=== PATIENT | female | born 1965 | race Caucasian/White ===

== ENCOUNTER → 2018-10-12 | Outpatient (CLI) | payer BC ==
[~2018-10-12] MED LIST: ACET-819 PO; CLCX200C PO; ETAN50PE SQ; GLUC100016 PO; LORA10CA PO; LVT.025T PO; OXYC1TAB87 PO; SULF500T3 PO
--- NOTE | 2018-10-12 10:56 | Diagnostic Imaging Report ---
PROCEDURE: MRI left joint lower extremity without contrast. TECHNIQUE: Multiplanar, multisequence non contrast-enhanced MRI of the left ankle and midfoot was accomplished. INDICATION: Left ankle and midfoot pain. COMPARISONS: None available. FINDINGS: TENDONS: Achilles is normal. Peroneus brevis has a short segment split longitudinal tear in the inframalleolar region, but the distal insertion is normal. Peroneus longus is normal. Posterior tibialis, flexor digitorum longus and flexor hallucis longus are intact. There is a small amount of fluid around the flexor hallucis longus which is expected given its communication with the tibiotalar joint. The anterior tibialis, extensor hallucis longus and extensor digitorum longus are all normal where seen. LIGAMENTS: Anterior and posterior distal tibiofibular ligaments are normal. Anterior talofibular, calcaneofibular and posterior talofibular ligaments remain intact. Medial deltoid ligamentous complex is normal. BONES AND CARTILAGE: No osteochondral lesion of the talar dome. Edema with potential trabecular fracture line involving the base of the fourth metatarsal is present. No additional fracture or stress fracture. The articular cartilage of the tibiotalar and posterior subtalar joints are normal. SOFT TISSUES: No evidence of plantar fasciitis. No abnormal soft tissue scar/fibrosis within the tarsal canal/sinus tarsi or tarsal tunnel. No ankle joint effusion. IMPRESSION: 1. Acute to subacute nondisplaced fracture involving the base of the fourth metatarsal. 2. No ligament tear. 3. 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 Its insertion on the base of the fifth metatarsal remains intact. Dictated by: Dictated on workstation # [id number]
== END ==
LOC: RAD 08:29
PROVIDERS: ATTEND Podiatrist Foot & Ankle Surgery
DX: S92.342A Displaced fracture of fourth metatarsal bone, left foot, initial encounter for closed fracture (principal); S96.812A Strain of other specified muscles and tendons at ankle and foot level, left foot, initial encounter; M76.62 Achilles tendinitis, left leg; M72.2 Plantar fascial fibromatosis; M77.52 Other enthesopathy of left foot and ankle
CPT/HCPCS: 73721

== ENCOUNTER 2019-01-16 05:58 | Outpatient (CLI) | payer BC ==
[~2019-01-16] VITALS: Ht 167.6 cm; Wt 99.8 kg
[2019-01-16] MEDS ORDERED: CELE-63 PO (14:05)
[2019-01-16] MEDS ORDERED: ETAN50PE SQ (14:05)
[2019-01-16] MEDS ORDERED: MV-M1TAB57 PO (14:05)
[2019-01-16] MEDS ORDERED: OMEP20TA33 PO (14:05)
[2019-01-16] MEDS ORDERED: colon health PO (14:05)
[2019-01-16] MEDS ORDERED: LEVO100T7 PO (14:05)
[2019-01-16] MEDS ORDERED: GLUC100016 PO (14:05)
== END 2019-01-16 14:08 | disposition home or self-care (01) ==
LOC: PREOP 05:58
PROVIDERS: ATTEND Internal Medicine
DX: Z01.818 Encounter for other preprocedural examination (principal)

== ENCOUNTER 2019-01-18 08:53 | Day surgery (SDC) | payer BC ==
--- NOTE | 2019-01-15 20:52 | HISTORY AND PHYSICAL ---
DATE OF SERVICE: COLONOSCOPY HISTORY AND PHYSICAL HISTORY OF PRESENT ILLNESS: The patient is a 53-year-old white female referred by Dr. Saniya Schwab for her first screening colonoscopy. She is deemed to be of higher than average risk as her father was diagnosed with colon cancer at the age of 60. Her mother had a history of colon polyps and underwent intestinal resection, which is not sure of the exact causes, but it may have been related to diverticulitis. She states that she feels well. She has noted no bowel habit change and denies bright red blood per rectum or melena. PAST MEDICAL HISTORY: Significant with 13-year history of psoriatic arthritis for which she has been taking Enbrel. 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 She has history of reflux for which she takes omeprazole. MEDICATIONS ON ADMISSION: Include Celebrex 200 mg daily, glucosamine in the form of Osteo Bi-Flex 1500 mg twice a day, Tylenol 1000 mg in the morning and 1000 mg in the evening, Claritin 10 mg daily, Synthroid 25 mcg daily, Enbrel 50 mg weekly, 20 mg omeprazole daily and a probiotic daily. SOCIAL HISTORY: She has no past smoking history and no significant alcohol intake. 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 REVIEW OF SYSTEMS: CONSTITUTIONAL: She denies night sweats, chills, fever or change in weight. CARDIOVASCULAR: She denies any past problems with arrhythmia, chest pain or dyspnea. RESPIRATORY: She denies any problems with cough, dyspnea on exertion, snoring or wheezing. GASTROINTESTINAL: As noted in the HPI. FAMILY HISTORY: As stated in the HPI. In addition, she has one sister with history of hyperlipidemia and arthritis. Brother is 4 years older with history of depression and hyperlipidemia. PHYSICAL EXAMINATION: GENERAL: Reveals well-appearing white female, in no acute distress. VITAL SIGNS: Weight is 222 pounds, blood pressure 126/70. HEENT: Unremarkable. NECK: Revealed no JVD, adenopathy or bruits. She is a Mallampati class 2 oropharyngeal configuration. CHEST: Clear to auscultation. CARDIOVASCULAR: Reveals a regular rate and rhythm without murmur, S3 or S4. ABDOMEN: Soft, supple without mass, organomegaly or tenderness. EXTREMITIES: Revealed no cyanosis, clubbing or edema. SKIN EVALUATION: Revealed no psoriatic plaque formation. No telangiectasias are noted. ASSESSMENT AND PLAN: The patient is set up for screening colonoscopy. Rationale was discussed. She is deemed to be of higher than average risk as her father had history of colon cancer diagnosed at the age of 60 and mother apparently has history of colon polyps and has undergone resection, possibly for diverticular disease. Prep instructions with Suprep kit were given and questions were answered. The patient is set up for colonoscopy on 01/18/2019. With evaluation of her electronic medical record, 40 minutes care time had been spent by myself, another 15 minutes of staff time setting up procedure and going over prep instructions. I thank you for the referral of this pleasant lady. Job ID: [id number] DocumentID: [id number] Dictated Date: 01/14/2019 19:55:56 [employer] Date: 01/14/2019 20:23:39 Dictated By: NASIR LAY MD MTDD
[~2019-01-18] VITALS: Ht 167.6 cm; Wt 99.8 kg
[~2019-01-18 08:53] MED LIST changes: +CELE-63 PO; +LEVO100T7 PO; +MV-M1TAB57 PO; +OMEP20TA33 PO; +colon health PO
--- OUTSIDE RECORDS SUMMARY | 2019-01-18 08:59 | XMS REPORT | CCD ---
Author Author [facility] Organization [facility] Address [address] [place] [address] Phone Care Team Providers Care Economics Instructor Name Role Phone PP Unavailable CCM Unavailable Summary Purpose Interface Exchange Insurance Providers Payer name Policy type / Coverage type Covered constitution party ID Effective Begin Date Effective End Date Blue Cross Blue [facility] Blue Cross/Blue Shield [id number] Unknown Unknown Family history Sister Diagnosis Age At Onset Hyperlipidemia Unknown Arthritis Unknown Father Diagnosis Age At Onset Stroke Unknown Hyperlipidemia Unknown Colorectal malignancy Unknown Diabetes mellitus Type 2 Unknown Myocardial infarction Unknown Mother Diagnosis Age At Onset Osteoporosis Unknown Diabetes Unknown Arthritis Unknown Myocardial infarction Unknown Brother Diagnosis Age At Onset Depression Unknown Hyperlipidemia Unknown Runs in the family Diagnosis Age At Onset Breast cancer Unknown Cancer Unknown Arthritis Unknown Social History Social History Element Codes Description Effective Dates Marital status Unknown Single 06/10/2013 Employment Unknown 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[address]: 6599277 Former smoker 06/10/[address]: 3529002 Former smoker quit 200606/10/2013 Number of years using tobacco Unknown 1 smoked a few months 06/10/2013 Alcohol history Unknown occasionally drinks alcohol 06/10/2013 Alcohol history Unknown occasionally drinks alcohol 06/10/2013 Frequency of drinks SNOMED CT: 404605753 Drinks rarely 1/month 06/10/2013 Allergies, Adverse Reactions, Alerts Allergies, Adverse Reactions, Alerts data not found Past Medical History Illness Codes Condition Status Onset Date Resolved Date Atrophy of thyroid (acquired) ICD-9: 244.8 ICD-10: E03.4 Active 04/19/2016 Unknown Type 2 diabetes mellitus without complications ICD-9: 250.00 ICD-10: E11.9 Active 03/19/2014 Unknown Encounter for general adult medical examination without abnormal findings ICD-9: V70.0 ICD-10: Z00.00 Active 11/07/2016 Unknown Hypothyroidism, unspecified ICD-9: 244.9 ICD-10: E03.9 Active 03/02/2016 Unknown Other vitamin B12 deficiency anemias ICD-9: 281.1 ICD-10: D51.8 Active 05/18/2016 Unknown Gastro-esophageal reflux disease without esophagitis ICD-9: 530.81 ICD-10: K21.9 Active 06/05/2016 Unknown VACCIN FOR INFLUENZA ICD- 9: V04.81 ICD-10: Z23 Active 05/18/2016 Unknown Encounter for immunization ICD-9: V03.9 ICD-10: Z23 Active 04/19/2016 Unknown Other fatigue ICD-9: 780.79 ICD-10: R53.83 Active 03/02/2016 Unknown Routine medical exam ICD- 9: V70.0 Active 03/18/2015 Unknown EDEMA ICD-9: 782.3 Active 01/21/2015 Unknown Osteoarthritis ICD-9: 715.90 Active 06/19/2014 Unknown DIABETES TYPE II ICD-9: 250.00 Active 03/19/2014 Unknown Hypothyroidism ICD-9: 244.9 Active 03/19/2014 Unknown Diabetes Unknown Active 09/25/2013 Unknown Hypothryroidism Unknown Active 06/25/2013 Unknown Elevated blood sugar ICD- 9: 790.29 Active 06/25/2013 Unknown Arthritis Unknown Active 06/10/2013 Unknown Osteoarthritis Unknown Active 06/10/2013 Unknown 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 Unknown Encounter for long-term (current) use of other medications ICD-9: V58.69 Active 06/10/2013 Unknown Knee pain, bilateral ICD- 9: 719.46 Active 06/10/2013 Unknown OBESITY ICD-9: 278.00 Active 06/10/2013 Unknown Problems Condition Codes Effective Dates Condition Status Atrophy of thyroid (acquired) ICD-9: 244.8 ICD-10: E03.4 04/19/2016 Active Type 2 diabetes mellitus without complications ICD-9: 250.00 ICD-10: E11.9 03/19/2014 Active Encounter for general adult medical examination without abnormal findings ICD-9: V70.0 ICD-10: Z00.00 11/07/2016 Active Hypothyroidism, unspecified ICD-9: 244.9 ICD-10: E03.9 03/02/2016 Active Other vitamin B12 deficiency anemias ICD-9: 281.1 ICD-10: D51.8 05/18/2016 Active Gastro-esophageal reflux disease without esophagitis ICD-9: 530.81 ICD-10: K21.9 06/05/2016 Active VACCIN FOR INFLUENZA ICD- 9: V04.81 ICD-10: Z23 05/18/2016 Active Encounter for immunization ICD-9: V03.9 ICD-10: Z23 04/19/2016 Active Other fatigue ICD-9: 780.79 ICD-10: R53.83 03/02/2016 Active Routine medical exam ICD- 9: V70.0 03/18/2015 Active EDEMA ICD-9: 782.3 01/21/2015 Active Osteoarthritis ICD-9: 715.90 06/19/2014 Active DIABETES TYPE II ICD-9: 250.00 03/19/2014 Active Hypothyroidism ICD-9: 244.9 03/19/2014 Active Diabetes Unknown 09/25/2013 Active Hypothryroidism Unknown 06/25/2013 Active Elevated blood sugar ICD- 9: 790.29 06/25/2013 Active Arthritis Unknown 06/10/2013 Active Osteoarthritis Unknown 06/10/2013 Active 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 Active Encounter for long-term (current) use of other medications ICD-9: V58.69 06/10/2013 Active Knee pain, bilateral ICD- 9: 719.46 06/10/2013 Active OBESITY ICD-9: 278.00 06/10/2013 Active Medications Medication Codes Instructions Start Date Stop Date Status Fill Instructions Synthroid 100 mcg tablet RxNorm: 855283 TAKE 1 TABLET BY MOUTH DAILY MONDAY THRU Monday02/14/2017 07/11/2017 Active 02/14/2017 7:59:51 AM N O T I C E Last quantity doesn't match original quantity amoxicillin 500 mg tablet RxNorm: 688060 2 Tablet(s) PO prior to dental or other procedures and then 2 tabs 4 hours after procedure 11/28/2016 No Stop Date Active cyanocobalamin (vit B-12) 1,000 mcg/mL injection solution RxNorm: 265922 1 Milliliter(s) Inj month 11/28/2016 02/20/2018 Active multidose vial if available, if not do a 3 month supply Synthroid 88 mcg tablet RxNorm: 013646 1 Tablet(s) PO BIW on Sat and Sun 09/16/2016 01/13/2017 Inactive FERNANDO-1 ok for 90 day supply if she wants it Synthroid 100 mcg tablet RxNorm: 050303 1 Tablet(s) PO daily Mon thru Mon08/09/2016 12/06/2016 Inactive FERNANDO-1 can have 90 day supply if she wants it omeprazole 20 mg capsule,delayed release RxNorm: 411475 1 Tablet(s) PO BID 07/28/2016 07/22/2017 Active Dexilant 60 mg capsule, delayed release RxNorm: 525928 1 Capsule(s) PO daily 06/27/2016 06/26/2016 Inactive Dexilant 60 mg capsule, delayed release RxNorm: 510833 1 Capsule(s) PO daily 06/27/2016 07/27/2016 Inactive cyanocobalamin (vit B-12) 1,000 mcg/mL injection solution RxNorm: 043169 Milliliter(s) Inj 05/19/2016 05/19/2016 Inactive cyanocobalamin (vit B-12) 1,000 mcg/mL injection solution RxNorm: 901225 1 Milliliter(s) Inj 04/20/2016 04/20/2016 Inactive Synthroid 100 mcg tablet RxNorm: 442251 1 Tablet(s) PO daily Mon thru Mon03/03/2016 06/30/2016 Inactive FERNANDO-1 can have 90 day supply if she wants it Synthroid 88 mcg tablet RxNorm: 980069 1 Tablet(s) PO UD take on Sat and Sun 03/03/2016 03/02/2016 Inactive Synthroid 88 mcg tablet RxNorm: 598256 1 Tablet(s) PO UD take on Sat and Sun 03/03/2016 06/30/2016 Inactive FERNANDO-1 ok for 90 day supply if she wants it Synthroid 100 mcg tablet RxNorm: 537487 1 Tablet(s) PO daily Mon thru Mon03/03/2016 03/02/2016 Inactive FERNANDO-1 Breeze 2 Test Strips RxNorm: Miscellaneous test twice weekly or ud 02/29/2016 02/01/2021 Active dx- 250.00 levothyroxine 88 mcg tablet RxNorm: 998172 1 Tablet(s) BIW on Monday, Monday12/21/2015 03/02/2016 Inactive loratadine 10 mg capsule RxNorm: 034673 1 Capsule(s) PO daily as needed 12/21/2015 06/05/2016 Inactive levothyroxine 100 mcg tablet RxNorm: 339899 1 Tablet(s) PO daily oon Monday through Monday12/21/2015 03/02/2016 Inactive levothyroxine 100 mcg tablet RxNorm: 219664 1 Tablet(s) PO UD on Monday06/22/2015 12/20/2015 Inactive levothyroxine 88 mcg tablet RxNorm: 825333 1 Tablet(s) UD on Monday, , Monday, Monday06/22/2015 12/20/2015 Inactive levothyroxine 88 mcg tablet RxNorm: 836775 1 Tablet(s) UD on Monday, , Monday, Monday03/19/2015 06/21/2015 Inactive levothyroxine 100 mcg tablet RxNorm: 207361 1 Tablet(s) PO UD on Monday03/19/2015 06/21/2015 Inactive Lasix 20 mg tablet RxNorm: 909336 1/2-1 Tablet(s) PO QDAY PRN 01/22/2015 01/26/2015 Inactive potassium chloride ER 10 mEq capsule,extended release RxNorm: 480525 1 Capsule(s) PO QDAY PRN 01/22/2015 06/05/2016 Inactive take with lasix (furosemide) levothyroxine 88 mcg tablet RxNorm: 362530 1 Tablet(s) PO daily 12/22/2014 03/18/2015 Inactive Breeze 2 Test Strips RxNorm: Miscellaneous test twice weekly or ud 10/22/2014 03/20/2015 Inactive dx- 250.00 Breeze 2 Test Strips RxNorm: Miscellaneous test twice weekly or ud 10/22/2014 10/21/2014 Inactive dx- 250.00 levothyroxine 88 mcg tablet RxNorm: 761591 1 Tablet(s) PO daily 09/22/2014 12/20/2014 Inactive Synthroid 100 mcg tablet RxNorm: 810237 1 Tablet(s) PO daily 06/19/2014 09/21/2014 Inactive Lancets,Thin RxNorm: 1 Miscellaneous BID 03/24/2014 04/22/2014 Inactive Synthroid 75 mcg tablet RxNorm: 879938 1 Tablet(s) PO daily 03/19/2014 06/18/2014 Inactive Breeze 2 Test Strips RxNorm: 1 Miscellaneous BID 03/19/2014 04/17/2014 Inactive Breeze 2 Test Strips RxNorm: 1 Miscellaneous BID 03/19/2014 03/18/2014 Inactive Synthroid 75 mcg tablet RxNorm: 324962 1 Tablet(s) PO daily 12/16/2013 03/18/2014 Inactive Synthroid 75 mcg tablet RxNorm: 906148 1 Tablet(s) PO daily 12/16/2013 12/15/2013 Inactive Synthroid 50 mcg tablet RxNorm: 480714 1 Tablet(s) PO daily 09/16/2013 12/15/2013 Inactive Synthroid 25 mcg tablet RxNorm: 264128 1 Tablet(s) PO daily 06/25/2013 09/15/2013 Inactive Glucosamine 1500 Complex 500 mg-400 mg capsule RxNorm: 1 Capsule(s) PO daily No Start Date Active Enbrel 50 mg/mL (0.98 mL) subcutaneous syringe RxNorm: 829190 Milliliter(s) SQ weekly No Start Date Active Multiple Vitamins chewable tablet RxNorm: 1 Tablet(s) PO daily No Start Date Active Vitamin B-12 5,000 mcg sublingual tablet RxNorm: 292417 1 Tablet(s) SL daily No Start Date Active Celebrex 200 mg capsule RxNorm: 483396 1 Capsule(s) PO daily No Start Date Active Tylenol 325 mg tablet RxNorm: 347347 Tablet(s) PO as needed No Start Date Active oxycodone 5 mg tablet RxNorm: 4141666 1/2-1 Tablet(s) PO daily as needed No Start Date 06/18/2014 Inactive loratadine 10 mg capsule RxNorm: 315738 1 Capsule(s) PO daily No Start Date 12/20/2015 Inactive Synthroid 50 mcg tablet RxNorm: 972716 1 Tablet(s) PO daily No Start Date 09/15/2013 Inactive sulfasalazine 500 mg tablet RxNorm: 8469829 1 Tablet(s) PO daily No Start Date 01/21/2015 Inactive ibuprofen 600 mg tablet RxNorm: 704680 1 Tablet(s) PO BID PRN No Start Date 03/18/2014 Inactive Medication Administered Medication Codes Instructions Start Date Status cyanocobalamin (vit B-12) 1,000 mcg/mL injection solution RxNorm: 594571 Milliliter 05/19/2016 No longer Active cyanocobalamin (vit B-12) 1,000 mcg/mL injection solution RxNorm: 838018 1Milliliter 04/20/2016 No longer Active Immunizations Vaccine Codes Date Status Influenza CVX: 141 05/19/2016 completed Pneumococcal (Adult) CVX: 33 04/20/2016 completed Influenza CVX: 141 06/16/2014 completed Influenza CVX: 141 06/25/2013 completed Assessments Condition Codes Effective Dates Type 2 diabetes mellitus without complications ICD-10: E11.9 ICD-9: 250.00 11/28/2016 Atrophy of thyroid (acquired) ICD-10: E03.4 ICD-9: 244.8 11/28/2016 Other vitamin B12 deficiency anemias ICD-10: D51.8 ICD-9: 281.1 11/07/2016 Encounter for general adult medical examination without abnormal findings ICD-10: Z00.00 ICD-9: V70.0 11/07/2016 Hypothyroidism, unspecified ICD-10: E03.9 ICD-9: 244.9 11/07/2016 Gastro-esophageal reflux disease without esophagitis ICD-10: K21.9 ICD-9: 530.81 07/28/2016 VACCIN FOR INFLUENZA ICD-10: Z23 ICD-9: V04.81 05/19/2016 Encounter for immunization ICD-10: Z23 ICD-9: V03.9 04/20/2016 Other fatigue ICD-10: R53.83 ICD-9: 780.79 03/03/2016 Routine medical exam ICD-9: V70.0 03/19/2015 HYPOTHYROIDISM ICD-9: 244.9 03/19/2015 DIABETES TYPE II ICD-9: 250.00 03/19/2015 EDEMA ICD-9: 782.3 01/22/2015 Osteoarthritis ICD-9: 715.90 06/19/2014 Elevated blood sugar ICD-9: 790.29 06/25/2013 OBESITY ICD-9: 278.00 06/10/2013 Encounter for long-term (current) use of other medications ICD- 9: V58.69 06/10/2013 Knee pain, bilateral ICD-9: 719.46 06/10/2013 Reason For Visit Reason For Visit Effective Dates Notes hypothyroid 11/28/2016 sinus congestion 07/28/2016 abdominal pain 06/06/2016 vaccination against influenza 05/19/2016 hypothyroid 04/20/2016 fatigue 03/03/2016 hypothyroid 12/21/2015 hypothyroid 06/22/2015 hypothyroid 03/19/2015 edema 01/22/2015 hypothyroid 12/22/2014 hypothyroid 06/19/2014 hypothyroid 03/19/2014 medication follow up 09/25/2013 hypothyroid 06/25/2013 knee pain 06/10/2013 Results Observation Observation Code Item Item Code Result Date %Hba1C Cxf119 % HbA1c 81537- 6 6.3 % 11/28/2016 %Hba1C Hxw422 Gluc Ave 134 mg/dL 11/28/2016 Cbc With Differential Ord2 WBC 7.25 K/ul 11/28/2016 Cbc With Differential Ord2 RBC 4.68 M/ul 11/28/2016 Cbc With Differential Ord2 HGB 13.3 g/dl 11/28/2016 Cbc With Differential Ord2 HCT 40.4 % 11/28/2016 Cbc With Differential Ord2 Neut% 58.8 % 11/28/2016 Cbc With Differential Ord2 Lymph% 31.7 % 11/28/2016 Cbc With Differential Ord2 MCV 86.3 fl 11/28/2016 Cbc With Differential Ord2 [place]% 6.2 % 11/28/2016 Cbc With Differential Ord2 MCH 28.4 pg 11/28/2016 Cbc With Differential Ord2 Eos% 3.2 % 11/28/2016 Cbc With Differential Ord2 MCHC 32.9 pg 11/28/2016 Cbc With Differential Ord2 PLT 235 K/ul 11/28/2016 Cbc With Differential Ord2 Baso% 0.1 % 11/28/2016 Cbc With Differential Ord2 RDW 13.8 % 11/28/2016 Cbc With Differential Ord2 Neut ABS# 4.26 K/ul 11/28/2016 Cbc With Differential Ord2 Lymph ABS# 2.30 K/ul 11/28/2016 Cbc With Differential Ord2 [place] ABS# 0.5 K/ul 11/28/2016 Cbc With Differential Ord2 Eos ABS# 0.2 K/ul 11/28/2016 Cbc With Differential Ord2 Baso ABS# 0.0 K/ul 11/28/2016 Tsh Ord6 hTSH II 3.96 uIU/mL 11/28/2016 Free T4 Zlh056 FREE T4 0.81 ng/dL 11/28/2016 Comp Metabolic Azp518 NA 134 mEq/L 11/28/2016 Comp Metabolic Lrs968 K 3.8 mEq/L 11/28/2016 Comp Metabolic Egx692 CL 98 mEq/L 11/28/2016 Comp Metabolic Hhu228 CO2 28.0 mEq/L 11/28/2016 Comp Metabolic Wvf004 ANION GAP 12 11/28/2016 Comp Metabolic Esx060 GLUCOSE 156 mg/dL 11/28/2016 Comp Metabolic Ttr285 Creat 0.8 mg/dL 11/28/2016 Comp Metabolic Mjo976 eGFR 75 ml/min/1.73m2 11/28/2016 Comp Metabolic Lbi226 BUN 15 mg/dL 11/28/2016 Comp Metabolic Mbk218 B/C Ratio 17.9 Ratio 11/28/2016 Comp Metabolic Bpy036 CALCIUM 9.3 mg/dL 11/28/2016 Comp Metabolic Xhu492 ALK PHOS 55 U/L 11/28/2016 Comp Metabolic Lva449 AST(SGOT) 17 U/L 11/28/2016 Comp Metabolic Oob120 ALT(SGPT) 26 U/L 11/28/2016 Comp Metabolic Xch720 BILI T 0.4 mg/dL 11/28/2016 Comp Metabolic Crd765 ALBUMIN 4.2 g/dL 11/28/2016 Comp Metabolic Kik160 TPRO 6.6 g/dL 11/28/2016 Comp Metabolic Ues959 GLOB 2.4 g/dL 11/28/2016 Comp Metabolic Qgn360 A/G Ratio 1.8 Ratio 11/28/2016 Comp Metabolic Xjk785 Osmo 272 mOsmo 11/28/2016 B12 Uaa760 B12 >1500.00 pg/ml 11/28/2016 Free T4 Rxp430 FREE T4 0.85 ng/dL 07/27/2016 Cbc With Differential Ord2 WBC 5.62 K/ul 07/27/2016 Cbc With Differential Ord2 RBC 4.17 M/ul 07/27/2016 Cbc With Differential Ord2 HGB 12.0 g/dl 07/27/2016 Cbc With Differential Ord2 HCT 36.5 % 07/27/2016 Cbc With Differential Ord2 Neut% 48.6 % 07/27/2016 Cbc With Differential Ord2 MCV 87.5 fl 07/27/2016 Cbc With Differential Ord2 Lymph% 42.9 % 07/27/2016 Cbc With Differential Ord2 MCH 28.8 pg 07/27/2016 Cbc With Differential Ord2 [place]% 6.0 % 07/27/2016 Cbc With Differential Ord2 MCHC 32.9 pg 07/27/2016 Cbc With Differential Ord2 Eos% 2.3 % 07/27/2016 Cbc With Differential Ord2 Baso% 0.2 % 07/27/2016 Cbc With Differential Ord2 PLT 236 K/ul 07/27/2016 Cbc With Differential Ord2 RDW 13.1 % 07/27/2016 Cbc With Differential Ord2 Neut ABS# 2.73 K/ul 07/27/2016 Cbc With Differential Ord2 Lymph ABS# 2.41 K/ul 07/27/2016 Cbc With Differential Ord2 [place] ABS# 0.3 K/ul 07/27/2016 Cbc With Differential Ord2 Eos ABS# 0.1 K/ul 07/27/2016 Cbc With Differential Ord2 Baso ABS# 0.0 K/ul 07/27/2016 %Hba1C Zjp567 % HbA1c 22280- 6 6.1 % 07/27/2016 %Hba1C Bne204 Gluc Ave 128 mg/dL 07/27/2016 Tsh Ord6 hTSH II 0.69 uIU/mL 07/27/2016 Helicobacter Pylori Igm Ab 494392 H. PYLORI AB, IgM <9.0 units 06/10/2016 Helicobacter Pylori Iga 726446 H. PYLORI AB, IgA <9.0 units 06/10/2016 H. Pylori Igg Abs 187765 H. PYLORI AB, IgG 0.2 INDEX 06/07/2016 H. Pylori Igg Abs 908439 06/07/2016 Comp Metabolic Ygn395 NA 133 mEq/L 04/20/2016 Comp Metabolic Zbk609 K 4.3 mEq/L 04/20/2016 Comp Metabolic Qls352 CL 100 mEq/L 04/20/2016 Comp Metabolic Pbm597 CO2 28.0 mEq/L 04/20/2016 Comp Metabolic Tuq052 ANION GAP 9 04/20/2016 Comp Metabolic Ybx058 GLUCOSE 139 mg/dL 04/20/2016 Comp Metabolic Yoh201 Creat 0.8 mg/dL 04/20/2016 Comp Metabolic Lts062 eGFR 85 ml/min/1.73m2 04/20/2016 Comp Metabolic Wka407 BUN 16 mg/dL 04/20/2016 Comp Metabolic Gme115 B/C Ratio 21.1 Ratio 04/20/2016 Comp Metabolic Goq469 CALCIUM 9.1 mg/dL 04/20/2016 Comp Metabolic Cvb864 ALK PHOS 45 U/L 04/20/2016 Comp Metabolic Qmr760 AST(SGOT) 16 U/L 04/20/2016 Comp Metabolic Aok226 ALT(SGPT) 29 U/L 04/20/2016 Comp Metabolic Xfu338 BILI T 0.5 mg/dL 04/20/2016 Comp Metabolic Doc069 ALBUMIN 4.2 g/dL 04/20/2016 Comp Metabolic Mfl764 TPRO 6.7 g/dL 04/20/2016 Comp Metabolic Nfn381 GLOB 2.5 g/dL 04/20/2016 Comp Metabolic Fpn765 A/G Ratio 1.7 Ratio 04/20/2016 Comp Metabolic Usq514 Osmo 270 mOsmo 04/20/2016 %Hba1C Ije091 % HbA1c 13353- 6 6.2 % 04/20/2016 %Hba1C Kzt523 Gluc Ave 131 mg/dL 04/20/2016 Lipid Ord30 CHOL 157 mg/dL 04/20/2016 Lipid Ord30 HDL 47.0 mg/dl 04/20/2016 Lipid Ord30 TRIG 143 mg/dL 04/20/2016 Lipid Ord30 LDL 81 mg/dL 04/20/2016 Lipid Ord30 C/HDL 3.3 Ratio 04/20/2016 Cbc With Differential Ord2 WBC 5.29 K/ul 04/20/2016 Cbc With Differential Ord2 RBC 4.43 M/ul 04/20/2016 Cbc With Differential Ord2 HGB 12.8 g/dl 04/20/2016 Cbc With Differential Ord2 HCT 39.1 % 04/20/2016 Cbc With Differential Ord2 Neut% 46.9 % 04/20/2016 Cbc With Differential Ord2 MCV 88.3 fl 04/20/2016 Cbc With Differential Ord2 Lymph% 41.0 % 04/20/2016 Cbc With Differential Ord2 [place]% 8.5 % 04/20/2016 Cbc With Differential Ord2 MCH 28.9 pg 04/20/2016 Cbc With Differential Ord2 MCHC 32.7 pg 04/20/2016 Cbc With Differential Ord2 Eos% 3.4 % 04/20/2016 Cbc With Differential Ord2 Baso% 0.2 % 04/20/2016 Cbc With Differential Ord2 PLT 225 K/ul 04/20/2016 Cbc With Differential Ord2 Neut ABS# 2.48 K/ul 04/20/2016 Cbc With Differential Ord2 RDW 13.3 % 04/20/2016 Cbc With Differential Ord2 Lymph ABS# 2.17 K/ul 04/20/2016 Cbc With Differential Ord2 [place] ABS# 0.5 K/ul 04/20/2016 Cbc With Differential Ord2 Eos ABS# 0.2 K/ul 04/20/2016 Cbc With Differential Ord2 Baso ABS# 0.0 K/ul 04/20/2016 Cbc With Differential Ord2 WBC 4.74 K/ul 03/03/2016 Cbc With Differential Ord2 RBC 4.39 M/ul 03/03/2016 Cbc With Differential Ord2 HGB 12.8 g/dl 03/03/2016 Cbc With Differential Ord2 Neut% 54.3 % 03/03/2016 Cbc With Differential Ord2 HCT 38.9 % 03/03/2016 Cbc With Differential Ord2 MCV 88.6 fl 03/03/2016 Cbc With Differential Ord2 Lymph% 36.5 % 03/03/2016 Cbc With Differential Ord2 MCH 29.2 pg 03/03/2016 Cbc With Differential Ord2 [place]% 6.3 % 03/03/2016 Cbc With Differential Ord2 MCHC 32.9 pg 03/03/2016 Cbc With Differential Ord2 Eos% 2.7 % 03/03/2016 Cbc With Differential Ord2 PLT 203 K/ul 03/03/2016 Cbc With Differential Ord2 Baso% 0.2 % 03/03/2016 Cbc With Differential Ord2 RDW 13.7 % 03/03/2016 Cbc With Differential Ord2 Neut ABS# 2.57 K/ul 03/03/2016 Cbc With Differential Ord2 Lymph ABS# 1.73 K/ul 03/03/2016 Cbc With Differential Ord2 [place] ABS# 0.3 K/ul 03/03/2016 Cbc With Differential Ord2 Eos ABS# 0.1 K/ul 03/03/2016 Cbc With Differential Ord2 Baso ABS# 0.0 K/ul 03/03/2016 Free T4 Hjq503 FREE T4 0.90 ng/dL 03/03/2016 Comp Metabolic Sbo564 NA 135 mEq/L 03/03/2016 Comp Metabolic Jft158 K 3.7 mEq/L 03/03/2016 Comp Metabolic Bvv545 CL 100 mEq/L 03/03/2016 Comp Metabolic Yho888 CO2 29.0 mEq/L 03/03/2016 Comp Metabolic Msk157 ANION GAP 10 03/03/2016 Comp Metabolic Jmc593 GLUCOSE 134 mg/dL 03/03/2016 Comp Metabolic Ssu975 Creat 0.7 mg/dL 03/03/2016 Comp Metabolic Dcc546 eGFR 93 ml/min/1.73m2 03/03/2016 Comp Metabolic Fgk855 BUN 16 mg/dL 03/03/2016 Comp Metabolic Tha709 B/C Ratio 22.9 Ratio 03/03/2016 Comp Metabolic Axt573 CALCIUM 9.0 mg/dL 03/03/2016 Comp Metabolic Pdy842 ALK PHOS 36 U/L 03/03/2016 Comp Metabolic Vzi956 AST(SGOT) 17 U/L 03/03/2016 Comp Metabolic Fnh498 ALT(SGPT) 25 U/L 03/03/2016 Comp Metabolic Ony223 BILI T 0.4 mg/dL 03/03/2016 Comp Metabolic Xmq825 ALBUMIN 4.3 g/dL 03/03/2016 Comp Metabolic Oba272 TPRO 6.6 g/dL 03/03/2016 Comp Metabolic Axo315 GLOB 2.3 g/dL 03/03/2016 Comp Metabolic Wnw905 A/G Ratio 1.8 Ratio 03/03/2016 Comp Metabolic Hmk738 Osmo 273 mOsmo 03/03/2016 Tsh Ord6 hTSH II 2.99 uIU/mL 03/03/2016 Comp Metabolic Kcz281 NA 135 mEq/L 12/21/2015 Comp Metabolic Iis979 K 4.1 mEq/L 12/21/2015 Comp Metabolic Dki472 CL 100 mEq/L 12/21/2015 Comp Metabolic Lwf605 CO2 29.0 mEq/L 12/21/2015 Comp Metabolic Jim711 ANION GAP 10 12/21/2015 Comp Metabolic Ctf590 GLUCOSE 146 mg/dL 12/21/2015 Comp Metabolic Zmr099 Creat 0.8 mg/dL 12/21/2015 Comp Metabolic Wkk027 eGFR 76 ml/min/1.73m2 12/21/2015 Comp Metabolic Yuv255 BUN 14 mg/dL 12/21/2015 Comp Metabolic Ztb778 B/C Ratio 16.7 Ratio 12/21/2015 Comp Metabolic Bvh885 CALCIUM 9.0 mg/dL 12/21/2015 Comp Metabolic Wmk457 ALK PHOS 47 U/L 12/21/2015 Comp Metabolic Ull036 AST(SGOT) 19 U/L 12/21/2015 Comp Metabolic Omq463 ALT(SGPT) 31 U/L 12/21/2015 Comp Metabolic Zzu789 BILI T 0.4 mg/dL 12/21/2015 Comp Metabolic Wwe163 ALBUMIN 4.1 g/dL 12/21/2015 Comp Metabolic Noj853 TPRO 6.5 g/dL 12/21/2015 Comp Metabolic Eyu464 GLOB 2.5 g/dL 12/21/2015 Comp Metabolic Bfv076 A/G Ratio 1.7 Ratio 12/21/2015 Comp Metabolic Ylw350 Osmo 273 mOsmo 12/21/2015 Cbc With Differential Ord2 WBC 6.01 K/ul 12/21/2015 Cbc With Differential Ord2 RBC 4.45 M/ul 12/21/2015 Cbc With Differential Ord2 HGB 12.7 g/dl 12/21/2015 Cbc With Differential Ord2 Neut% 56.2 % 12/21/2015 Cbc With Differential Ord2 HCT 39.2 % 12/21/2015 Cbc With Differential Ord2 Lymph% 35.3 % 12/21/2015 Cbc With Differential Ord2 MCV 88.1 fl 12/21/2015 Cbc With Differential Ord2 MCH 28.5 pg 12/21/2015 Cbc With Differential Ord2 [place]% 5.3 % 12/21/2015 Cbc With Differential Ord2 Eos% 3.0 % 12/21/2015 Cbc With Differential Ord2 MCHC 32.4 pg 12/21/2015 Cbc With Differential Ord2 PLT 251 K/ul 12/21/2015 Cbc With Differential Ord2 Baso% 0.2 % 12/21/2015 Cbc With Differential Ord2 Neut ABS# 3.38 K/ul 12/21/2015 Cbc With Differential Ord2 RDW 13.8 % 12/21/2015 Cbc With Differential Ord2 Lymph ABS# 2.12 K/ul 12/21/2015 Cbc With Differential Ord2 [place] ABS# 0.3 K/ul 12/21/2015 Cbc With Differential Ord2 Eos ABS# 0.2 K/ul 12/21/2015 Cbc With Differential Ord2 Baso ABS# 0.0 K/ul 12/21/2015 Cbc With Differential Ord2 New Analyzer Notice Please note new ref ranges starting 08-19-2015 due to implemntation of new five part differential hematolgy analyzer. 12/21/2015 Tsh Ord6 hTSH II 4.58 uIU/mL 12/21/2015 Free T4 Wun416 FREE T4 0.82 ng/dL 12/21/2015 Lipid Ord30 CHOL 168 mg/dL 12/21/2015 Lipid Ord30 HDL 61.0 mg/dl 12/21/2015 Lipid Ord30 TRIG 161 mg/dL 12/21/2015 Lipid Ord30 LDL 75 mg/dL 12/21/2015 Lipid Ord30 C/HDL 2.8 Ratio 12/21/2015 %Hba1C Oet172 % HbA1c 23318- 6 6.2 % 12/21/2015 %Hba1C Xue284 Gluc Ave 131 mg/dL 12/21/2015 Free T4 Xow660 FREE T4 1.03 ng/dL 06/22/2015 Tsh Ord6 hTSH II 1.62 uIU/mL 06/22/2015 Tsh Ord6 hTSH II 2.06 uIU/mL 03/18/2015 Cbc With Differential Ord2 WBC 5.1 K/uL 03/18/2015 Cbc With Differential Ord2 LYM 2.1 K/uL 03/18/2015 Cbc With Differential Ord2 LYM% 41.1 % 03/18/2015 Cbc With Differential Ord2 NEUT/GRAN 2.7 K/uL 03/18/2015 Cbc With Differential Ord2 NEUT/GRAN % 53.4 % 03/18/2015 Cbc With Differential Ord2 MID 0.3 K/uL 03/18/2015 Cbc With Differential Ord2 MID% 5.5 % 03/18/2015 Cbc With Differential Ord2 RBC 4.52 M/uL 03/18/2015 Cbc With Differential Ord2 HGB 12.7 g/dL 03/18/2015 Cbc With Differential Ord2 HCT 39.8 % 03/18/2015 Cbc With Differential Ord2 MCV 88 fL 03/18/2015 Cbc With Differential Ord2 MCH 28 pg 03/18/2015 Cbc With Differential Ord2 MCHC 32 g/dL 03/18/2015 Cbc With Differential Ord2 PLT 229 K/uL 03/18/2015 Cbc With Differential Ord2 RDW 14.0 % 03/18/2015 Comp Metabolic [id number] NA 135 mEq/L 03/18/2015 Comp Metabolic Mpj485 K 4.2 mEq/L 03/18/2015 Comp Metabolic [id number] CL 103 mEq/L 03/18/2015 Comp Metabolic Xuf913 CO2 27.0 mEq/L 03/18/2015 Comp Metabolic Qfs689 ANION GAP 9 03/18/2015 Comp Metabolic Gzc065 GLUCOSE 124 mg/dL 03/18/2015 Comp Metabolic Ncm402 Creat 0.8 mg/dL 03/18/2015 Comp Metabolic Ytd833 eGFR 78 ml/min/1.73m2 03/18/2015 Comp Metabolic Kjh911 BUN 15 mg/dL 03/18/2015 Comp Metabolic Avu472 B/C Ratio 18.3 Ratio 03/18/2015 Comp Metabolic Umr613 CALCIUM 9.4 mg/dL 03/18/2015 Comp Metabolic Bjs162 ALK PHOS 42 U/L 03/18/2015 Comp Metabolic Ete364 AST(SGOT) 14 U/L 03/18/2015 Comp Metabolic Utd111 ALT(SGPT) 25 U/L 03/18/2015 Comp Metabolic Bqw540 BILI T 0.3 mg/dL 03/18/2015 Comp Metabolic Vab385 ALBUMIN 4.2 g/dL 03/18/2015 Comp Metabolic Zcv353 TPRO 6.5 g/dL 03/18/2015 Comp Metabolic Vve071 GLOB 2.3 g/dL 03/18/2015 Comp Metabolic Wag408 A/G Ratio 1.8 Ratio 03/18/2015 Comp Metabolic Xks083 Osmo 272 mOsmo 03/18/2015 %Hba1C Jua672 % HbA1c 39886- 6 6.0 % 03/18/2015 %Hba1C Bry304 Gluc Ave 126 mg/dL 03/18/2015 Free T4 Lur572 FREE T4 0.86 ng/dL 03/18/2015 Lipid Ord30 CHOL 171 mg/dL 03/18/2015 Lipid Ord30 HDL 49.0 mg/dl 03/18/2015 Lipid Ord30 TRIG 169 mg/dL 03/18/2015 Lipid Ord30 LDL 88 mg/dL 03/18/2015 Lipid Ord30 C/HDL 3.5 Ratio 03/18/2015 Review of Systems System Result Effective Dates Constitutional No recent illness 11/28/2016 Constitutional No anorexia 11/28/2016 Constitutional No night sweats 11/28/2016 Constitutional No chills 11/28/2016 Constitutional fatigue 11/28/2016 Constitutional No insomnia 11/28/2016 Constitutional No malaise 11/28/2016 Eyes No eye discharge 11/28/2016 Eyes No eye erythema 11/28/2016 Ears/Nose/Throat/Neck No dental pain 11/28/2016 Ears/Nose/Throat/Neck No dizziness 11/28/2016 Ears/Nose/Throat/Neck No dysphagia 11/28/2016 Ears/Nose/Throat/Neck No headache 11/28/2016 Ears/Nose/Throat/Neck No hearing loss 11/28/2016 Ears/Nose/Throat/Neck No nasal allergies 11/28/2016 Ears/Nose/Throat/Neck No nasal discharge 11/28/2016 Ears/Nose/Throat/Neck No sore throat 11/28/2016 Ears/Nose/Throat/Neck No postnasal drip 11/28/2016 Ears/Nose/Throat/Neck No sinus congestion 11/28/2016 Cardiovascular No arrhythmia 11/28/2016 Cardiovascular No chest pain/pressure 11/28/2016 Cardiovascular No dyspnea 11/28/2016 Cardiovascular No edema 11/28/2016 Cardiovascular No exercise intolerance 11/28/2016 Cardiovascular No fatigue 11/28/2016 Cardiovascular No near-syncope/dizziness 11/28/2016 Cardiovascular No orthopnea 11/28/2016 Cardiovascular No palpitations 11/28/2016 Respiratory No asthma 11/28/2016 Respiratory No pleuritic pain 11/28/2016 Respiratory No productive sputum 11/28/2016 Respiratory No chest tightness 11/28/2016 Respiratory No cigarette smoking 11/28/2016 Respiratory No cough 11/28/2016 Respiratory No dyspnea 11/28/2016 Respiratory No pedal edema 11/28/2016 Respiratory No snoring 11/28/2016 Respiratory No wheezing 11/28/2016 Gastrointestinal No hemorrhoids 11/28/2016 Gastrointestinal No abdominal pain 11/28/2016 Gastrointestinal No constipation 11/28/2016 Gastrointestinal No diarrhea 11/28/2016 Gastrointestinal No gastroesophageal reflux 11/28/2016 Gastrointestinal No melena 11/28/2016 Gastrointestinal No nausea 11/28/2016 Gastrointestinal No vomiting 11/28/2016 Genitourinary/Nephrology No dysuria 11/28/2016 Genitourinary/Nephrology No nocturia 11/28/2016 Genitourinary/Nephrology No urinary incontinence 11/28/2016 Musculoskeletal stiffness 11/28/2016 Musculoskeletal arthralgia(s) 11/28/2016 Dermatologic No rash 11/28/2016 Dermatologic No scar 11/28/2016 Neurologic No alteration of consciousness 11/28/2016 Psychiatric No anxiety 11/28/2016 Psychiatric No depression 11/28/2016 Constitutional No recent illness 07/28/2016 Constitutional No anorexia 07/28/2016 Constitutional No night sweats 07/28/2016 Constitutional No chills 07/28/2016 Constitutional fatigue 07/28/2016 Constitutional No insomnia 07/28/2016 Constitutional No malaise 07/28/2016 Eyes No eye discharge 07/28/2016 Eyes No eye erythema 07/28/2016 Ears/Nose/Throat/Neck No dental pain 07/28/2016 Ears/Nose/Throat/Neck No dizziness 07/28/2016 Ears/Nose/Throat/Neck No dysphagia 07/28/2016 Ears/Nose/Throat/Neck No headache 07/28/2016 Ears/Nose/Throat/Neck No hearing loss 07/28/2016 Ears/Nose/Throat/Neck No nasal allergies 07/28/2016 Ears/Nose/Throat/Neck No nasal discharge 07/28/2016 Ears/Nose/Throat/Neck No sore throat 07/28/2016 Ears/Nose/Throat/Neck No postnasal drip 07/28/2016 Ears/Nose/Throat/Neck No sinus congestion 07/28/2016 Cardiovascular No arrhythmia 07/28/2016 Cardiovascular No chest pain/pressure 07/28/2016 Cardiovascular No dyspnea 07/28/2016 Cardiovascular No edema 07/28/2016 Cardiovascular No exercise intolerance 07/28/2016 Cardiovascular No fatigue 07/28/2016 Cardiovascular No near-syncope/dizziness 07/28/2016 Cardiovascular No orthopnea 07/28/2016 Cardiovascular No palpitations 07/28/2016 Respiratory No asthma 07/28/2016 Respiratory No pleuritic pain 07/28/2016 Respiratory No productive sputum 07/28/2016 Respiratory No chest tightness 07/28/2016 Respiratory No cigarette smoking 07/28/2016 Respiratory No cough 07/28/2016 Respiratory No dyspnea 07/28/2016 Respiratory No pedal edema 07/28/2016 Respiratory No snoring 07/28/2016 Respiratory No wheezing 07/28/2016 Gastrointestinal No hemorrhoids 07/28/2016 Gastrointestinal No abdominal pain 07/28/2016 Gastrointestinal No constipation 07/28/2016 Gastrointestinal No diarrhea 07/28/2016 Gastrointestinal No gastroesophageal reflux 07/28/2016 Gastrointestinal No melena 07/28/2016 Gastrointestinal No nausea 07/28/2016 Gastrointestinal No vomiting 07/28/2016 Genitourinary/Nephrology No dysuria 07/28/2016 Genitourinary/Nephrology No nocturia 07/28/2016 Genitourinary/Nephrology No urinary incontinence 07/28/2016 Musculoskeletal stiffness 07/28/2016 Musculoskeletal arthralgia(s) 07/28/2016 Dermatologic No rash 07/28/2016 Dermatologic No scar 07/28/2016 Neurologic No alteration of consciousness 07/28/2016 Psychiatric No anxiety 07/28/2016 Psychiatric No depression 07/28/2016 Constitutional recent illness 06/06/2016 Constitutional anorexia 06/06/2016 Constitutional No night sweats 06/06/2016 Constitutional No chills 06/06/2016 Constitutional No diaphoresis 06/06/2016 Constitutional No fatigue 06/06/2016 Constitutional No fever 06/06/2016 Constitutional No insomnia 06/06/2016 Constitutional No malaise 06/06/2016 Constitutional weight loss 06/06/2016 Constitutional No weight gain 06/06/2016 Eyes No eye discharge 06/06/2016 Eyes No eye erythema 06/06/2016 Gastrointestinal abdominal pain 06/06/2016 Gastrointestinal No constipation 06/06/2016 Gastrointestinal diarrhea 06/06/2016 Gastrointestinal gas and bloating 06/06/2016 Gastrointestinal gastroesophageal reflux 06/06/2016 Gastrointestinal No vomiting 06/06/2016 Gastrointestinal No nausea 06/06/2016 Ears/Nose/Throat/Neck No dizziness 06/06/2016 Ears/Nose/Throat/Neck No headache 06/06/2016 Cardiovascular No chest pain/pressure 06/06/2016 Respiratory No cough 06/06/2016 Genitourinary/Nephrology No dysuria 06/06/2016 Musculoskeletal No joint complaint 06/06/2016 Dermatologic No rash 06/06/2016 Constitutional No recent illness 04/20/2016 Constitutional No anorexia 04/20/2016 Constitutional No night sweats 04/20/2016 Constitutional No chills 04/20/2016 Constitutional fatigue 04/20/2016 Constitutional No insomnia 04/20/2016 Constitutional No malaise 04/20/2016 Eyes No eye discharge 04/20/2016 Eyes No eye erythema 04/20/2016 Ears/Nose/Throat/Neck No dental pain 04/20/2016 Ears/Nose/Throat/Neck No dizziness 04/20/2016 Ears/Nose/Throat/Neck No dysphagia 04/20/2016 Ears/Nose/Throat/Neck No headache 04/20/2016 Ears/Nose/Throat/Neck No hearing loss 04/20/2016 Ears/Nose/Throat/Neck No nasal allergies 04/20/2016 Ears/Nose/Throat/Neck No nasal discharge 04/20/2016 Ears/Nose/Throat/Neck No postnasal drip 04/20/2016 Ears/Nose/Throat/Neck No sinus congestion 04/20/2016 Ears/Nose/Throat/Neck No sore throat 04/20/2016 Cardiovascular No arrhythmia 04/20/2016 Cardiovascular No chest pain/pressure 04/20/2016 Cardiovascular No dyspnea 04/20/2016 Cardiovascular No edema 04/20/2016 Cardiovascular No exercise intolerance 04/20/2016 Cardiovascular No fatigue 04/20/2016 Cardiovascular No near-syncope/dizziness 04/20/2016 Cardiovascular No orthopnea 04/20/2016 Cardiovascular No palpitations 04/20/2016 Respiratory No asthma 04/20/2016 Respiratory No pleuritic pain 04/20/2016 Respiratory No productive sputum 04/20/2016 Respiratory No chest tightness 04/20/2016 Respiratory No cigarette smoking 04/20/2016 Respiratory No cough 04/20/2016 Respiratory No dyspnea 04/20/2016 Respiratory No pedal edema 04/20/2016 Respiratory No snoring 04/20/2016 Respiratory No wheezing 04/20/2016 Gastrointestinal No hemorrhoids 04/20/2016 Gastrointestinal No abdominal pain 04/20/2016 Gastrointestinal No constipation 04/20/2016 Gastrointestinal No diarrhea 04/20/2016 Gastrointestinal No gastroesophageal reflux 04/20/2016 Gastrointestinal No melena 04/20/2016 Gastrointestinal No nausea 04/20/2016 Gastrointestinal No vomiting 04/20/2016 Genitourinary/Nephrology No dysuria 04/20/2016 Genitourinary/Nephrology No nocturia 04/20/2016 Genitourinary/Nephrology No urinary incontinence 04/20/2016 Dermatologic No rash 04/20/2016 Dermatologic No scar 04/20/2016 Neurologic No alteration of consciousness 04/20/2016 Psychiatric No anxiety 04/20/2016 Psychiatric No depression 04/20/2016 Musculoskeletal stiffness 04/20/2016 Musculoskeletal arthralgia(s) 04/20/2016 Constitutional No recent illness 03/03/2016 Constitutional No night sweats 03/03/2016 Constitutional No chills 03/03/2016 Constitutional fatigue 03/03/2016 Constitutional No insomnia 03/03/2016 Constitutional No malaise 03/03/2016 Eyes No eye discharge 03/03/2016 Eyes No eye erythema 03/03/2016 Ears/Nose/Throat/Neck No dental pain 03/03/2016 Ears/Nose/Throat/Neck No dizziness 03/03/2016 Ears/Nose/Throat/Neck No dysphagia 03/03/2016 Ears/Nose/Throat/Neck No headache 03/03/2016 Ears/Nose/Throat/Neck No hearing loss 03/03/2016 Ears/Nose/Throat/Neck No nasal allergies 03/03/2016 Ears/Nose/Throat/Neck No nasal discharge 03/03/2016 Ears/Nose/Throat/Neck No sore throat 03/03/2016 Ears/Nose/Throat/Neck No postnasal drip 03/03/2016 Ears/Nose/Throat/Neck No sinus congestion 03/03/2016 Cardiovascular No arrhythmia 03/03/2016 Cardiovascular No chest pain/pressure 03/03/2016 Cardiovascular No dyspnea 03/03/2016 Cardiovascular No edema 03/03/2016 Cardiovascular No exercise intolerance 03/03/2016 Cardiovascular No fatigue 03/03/2016 Cardiovascular No near-syncope/dizziness 03/03/2016 Cardiovascular No orthopnea 03/03/2016 Cardiovascular No palpitations 03/03/2016 Respiratory No asthma 03/03/2016 Respiratory No pleuritic pain 03/03/2016 Respiratory No productive sputum 03/03/2016 Respiratory No chest tightness 03/03/2016 Respiratory No cigarette smoking 03/03/2016 Respiratory No cough 03/03/2016 Respiratory No dyspnea 03/03/2016 Respiratory No pedal edema 03/03/2016 Respiratory No snoring 03/03/2016 Respiratory No wheezing 03/03/2016 Gastrointestinal No hemorrhoids 03/03/2016 Gastrointestinal No abdominal pain 03/03/2016 Gastrointestinal No constipation 03/03/2016 Gastrointestinal No diarrhea 03/03/2016 Gastrointestinal No gastroesophageal reflux 03/03/2016 Gastrointestinal No melena 03/03/2016 Gastrointestinal No nausea 03/03/2016 Gastrointestinal No vomiting 03/03/2016 Genitourinary/Nephrology No dysuria 03/03/2016 Genitourinary/Nephrology No nocturia 03/03/2016 Genitourinary/Nephrology No urinary incontinence 03/03/2016 Musculoskeletal joint complaint 03/03/2016 Dermatologic No rash 03/03/2016 Dermatologic No scar 03/03/2016 Psychiatric No anxiety 03/03/2016 Psychiatric No depression 03/03/2016 Constitutional No anorexia 03/03/2016 Neurologic No alteration of consciousness 03/03/2016 Eyes eye pain 03/03/2016 Constitutional No recent illness 12/21/2015 Constitutional No night sweats 12/21/2015 Constitutional No chills 12/21/2015 Constitutional No fatigue 12/21/2015 Constitutional No insomnia 12/21/2015 Constitutional No malaise 12/21/2015 Eyes No eye discharge 12/21/2015 Eyes No eye erythema 12/21/2015 Ears/Nose/Throat/Neck No dental pain 12/21/2015 Ears/Nose/Throat/Neck No dizziness 12/21/2015 Ears/Nose/Throat/Neck No dysphagia 12/21/2015 Ears/Nose/Throat/Neck No headache 12/21/2015 Ears/Nose/Throat/Neck No hearing loss 12/21/2015 Ears/Nose/Throat/Neck No nasal allergies 12/21/2015 Ears/Nose/Throat/Neck No nasal discharge 12/21/2015 Ears/Nose/Throat/Neck No sore throat 12/21/2015 Ears/Nose/Throat/Neck No postnasal drip 12/21/2015 Ears/Nose/Throat/Neck No sinus congestion 12/21/2015 Cardiovascular No arrhythmia 12/21/2015 Cardiovascular No chest pain/pressure 12/21/2015 Cardiovascular No dyspnea 12/21/2015 Cardiovascular No edema 12/21/2015 Cardiovascular No exercise intolerance 12/21/2015 Cardiovascular No fatigue 12/21/2015 Cardiovascular No near-syncope/dizziness 12/21/2015 Cardiovascular No orthopnea 12/21/2015 Cardiovascular No palpitations 12/21/2015 Respiratory No asthma 12/21/2015 Respiratory No pleuritic pain 12/21/2015 Respiratory No productive sputum 12/21/2015 Respiratory No chest tightness 12/21/2015 Respiratory No cigarette smoking 12/21/2015 Respiratory No cough 12/21/2015 Respiratory No dyspnea 12/21/2015 Respiratory No pedal edema 12/21/2015 Respiratory No snoring 12/21/2015 Respiratory No wheezing 12/21/2015 Gastrointestinal No hemorrhoids 12/21/2015 Gastrointestinal No abdominal pain 12/21/2015 Gastrointestinal No constipation 12/21/2015 Gastrointestinal No diarrhea 12/21/2015 Gastrointestinal No gastroesophageal reflux 12/21/2015 Gastrointestinal No melena 12/21/2015 Gastrointestinal No nausea 12/21/2015 Gastrointestinal No vomiting 12/21/2015 Genitourinary/Nephrology No dysuria 12/21/2015 Genitourinary/Nephrology No nocturia 12/21/2015 Genitourinary/Nephrology No urinary incontinence 12/21/2015 Musculoskeletal No joint complaint 12/21/2015 Dermatologic No rash 12/21/2015 Dermatologic No scar 12/21/2015 Psychiatric No anxiety 12/21/2015 Psychiatric No depression 12/21/2015 Constitutional No recent illness 06/22/2015 Constitutional No night sweats 06/22/2015 Constitutional No chills 06/22/2015 Constitutional No insomnia 06/22/2015 Constitutional No malaise 06/22/2015 Eyes No eye discharge 06/22/2015 Eyes No eye erythema 06/22/2015 Ears/Nose/Throat/Neck No dental pain 06/22/2015 Ears/Nose/Throat/Neck No dizziness 06/22/2015 Ears/Nose/Throat/Neck No dysphagia 06/22/2015 Ears/Nose/Throat/Neck No headache 06/22/2015 Ears/Nose/Throat/Neck No hearing loss 06/22/2015 Ears/Nose/Throat/Neck No nasal allergies 06/22/2015 Ears/Nose/Throat/Neck No nasal discharge 06/22/2015 Ears/Nose/Throat/Neck No sore throat 06/22/2015 Ears/Nose/Throat/Neck No postnasal drip 06/22/2015 Ears/Nose/Throat/Neck No sinus congestion 06/22/2015 Cardiovascular No arrhythmia 06/22/2015 Cardiovascular No chest pain/pressure 06/22/2015 Cardiovascular No dyspnea 06/22/2015 Cardiovascular No edema 06/22/2015 Cardiovascular No exercise intolerance 06/22/2015 Cardiovascular No fatigue 06/22/2015 Cardiovascular No near-syncope/dizziness 06/22/2015 Cardiovascular No orthopnea 06/22/2015 Cardiovascular No palpitations 06/22/2015 Respiratory No asthma 06/22/2015 Respiratory No pleuritic pain 06/22/2015 Respiratory No productive sputum 06/22/2015 Respiratory No chest tightness 06/22/2015 Respiratory No cigarette smoking 06/22/2015 Respiratory No cough 06/22/2015 Respiratory No dyspnea 06/22/2015 Respiratory No pedal edema 06/22/2015 Respiratory No snoring 06/22/2015 Respiratory No wheezing 06/22/2015 Gastrointestinal No hemorrhoids 06/22/2015 Gastrointestinal No abdominal pain 06/22/2015 Gastrointestinal No constipation 06/22/2015 Gastrointestinal No diarrhea 06/22/2015 Gastrointestinal No gastroesophageal reflux 06/22/2015 Gastrointestinal No melena 06/22/2015 Gastrointestinal No nausea 06/22/2015 Gastrointestinal No vomiting 06/22/2015 Genitourinary/Nephrology No dysuria 06/22/2015 Genitourinary/Nephrology No nocturia 06/22/2015 Genitourinary/Nephrology No urinary incontinence 06/22/2015 Musculoskeletal No joint complaint 06/22/2015 Dermatologic No rash 06/22/2015 Dermatologic No scar 06/22/2015 Psychiatric No anxiety 06/22/2015 Psychiatric No depression 06/22/2015 Constitutional No fatigue 06/22/2015 Constitutional No recent illness 03/19/2015 Constitutional No night sweats 03/19/2015 Constitutional No chills 03/19/2015 Constitutional No diaphoresis 03/19/2015 Constitutional No fatigue 03/19/2015 Constitutional No fever 03/19/2015 Constitutional No insomnia 03/19/2015 Constitutional No malaise 03/19/2015 Eyes No eye discharge 03/19/2015 Eyes No eye erythema 03/19/2015 Ears/Nose/Throat/Neck No dental pain 03/19/2015 Ears/Nose/Throat/Neck No dizziness 03/19/2015 Ears/Nose/Throat/Neck No dysphagia 03/19/2015 Ears/Nose/Throat/Neck No headache 03/19/2015 Ears/Nose/Throat/Neck No hearing loss 03/19/2015 Ears/Nose/Throat/Neck No nasal allergies 03/19/2015 Ears/Nose/Throat/Neck No nasal discharge 03/19/2015 Ears/Nose/Throat/Neck No sore throat 03/19/2015 Ears/Nose/Throat/Neck No postnasal drip 03/19/2015 Ears/Nose/Throat/Neck No sinus congestion 03/19/2015 Cardiovascular No arrhythmia 03/19/2015 Cardiovascular No chest pain/pressure 03/19/2015 Cardiovascular No dyspnea 03/19/2015 Cardiovascular No edema 03/19/2015 Cardiovascular No exercise intolerance 03/19/2015 Cardiovascular No fatigue 03/19/2015 Cardiovascular No near-syncope/dizziness 03/19/2015 Cardiovascular No orthopnea 03/19/2015 Cardiovascular No palpitations 03/19/2015 Respiratory No asthma 03/19/2015 Respiratory No pleuritic pain 03/19/2015 Respiratory No productive sputum 03/19/2015 Respiratory No chest tightness 03/19/2015 Respiratory No cigarette smoking 03/19/2015 Respiratory No cough 03/19/2015 Respiratory No dyspnea 03/19/2015 Respiratory No pedal edema 03/19/2015 Respiratory No snoring 03/19/2015 Respiratory No wheezing 03/19/2015 Gastrointestinal No hemorrhoids 03/19/2015 Gastrointestinal No abdominal pain 03/19/2015 Gastrointestinal No constipation 03/19/2015 Gastrointestinal No diarrhea 03/19/2015 Gastrointestinal No gastroesophageal reflux 03/19/2015 Gastrointestinal No melena 03/19/2015 Gastrointestinal No nausea 03/19/2015 Gastrointestinal No vomiting 03/19/2015 Genitourinary/Nephrology No dysuria 03/19/2015 Genitourinary/Nephrology No nocturia 03/19/2015 Genitourinary/Nephrology No urinary incontinence 03/19/2015 Musculoskeletal No joint complaint 03/19/2015 Dermatologic No rash 03/19/2015 Dermatologic No scar 03/19/2015 Psychiatric No anxiety 03/19/2015 Psychiatric No depression 03/19/2015 Constitutional No recent illness 01/22/2015 Constitutional No anorexia 01/22/2015 Constitutional No night sweats 01/22/2015 Constitutional No chills 01/22/2015 Constitutional No diaphoresis 01/22/2015 Constitutional No fever 01/22/2015 Constitutional No insomnia 01/22/2015 Eyes No eye discharge 01/22/2015 Eyes No eye erythema 01/22/2015 Ears/Nose/Throat/Neck No dizziness 01/22/2015 Ears/Nose/Throat/Neck No headache 01/22/2015 Cardiovascular No chest pain/pressure 01/22/2015 Cardiovascular edema 01/22/2015 Cardiovascular No dyspnea 01/22/2015 Respiratory No cough 01/22/2015 Gastrointestinal No nausea 01/22/2015 Gastrointestinal No vomiting 01/22/2015 Musculoskeletal No joint complaint 01/22/2015 Musculoskeletal swelling 01/22/2015 Dermatologic No rash 01/22/2015 Neurologic No alteration of consciousness 01/22/2015 Constitutional No recent illness 12/22/2014 Constitutional No anorexia 12/22/2014 Constitutional No night sweats 12/22/2014 Constitutional No chills 12/22/2014 Constitutional No diaphoresis 12/22/2014 Constitutional fatigue 12/22/2014 Constitutional No fever 12/22/2014 Constitutional insomnia 12/22/2014 Constitutional No malaise 12/22/2014 Constitutional No weight loss 12/22/2014 Constitutional weight gain 12/22/2014 Ears/Nose/Throat/Neck No nasal allergies 12/22/2014 Ears/Nose/Throat/Neck No nasal discharge 12/22/2014 Ears/Nose/Throat/Neck No otalgia 12/22/2014 Ears/Nose/Throat/Neck No sinus congestion 12/22/2014 Ears/Nose/Throat/Neck No sore throat 12/22/2014 Eyes No eye discharge 12/22/2014 Eyes No eye erythema 12/22/2014 Cardiovascular No chest pain/pressure 12/22/2014 Cardiovascular No dyspnea 12/22/2014 Cardiovascular No edema 12/22/2014 Respiratory No productive sputum 12/22/2014 Respiratory No chest congestion 12/22/2014 Respiratory No cough 12/22/2014 Gastrointestinal No constipation 12/22/2014 Gastrointestinal No diarrhea 12/22/2014 Genitourinary/Nephrology No dysuria 12/22/2014 Musculoskeletal No joint complaint 12/22/2014 Dermatologic No rash 12/22/2014 Dermatologic No sores 12/22/2014 Neurologic No alteration of consciousness 12/22/2014 Hematologic/Lymphatic abnormal bleeding and bruising 12/22/2014 Constitutional No recent illness 06/19/2014 Constitutional No night sweats 06/19/2014 Constitutional No chills 06/19/2014 Constitutional No diaphoresis 06/19/2014 Constitutional No fatigue 06/19/2014 Constitutional No fever 06/19/2014 Constitutional No insomnia 06/19/2014 Constitutional No malaise 06/19/2014 Eyes No eye discharge 06/19/2014 Eyes No eye erythema 06/19/2014 Ears/Nose/Throat/Neck No dental pain 06/19/2014 Ears/Nose/Throat/Neck No dizziness 06/19/2014 Ears/Nose/Throat/Neck No dysphagia 06/19/2014 Ears/Nose/Throat/Neck No headache 06/19/2014 Ears/Nose/Throat/Neck No hearing loss 06/19/2014 Ears/Nose/Throat/Neck No nasal allergies 06/19/2014 Ears/Nose/Throat/Neck No nasal discharge 06/19/2014 Ears/Nose/Throat/Neck No sore throat 06/19/2014 Ears/Nose/Throat/Neck No postnasal drip 06/19/2014 Ears/Nose/Throat/Neck No sinus congestion 06/19/2014 Cardiovascular No arrhythmia 06/19/2014 Cardiovascular No chest pain/pressure 06/19/2014 Cardiovascular No dyspnea 06/19/2014 Cardiovascular No edema 06/19/2014 Cardiovascular No exercise intolerance 06/19/2014 Cardiovascular No fatigue 06/19/2014 Cardiovascular No near-syncope/dizziness 06/19/2014 Cardiovascular No orthopnea 06/19/2014 Cardiovascular No palpitations 06/19/2014 Respiratory No asthma 06/19/2014 Respiratory No pleuritic pain 06/19/2014 Respiratory No productive sputum 06/19/2014 Respiratory No chest tightness 06/19/2014 Respiratory No cigarette smoking 06/19/2014 Respiratory No cough 06/19/2014 Respiratory No dyspnea 06/19/2014 Respiratory No pedal edema 06/19/2014 Respiratory No snoring 06/19/2014 Respiratory No wheezing 06/19/2014 Gastrointestinal No hemorrhoids 06/19/2014 Gastrointestinal No abdominal pain 06/19/2014 Gastrointestinal No constipation 06/19/2014 Gastrointestinal No diarrhea 06/19/2014 Gastrointestinal No gastroesophageal reflux 06/19/2014 Gastrointestinal No melena 06/19/2014 Gastrointestinal No nausea 06/19/2014 Gastrointestinal No vomiting 06/19/2014 Genitourinary/Nephrology No dysuria 06/19/2014 Genitourinary/Nephrology No nocturia 06/19/2014 Genitourinary/Nephrology No urinary incontinence 06/19/2014 Musculoskeletal No joint complaint 06/19/2014 Dermatologic No rash 06/19/2014 Dermatologic No scar 06/19/2014 Psychiatric No anxiety 06/19/2014 Psychiatric No depression 06/19/2014 Constitutional No recent illness 03/19/2014 Constitutional No night sweats 03/19/2014 Constitutional No chills 03/19/2014 Constitutional No diaphoresis 03/19/2014 Constitutional No fatigue 03/19/2014 Constitutional No fever 03/19/2014 Constitutional No insomnia 03/19/2014 Constitutional No malaise 03/19/2014 Eyes No eye discharge 03/19/2014 Eyes No eye erythema 03/19/2014 Ears/Nose/Throat/Neck No dental pain 03/19/2014 Ears/Nose/Throat/Neck No dizziness 03/19/2014 Ears/Nose/Throat/Neck No dysphagia 03/19/2014 Ears/Nose/Throat/Neck No headache 03/19/2014 Ears/Nose/Throat/Neck No hearing loss 03/19/2014 Ears/Nose/Throat/Neck No nasal allergies 03/19/2014 Ears/Nose/Throat/Neck No nasal discharge 03/19/2014 Ears/Nose/Throat/Neck No sore throat 03/19/2014 Ears/Nose/Throat/Neck No postnasal drip 03/19/2014 Ears/Nose/Throat/Neck No sinus congestion 03/19/2014 Cardiovascular No arrhythmia 03/19/2014 Cardiovascular No chest pain/pressure 03/19/2014 Cardiovascular No dyspnea 03/19/2014 Cardiovascular No edema 03/19/2014 Cardiovascular No exercise intolerance 03/19/2014 Cardiovascular No fatigue 03/19/2014 Cardiovascular No near-syncope/dizziness 03/19/2014 Cardiovascular No orthopnea 03/19/2014 Cardiovascular No palpitations 03/19/2014 Respiratory No asthma 03/19/2014 Respiratory No pleuritic pain 03/19/2014 Respiratory No productive sputum 03/19/2014 Respiratory No chest tightness 03/19/2014 Respiratory No cigarette smoking 03/19/2014 Respiratory No cough 03/19/2014 Respiratory No dyspnea 03/19/2014 Respiratory No pedal edema 03/19/2014 Respiratory No snoring 03/19/2014 Respiratory No wheezing 03/19/2014 Gastrointestinal No hemorrhoids 03/19/2014 Gastrointestinal No abdominal pain 03/19/2014 Gastrointestinal No constipation 03/19/2014 Gastrointestinal No diarrhea 03/19/2014 Gastrointestinal No gastroesophageal reflux 03/19/2014 Gastrointestinal No melena 03/19/2014 Gastrointestinal No nausea 03/19/2014 Gastrointestinal No vomiting 03/19/2014 Genitourinary/Nephrology No dysuria 03/19/2014 Genitourinary/Nephrology No nocturia 03/19/2014 Genitourinary/Nephrology No urinary incontinence 03/19/2014 Musculoskeletal No joint complaint 03/19/2014 Dermatologic No rash 03/19/2014 Dermatologic No scar 03/19/2014 Psychiatric No anxiety 03/19/2014 Psychiatric No depression 03/19/2014 Constitutional No recent illness 09/25/2013 Constitutional No night sweats 09/25/2013 Constitutional No chills 09/25/2013 Constitutional No diaphoresis 09/25/2013 Constitutional No fatigue 09/25/2013 Constitutional No fever 09/25/2013 Constitutional No insomnia 09/25/2013 Constitutional No malaise 09/25/2013 Constitutional No weight loss 09/25/2013 Constitutional No weight gain 09/25/2013 Constitutional No obesity 09/25/2013 Eyes No eye discharge 09/25/2013 Eyes No eye erythema 09/25/2013 Ears/Nose/Throat/Neck No dental pain 09/25/2013 Ears/Nose/Throat/Neck No dizziness 09/25/2013 Ears/Nose/Throat/Neck No dysphagia 09/25/2013 Ears/Nose/Throat/Neck No headache 09/25/2013 Ears/Nose/Throat/Neck No hearing loss 09/25/2013 Ears/Nose/Throat/Neck No nasal allergies 09/25/2013 Ears/Nose/Throat/Neck No nasal discharge 09/25/2013 Ears/Nose/Throat/Neck No postnasal drip 09/25/2013 Ears/Nose/Throat/Neck No sinus congestion 09/25/2013 Ears/Nose/Throat/Neck No sore throat 09/25/2013 Cardiovascular No arrhythmia 09/25/2013 Cardiovascular No chest pain/pressure 09/25/2013 Cardiovascular No dyspnea 09/25/2013 Cardiovascular No edema 09/25/2013 Cardiovascular No exercise intolerance 09/25/2013 Cardiovascular No fatigue 09/25/2013 Cardiovascular No near-syncope/dizziness 09/25/2013 Cardiovascular No orthopnea 09/25/2013 Cardiovascular No palpitations 09/25/2013 Respiratory No asthma 09/25/2013 Respiratory No pleuritic pain 09/25/2013 Respiratory No productive sputum 09/25/2013 Respiratory No chest tightness 09/25/2013 Respiratory No cigarette smoking 09/25/2013 Respiratory No cough 09/25/2013 Respiratory No dyspnea 09/25/2013 Respiratory No pedal edema 09/25/2013 Respiratory No snoring 09/25/2013 Respiratory No wheezing 09/25/2013 Gastrointestinal No hemorrhoids 09/25/2013 Gastrointestinal No abdominal pain 09/25/2013 Gastrointestinal No constipation 09/25/2013 Gastrointestinal No diarrhea 09/25/2013 Gastrointestinal No gastroesophageal reflux 09/25/2013 Gastrointestinal No melena 09/25/2013 Gastrointestinal No nausea 09/25/2013 Gastrointestinal No vomiting 09/25/2013 Genitourinary/Nephrology No dysuria 09/25/2013 Genitourinary/Nephrology No nocturia 09/25/2013 Genitourinary/Nephrology No urinary incontinence 09/25/2013 Dermatologic No rash 09/25/2013 Dermatologic No scar 09/25/2013 Musculoskeletal No joint complaint 09/25/2013 Constitutional No recent illness 06/25/2013 Constitutional No night sweats 06/25/2013 Constitutional No chills 06/25/2013 Constitutional No diaphoresis 06/25/2013 Constitutional No fatigue 06/25/2013 Constitutional No fever 06/25/2013 Constitutional No insomnia 06/25/2013 Constitutional No malaise 06/25/2013 Constitutional No weight loss 06/25/2013 Constitutional No weight gain 06/25/2013 Constitutional No obesity 06/25/2013 Eyes No eye discharge 06/25/2013 Eyes No eye erythema 06/25/2013 Ears/Nose/Throat/Neck No dental pain 06/25/2013 Ears/Nose/Throat/Neck No dizziness 06/25/2013 Ears/Nose/Throat/Neck No dysphagia 06/25/2013 Ears/Nose/Throat/Neck No headache 06/25/2013 Ears/Nose/Throat/Neck No hearing loss 06/25/2013 Ears/Nose/Throat/Neck No nasal allergies 06/25/2013 Ears/Nose/Throat/Neck No nasal discharge 06/25/2013 Ears/Nose/Throat/Neck No postnasal drip 06/25/2013 Ears/Nose/Throat/Neck No sinus congestion 06/25/2013 Ears/Nose/Throat/Neck No sore throat 06/25/2013 Cardiovascular No arrhythmia 06/25/2013 Cardiovascular No chest pain/pressure 06/25/2013 Cardiovascular No dyspnea 06/25/2013 Cardiovascular No edema 06/25/2013 Cardiovascular No exercise intolerance 06/25/2013 Cardiovascular No fatigue 06/25/2013 Cardiovascular No near-syncope/dizziness 06/25/2013 Cardiovascular No orthopnea 06/25/2013 Cardiovascular No palpitations 06/25/2013 Respiratory No asthma 06/25/2013 Respiratory No pleuritic pain 06/25/2013 Respiratory No productive sputum 06/25/2013 Respiratory No chest tightness 06/25/2013 Respiratory No cigarette smoking 06/25/2013 Respiratory No cough 06/25/2013 Respiratory No dyspnea 06/25/2013 Respiratory No pedal edema 06/25/2013 Respiratory No snoring 06/25/2013 Respiratory No wheezing 06/25/2013 Gastrointestinal No hemorrhoids 06/25/2013 Gastrointestinal No abdominal pain 06/25/2013 Gastrointestinal No constipation 06/25/2013 Gastrointestinal No diarrhea 06/25/2013 Gastrointestinal No gastroesophageal reflux 06/25/2013 Gastrointestinal No melena 06/25/2013 Gastrointestinal No nausea 06/25/2013 Gastrointestinal No vomiting 06/25/2013 Genitourinary/Nephrology No dysuria 06/25/2013 Genitourinary/Nephrology No nocturia 06/25/2013 Genitourinary/Nephrology No urinary incontinence 06/25/2013 Musculoskeletal arthralgia(s) 06/25/2013 Dermatologic No rash 06/25/2013 Dermatologic No scar 06/25/2013 Constitutional No recent illness 06/10/2013 Constitutional No chills 06/10/2013 Constitutional No fatigue 06/10/2013 Constitutional No fever 06/10/2013 Constitutional No insomnia 06/10/2013 Constitutional No malaise 06/10/2013 Psychiatric No anxiety 06/10/2013 Psychiatric No depression 06/10/2013 Musculoskeletal arthralgia(s) 06/10/2013 Musculoskeletal joint complaint 06/10/2013 Musculoskeletal No muscle weakness 06/10/2013 Eyes No blindness 06/10/2013 Eyes No vision change 06/10/2013 Respiratory No chest tightness 06/10/2013 Respiratory No cigarette smoking 06/10/2013 Respiratory No cough 06/10/2013 Respiratory No dyspnea 06/10/2013 Respiratory No pedal edema 06/10/2013 Respiratory No snoring 06/10/2013 Respiratory No wheezing 06/10/2013 Ears/Nose/Throat/Neck No dental pain 06/10/2013 Ears/Nose/Throat/Neck No dizziness 06/10/2013 Ears/Nose/Throat/Neck No dysphagia 06/10/2013 Ears/Nose/Throat/Neck No headache 06/10/2013 Ears/Nose/Throat/Neck No hearing loss 06/10/2013 Ears/Nose/Throat/Neck No nasal allergies 06/10/2013 Ears/Nose/Throat/Neck No sore throat 06/10/2013 Ears/Nose/Throat/Neck No postnasal drip 06/10/2013 Ears/Nose/Throat/Neck No sinus congestion 06/10/2013 Cardiovascular No chest pain/pressure 06/10/2013 Cardiovascular No dyspnea 06/10/2013 Cardiovascular No edema 06/10/2013 Cardiovascular No exercise intolerance 06/10/2013 Cardiovascular No fatigue 06/10/2013 Cardiovascular No near-syncope/dizziness 06/10/2013 Gastrointestinal No abdominal pain 06/10/2013 Gastrointestinal No constipation 06/10/2013 Gastrointestinal No diarrhea 06/10/2013 Gastrointestinal No gastroesophageal reflux 06/10/2013 Gastrointestinal No melena 06/10/2013 Gastrointestinal No nausea 06/10/2013 Gastrointestinal No vomiting 06/10/2013 Dermatologic No rash 06/10/2013 Dermatologic No scar 06/10/2013 Dermatologic No sores 06/10/2013 Neurologic No dizziness 06/10/2013 Neurologic No headache 06/10/2013 Neurologic No neck pain 06/10/2013 Neurologic No syncope 06/10/2013 Genitourinary/Nephrology No urinary urgency 06/10/2013 Genitourinary/Nephrology No dysuria 06/10/2013 Physical Exam Exam Name System Name Item Name Status Result Effective Dates Notes Full Exam - General 1994 Constitutional general appearance Development: well developed 11/28/2016 None Full Exam - General 1994 Constitutional general appearance Development: appears stated age 0411/28/2016 None Full Exam - General 1994 Constitutional general appearance Hygiene/Attention to Grooming: good hygiene 11/28/2016 None Full Exam - General 1994 Eyes conjunctiva/eyelids Overall: conjunctiva clear 11/28/2016 None Full Exam - General 1994 Eyes conjunctiva/eyelids Overall: eyelids normal 11/28/2016 None Full Exam - General 1994 Eyes pupils and irises Overall: pupils equal, round, reactive to light and accomodation 11/28/2016 None Full Exam - General 1994 Ears/Nose/Throat lips/teeth/gingiva Overall: benign lips 11/28/2016 None Full Exam - General 1994 Ears/Nose/Throat lips/teeth/gingiva Overall: normal dentition 11/28/2016 None Full Exam - General 1994 Respiratory auscultation Overall: breath sounds clear bilaterally 11/28/2016 None Full Exam - General 1994 Respiratory respiratory effort/rhythm Overall: no retractions 11/28/2016 None Full Exam - General 1994 Respiratory respiratory effort/rhythm Overall: normal rate 11/28/2016 None Full Exam - General 1994 Cardiovascular extremities Overall: no clubbing 11/28/2016 None Full Exam - General 1994 Cardiovascular auscultation of heart Overall: regular rate 11/28/2016 None Full Exam - General 1994 Cardiovascular auscultation of heart Overall: normal heart sounds 11/28/2016 None Full Exam - General 1994 Abdomen abdominal exam Overall: no tenderness 11/28/2016 None Full Exam - General 1994 Abdomen abdominal exam Overall: normal bowel sounds 11/28/2016 None Full Exam - General 1994 Musculoskeletal digits and nails Overall: no clubbing 11/28/2016 None Full Exam - General 1994 Musculoskeletal digits and nails Overall: digits benign 11/28/2016 None Full Exam - General 1994 Musculoskeletal gait and station Overall: normal gait 11/28/2016 None Full Exam - General 1994 Musculoskeletal gait and station Overall: normal station 11/28/2016 None Full Exam - General 1994 Musculoskeletal head and neck Overall: head atraumatic 11/28/2016 None Full Exam - General 1994 Musculoskeletal head and neck Overall: cervical spine benign 11/28/2016 None Full Exam - General 1994 Neurologic deep tendon reflexes Overall: deep tendon reflexes intact 11/28/2016 None Full Exam - General 1994 Psychiatric orientation/consciousness Overall: oriented to person, place and time 11/28/2016 None Full Exam - General 1994 Psychiatric mood and affect Overall: normal mood and affect 11/28/2016 None Full Exam - General 1994 Integument inspection of skin Rash/Lesions: surgical site 11/28/2016 on bilateral thumbs/wrists Full Exam - General 1994 Constitutional general appearance Development: well developed 07/28/2016 None Full Exam - General 1994 Constitutional general appearance Development: appears stated age 1207/28/2016 None Full Exam - General 1994 Constitutional general appearance Hygiene/Attention to Grooming: good hygiene 07/28/2016 None Full Exam - General 1994 Eyes conjunctiva/eyelids Overall: conjunctiva clear 07/28/2016 None Full Exam - General 1994 Eyes conjunctiva/eyelids Overall: eyelids normal 07/28/2016 None Full Exam - General 1994 Eyes pupils and irises Overall: pupils equal, round, reactive to light and accomodation 07/28/2016 None Full Exam - General 1994 Ears/Nose/Throat lips/teeth/gingiva Overall: benign lips 07/28/2016 None Full Exam - General 1994 Ears/Nose/Throat lips/teeth/gingiva Overall: normal dentition 07/28/2016 None Full Exam - General 1994 Respiratory auscultation Overall: breath sounds clear bilaterally 07/28/2016 None Full Exam - General 1994 Respiratory respiratory effort/rhythm Overall: no retractions 07/28/2016 None Full Exam - General 1994 Respiratory respiratory effort/rhythm Overall: normal rate 07/28/2016 None Full Exam - General 1994 Cardiovascular extremities Overall: no clubbing 07/28/2016 None Full Exam - General 1994 Cardiovascular auscultation of heart Overall: regular rate 07/28/2016 None Full Exam - General 1994 Cardiovascular auscultation of heart Overall: normal heart sounds 07/28/2016 None Full Exam - General 1994 Abdomen abdominal exam Overall: no tenderness 07/28/2016 None Full Exam - General 1994 Abdomen abdominal exam Overall: normal bowel sounds 07/28/2016 None Full Exam - General 1994 Musculoskeletal digits and nails Overall: no clubbing 07/28/2016 None Full Exam - General 1994 Musculoskeletal digits and nails Overall: digits benign 07/28/2016 None Full Exam - General 1994 Musculoskeletal gait and station Overall: normal gait 07/28/2016 None Full Exam - General 1994 Musculoskeletal gait and station Overall: normal station 07/28/2016 None Full Exam - General 1994 Musculoskeletal head and neck Overall: head atraumatic 07/28/2016 None Full Exam - General 1994 Musculoskeletal head and neck Overall: cervical spine benign 07/28/2016 None Full Exam - General 1994 Neurologic deep tendon reflexes Overall: deep tendon reflexes intact 07/28/2016 None Full Exam - General 1994 Psychiatric orientation/consciousness Overall: oriented to person, place and time 07/28/2016 None Full Exam - General 1994 Psychiatric mood and affect Overall: normal mood and affect 07/28/2016 None Full Exam - General 1994 Constitutional general appearance Development: well developed 06/06/2016 None Full Exam - General 1994 Constitutional general appearance Development: appears stated age 1006/06/2016 None Full Exam - General 1994 Constitutional general appearance Hygiene/Attention to Grooming: good hygiene 06/06/2016 None Full Exam - General 1994 Eyes conjunctiva/eyelids Overall: conjunctiva clear 06/06/2016 None Full Exam - General 1994 Eyes conjunctiva/eyelids Overall: eyelids normal 06/06/2016 None Full Exam - General 1994 Eyes pupils and irises Overall: pupils equal, round, reactive to light and accomodation 06/06/2016 None Full Exam - General 1994 Ears/Nose/Throat lips/teeth/gingiva Overall: benign lips 06/06/2016 None Full Exam - General 1994 Ears/Nose/Throat lips/teeth/gingiva Overall: normal dentition 06/06/2016 None Full Exam - General 1994 Respiratory auscultation Overall: breath sounds clear bilaterally 06/06/2016 None Full Exam - General 1994 Respiratory respiratory effort/rhythm Overall: no retractions 06/06/2016 None Full Exam - General 1994 Respiratory respiratory effort/rhythm Overall: normal rate 06/06/2016 None Full Exam - General 1994 Cardiovascular extremities Overall: no clubbing 06/06/2016 None Full Exam - General 1994 Cardiovascular auscultation of heart Overall: regular rate 06/06/2016 None Full Exam - General 1994 Cardiovascular auscultation of heart Overall: normal heart sounds 06/06/2016 None Full Exam - General 1994 Abdomen abdominal exam Overall: no tenderness 06/06/2016 None Full Exam - General 1994 Abdomen abdominal exam Overall: normal bowel sounds 06/06/2016 None Full Exam - General 1994 Musculoskeletal digits and nails Overall: no clubbing 06/06/2016 None Full Exam - General 1994 Musculoskeletal digits and nails Overall: digits benign 06/06/2016 None Full Exam - General 1994 Musculoskeletal gait and station Overall: normal gait 06/06/2016 None Full Exam - General 1994 Musculoskeletal gait and station Overall: normal station 06/06/2016 None Full Exam - General 1994 Musculoskeletal head and neck Overall: head atraumatic 06/06/2016 None Full Exam - General 1994 Musculoskeletal head and neck Overall: cervical spine benign 06/06/2016 None Full Exam - General 1994 Neurologic deep tendon reflexes Overall: deep tendon reflexes intact 06/06/2016 None Full Exam - General 1994 Psychiatric orientation/consciousness Overall: oriented to person, place and time 06/06/2016 None Full Exam - General 1994 Psychiatric mood and affect Overall: normal mood and affect 06/06/2016 None Full Exam - General 1994 Constitutional general appearance Development: well developed 04/20/2016 None Full Exam - General 1994 Constitutional general appearance Development: appears stated age 0904/20/2016 None Full Exam - General 1994 Constitutional general appearance Hygiene/Attention to Grooming: good hygiene 04/20/2016 None Full Exam - General 1994 Eyes conjunctiva/eyelids Overall: conjunctiva clear 04/20/2016 None Full Exam - General 1994 Eyes conjunctiva/eyelids Overall: eyelids normal 04/20/2016 None Full Exam - General 1994 Eyes pupils and irises Overall: pupils equal, round, reactive to light and accomodation 04/20/2016 None Full Exam - General 1994 Ears/Nose/Throat lips/teeth/gingiva Overall: benign lips 04/20/2016 None Full Exam - General 1994 Ears/Nose/Throat lips/teeth/gingiva Overall: normal dentition 04/20/2016 None Full Exam - General 1994 Respiratory auscultation Overall: breath sounds clear bilaterally 04/20/2016 None Full Exam - General 1994 Respiratory respiratory effort/rhythm Overall: no retractions 04/20/2016 None Full Exam - General 1994 Respiratory respiratory effort/rhythm Overall: normal rate 04/20/2016 None Full Exam - General 1994 Cardiovascular extremities Overall: no clubbing 04/20/2016 None Full Exam - General 1994 Cardiovascular auscultation of heart Overall: regular rate 04/20/2016 None Full Exam - General 1994 Cardiovascular auscultation of heart Overall: normal heart sounds 04/20/2016 None Full Exam - General 1994 Abdomen abdominal exam Overall: no tenderness 04/20/2016 None Full Exam - General 1994 Abdomen abdominal exam Overall: normal bowel sounds 04/20/2016 None Full Exam - General 1994 Musculoskeletal digits and nails Overall: no clubbing 04/20/2016 None Full Exam - General 1994 Musculoskeletal digits and nails Overall: digits benign 04/20/2016 None Full Exam - General 1994 Musculoskeletal gait and station Overall: normal gait 04/20/2016 None Full Exam - General 1994 Musculoskeletal gait and station Overall: normal station 04/20/2016 None Full Exam - General 1994 Musculoskeletal head and neck Overall: head atraumatic 04/20/2016 None Full Exam - General 1994 Musculoskeletal head and neck Overall: cervical spine benign 04/20/2016 None Full Exam - General 1994 Neurologic deep tendon reflexes Overall: deep tendon reflexes intact 04/20/2016 None Full Exam - General 1994 Psychiatric orientation/consciousness Overall: oriented to person, place and time 04/20/2016 None Full Exam - General 1994 Psychiatric mood and affect Overall: normal mood and affect 04/20/2016 None Full Exam - General 1994 Constitutional general appearance Development: well developed 03/03/2016 None Full Exam - General 1994 Constitutional general appearance Development: appears stated age 0703/03/2016 None Full Exam - General 1994 Constitutional general appearance Hygiene/Attention to Grooming: good hygiene 03/03/2016 None Full Exam - General 1994 Eyes conjunctiva/eyelids Overall: conjunctiva clear 03/03/2016 None Full Exam - General 1994 Eyes conjunctiva/eyelids Overall: eyelids normal 03/03/2016 None Full Exam - General 1994 Eyes pupils and irises Overall: pupils equal, round, reactive to light and accomodation 03/03/2016 None Full Exam - General 1994 Ears/Nose/Throat lips/teeth/gingiva Overall: benign lips 03/03/2016 None Full Exam - General 1994 Ears/Nose/Throat lips/teeth/gingiva Overall: normal dentition 03/03/2016 None Full Exam - General 1994 Respiratory auscultation Overall: breath sounds clear bilaterally 03/03/2016 None Full Exam - General 1994 Respiratory respiratory effort/rhythm Overall: no retractions 03/03/2016 None Full Exam - General 1994 Respiratory respiratory effort/rhythm Overall: normal rate 03/03/2016 None Full Exam - General 1994 Cardiovascular extremities Overall: no clubbing 03/03/2016 None Full Exam - General 1994 Cardiovascular auscultation of heart Overall: regular rate 03/03/2016 None Full Exam - General 1994 Cardiovascular auscultation of heart Overall: normal heart sounds 03/03/2016 None Full Exam - General 1994 Abdomen abdominal exam Overall: no tenderness 03/03/2016 None Full Exam - General 1994 Abdomen abdominal exam Overall: normal bowel sounds 03/03/2016 None Full Exam - General 1994 Musculoskeletal digits and nails Overall: no clubbing 03/03/2016 None Full Exam - General 1994 Musculoskeletal digits and nails Overall: digits benign 03/03/2016 None Full Exam - General 1994 Musculoskeletal gait and station Overall: normal gait 03/03/2016 None Full Exam - General 1994 Musculoskeletal gait and station Overall: normal station 03/03/2016 None Full Exam - General 1994 Musculoskeletal head and neck Overall: head atraumatic 03/03/2016 None Full Exam - General 1994 Musculoskeletal head and neck Overall: cervical spine benign 03/03/2016 None Full Exam - General 1994 Neurologic deep tendon reflexes Overall: deep tendon reflexes intact 03/03/2016 None Full Exam - General 1994 Psychiatric orientation/consciousness Overall: oriented to person, place and time 03/03/2016 None Full Exam - General 1994 Psychiatric mood and affect Overall: normal mood and affect 03/03/2016 None Full Exam - General 1994 Constitutional general appearance Development: well developed 12/21/2015 None Full Exam - General 1994 Constitutional general appearance Development: appears stated age 0512/21/2015 None Full Exam - General 1994 Constitutional general appearance Development: appears older than stated age 0512/21/2015 None Full Exam - General 1994 Constitutional general appearance Hygiene/Attention to Grooming: good hygiene 12/21/2015 None Full Exam - General 1994 Eyes conjunctiva/eyelids Overall: conjunctiva clear 12/21/2015 None Full Exam - General 1994 Eyes conjunctiva/eyelids Overall: eyelids normal 12/21/2015 None Full Exam - General 1994 Eyes pupils and irises Overall: pupils equal, round, reactive to light and accomodation 12/21/2015 None Full Exam - General 1994 Ears/Nose/Throat lips/teeth/gingiva Overall: benign lips 12/21/2015 None Full Exam - General 1994 Ears/Nose/Throat lips/teeth/gingiva Overall: normal dentition 12/21/2015 None Full Exam - General 1994 Respiratory auscultation Overall: breath sounds clear bilaterally 12/21/2015 None Full Exam - General 1994 Respiratory respiratory effort/rhythm Overall: no retractions 12/21/2015 None Full Exam - General 1994 Respiratory respiratory effort/rhythm Overall: normal rate 12/21/2015 None Full Exam - General 1994 Cardiovascular extremities Overall: no clubbing 12/21/2015 None Full Exam - General 1994 Cardiovascular auscultation of heart Overall: regular rate 12/21/2015 None Full Exam - General 1994 Cardiovascular auscultation of heart Overall: normal heart sounds 12/21/2015 None Full Exam - General 1994 Abdomen abdominal exam Overall: no tenderness 12/21/2015 None Full Exam - General 1994 Abdomen abdominal exam Overall: normal bowel sounds 12/21/2015 None Full Exam - General 1994 Musculoskeletal digits and nails Overall: no clubbing 12/21/2015 None Full Exam - General 1994 Musculoskeletal digits and nails Overall: digits benign 12/21/2015 None Full Exam - General 1994 Musculoskeletal gait and station Overall: normal gait 12/21/2015 None Full Exam - General 1994 Musculoskeletal gait and station Overall: normal station 12/21/2015 None Full Exam - General 1994 Musculoskeletal head and neck Overall: head atraumatic 12/21/2015 None Full Exam - General 1994 Musculoskeletal head and neck Overall: cervical spine benign 12/21/2015 None Full Exam - General 1994 Neurologic deep tendon reflexes Overall: deep tendon reflexes intact 12/21/2015 None Full Exam - General 1994 Psychiatric orientation/consciousness Overall: oriented to person, place and time 12/21/2015 None Full Exam - General 1994 Psychiatric mood and affect Overall: normal mood and affect 12/21/2015 None Full Exam - General 1994 Constitutional general appearance Development: well developed 06/22/2015 None Full Exam - General 1994 Constitutional general appearance Development: appears stated age 1106/22/2015 None Full Exam - General 1994 Constitutional general appearance Development: appears older than stated age 1106/22/2015 None Full Exam - General 1994 Constitutional general appearance Hygiene/Attention to Grooming: good hygiene 06/22/2015 None Full Exam - General 1994 Eyes conjunctiva/eyelids Overall: conjunctiva clear 06/22/2015 None Full Exam - General 1994 Eyes conjunctiva/eyelids Overall: eyelids normal 06/22/2015 None Full Exam - General 1994 Eyes pupils and irises Overall: pupils equal, round, reactive to light and accomodation 06/22/2015 None Full Exam - General 1994 Ears/Nose/Throat lips/teeth/gingiva Overall: benign lips 06/22/2015 None Full Exam - General 1994 Ears/Nose/Throat lips/teeth/gingiva Overall: normal dentition 06/22/2015 None Full Exam - General 1994 Respiratory auscultation Overall: breath sounds clear bilaterally 06/22/2015 None Full Exam - General 1994 Respiratory respiratory effort/rhythm Overall: no retractions 06/22/2015 None Full Exam - General 1994 Respiratory respiratory effort/rhythm Overall: normal rate 06/22/2015 None Full Exam - General 1994 Cardiovascular extremities Overall: no clubbing 06/22/2015 None Full Exam - General 1994 Cardiovascular auscultation of heart Overall: regular rate 06/22/2015 None Full Exam - General 1994 Cardiovascular auscultation of heart Overall: normal heart sounds 06/22/2015 None Full Exam - General 1994 Abdomen abdominal exam Overall: no tenderness 06/22/2015 None Full Exam - General 1994 Abdomen abdominal exam Overall: normal bowel sounds 06/22/2015 None Full Exam - General 1994 Musculoskeletal digits and nails Overall: no clubbing 06/22/2015 None Full Exam - General 1994 Musculoskeletal digits and nails Overall: digits benign 06/22/2015 None Full Exam - General 1994 Musculoskeletal gait and station Overall: normal gait 06/22/2015 None Full Exam - General 1994 Musculoskeletal gait and station Overall: normal station 06/22/2015 None Full Exam - General 1994 Musculoskeletal head and neck Overall: head atraumatic 06/22/2015 None Full Exam - General 1994 Musculoskeletal head and neck Overall: cervical spine benign 06/22/2015 None Full Exam - General 1994 Neurologic deep tendon reflexes Overall: deep tendon reflexes intact 06/22/2015 None Full Exam - General 1994 Psychiatric orientation/consciousness Overall: oriented to person, place and time 06/22/2015 None Full Exam - General 1994 Psychiatric mood and affect Overall: normal mood and affect 06/22/2015 None Full Exam - General 1994 Constitutional general appearance Development: well developed 03/19/2015 None Full Exam - General 1994 Constitutional general appearance Development: appears stated age 0803/19/2015 None Full Exam - General 1994 Constitutional general appearance Development: appears older than stated age 0803/19/2015 None Full Exam - General 1994 Constitutional general appearance Hygiene/Attention to Grooming: good hygiene 03/19/2015 None Full Exam - General 1994 Eyes conjunctiva/eyelids Overall: conjunctiva clear 03/19/2015 None Full Exam - General 1994 Eyes conjunctiva/eyelids Overall: eyelids normal 03/19/2015 None Full Exam - General 1994 Eyes pupils and irises Overall: pupils equal, round, reactive to light and accomodation 03/19/2015 None Full Exam - General 1994 Ears/Nose/Throat lips/teeth/gingiva Overall: benign lips 03/19/2015 None Full Exam - General 1994 Ears/Nose/Throat lips/teeth/gingiva Overall: normal dentition 03/19/2015 None Full Exam - General 1994 Respiratory auscultation Overall: breath sounds clear bilaterally 03/19/2015 None Full Exam - General 1994 Respiratory respiratory effort/rhythm Overall: no retractions 03/19/2015 None Full Exam - General 1994 Respiratory respiratory effort/rhythm Overall: normal rate 03/19/2015 None Full Exam - General 1994 Cardiovascular extremities Overall: no clubbing 03/19/2015 None Full Exam - General 1994 Cardiovascular auscultation of heart Overall: regular rate 03/19/2015 None Full Exam - General 1994 Cardiovascular auscultation of heart Overall: normal heart sounds 03/19/2015 None Full Exam - General 1994 Abdomen abdominal exam Overall: no tenderness 03/19/2015 None Full Exam - General 1994 Abdomen abdominal exam Overall: normal bowel sounds 03/19/2015 None Full Exam - General 1994 Musculoskeletal digits and nails Overall: no clubbing 03/19/2015 None Full Exam - General 1994 Musculoskeletal digits and nails Overall: digits benign 03/19/2015 None Full Exam - General 1994 Musculoskeletal gait and station Overall: normal gait 03/19/2015 None Full Exam - General 1994 Musculoskeletal gait and station Overall: normal station 03/19/2015 None Full Exam - General 1994 Musculoskeletal head and neck Overall: head atraumatic 03/19/2015 None Full Exam - General 1994 Musculoskeletal head and neck Overall: cervical spine benign 03/19/2015 None Full Exam - General 1994 Neurologic deep tendon reflexes Overall: deep tendon reflexes intact 03/19/2015 None Full Exam - General 1994 Psychiatric orientation/consciousness Overall: oriented to person, place and time 03/19/2015 None Full Exam - General 1994 Psychiatric mood and affect Overall: normal mood and affect 03/19/2015 None Full Exam - General 1994 Constitutional general appearance Development: well developed 01/22/2015 None Full Exam - General 1994 Constitutional general appearance Development: appears stated age 0601/22/2015 None Full Exam - General 1994 Constitutional general appearance Hygiene/Attention to Grooming: good hygiene 01/22/2015 None Full Exam - General 1994 Eyes conjunctiva/eyelids Overall: conjunctiva clear 01/22/2015 None Full Exam - General 1994 Eyes conjunctiva/eyelids Overall: eyelids normal 01/22/2015 None Full Exam - General 1994 Eyes pupils and irises Overall: pupils equal, round, reactive to light and accomodation 01/22/2015 None Full Exam - General 1994 Ears/Nose/Throat lips/teeth/gingiva Overall: benign lips 01/22/2015 None Full Exam - General 1994 Ears/Nose/Throat lips/teeth/gingiva Overall: normal dentition 01/22/2015 None Full Exam - General 1994 Respiratory auscultation Overall: breath sounds clear bilaterally 01/22/2015 None Full Exam - General 1994 Respiratory respiratory effort/rhythm Overall: no retractions 01/22/2015 None Full Exam - General 1994 Respiratory respiratory effort/rhythm Overall: normal rate 01/22/2015 None Full Exam - General 1994 Cardiovascular extremities Overall: no clubbing 01/22/2015 None Full Exam - General 1994 Cardiovascular auscultation of heart Overall: regular rate 01/22/2015 None Full Exam - General 1994 Cardiovascular auscultation of heart Overall: normal heart sounds 01/22/2015 None Full Exam - General 1994 Abdomen abdominal exam Overall: no tenderness 01/22/2015 None Full Exam - General 1994 Abdomen abdominal exam Overall: normal bowel sounds 01/22/2015 None Full Exam - General 1994 Musculoskeletal digits and nails Overall: no clubbing 01/22/2015 None Full Exam - General 1994 Musculoskeletal digits and nails Overall: digits benign 01/22/2015 None Full Exam - General 1994 Musculoskeletal gait and station Overall: normal gait 01/22/2015 None Full Exam - General 1994 Musculoskeletal gait and station Overall: normal station 01/22/2015 None Full Exam - General 1994 Musculoskeletal head and neck Overall: head atraumatic 01/22/2015 None Full Exam - General 1994 Musculoskeletal head and neck Overall: cervical spine benign 01/22/2015 None Full Exam - General 1994 Neurologic deep tendon reflexes Overall: deep tendon reflexes intact 01/22/2015 None Full Exam - General 1994 Psychiatric orientation/consciousness Overall: oriented to person, place and time 01/22/2015 None Full Exam - General 1994 Psychiatric mood and affect Overall: normal mood and affect 01/22/2015 None Full Exam - General 1994 Constitutional general appearance Development: well developed 12/22/2014 None Full Exam - General 1994 Constitutional general appearance Development: appears stated age 0512/22/2014 None Full Exam - General 1994 Constitutional general appearance Hygiene/Attention to Grooming: good hygiene 12/22/2014 None Full Exam - General 1994 Eyes conjunctiva/eyelids Overall: conjunctiva clear 12/22/2014 None Full Exam - General 1994 Eyes conjunctiva/eyelids Overall: eyelids normal 12/22/2014 None Full Exam - General 1994 Eyes pupils and irises Overall: pupils equal, round, reactive to light and accomodation 12/22/2014 None Full Exam - General 1994 Ears/Nose/Throat lips/teeth/gingiva Overall: benign lips 12/22/2014 None Full Exam - General 1994 Ears/Nose/Throat lips/teeth/gingiva Overall: normal dentition 12/22/2014 None Full Exam - General 1994 Respiratory auscultation Overall: breath sounds clear bilaterally 12/22/2014 None Full Exam - General 1994 Respiratory respiratory effort/rhythm Overall: no retractions 12/22/2014 None Full Exam - General 1994 Respiratory respiratory effort/rhythm Overall: normal rate 12/22/2014 None Full Exam - General 1994 Cardiovascular extremities Overall: no clubbing 12/22/2014 None Full Exam - General 1994 Cardiovascular auscultation of heart Overall: regular rate 12/22/2014 None Full Exam - General 1994 Cardiovascular auscultation of heart Overall: normal heart sounds 12/22/2014 None Full Exam - General 1994 Abdomen abdominal exam Overall: no tenderness 12/22/2014 None Full Exam - General 1994 Abdomen abdominal exam Overall: normal bowel sounds 12/22/2014 None Full Exam - General 1994 Musculoskeletal digits and nails Overall: no clubbing 12/22/2014 None Full Exam - General 1994 Musculoskeletal digits and nails Overall: digits benign 12/22/2014 None Full Exam - General 1994 Musculoskeletal gait and station Overall: normal gait 12/22/2014 None Full Exam - General 1994 Musculoskeletal gait and station Overall: normal station 12/22/2014 None Full Exam - General 1994 Musculoskeletal head and neck Overall: head atraumatic 12/22/2014 None Full Exam - General 1994 Musculoskeletal head and neck Overall: cervical spine benign 12/22/2014 None Full Exam - General 1994 Neurologic deep tendon reflexes Overall: deep tendon reflexes intact 12/22/2014 None Full Exam - General 1994 Psychiatric orientation/consciousness Overall: oriented to person, place and time 12/22/2014 None Full Exam - General 1994 Psychiatric mood and affect Overall: normal mood and affect 12/22/2014 None Full Exam - General 1994 Constitutional general appearance Development: well developed 06/19/2014 None Full Exam - General 1994 Constitutional general appearance Development: appears stated age 1106/19/2014 None Full Exam - General 1994 Constitutional general appearance Development: appears older than stated age 1106/19/2014 None Full Exam - General 1994 Constitutional general appearance Hygiene/Attention to Grooming: good hygiene 06/19/2014 None Full Exam - General 1994 Eyes conjunctiva/eyelids Overall: conjunctiva clear 06/19/2014 None Full Exam - General 1994 Eyes conjunctiva/eyelids Overall: eyelids normal 06/19/2014 None Full Exam - General 1994 Eyes pupils and irises Overall: pupils equal, round, reactive to light and accomodation 06/19/2014 None Full Exam - General 1994 Ears/Nose/Throat lips/teeth/gingiva Overall: benign lips 06/19/2014 None Full Exam - General 1995 Ears/Nose/Throat lips/teeth/gingiva Overall: normal dentition 06/19/2014 None Full Exam - General 1994 Respiratory auscultation Overall: breath sounds clear bilaterally 06/19/2014 None Full Exam - General 1994 Respiratory respiratory effort/rhythm Overall: no retractions 06/19/2014 None Full Exam - General 1994 Respiratory respiratory effort/rhythm Overall: normal rate 06/19/2014 None Full Exam - General 1994 Cardiovascular extremities Overall: no clubbing 06/19/2014 None Full Exam - General 1994 Cardiovascular auscultation of heart Overall: regular rate 06/19/2014 None Full Exam - General 1994 Cardiovascular auscultation of heart Overall: normal heart sounds 06/19/2014 None Full Exam - General 1994 Musculoskeletal digits and nails Overall: no clubbing 06/19/2014 None Full Exam - General 1994 Musculoskeletal digits and nails Overall: digits benign 06/19/2014 None Full Exam - General 1994 Musculoskeletal gait and station Overall: normal gait 06/19/2014 None Full Exam - General 1994 Musculoskeletal gait and station Overall: normal station 06/19/2014 None Full Exam - General 1994 Musculoskeletal head and neck Overall: head atraumatic 06/19/2014 None Full Exam - General 1994 Musculoskeletal head and neck Overall: cervical spine benign 06/19/2014 None Full Exam - General 1994 Neurologic deep tendon reflexes Overall: deep tendon reflexes intact 06/19/2014 None Full Exam - General 1994 Psychiatric orientation/consciousness Overall: oriented to person, place and time 06/19/2014 None Full Exam - General 1994 Psychiatric mood and affect Overall: normal mood and affect 06/19/2014 None Full Exam - General 1994 Abdomen abdominal exam Overall: no tenderness 06/19/2014 None Full Exam - General 1994 Abdomen abdominal exam Overall: normal bowel sounds 06/19/2014 None Full Exam - General 1994 Constitutional general appearance Development: well developed 03/19/2014 None Full Exam - General 1994 Constitutional general appearance Development: appears stated age 0803/19/2014 None Full Exam - General 1994 Constitutional general appearance Development: appears older than stated age 0803/19/2014 None Full Exam - General 1994 Constitutional general appearance Hygiene/Attention to Grooming: good hygiene 03/19/2014 None Full Exam - General 1994 Eyes conjunctiva/eyelids Overall: conjunctiva clear 03/19/2014 None Full Exam - General 1994 Eyes conjunctiva/eyelids Overall: eyelids normal 03/19/2014 None Full Exam - General 1994 Eyes pupils and irises Overall: pupils equal, round, reactive to light and accomodation 03/19/2014 None Full Exam - General 1994 Ears/Nose/Throat lips/teeth/gingiva Overall: benign lips 03/19/2014 None Full Exam - General 1994 Ears/Nose/Throat lips/teeth/gingiva Overall: normal dentition 03/19/2014 None Full Exam - General 1994 Respiratory auscultation Overall: breath sounds clear bilaterally 03/19/2014 None Full Exam - General 1994 Respiratory respiratory effort/rhythm Overall: no retractions 03/19/2014 None Full Exam - General 1994 Respiratory respiratory effort/rhythm Overall: normal rate 03/19/2014 None Full Exam - General 1994 Cardiovascular extremities Overall: no clubbing 03/19/2014 None Full Exam - General 1994 Cardiovascular auscultation of heart Overall: regular rate 03/19/2014 None Full Exam - General 1994 Cardiovascular auscultation of heart Overall: normal heart sounds 03/19/2014 None Full Exam - General 1994 Musculoskeletal digits and nails Overall: no clubbing 03/19/2014 None Full Exam - General 1994 Musculoskeletal digits and nails Overall: digits benign 03/19/2014 None Full Exam - General 1994 Musculoskeletal gait and station Overall: normal gait 03/19/2014 None Full Exam - General 1994 Musculoskeletal gait and station Overall: normal station 03/19/2014 None Full Exam - General 1994 Musculoskeletal head and neck Overall: head atraumatic 03/19/2014 None Full Exam - General 1994 Musculoskeletal head and neck Overall: cervical spine benign 03/19/2014 None Full Exam - General 1994 Neurologic deep tendon reflexes Overall: deep tendon reflexes intact 03/19/2014 None Full Exam - General 1994 Psychiatric orientation/consciousness Overall: oriented to person, place and time 03/19/2014 None Full Exam - General 1994 Psychiatric mood and affect Overall: normal mood and affect 03/19/2014 None Full Exam - General 1994 Constitutional general appearance Development: well developed 09/25/2013 None Full Exam - General 1994 Constitutional general appearance Development: appears stated age 0209/25/2013 None Full Exam - General 1994 Constitutional general appearance Development: appears older than stated age 0209/25/2013 None Full Exam - General 1994 Constitutional general appearance Hygiene/Attention to Grooming: good hygiene 09/25/2013 None Full Exam - General 1994 Eyes conjunctiva/eyelids Overall: conjunctiva clear 09/25/2013 None Full Exam - General 1994 Eyes conjunctiva/eyelids Overall: eyelids normal 09/25/2013 None Full Exam - General 1994 Eyes pupils and irises Overall: pupils equal, round, reactive to light and accomodation 09/25/2013 None Full Exam - General 1994 Ears/Nose/Throat lips/teeth/gingiva Overall: benign lips 09/25/2013 None Full Exam - General 1994 Ears/Nose/Throat lips/teeth/gingiva Overall: normal dentition 09/25/2013 None Full Exam - General 1994 Respiratory auscultation Overall: breath sounds clear bilaterally 09/25/2013 None Full Exam - General 1994 Respiratory respiratory effort/rhythm Overall: no retractions 09/25/2013 None Full Exam - General 1994 Respiratory respiratory effort/rhythm Overall: normal rate 09/25/2013 None Full Exam - General 1994 Cardiovascular extremities Overall: no clubbing 09/25/2013 None Full Exam - General 1994 Cardiovascular auscultation of heart Overall: regular rate 09/25/2013 None Full Exam - General 1994 Cardiovascular auscultation of heart Overall: normal heart sounds 09/25/2013 None Full Exam - General 1994 Musculoskeletal digits and nails Overall: no clubbing 09/25/2013 None Full Exam - General 1994 Musculoskeletal digits and nails Overall: digits benign 09/25/2013 None Full Exam - General 1994 Musculoskeletal gait and station Overall: normal gait 09/25/2013 None Full Exam - General 1994 Musculoskeletal gait and station Overall: normal station 09/25/2013 None Full Exam - General 1994 Musculoskeletal head and neck Overall: head atraumatic 09/25/2013 None Full Exam - General 1994 Musculoskeletal head and neck Overall: cervical spine benign 09/25/2013 None Full Exam - General 1994 Neurologic deep tendon reflexes Overall: deep tendon reflexes intact 09/25/2013 None Full Exam - General 1994 Psychiatric orientation/consciousness Overall: oriented to person, place and time 09/25/2013 None Full Exam - General 1994 Psychiatric mood and affect Overall: normal mood and affect 09/25/2013 None Full Exam - General 1994 Constitutional general appearance Development: well developed 06/25/2013 None Full Exam - General 1994 Constitutional general appearance Development: appears stated age 1106/25/2013 None Full Exam - General 1994 Constitutional general appearance Development: appears older than stated age 1106/25/2013 None Full Exam - General 1994 Constitutional general appearance Hygiene/Attention to Grooming: good hygiene 06/25/2013 None Full Exam - General 1994 Eyes conjunctiva/eyelids Overall: eyelids normal 06/25/2013 None Full Exam - General 1994 Eyes pupils and irises Overall: pupils equal, round, reactive to light and accomodation 06/25/2013 None Full Exam - General 1994 Ears/Nose/Throat lips/teeth/gingiva Overall: benign lips 06/25/2013 None Full Exam - General 1994 Ears/Nose/Throat lips/teeth/gingiva Overall: normal dentition 06/25/2013 None Full Exam - General 1994 Respiratory auscultation Overall: breath sounds clear bilaterally 06/25/2013 None Full Exam - General 1994 Respiratory respiratory effort/rhythm Overall: no retractions 06/25/2013 None Full Exam - General 1994 Respiratory respiratory effort/rhythm Overall: normal rate 06/25/2013 None Full Exam - General 1994 Cardiovascular extremities Overall: no clubbing 06/25/2013 None Full Exam - General 1994 Cardiovascular auscultation of heart Overall: regular rate 06/25/2013 None Full Exam - General 1994 Cardiovascular auscultation of heart Overall: normal heart sounds 06/25/2013 None Full Exam - General 1994 Musculoskeletal digits and nails Overall: no clubbing 06/25/2013 None Full Exam - General 1994 Musculoskeletal digits and nails Overall: digits benign 06/25/2013 None Full Exam - General 1994 Musculoskeletal gait and station Overall: normal gait 06/25/2013 None Full Exam - General 1994 Musculoskeletal gait and station Overall: normal station 06/25/2013 None Full Exam - General 1994 Musculoskeletal head and neck Overall: head atraumatic 06/25/2013 None Full Exam - General 1994 Musculoskeletal head and neck Overall: cervical spine benign 06/25/2013 None Full Exam - General 1994 Neurologic deep tendon reflexes Overall: deep tendon reflexes intact 06/25/2013 None Full Exam - General 1994 Psychiatric orientation/consciousness Overall: oriented to person, place and time 06/25/2013 None Full Exam - General 1994 Psychiatric mood and affect Overall: normal mood and affect 06/25/2013 None Full Exam - General 1994 Eyes conjunctiva/eyelids Overall: conjunctiva clear 06/25/2013 None Full Exam - General 1994 Constitutional general appearance Development: appears older than stated age 1106/10/2013 None Full Exam - General 1994 Constitutional general appearance Development: appears stated age 1106/10/2013 None Full Exam - General 1994 Constitutional general appearance Development: well developed 06/10/2013 None Full Exam - General 1994 Constitutional general appearance Hygiene/Attention to Grooming: good hygiene 06/10/2013 None Full Exam - General 1994 Eyes conjunctiva/eyelids Overall: conjunctiva clear 06/10/2013 None Full Exam - General 1994 Eyes conjunctiva/eyelids Overall: cornea clear 06/10/2013 None Full Exam - General 1994 Eyes conjunctiva/eyelids Overall: eyelids normal 06/10/2013 None Full Exam - General 1994 Eyes pupils and irises Overall: pupils equal, round, reactive to light and accomodation 06/10/2013 None Full Exam - General 1994 Ears/Nose/Throat otoscopic exam Overall: external auditory canals clear 06/10/2013 None Full Exam - General 1995 Ears/Nose/Throat otoscopic exam Overall: tympanic membranes clear 06/10/2013 None Full Exam - General 1994 Ears/Nose/Throat lips/teeth/gingiva Overall: benign lips 06/10/2013 None Full Exam - General 1995 Ears/Nose/Throat lips/teeth/gingiva Overall: normal dentition 06/10/2013 None Full Exam - General 1994 Ears/Nose/Throat oral cavity/pharynx/larynx Overall: hypopharynx benign 06/10/2013 None Full Exam - General 1995 Ears/Nose/Throat oral cavity/pharynx/larynx Overall: no masses 06/10/2013 None Full Exam - General 1995 Ears/Nose/Throat oral cavity/pharynx/larynx Overall: oral mucosa clear 06/10/2013 None Full Exam - General 1995 Ears/Nose/Throat oral cavity/pharynx/larynx Overall: oropharyngeal mucosa clear 06/10/2013 None Full Exam - General 1995 Respiratory auscultation Overall: breath sounds clear bilaterally 06/10/2013 None Full Exam - General 1995 Respiratory respiratory effort/rhythm Overall: no retractions 06/10/2013 None Full Exam - General 1995 Respiratory respiratory effort/rhythm Overall: normal rate 06/10/2013 None Full Exam - General 1995 Cardiovascular extremities Overall: no clubbing 06/10/2013 None Full Exam - General 1995 Cardiovascular auscultation of heart Overall: normal heart sounds 06/10/2013 None Full Exam - General 1995 Cardiovascular auscultation of heart Overall: regular rate 06/10/2013 None Full Exam - General 1995 Abdomen abdominal exam Overall: no tenderness 06/10/2013 None Full Exam - General 1995 Abdomen abdominal exam Overall: normal bowel sounds 06/10/2013 None Full Exam - General 1995 Integument inspection of skin Overall: few scattered moles, no gross abnormalities 06/10/2013 None Full Exam - General 1994 Neurologic deep tendon reflexes Overall: deep tendon reflexes intact 06/10/2013 None Full Exam - General 1994 Neurologic cranial nerves Overall: crainial nerves 2 - 12 grossly intact 06/10/2013 None Full Exam - General 1994 Psychiatric orientation/consciousness Overall: oriented to person, place and time 06/10/2013 None Full Exam - General 1994 Psychiatric mood and affect Overall: normal mood and affect 06/10/2013 None Full Exam - General 1994 Lymphatic neck nodes Overall: anterior cervical chain benign 06/10/2013 None Full Exam - General 1994 Lymphatic neck nodes Overall: posterior cervical chain benign 06/10/2013 None Full Exam - General 1994 Musculoskeletal digits and nails Overall: digits benign 06/10/2013 None Full Exam - General 1994 Musculoskeletal digits and nails Overall: no clubbing 06/10/2013 None Full Exam - General 1994 Musculoskeletal head and neck Overall: cervical spine benign 06/10/2013 None Full Exam - General 1994 Musculoskeletal head and neck Overall: head atraumatic 06/10/2013 None Full Exam - General 1994 Musculoskeletal gait and station Overall: normal station 06/10/2013 None Full Exam - General 1994 Musculoskeletal gait and station Overall: normal gait 06/10/2013 None Full Exam - General 1994 Musculoskeletal lower extremity Palpation - knee: crepitus 06/10/2013 None Procedures Procedure Codes Date IMMUNIZATION ADMIN CPT-4: [id number] 05/19/2016 THER/PROPH/DIAG INJ SC/IM CPT-4: 02599Odkxjty 05/19/2016 IIV4 FLU VACC NO PRESERV ID Formatting Model/CDA Sections, Assigned to/Gemma Granados CT: [id number] CPT-4: 84865Dozxuri 05/19/2016 VITAMIN B12 INJECTION CPT-4: [id number] 05/19/2016 THER/PROPH/DIAG INJ SC/IM CPT-4: 57002Rhgpnee 04/20/2016 VITAMIN B12 INJECTION CPT-4: Q0399Ppckkjq 04/20/2016 IMMUNIZATION ADMIN CPT-4: 29941Spzdsdz 04/20/2016 Pneumococcal Polysaccharide Vaccine, 23-Valent, Ad CPT-4: 55404Buyzgzg 04/20/2016 Vital Signs Date Vital 11/28/2016 Blood Pressure 1: 128/78 Code: 8480-6 BMI: 37.5 Code: 45811-7 Heart Rate 1: 88 bpm Height: 5'6" SpO2: 98% Weight: 232 lbs 8 oz 07/28/2016 Blood Pressure 1: 122/72 Code: 8480-6 BMI: 37.6 Code: 19143-8 Heart Rate 1: 61 bpm Height: 5'6" SpO2: 97% Weight: 233 lbs 06/06/2016 Blood Pressure 1: 128/82 Code: 8480-6 BMI: 37.3 Code: 55569-8 Heart Rate 1: 66 bpm Height: 5'6" SpO2: 94% Weight: 231 lbs 04/20/2016 Blood Pressure 1: 136/80 Code: 8480-6 BMI: 38.3 Code: 98685-3 Heart Rate 1: 83 bpm Height: 5'6" SpO2: 98% Weight: 237 lbs 8 oz 03/03/2016 Blood Pressure 1: 130/80 Code: 8480-6 BMI: 38.4 Code: 15206-7 Heart Rate 1: 86 bpm Height: 5'6" SpO2: 96% Weight: 238 lbs 12/21/2015 Blood Pressure 1: 148/84 Code: 8480-6 BMI: 38.4 Code: 68697-4 Heart Rate 1: 94 bpm Height: 5'6" SpO2: 98% Weight: 238 lbs 06/22/2015 Blood Pressure 1: 128/74 Code: 8480-6 BMI: 37.4 Code: 68997-7 Heart Rate 1: 82 bpm Height: 5'6" SpO2: 98% Weight: 232 lbs 03/19/2015 Blood Pressure 1: 122/72 Code: 8480-6 BMI: 37.9 Code: 67013-5 Heart Rate 1: 80 bpm Height: 5'6" SpO2: 97% Weight: 235 lbs 01/22/2015 Blood Pressure 1: 122/80 Code: 8480-6 BMI: 38.6 Code: 56344-9 Heart Rate 1: 78 bpm Height: 5'6" SpO2: 98% Weight: 239 lbs 12/22/2014 Blood Pressure 1: 110/80 Code: 8480-6 BMI: 38.1 Code: 06135-8 Heart Rate 1: 76 bpm Height: 5'6" Weight: 236 lbs 06/19/2014 Blood Pressure 1: 122/74 Code: 8480-6 BMI: 36.8 Code: 19540-5 Heart Rate 1: 86 bpm Height: 5'6" Weight: 228 lbs 03/19/2014 Blood Pressure 1: 122/78 Code: 8480-6 BMI: 36.6 Code: 38453-5 Heart Rate 1: 80 bpm Height: 5'6" Weight: 227 lbs 09/25/2013 Blood Pressure 1: 130/70 Code: 8480-6 BMI: 37.1 Code: 17160-0 Heart Rate 1: 80 bpm Height: 5'6" SpO2: 98% Weight: 230 lbs 06/25/2013 Blood Pressure 1: 126/76 Code: 8480-6 BMI: 38.1 Code: 33321-1 Heart Rate 1: 76 bpm Height: 5'6" Weight: 236 lbs 06/10/2013 Blood Pressure 1: 128/76 Code: 8480-6 BMI: 38.1 Code: 70457-7 Heart Rate 1: 80 bpm Height: 5'6" Weight: 236 lbs Functional Status No Functional Status data History of Present Illness Symptom Name Status Result Effective Date Notes hypothyroid Quality chronic 11/28/2016 None hypothyroid Onset and Resolution ongoing 11/28/2016 None hypothyroid Severity mild with subclinical signs 11/28/2016 None hypothyroid Alleviating Factors medication 11/28/2016 None hypothyroid Pertinent Findings decreased energy 11/28/2016 ---improving diabetes mellitus Quality non-insulin dependent 11/28/2016 None diabetes mellitus Exacerbating Factors diet 11/28/2016 None diabetes mellitus Pertinent Findings Denies dizziness 11/28/2016 None diabetes mellitus Pertinent Findings lethargy 11/28/2016 ---improving diabetes mellitus Pertinent Findings Denies nausea 11/28/2016 None diabetes mellitus Test results Pt not checking blood glucose readings at home 11/28/2016 None diabetes mellitus Glucose monitoring does not test 11/28/2016 None diabetes mellitus Pertinent Findings Denies dyspnea 11/28/2016 None gastroesophageal reflux Onset and Resolution ongoing 11/28/2016 None gastroesophageal reflux Onset of Symptom during adulthood 11/28/2016 None gastroesophageal reflux Quality intermittent 11/28/2016 None gastroesophageal reflux Alleviating Factors proton pump inhibitor 11/28/2016 (omeprazole) gastroesophageal reflux Quality stable 11/28/2016 None wrist pain Location on the left 11/28/2016 None wrist pain Location on the right 11/28/2016 None wrist pain Onset and Resolution ongoing 11/28/2016 None wrist pain Pertinent Findings weakness 11/28/2016 None hypothyroid Quality chronic 07/28/2016 None hypothyroid Onset and Resolution ongoing 07/28/2016 None hypothyroid Severity mild with subclinical signs 07/28/2016 None hypothyroid Triggers no known associated factors 07/28/2016 None hypothyroid Alleviating Factors medication 07/28/2016 None hypothyroid Pertinent Findings decreased energy 07/28/2016 None hypothyroid Pertinent Findings lethargy 07/28/2016 None diabetes mellitus Quality non-insulin dependent 07/28/2016 None diabetes mellitus Exacerbating Factors diet 07/28/2016 None diabetes mellitus Pertinent Findings Denies dizziness 07/28/2016 None diabetes mellitus Pertinent Findings lethargy 07/28/2016 None diabetes mellitus Pertinent Findings Denies nausea 07/28/2016 None abdominal pain Location diffusely 07/28/2016 None abdominal pain Radiating the back 07/28/2016 None abdominal pain Quality burning 07/28/2016 None abdominal pain Quality intermittent 07/28/2016 None abdominal pain Onset and Resolution ongoing 07/28/2016 None abdominal pain Onset of Symptom 1 months ago 07/28/2016 None abdominal pain Limitation on Activities does not limit activities 07/28/2016 None abdominal pain Frequency of Episodes increasing 07/28/2016 None abdominal pain Triggers meals 07/28/2016 eating makes it worse abdominal pain Alleviating Factors antacids 07/28/2016 taking tums abdominal pain Pertinent Findings dyspepsia 07/28/2016 None abdominal pain Pertinent Findings heartburn 07/28/2016 None sinus congestion Quality fullness 07/28/2016 None sinus congestion Quality pressure 07/28/2016 None abdominal pain Location diffusely 06/06/2016 None abdominal pain Quality burning 06/06/2016 None abdominal pain Quality intermittent 06/06/2016 None abdominal pain Pertinent Findings heartburn 06/06/2016 None abdominal pain Pertinent Findings dyspepsia 06/06/2016 None abdominal pain Radiating the back 06/06/2016 None abdominal pain Onset and Resolution ongoing 06/06/2016 None abdominal pain Onset of Symptom 1 months ago 06/06/2016 None abdominal pain Limitation on Activities does not limit activities 06/06/2016 None abdominal pain Frequency of Episodes increasing 06/06/2016 None abdominal pain Triggers meals 06/06/2016 eating makes it worse abdominal pain Alleviating Factors antacids 06/06/2016 taking tums hypothyroid Quality chronic 04/20/2016 None hypothyroid Onset and Resolution ongoing 04/20/2016 None hypothyroid Severity mild with subclinical signs 04/20/2016 None hypothyroid Triggers no known associated factors 04/20/2016 None hypothyroid Alleviating Factors medication 04/20/2016 None hypothyroid Pertinent Findings decreased energy 04/20/2016 None hypothyroid Pertinent Findings lethargy 04/20/2016 None diabetes mellitus Quality non-insulin dependent 04/20/2016 None diabetes mellitus Exacerbating Factors diet 04/20/2016 None diabetes mellitus Pertinent Findings Denies dizziness 04/20/2016 None diabetes mellitus Pertinent Findings Denies nausea 04/20/2016 None fatigue Onset and Resolution ongoing 04/20/2016 None joint complaint Location diffusely 04/20/2016 None joint complaint Quality aching 04/20/2016 None joint complaint Onset and Resolution ongoing 04/20/2016 None diabetes mellitus Test results Pt checking blood glucose at home, see scanned readings 04/20/2016 None diabetes mellitus Glucose monitoring occasional glucose testing 04/20/2016 None diabetes mellitus Blood glucose levels between 60 and 120 04/20/2016 None diabetes mellitus Pertinent Findings lethargy 04/20/2016 None joint complaint Quality worsening 04/20/2016 None joint complaint Limitation on Activities moderately limits activities 04/20/2016 None fatigue Quality improving 04/20/2016 None fatigue Limitation on Activities does not limit activities 03/03/2016 None fatigue Onset of Symptom 3 months ago 03/03/2016 None fatigue Frequency of Episodes daily 03/03/2016 None fatigue Exacerbating Factors activity 03/03/2016 None fatigue Pertinent Findings Denies back pain 03/03/2016 None fatigue Pertinent Findings Denies dizziness 03/03/2016 None fatigue Pertinent Findings Denies dyspnea 03/03/2016 None fatigue Pertinent Findings Denies insomnia 03/03/2016 None hypothyroid Quality chronic 12/21/2015 None hypothyroid Onset and Resolution ongoing 12/21/2015 None hypothyroid Severity mild with subclinical signs 12/21/2015 None hypothyroid Triggers no known associated factors 12/21/2015 None hypothyroid Alleviating Factors medication 12/21/2015 None hypothyroid Pertinent Findings decreased energy 12/21/2015 None hypothyroid Pertinent Findings lethargy 12/21/2015 None diabetes mellitus Quality non-insulin dependent 12/21/2015 None diabetes mellitus Pertinent Findings Denies dizziness 12/21/2015 None diabetes mellitus Pertinent Findings Denies nausea 12/21/2015 None diabetes mellitus Test results Pt not checking blood glucose readings at home 12/21/2015 None diabetes mellitus Glucose monitoring does not test 12/21/2015 None diabetes mellitus Exacerbating Factors diet 12/21/2015 None diabetes mellitus Pertinent Findings Denies dyspnea 12/21/2015 None fatigue Onset and Resolution ongoing 12/21/2015 None joint complaint Location diffusely 12/21/2015 None joint complaint Onset and Resolution ongoing 12/21/2015 None joint complaint Quality aching 12/21/2015 None hypothyroid Quality chronic 06/22/2015 None hypothyroid Onset and Resolution ongoing 06/22/2015 None hypothyroid Severity mild with subclinical signs 06/22/2015 None hypothyroid Triggers no known associated factors 06/22/2015 None hypothyroid Alleviating Factors medication 06/22/2015 None hypothyroid Pertinent Findings Denies coarse hair 06/22/2015 None hypothyroid Pertinent Findings decreased energy 06/22/2015 None hypothyroid Pertinent Findings Denies dry skin 06/22/2015 None hypothyroid Pertinent Findings Denies edema 06/22/2015 None hypothyroid Pertinent Findings Denies hair loss 06/22/2015 None hypothyroid Pertinent Findings Denies lethargy 06/22/2015 None medication follow up Location oral intake 06/22/2015 synthroid medication follow up Significant Past Medical History diabetes 06/22/2015 None diabetes mellitus Quality non-insulin dependent 06/22/2015 None diabetes mellitus Weight Control current weight 06/22/2015 227 diabetes mellitus Pertinent Findings dizziness 06/22/2015 if sugar is down to 85 diabetes mellitus Pertinent Findings nausea 06/22/2015 noted if not eating on schedule diabetes mellitus Test results Pt checking blood glucose readings, did not bring results to clinic 06/22/2015 None hypothyroid Quality chronic 03/19/2015 None hypothyroid Onset and Resolution ongoing 03/19/2015 None hypothyroid Severity mild with subclinical signs 03/19/2015 None hypothyroid Triggers no known associated factors 03/19/2015 None hypothyroid Alleviating Factors medication 03/19/2015 None hypothyroid Pertinent Findings Denies coarse hair 03/19/2015 None hypothyroid Pertinent Findings decreased energy 03/19/2015 None hypothyroid Pertinent Findings Denies dry skin 03/19/2015 None hypothyroid Pertinent Findings Denies edema 03/19/2015 None hypothyroid Pertinent Findings Denies hair loss 03/19/2015 None hypothyroid Pertinent Findings Denies lethargy 03/19/2015 None medication follow up Location oral intake 03/19/2015 synthroid medication follow up Significant Past Medical History diabetes 03/19/2015 None diabetes mellitus Quality non-insulin dependent 03/19/2015 None diabetes mellitus Weight Control current weight 03/19/2015 227 diabetes mellitus Pertinent Findings dizziness 03/19/2015 if sugar is down to 85 diabetes mellitus Pertinent Findings nausea 03/19/2015 noted if not eating on schedule diabetes mellitus Test results Pt checking blood glucose readings, did not bring results to clinic 03/19/2015 None diabetes mellitus Glucose monitoring daily 03/19/2015 None edema Frequency of Episodes daily 01/22/2015 None edema Onset of Symptom 1 months ago 01/22/2015 None edema Quality intermittent 01/22/2015 None hypothyroid Quality chronic 12/22/2014 None hypothyroid Onset and Resolution ongoing 12/22/2014 None hypothyroid Severity mild with subclinical signs 12/22/2014 None hypothyroid Triggers no known associated factors 12/22/2014 None hypothyroid Alleviating Factors medication 12/22/2014 None hypothyroid Pertinent Findings Denies coarse hair 12/22/2014 None hypothyroid Pertinent Findings decreased energy 12/22/2014 None hypothyroid Pertinent Findings Denies dry skin 12/22/2014 None hypothyroid Pertinent Findings Denies edema 12/22/2014 None hypothyroid Pertinent Findings Denies hair loss 12/22/2014 None hypothyroid Pertinent Findings Denies lethargy 12/22/2014 None medication follow up Location oral intake 12/22/2014 synthroid medication follow up Significant Past Medical History diabetes 12/22/2014 None diabetes mellitus Quality non-insulin dependent 12/22/2014 None diabetes mellitus Weight Control current weight 12/22/2014 227 diabetes mellitus Pertinent Findings dizziness 12/22/2014 if sugar is down to 85 diabetes mellitus Pertinent Findings nausea 12/22/2014 noted if not eating on schedule diabetes mellitus Test results Pt checking blood glucose at home, see scanned readings 12/22/2014 None diabetes mellitus Glucose monitoring occasional glucose testing 12/22/2014 None diabetes mellitus Glucose monitoring daily 12/22/2014 None hypothyroid Quality chronic 06/19/2014 None hypothyroid Onset and Resolution ongoing 06/19/2014 None hypothyroid Severity mild with subclinical signs 06/19/2014 None hypothyroid Triggers no known associated factors 06/19/2014 None hypothyroid Alleviating Factors medication 06/19/2014 None hypothyroid Pertinent Findings Denies coarse hair 06/19/2014 None hypothyroid Pertinent Findings Denies decreased energy 06/19/2014 None hypothyroid Pertinent Findings Denies dry skin 06/19/2014 None hypothyroid Pertinent Findings Denies edema 06/19/2014 None hypothyroid Pertinent Findings Denies hair loss 06/19/2014 None hypothyroid Pertinent Findings Denies lethargy 06/19/2014 None medication follow up Location oral intake 06/19/2014 synthroid medication follow up Significant Past Medical History diabetes 06/19/2014 None diabetes mellitus Quality non-insulin dependent 06/19/2014 None diabetes mellitus Weight Control current weight 06/19/2014 227 diabetes mellitus Pertinent Findings dizziness 06/19/2014 if sugar is down to 85 diabetes mellitus Pertinent Findings nausea 06/19/2014 noted if not eating on schedule hypothyroid Quality chronic 03/19/2014 None hypothyroid Onset and Resolution ongoing 03/19/2014 None hypothyroid Severity mild with subclinical signs 03/19/2014 None hypothyroid Triggers no known associated factors 03/19/2014 None hypothyroid Alleviating Factors medication 03/19/2014 None hypothyroid Pertinent Findings Denies coarse hair 03/19/2014 None hypothyroid Pertinent Findings Denies decreased energy 03/19/2014 None hypothyroid Pertinent Findings Denies dry skin 03/19/2014 None hypothyroid Pertinent Findings Denies edema 03/19/2014 None hypothyroid Pertinent Findings Denies hair loss 03/19/2014 None hypothyroid Pertinent Findings Denies lethargy 03/19/2014 None medication follow up Location oral intake 03/19/2014 synthroid medication follow up Significant Past Medical History diabetes 03/19/2014 None diabetes mellitus Quality non-insulin dependent 03/19/2014 None diabetes mellitus Test results Pt not checking blood glucose readings at home 03/19/2014 None diabetes mellitus Test results HgbA1c level 6.0 03/19/2014 see lab diabetes mellitus Glucose monitoring does not test 03/19/2014 None diabetes mellitus Exercise moderate exercise 03/19/2014 None diabetes mellitus Weight Control current weight 03/19/2014 227 diabetes mellitus Pertinent Findings dizziness 03/19/2014 if not eating protein at breakfast diabetes mellitus Pertinent Findings nausea 03/19/2014 noted if not eating on schedule hypothyroid Quality chronic 09/25/2013 None hypothyroid Onset and Resolution ongoing 09/25/2013 None hypothyroid Severity mild with subclinical signs 09/25/2013 None hypothyroid Triggers no known associated factors 09/25/2013 None hypothyroid Alleviating Factors medication 09/25/2013 None hypothyroid Pertinent Findings Denies coarse hair 09/25/2013 None hypothyroid Pertinent Findings Denies decreased energy 09/25/2013 None hypothyroid Pertinent Findings dry skin 09/25/2013 None hypothyroid Pertinent Findings Denies lethargy 09/25/2013 None hypothyroid Pertinent Findings Denies hair loss 09/25/2013 None hypothyroid Pertinent Findings Denies edema 09/25/2013 None hypothyroid Quality chronic 06/25/2013 None hypothyroid Onset and Resolution ongoing 06/25/2013 None hypothyroid Severity mild with subclinical signs 06/25/2013 None hypothyroid Triggers no known associated factors 06/25/2013 None hypothyroid Alleviating Factors medication 06/25/2013 None hypothyroid Pertinent Findings Denies coarse hair 06/25/2013 None hypothyroid Pertinent Findings Denies coarse skin 06/25/2013 None hypothyroid Pertinent Findings Denies decreased energy 06/25/2013 None hypothyroid Pertinent Findings dry skin 06/25/2013 None hypothyroid Pertinent Findings Denies dyspnea 06/25/2013 None hypothyroid Pertinent Findings Denies edema 06/25/2013 None hypothyroid Pertinent Findings Denies somnolence 06/25/2013 None hypothyroid Pertinent Findings Denies palpitations 06/25/2013 None hypothyroid Pertinent Findings Denies nervousness 06/25/2013 None hypothyroid Pertinent Findings Denies lethargy 06/25/2013 None hypothyroid Pertinent Findings Denies hair loss 06/25/2013 None diabetes mellitus Quality non-insulin dependent 06/25/2013 None diabetes mellitus Test results Pt not checking blood glucose readings at home 06/25/2013 None diabetes mellitus Test results HgbA1c level 6.4 06/25/2013 None diabetes mellitus Glucose monitoring does not test 06/25/2013 None diabetes mellitus Exacerbating Factors diet 06/25/2013 None diabetes mellitus Nutrition regular diet 06/25/2013 None diabetes mellitus Exercise no exercise 06/25/2013 awaiting knee replacement in July diabetes mellitus Pertinent Findings Denies dizziness 06/25/2013 None diabetes mellitus Pertinent Findings Denies dyspnea 06/25/2013 None diabetes mellitus Pertinent Findings Denies lethargy 06/25/2013 None diabetes mellitus Pertinent Findings Denies polyuria 06/25/2013 None diabetes mellitus Pertinent Findings Denies polyphagia 06/25/2013 None diabetes mellitus Pertinent Findings Denies numbness 06/25/2013 None diabetes mellitus Pertinent Findings Denies vomiting 06/25/2013 None diabetes mellitus Pertinent Findings Denies weight loss 06/25/2013 None knee pain Location on the left 06/10/2013 None knee pain Location on the right 06/10/2013 None knee pain Quality chronic 06/10/2013 None knee pain Frequency of Episodes daily 06/10/2013 None knee pain Frequency of Episodes increasing 06/10/2013 None knee pain Limitation on Activities restricts weight bearing activity 06/10/2013 None knee pain Limitation on Activities moderately limits activities 06/10/2013 None knee pain Severity severe 06/10/2013 None knee pain Significant Medications NSAID's 06/10/2013 None knee pain Significant Medical Conditions degenerative joint disease 06/10/2013 None knee pain Significant Medical Conditions prior history of meniscal tear 06/10/2013 None knee pain Pertinent Findings Denies bruising 06/10/2013 None knee pain Pertinent Findings clicking 06/10/2013 None knee pain Pertinent Findings decreased range of motion 06/10/2013 None knee pain Pertinent Findings limping 06/10/2013 None knee pain Pertinent Findings pain with movement 06/10/2013 None knee pain Exacerbating Factors weight bearing 06/10/2013 None knee pain Sports 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 Advance Directives No Advance Directive data Encounters Encounter Performer Location Codes Date ([id number]) [id number] EST. PATIENT, LEVEL IV Diagnosis: Type 2 diabetes mellitus without complications[ICD10: E11.9] Diagnosis: Atrophy of thyroid (acquired)[ICD10: E03.4] [facility] CPT-4: 57503 11/28/2016 ([id number]) PREV VISIT EST AGE 40-64 Diagnosis: Encounter for general adult medical examination without abnormal findings[ICD10: Z00.00] Diagnosis: Type 2 diabetes mellitus without complications[ICD10: E11.9] Diagnosis: Atrophy of thyroid (acquired)[ICD10: E03.4] Diagnosis: Gastro-esophageal reflux disease without esophagitis[ICD10: K21.9] Saniya Schwab MD, [facility] CPT-4: 53903 07/28/2016 ([id number]) 65083 EST. PATIENT, LEVEL III Diagnosis: Gastro-esophageal reflux disease without esophagitis[ICD10: K21.9] Macey Schwab MD, [facility] CPT-4: 76212 06/06/2016 ([id number]) [id number] EST. PATIENT, LEVEL IV Diagnosis: Type 2 diabetes mellitus without complications[ICD10: E11.9] Diagnosis: Atrophy of thyroid (acquired)[ICD10: E03.4] Diagnosis: Encounter for immunization[ICD10: Z23] Diagnosis: Other vitamin B12 deficiency anemias[ICD10: D51.8] Saniya Schwab MD, [facility] CPT-4: 76143 04/20/2016 ([id number]) 31781 EST. PATIENT, LEVEL III Diagnosis: Hypothyroidism, unspecified[ICD10: E03.9] Diagnosis: Other fatigue[ICD10: R53.83] Macey Schwab MD, [facility] CPT-4: 42843 03/03/2016 ([id number]) 26819 EST. PATIENT, LEVEL IV Diagnosis: Type 2 diabetes mellitus without complications[ICD10: E11.9] Diagnosis: Hypothyroidism, unspecified[ICD10: E03.9] Saniya Schwab MD, [facility] CPT-4: 25935 12/21/2015 ([id number]) 89429 EST. PATIENT, LEVEL III Diagnosis: Type 2 diabetes mellitus without complications[ICD10: E11.9] Diagnosis: Hypothyroidism, unspecified[ICD10: E03.9] Saniya Schwab MD, [facility] CPT-4: 40999 06/22/2015 ([id number]) PREV VISIT EST AGE 40-64 Diagnosis: Routine medical exam[ICD9: V70.0] Saniya Schwab MD, [facility] CPT- 4: 98156 03/19/2015 ([id number]) 33959 EST. PATIENT, LEVEL III Diagnosis: EDEMA[ICD9: 782.3] Macey Schwab MD, [facility] CPT-4: 01692 01/22/2015 ([id number]) 32083 EST. PATIENT, LEVEL IV Diagnosis: Hypothyroidism[ICD9: 244.9] Diagnosis: DIABETES TYPE II[ICD9: 250.00] Macey Schwab MD, [facility] CPT-4: 37385 12/22/2014 ([id number]) 12126 EST. PATIENT, LEVEL III Diagnosis: Hypothyroidism[ICD9: 244.9] Diagnosis: DIABETES TYPE II[ICD9: 250.00] Diagnosis: Osteoarthritis[ICD9: 715.90] Saniya Schwab MD [facility] CPT-4: 71416 06/19/2014 ([id number]) 00760 EST. PATIENT, LEVEL IV Diagnosis: DIABETES TYPE II[ICD9: 250.00] Diagnosis: Hypothyroidism[ICD9: 244.9] Saniya Schwab MD, [facility] CPT-4: 39148 03/19/2014 ([id number]) 06790 EST. PATIENT, LEVEL IV Diagnosis: HYPOTHYROIDISM[ICD9: 244.9] Diagnosis: DIABETES TYPE II[SNOMED: [id number]] Saniya Schwab MD, [facility] CPT- 4: 91297 09/25/2013 ([id number]) 45996 EST. PATIENT, LEVEL IV Diagnosis: Hypothyroidism[ICD9: 244.9] Diagnosis: Elevated blood sugar[ICD9: 790.29] Saniya Schwab MD, [facility] CPT- 4: 55606 06/25/2013 ([id number]) OFFICE VISIT, NEW - LEVEL 3 Diagnosis: Osteoarthritis[ICD9: 715.90] Diagnosis: Knee pain, bilateral[ICD9: 719.46] Diagnosis: OBESITY[ICD9: 278.00] Diagnosis: Encounter for long-term (current) use of other medications[ICD9: V58.69] Saniya Schwab MD, [facility] CPT-4: 72904 06/10/2013 Plan of Care Planned Activity Notes Codes Status Date Visit Plan: Hypothyroidism - pt with chronic hypothyroidism, continue with current medication, will monitor pt to signs or symptoms of lack of adequate supplementation. Pt is to continue with current dose of medication unless directed otherwise. Check labs at regular intervals wither q 3 months or q 6 months based on previous levels of control.Diabetes Mellitus - controlled - per recent [facility]BS reports. I have recommended for the patient to have follow up labs prior to the next office visit. The patient has been instructed to continue with current medications as previously directed, continue with regular FSBS monitoring to assure continued control of diabetes. Pt to call for any acute concerns, complaints, or if the blood glucose readings are starting to become less controlled. 11/28/2016 Appointment: San[facility] Schwab [facility]Ptel[phone] [place] (15 min) Moderate 11/28/2016 Patient Education: Patient Medication Summary Completed 11/28/2016 Appointment: Saniya Schwab WPtel: [phone] [phone] (15 min) Moderate 11/21/2016 Patient Education: Patient Medication Summary Completed 11/07/2016 Care Plan: Lipid Pending 11/07/2016 Visit Plan: Well Adult - pt was counseled about diet, exercise, and encouraged to follow a heart healthy diet and increase activity level. The patient was instructed to RTC yearly for well adult exams and PRN for acute illnesses. The pt was also instructed to have yearly labs for check of cholesterol, thyroid, chem panel, CBC, and renal functioning.Diabetes Mellitus - controlled - per recent FSBS reports. I have recommended for the patient to have follow up labs prior to the next office visit. The patient has been instructed to continue with current medications as previously directed, continue with regular FSBS monitoring to assure continued control of diabetes. Pt to call for any acute concerns, complaints, or if the blood glucose readings are starting to become less controlled.Hypothyroidism - pt with chronic hypothyroidism, continue with current medication, will monitor pt to signs or symptoms of lack of adequate supplementation. Pt is to continue with current dose of medication unless directed otherwise. Check labs at regular intervals wither q 3 months or q 6 months based on previous levels of control.Esophageal Reflux - the patient has been counseled against excessive intake of caffeine, spicy foods, peppermint, and cinnamon - all of which can exacerbate esophageal reflux.The patient is to take medications as prescribed and call the office if the symptoms are not improving. 07/28/2016 Appointment: Saniya Schwab WPtel: [phone] [facility] [place] (15 min) Moderate 07/28/2016 Patient Education: Patient Medication Summary Completed 07/28/2016 Visit Plan: Esophageal Reflux - the patient has been counseled against excessive intake of caffeine, spicy foods, peppermint, and cinnamon - all of which can exacerbate esophageal reflux.The patient is to take medications as prescribed and call the office if the symptoms are not improving. 06/06/2016 [facility]ment: [phone] (15 min) Moderate 06/06/2016 Patient Education: Patient Medication Summary Completed 06/06/2016 Patient Education: Obesity Completed 06/06/2016 Appointment: Injection 05/19/2016 Patient Education: Patient Medication Summary Completed 05/19/2016 Visit Plan: Diabetes Mellitus - controlled - per recent FSBS reports. I have recommended for the patient to have follow up labs prior to the next office visit. The patient has been instructed to continue with current medications as previously directed, continue with regular FSBS monitoring to assure continued control of diabetes. Pt to call for any acute concerns, complaints, or if the blood glucos e readings are starting to become less controlled.Hypothyroidism - pt with chronic hypothyroidism, continue with current medication, will monitor pt to signs or symptoms of lack of adequate supplementation. Pt is to continue with current dose of medication unless directed otherwise. Check labs at regular intervals wither q 3 months or q 6 months based on previous levels of control.Vitamin b12 deficiency - b12 shot today 04/20/2016 Patient Education: Patient Medication Summary Completed 04/20/2016 Patient Education: Obesity Completed 04/20/2016 Patient Education: Patient Medication Summary Completed 04/19/2016 Visit Plan: Hypothyroidism - pt with chronic hypothyroidism, continue with current medication, will monitor pt to signs or symptoms of lack of adequate supplementation. Pt is to continue with current dose of medication unless directed otherwise. Check labs at regular intervals wither q 3 months or q 6 months based on previous levels of control.START BRAND NAME SYNTHROID-CHECK LABSFatigue-CHECK LABS-RECOMMEND B COMPLEX VITAMIN 03/03/2016 Appointment: Macey Myers WPtel: [phone] [phone] [place] (30 min) Complex 03/03/2016 Patient Education: Patient Medication Summary Completed 03/03/2016 Patient Education: Obesity Completed 03/03/2016 Visit Plan: Hypothyroidism - pt with chronic hypothyroidism, continue with current medication, will monitor pt to signs or symptoms of lack of adequate supplementation. Pt is to continue with current dose of medication unless directed otherwise. Check labs at regular intervals wither q 3 months or q 6 months based on previous levels of control.Diabetes Mellitus - controlled - per recent FSBS reports. I have recommended for the patient to have follow up labs prior to the next office visit. The patient has been instructed to continue with current medications as previously directed, continue with regular FSBS monitoring to assure continued control of diabetes. Pt to call for any acute concerns, complaints, or if the blood glucose readings are starting to become less controlled. 12/21/2015 Appointment: Saniya Schwab WPtel: [phone] [phone] (15 min) Moderate 12/21/2015 Patient Education: Patient Medication Summary Completed 12/21/2015 Patient Education: Obesity Completed 12/21/2015 Visit Plan: Diabetes Mellitus - controlled - per recent FSBS reports. I have recommended for the patient to have follow up labs prior to the next office visit. The patient has been instructed to continue with current medications as previously directed, continue with regular FSBS monitoring to assure continued control of diabetes. Pt to call for any acute concerns, complaints, or if the blood glucos e readings are starting to become less controlled.Hypothyroidism - pt with chronic hypothyroidism, continue with current medication, will monitor pt to signs or symptoms of lack of adequate supplementation. Pt is to continue with current dose of medication unless directed otherwise. Check labs at regular intervals wither q 3 months or q 6 months based on previous levels of control. 06/22/2015 Appointment: Saniya Schwab WPtel: [phone] [facility] [place] [place] (15 min) Moderate 06/22/2015 Patient Education: Patient Medication Summary Completed 06/22/2015 Patient Education: Patient Medication Summary Completed 06/15/2015 Visit Plan: Well Adult - pt was counseled about diet, exercise, and encouraged to follow a heart healthy diet and increase activity level. The patient was instructed to RTC yearly for well adult exams and PRN for acute illnesses. The pt was also instructed to have yearly labs for check of cholesterol, thyroid, chem panel, CBC, and renal functioning.Diabetes Mellitus - controlled - per recent FSBS reports. I have recommended for the patient to have follow up labs prior to the next office visit. The patient has been instructed to continue with current medications as previously directed, continue with regular FSBS monitoring to assure continued control of diabetes. Pt to call for any acute concerns, complaints, or if the blood glucose readings are starting to become less controlled.Hypothyroidism - pt with chronic hypothyroidism, continue with current medication, will monitor pt to signs or symptoms of lack of adequate supplementation. Pt is to continue with current dose of medication unless directed otherwise. Check labs at regular intervals wither q 3 months or q 6 months based on previous levels of control. 03/19/2015 Appointment: Saniya Schwab WPtel: [phone] [facility] [place] Follow up 03/19/2015 Patient Education: Patient Medication Summary Completed 03/19/2015 Visit Plan: Edema - pt has been advised to elevate legs to prevent dependent edema, compression has been recommended to help to naturally decrease peripheral edema. Diuretic use has been discussed and pt has been instructed in appropriate use of such medication as necessary to further attempt to reduce peripheral edema. 01/22/2015 Appointment: (15 min) Moderate 01/22/2015 Patient Education: Patient Medication Summary Completed 01/22/2015 Visit Plan: Diabetes Mellitus - controlled - per recent FSBS reports. I have recommended for the patient to have follow up labs prior to the next office visit. The patient has been instructed to continue with current medications as previously directed, continue with regular FSBS monitoring to assure continued control of diabetes. Pt to call for any acute concerns, complaints, or if the blood glucos e readings are starting to become less controlled.Hypothyroidism - pt with chronic hypothyroidism, continue with current medication, will monitor pt to signs or symptoms of lack of adequate supplementation. Pt is to continue with current dose of medication unless directed otherwise. Check labs at regular intervals wither q 3 months or q 6 months based on previous levels of control.Bgnrnf-mvikkjn-oauvxwnhi name brand SynthroidKeep food diary-call in 2 weeks to discuss Monitor blood sugars when not feeling well 12/22/2014 Visit Plan: Diabetes Mellitus - controlled - per recent FSBS reports. I have recommended for the patient to have follow up labs prior to the next office visit. The patient has been instructed to continue with current medications as previously directed, continue with regular FSBS monitoring to assure continued control of diabetes. Pt to call for any acute concerns, complaints, or if the blood glucos e readings are starting to become less controlled.Hypothyroidism - pt with chronic hypothyroidism, continue with current medication, will monitor pt to signs or symptoms of lack of adequate supplementation. Pt is to continue with current dose of medication unless directed otherwise. Check labs at regular intervals wither q 3 months or q 6 months based on previous levels of control.Rjizzd-yjpussf-kmrlrhqvd name brand SynthroidKeep food diary-call in 2 weeks to discuss Monitor blood sugars when not feeling well 12/22/2014 Visit Plan: Diabetes Mellitus - controlled - per recent FSBS reports. I have recommended for the patient to have follow up labs prior to the next office visit. The patient has been instructed to continue with current medications as previously directed, continue with regular FSBS monitoring to assure continued control of diabetes. Pt to call for any acute concerns, complaints, or if the blood glucos e readings are starting to become less controlled.Hypothyroidism - pt with chronic hypothyroidism, continue with current medication, will monitor pt to signs or symptoms of lack of adequate supplementation. Pt is to continue with current dose of medication unless directed otherwise. Check labs at regular intervals wither q 3 months or q 6 months based on previous levels of control.Sfsocc-ojyulwq-kmlfbvbnx name brand SynthroidKeep food diary-call in 2 weeks to discuss Monitor blood sugars when not feeling well 12/22/2014 Patient Education: Patient Medication Summary Completed 12/22/2014 Appointment: Saniya Schwab WPtel: [facility] [place] Follow up 12/16/2014 Visit Plan: Hypothyroidism - pt with chronic hypothyroidism, continue with current medication, will monitor pt to signs or symptoms of lack of adequate supplementation. Pt is to continue with current dose of medication unless directed otherwise. Check labs at regular intervals wither q 3 months or q 6 months based on previous levels of control.Diet controlled diabetes - discussed with pt need to continue with diet control, monitor symptoms and FSBS intermittently and call or send FSBS report intermittently to clinic. 06/19/2014 Appointment: Saniya Schwab WPtel: [phone] [facility] [place] Follow up 06/19/2014 Patient Education: Patient Medication Summary Completed 06/19/2014 Visit Plan: Diabetes Mellitus - controlled - per recent FSBS reports. I have recommended for the patient to have follow up labs prior to the next office visit. The patient has been instructed to continue with current medications as previously directed, continue with regular FSBS monitoring to assure continued control of diabetes. Pt to call for any acute concerns, complaints, or if the blood glucos e readings are starting to become less controlled.Hypothyroidism - pt with chronic hypothyroidism, continue with current medication, will monitor pt to signs or symptoms of lack of adequate supplementation. Pt is to continue with current dose of medication unless directed otherwise. Check labs at regular intervals wither q 3 months or q 6 months based on previous levels of control. 03/19/2014 Appointment: Saniya Schwab WPtel: [phone] [facility] [place] Follow up 03/19/2014 Patient Education: Patient Medication Summary Completed 03/19/2014 Visit Plan: Diabetes Mellitus - controlled - per recent FSBS reports. I have recommended for the patient to have follow up labs prior to the next office visit. The patient has been instructed to continue with continue with regular FSBS monitoring to assure continued control of diabetes. Pt to call for any acute concerns, complaints, or if the blood glucose readings are starting to become less controlled. Hypothyroidism - pt with chronic hypothyroidism, continue with current medication, will monitor pt to signs or symptoms of lack of adequate supplementation. Pt is to continue with current dose of medication unless directed otherwise. Check labs at regular intervals wither q 3 months or q 6 months based on previous levels of control.Uncontrolled symptoms with elevated TSH - rx for 50mcg dose of synthroid. 09/25/2013 Appointment: Saniya Schwab WPtel: [phone] [facility] [place] [place] Follow up 09/25/2013 Patient Education: Patient Medication Summary Completed 09/25/2013 Visit Plan: Diabetes Mellitus - diabetes and diet education discussed in detail with patient. I have recommended for the patient to have follow up labs prior to the next office visit. The patient has been instructed to continue with current medications as previously directed, continue with regular FSBS monitoring to assure continued control of diabetes. Pt to call for any acute concerns, complaints, or if the blood glucose readings are starting to become less controlled.I have recommended for the patient to follow strictly to the diabetic diet as discussed in clinic to allow for greater blood glucose control.PLAN FOR LIFESTYLE MODIFICATIONS-DIETARY MODIFICATIONS, WEIGHT LOSS AND EXERCISE-REPEAT HGB A1C IN 3 MONTHS-IF NOT IMPROVED, WILL CONSIDER MEDICATIONS. Hypothyroidism - pt with chronic hypothyroidism, continue with current medication, will monitor pt to signs or symptoms of lack of adequate supplementation. Pt is to continue with current dose of medication unless directed otherwise. Check labs at regular intervals wither q 3 months or q 6 months based on previous levels of control.SYNTHROID 25MCG DAILY 06/25/2013 Appointment: Macey Myers WPtel: [phone] [facility] 06/25/2013 Patient Education: Patient Medication Summary Completed 06/25/2013 Visit Plan: Arthritis- occasionally uncontrolled symptoms- recommend pt to take antiinflammatory as directed for pain control. Pt is NOT to use additional NSAIDs while taking celebrex - she has instead been advised to use tylenol for break through pain symptoms.Pt will be surgically cleared for knee surgery in July as long as her records and labs from her architectural engineer do not show any acute worried for renal function. Obesity - chronic issue with this patient. The pt has been counseled about diet changes, calorie restriction, and need to exercise. Pt will RTC in one month for weight check. 06/10/2013 Appointment: Saniya Schwab WPtel: [phone] [facility] New Patient 06/10/2013 Patient Education: Patient Medication Summary Completed 06/10/2013 Instructions Comment B COMPLEX CHECK LABS BRAND NAME SYNTHROID . Hypothyroidism - pt with chronic hypothyroidism, continue with current medication, will monitor pt to signs or symptoms of lack of adequate supplementation. Pt is to continue with current dose of medication unless directed otherwise. Check labs at regular intervals wither q 3 months or q 6 months based on previous levels of control. START BRAND NAME SYNTHROID-CHECK LABS Fatigue-CHECK LABS-RECOMMEND B COMPLEX VITAMIN . Diabetes Mellitus - controlled - per recent FSBS reports. I have recommended for the patient to have follow up labs prior to the next office visit. The patient has been instructed to continue with continue with regular FSBS monitoring to assure continued control of diabetes. Pt to call for any acute concerns, complaints, or if the blood glucose readings are starting to become less controlled. Hypothyroidism - pt with chronic hypothyroidism, continue with current medication, will monitor pt to signs or symptoms of lack of adequate supplementation. Pt is to continue with current dose of medication unless directed otherwise. Check labs at regular intervals wither q 3 months or q 6 months based on previous levels of control. Uncontrolled symptoms with elevated TSH - rx for 50mcg dose of synthroid. . Hypothyroidism - pt with chronic hypothyroidism, continue with current medication, will monitor pt to signs or symptoms of lack of adequate supplementation. Pt is to continue with current dose of medication unless directed otherwise. Check labs at regular intervals wither q 3 months or q 6 months based on previous levels of control. Diabetes Mellitus - controlled - per recent FSBS reports. I have recommended for the patient to have follow up labs prior to the next office visit. The patient has been instructed to continue with current medications as previously directed, continue with regular FSBS monitoring to assure continued control of diabetes. Pt to call for any acute concerns, complaints, or if the blood glucose readings are starting to become less controlled. . Diabetes Mellitus - controlled - per recent FSBS reports. I have recommended for the patient to have follow up labs prior to the next office visit. The patient has been instructed to continue with current medications as previously directed, continue with regular FSBS monitoring to assure continued control of diabetes. Pt to call for any acute concerns, complaints, or if the blood glucose readings are starting to become less controlled. Hypothyroidism - pt with chronic hypothyroidism, continue with current medication, will monitor pt to signs or symptoms of lack of adequate supplementation. Pt is to continue with current dose of medication unless directed otherwise. Check labs at regular intervals wither q 3 months or q 6 months based on previous levels of control. change synthroid to 88mcg tues, thurs, sat, sun Synthroid 100mcg are on mon/wed/frid . Well Adult - pt was counseled about diet, exercise, and encouraged to follow a heart healthy diet and increase activity level. The patient was instructed to RTC yearly for well adult exams and PRN for acute illnesses. The pt was also instructed to have yearly labs for check of cholesterol, thyroid, chem panel, CBC, and renal functioning. Diabetes Mellitus - controlled - per recent FSBS reports. I have recommended for the patient to have follow up labs prior to the next office visit. The patient has been instructed to continue with current medications as previously directed, continue with regular FSBS monitoring to assure continued control of diabetes. Pt to call for any acute concerns, complaints, or if the blood glucose readings are starting to become less controlled. Hypothyroidism - pt with chronic hypothyroidism, continue with current medication, will monitor pt to signs or symptoms of lack of adequate supplementation. Pt is to continue with current dose of medication unless directed otherwise. Check labs at regular intervals wither q 3 months or q 6 months based on previous levels of control. . Hypothyroidism - pt with chronic hypothyroidism, continue with current medication, will monitor pt to signs or symptoms of lack of adequate supplementation. Pt is to continue with current dose of medication unless directed otherwise. Check labs at regular intervals wither q 3 months or q 6 months based on previous levels of control. Diet controlled diabetes - discussed with pt need to continue with diet control, monitor symptoms and FSBS intermittently and call or send FSBS report intermittently to clinic. . Diabetes Mellitus - diabetes and diet education discussed in detail with patient. I have recommended for the patient to have follow up labs prior to the next office visit. The patient has been instructed to continue with current medications as previously directed, continue with regular FSBS monitoring to assure continued control of diabetes. Pt to call for any acute concerns, complaints, or if the blood glucose readings are starting to become less controlled. I have recommended for the patient to follow strictly to the diabetic diet as discussed in clinic to allow for greater blood glucose control. PLAN FOR LIFESTYLE MODIFICATIONS-DIETARY MODIFICATIONS, WEIGHT LOSS AND EXERCISE-REPEAT HGB A1C IN 3 MONTHS-IF NOT IMPROVED, WILL CONSIDER MEDICATIONS. Hypothyroidism - pt with chronic hypothyroidism, continue with current medication, will monitor pt to signs or symptoms of lack of adequate supplementation. Pt is to continue with current dose of medication unless directed otherwise. Check labs at regular intervals wither q 3 months or q 6 months based on previous levels of control. SYNTHROID 25MCG DAILY . Diabetes Mellitus - controlled - per recent FSBS reports. I have recommended for the patient to have follow up labs prior to the next office visit. The patient has been instructed to continue with current medications as previously directed, continue with regular FSBS monitoring to assure continued control of diabetes. Pt to call for any acute concerns, complaints, or if the blood glucose readings are starting to become less controlled. Hypothyroidism - pt with chronic hypothyroidism, continue with current medication, will monitor pt to signs or symptoms of lack of adequate supplementation. Pt is to continue with current dose of medication unless directed otherwise. Check labs at regular intervals wither q 3 months or q 6 months based on previous levels of control. REFER TO [employer]ER AT THE HOSPITAL WEAR COMPRESSION STOCKINGS WHEN TRAVELING- ON IN THE MORNING AND OFF AT BEDTIME . Edema - pt has been advised to elevate legs to prevent dependent edema, compression has been recommended to help to naturally decrease peripheral edema. Diuretic use has been discussed and pt has been instructed in appropriate use of such medication as necessary to further attempt to reduce peripheral edema. PROBIOTIC TWICE DAILY DEXILANT 1 TAB DAILY BLAND DIET, LOW FAT DIET CALL IF SYMPTOMS DO NOT RESOLVE OR IF ANY WORSE . Esophageal Reflux - the patient has been counseled against excessive intake of caffeine, spicy foods, peppermint, and cinnamon - all of which can exacerbate esophageal reflux. The patient is to take medications as prescribed and call the office if the symptoms are not improving. . Diabetes Mellitus - controlled - per recent FSBS reports. I have recommended for the patient to have follow up labs prior to the next office visit. The patient has been instructed to continue with current medications as previously directed, continue with regular FSBS monitoring to assure continued control of diabetes. Pt to call for any acute concerns, complaints, or if the blood glucose readings are starting to become less controlled. Hypothyroidism - pt with chronic hypothyroidism, continue with current medication, will monitor pt to signs or symptoms of lack of adequate supplementation. Pt is to continue with current dose of medication unless directed otherwise. Check labs at regular intervals wither q 3 months or q 6 months based on previous levels of control. Vitamin b12 deficiency - b12 shot today . Well Adult - pt was counseled about diet, exercise, and encouraged to follow a heart healthy diet and increase activity level. The patient was instructed to RTC yearly for well adult exams and PRN for acute illnesses. The pt was also instructed to have yearly labs for check of cholesterol, thyroid, chem panel, CBC, and renal functioning. Diabetes Mellitus - controlled - per recent [facility] reports. I have recommended for the patient to have follow up labs prior to the next office visit. The patient has been instructed to continue with current medications as previously directed, continue with regular FSBS monitoring to assure continued control of diabetes. Pt to call for any acute concerns, complaints, or if the blood glucose readings are starting to become less controlled. Hypothyroidism - pt with chronic hypothyroidism, continue with current medication, will monitor pt to signs or symptoms of lack of adequate supplementation. Pt is to continue with current dose of medication unless directed otherwise. Check labs at regular intervals wither q 3 months or q 6 months based on previous levels of control. Esophageal Reflux - the patient has been counseled against excessive intake of caffeine, spicy foods, peppermint, and cinnamon - all of which can exacerbate esophageal reflux. The patient is to take medications as prescribed and call the office if the symptoms are not improving. . Diabetes Mellitus - controlled - per recent [facility]BS reports. I have recommended for the patient to have follow up labs prior to the next office visit. The patient has been instructed to continue with current medications as previously directed, continue with regular FSBS monitoring to assure continued control of diabetes. Pt to call for any acute concerns, complaints, or if the blood glucose readings are starting to become less controlled. Hypothyroidism - pt with chronic hypothyroidism, continue with current medication, will monitor pt to signs or symptoms of lack of adequate supplementation. Pt is to continue with current dose of medication unless directed otherwise. Check labs at regular intervals wither q 3 months or q 6 months based on previous levels of control. Smhtnr-pciayiw-cyvwpmrus name brand Synthroid Keep food diary-call in 2 weeks to discuss Monitor blood sugars when not feeling well . Diabetes Mellitus - controlled - per recent [facility]BS reports. I have recommended for the patient to have follow up labs prior to the next office visit. The patient has been instructed to continue with current medications as previously directed, continue with regular FSBS monitoring to assure continued control of diabetes. Pt to call for any acute concerns, complaints, or if the blood glucose readings are starting to become less controlled. Hypothyroidism - pt with chronic hypothyroidism, continue with current medication, will monitor pt to signs or symptoms of lack of adequate supplementation. Pt is to continue with current dose of medication unless directed otherwise. Check labs at regular intervals wither q 3 months or q 6 months based on previous levels of control. Cqsjux-steqzyd-vohlvxhvo name brand Synthroid Keep food diary-call in 2 weeks to discuss Monitor blood sugars when not feeling well . Diabetes Mellitus - controlled - per recent [facility]BS reports. I have recommended for the patient to have follow up labs prior to the next office visit. The patient has been instructed to continue with current medications as previously directed, continue with regular FSBS monitoring to assure continued control of diabetes. Pt to call for any acute concerns, complaints, or if the blood glucose readings are starting to become less controlled. Hypothyroidism - pt with chronic hypothyroidism, continue with current medication, will monitor pt to signs or symptoms of lack of adequate supplementation. Pt is to continue with current dose of medication unless directed otherwise. Check labs at regular intervals wither q 3 months or q 6 months based on previous levels of control. Fzyumi-xovkyjs-mnewyoodi name brand Synthroid Keep food diary-call in 2 weeks to discuss Monitor blood sugars when not feeling well . Arthritis- occasionally uncontrolled symptoms- recommend pt to take antiinflammatory as directed for pain control. Pt is NOT to use additional NSAIDs while taking celebrex - she has instead been advised to use tylenol for break through pain symptoms. Pt will be surgically cleared for knee surgery in July as long as her records and labs from her architectural engineer do not show any acute worried for renal function. Obesity - chronic issue with this patient. The pt has been counseled about diet changes, calorie restriction, and need to exercise. Pt will RTC in one month for weight check. . Hypothyroidism - pt with chronic hypothyroidism, continue with current medication, will monitor pt to signs or symptoms of lack of adequate supplementation. Pt is to continue with current dose of medication unless directed otherwise. Check labs at regular intervals wither q 3 months or q 6 months based on previous levels of control. Diabetes Mellitus - controlled - per recent FSBS reports. I have recommended for the patient to have follow up labs prior to the next office visit. The patient has been instructed to continue with current medications as previously directed, continue with regular FSBS monitoring to assure continued control of diabetes. Pt to call for any acute concerns, complaints, or if the blood glucose readings are starting to become less controlled.
[2019-01-18] MEDS ORDERED: LIDOCAINE JELLY 2% 6 ML SYRINGE MM PRN (09:00)
[2019-01-18] MEDS ORDERED: MIDAZOLAM 2 MG/2 ML (VERSED) VIAL IVP ONE (09:00)
[2019-01-18] MEDS ORDERED: fentaNYL INJECTION 100 MCG/2 ML AMP IVP ONE (09:00)
[2019-01-18] MEDS ORDERED: D5 LR IV SOLUTION 1,000 ML IV STA (09:00)
[2019-01-18] MEDS ORDERED: D5 LR IV SOLUTION 1,000 ML IV ONE (09:03)
--- OUTSIDE RECORDS SUMMARY | 2019-01-18 09:03 | XMS REPORT | CCD ---
Author Author [facility] Organization [facility] Address [address] [place] [address] Phone Care Team Providers Care Casino Cashier Name Role Phone PP Unavailable CCM Unavailable Summary Purpose Interface Exchange Insurance Providers Payer name Policy type / Coverage type Covered green party ID Effective Begin Date Effective End Date Blue Cross Blue [facility] Blue Cross/Blue 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 Marital status Unknown Single 06/10/[address]: 8659459 Former smoker 06/10/[address]: 6677015 Former smoker quit 200606/10/2013 Number of years using tobacco Unknown 1 smoked a few months 06/10/2013 Alcohol history Unknown occasionally drinks alcohol 06/10/2013 Alcohol history Unknown occasionally drinks alcohol 06/10/2013 Frequency of drinks SNOMED CT: 757625009 Drinks rarely 1/month 06/10/2013 Allergies, Adverse Reactions, Alerts Substance Reaction Codes Entered Date Inactivated Date Status * NO KNOWN FOOD ALLERGIES Unknown 06/10/2013 No Inactive Date Active Seasonal Unknown 06/10/2013 No Inactive Date Active * NO KNOWN DRUG ALLERGIES Unknown 06/10/2013 No Inactive Date Active Past Medical History Illness Codes Condition Status Onset Date Resolved Date Atrophy of thyroid (acquired) ICD-9: 244.8 ICD-10: E03.4 Active 04/19/2016 Unknown Encounter for general adult medical examination without abnormal findings ICD-9: V70.0 ICD-10: Z00.00 Active 11/28/2018 Unknown Type 2 diabetes mellitus without complications ICD-9: 250.00 ICD-10: E11.9 Active 03/19/2014 Unknown Encounter for screening for lipoid disorders ICD-9: V77.91 ICD-10: Z13.220 Active 11/23/2018 Unknown Hypothyroidism, unspecified ICD-9: 244.9 ICD-10: E03.9 Active 03/02/2016 Unknown Other vitamin B12 deficiency anemias ICD-9: 281.1 ICD-10: D51.8 Active 05/18/2016 Unknown Acute laryngopharyngitis ICD-9: 465.0 ICD-10: J06.0 Active 07/04/2017 Unknown Cough ICD-9: 786.2 ICD-10: R05 Active 07/04/2017 Unknown Other allergic rhinitis ICD-9: 477.8 ICD-10: J30.89 Active 07/04/2017 Unknown Other disturbances of skin sensation ICD-9: 782.0 ICD-10: R20.8 Active 05/31/2017 Unknown Gastro-esophageal reflux disease without esophagitis ICD-9: [...] (acquired) ICD-9: 244.8 ICD-10: E03.4 04/19/2016 Active Encounter for general adult medical examination without abnormal findings ICD-9: V70.0 ICD-10: Z00.00 11/28/2018 Active Type 2 diabetes mellitus without complications ICD-9: 250.00 ICD-10: E11.9 03/19/2014 Active Encounter for screening for lipoid disorders ICD-9: V77.91 ICD-10: Z13.220 11/23/2018 Active Hypothyroidism, unspecified ICD-9: 244.9 ICD-10: E03.9 03/02/2016 Active Other vitamin B12 deficiency anemias ICD-9: 281.1 ICD-10: D51.8 05/18/2016 Active Acute laryngopharyngitis ICD-9: 465.0 ICD-10: J06.0 07/04/2017 Active Cough ICD-9: 786.2 ICD-10: R05 07/04/2017 Active Other allergic rhinitis ICD-9: 477.8 ICD-10: J30.89 07/04/2017 Active Other disturbances of skin sensation ICD-9: 782.0 ICD-10: R20.8 05/31/2017 Active Gastro-esophageal reflux disease without esophagitis ICD-9: [...] Date Stop Date Status Fill Instructions Synthroid 88 mcg tablet RxNorm: 692092 Tablet(s) TAKE 1 TABLET BY MOUTH TWICE WEEKLY ON MONDAY AND Monday11/28/2018 01/21/2020 Active brand name only Synthroid 100 mcg tablet RxNorm: 811787 1 Tablet(s) PO TAKE 1 TABLET BY MOUTH DAILY MONDAY THRU Monday11/28/2018 11/22/2019 Active brand name only cyanocobalamin (vit B-12) 1,000 mcg/mL injection solution RxNorm: 253604 1 Milliliter(s) Inj G8ujnat 11/13/2018 11/07/2019 Active multidose vial if available, if not do a 3 month supply omeprazole 20 mg capsule,delayed release RxNorm: 195228 TAKE 1 CAPSULE BY MOUTH TWICE DAILY 11/12/2018 11/06/2019 Active Generic For:*PRILOSEC 20 MG CAPSULE 11/12/2018 7:49:34 AM N O T I C E Last quantity doesn't match original quantity Synthroid 88 mcg tablet RxNorm: 997514 TAKE 1 TABLET BY MOUTH TWICE WEEKLY ON MONDAY AND Monday10/29/2018 11/27/2018 Inactive 10/29/2018 7:51:26 AM Synthroid 88 mcg tablet RxNorm: 286455 TAKE 1 TABLET BY MOUTH TWICE WEEKLY ON MONDAY AND Monday03/14/2018 10/07/2018 Inactive 03/14/2018 11:13:25 AM N O T I C E Last quantity doesn't match original quantity Synthroid 100 mcg tablet RxNorm: 684847 TAKE 1 TABLET BY MOUTH DAILY MONDAY THRU Monday01/08/2018 11/27/2018 Inactive 01/08/2018 8:22:22 AM omeprazole 20 mg capsule,delayed release RxNorm: 067745 1 Tablet(s) PO BID 09/11/2017 09/05/2018 Inactive Zithromax Z-Mike 250 mg tablet RxNorm: 839328 1 Tablet(s) PO UD 07/27/2017 11/21/2017 Inactive celestino as directed Flonase Allergy Relief 50 mcg/actuation nasal spray,suspension RxNorm: 5254606 1 [place] NASAL BID 07/04/2017 No Stop Date Active amoxicillin 500 mg tablet RxNorm: 866325 1 Tablet(s) PO TID 07/04/2017 07/13/2017 Inactive Synthroid 100 mcg tablet RxNorm: 082017 TAKE 1 TABLET BY MOUTH DAILY MONDAY THRU Monday06/19/2017 12/15/2017 Inactive 06/19/2017 9:33:46 AM cyanocobalamin (vit B-12) 1,000 mcg/mL injection solution RxNorm: 748379 1 Milliliter(s) Inj P4mawat 05/31/2017 08/23/2018 Inactive multidose vial if available, if not do a 3 month supply Synthroid 88 mcg tablet RxNorm: 485702 1 Tablet(s) PO BIW on Sat and Sun 05/19/2017 09/15/2017 Inactive FERNANDO-1 ok for 90 day supply if she wants it Lancets,Thin RxNorm: USE TO TEST TWICE DAILY DIRECTED 05/08/2017 12/28/2018 Active 05/08/2017 9:20:31 AM Breeze 2 Test Strips RxNorm: USE TO TEST BLOOD GLUCOSE TWICE WEEKLY OR DIRECTED 05/08/2017 02/05/2023 Active 05/08/2017 9:20:48 AM Synthroid 100 mcg tablet RxNorm: 568011 TAKE 1 TABLET BY MOUTH DAILY MONDAY THRU Monday02/14/2017 06/18/2017 Inactive 02/14/2017 7:59:51 AM N O T I C E Last quantity doesn't match original quantity amoxicillin 500 mg tablet RxNorm: 991267 2 Tablet(s) PO prior to dental or other procedures and then 2 tabs 4 hours after procedure 11/28/2016 07/03/2017 Inactive cyanocobalamin (vit B-12) 1,000 mcg/mL injection solution RxNorm: 280753 1 Milliliter(s) Inj month 11/28/2016 05/30/2017 Inactive multidose vial if available, if not do a 3 month supply Synthroid 88 mcg tablet RxNorm: 539934 1 Tablet(s) PO BIW on Sat and Sun 09/16/2016 01/13/2017 Inactive FERNANDO-1 ok for 90 day supply if she wants it Synthroid 100 mcg tablet RxNorm: 498003 1 Tablet(s) PO daily Mon thru Mon08/09/2016 12/06/2016 Inactive FERNANDO-1 can have 90 day supply if she wants it omeprazole 20 mg capsule,delayed release RxNorm: 665405 1 Tablet(s) PO BID 07/28/2016 07/22/2017 Inactive Dexilant 60 mg capsule, delayed release RxNorm: 708257 1 Capsule(s) PO daily 06/27/2016 06/26/2016 Inactive Dexilant 60 mg capsule, delayed release RxNorm: 709111 1 Capsule(s) PO daily 06/27/2016 07/27/2016 Inactive cyanocobalamin (vit B-12) 1,000 mcg/mL injection solution RxNorm: 726705 Milliliter(s) Inj 05/19/2016 05/19/2016 Inactive cyanocobalamin (vit B-12) 1,000 mcg/mL injection solution RxNorm: 739907 1 Milliliter(s) Inj 04/20/2016 04/20/2016 Inactive Synthroid 100 mcg tablet RxNorm: 600002 1 Tablet(s) PO daily Mon thru Mon03/03/2016 06/30/2016 Inactive FERNANDO-1 can have 90 day supply if she wants it Synthroid 88 mcg tablet RxNorm: 475914 1 Tablet(s) PO UD take on Sat and Sun 03/03/2016 03/02/2016 Inactive Synthroid 88 mcg tablet RxNorm: 335592 1 Tablet(s) PO UD take on Sat and Sun 03/03/2016 06/30/2016 Inactive FERNANDO-1 ok for 90 day supply if she wants it Synthroid 100 mcg tablet RxNorm: 504431 1 Tablet(s) PO daily Mon thru Mon03/03/2016 03/02/2016 Inactive FERNANDO-1 Breeze 2 Test Strips RxNorm: Miscellaneous test twice weekly or ud 02/29/2016 05/07/2017 Inactive dx- 250.00 levothyroxine 88 mcg tablet RxNorm: 026299 1 Tablet(s) BIW on Monday, Monday12/21/2015 03/02/2016 Inactive loratadine 10 mg capsule RxNorm: 892689 1 Capsule(s) PO daily as needed 12/21/2015 06/05/2016 Inactive levothyroxine 100 mcg tablet RxNorm: 252500 1 Tablet(s) PO daily oon Monday through Monday12/21/2015 03/02/2016 Inactive levothyroxine 100 mcg tablet RxNorm: 325576 1 Tablet(s) PO UD on Monday06/22/2015 12/20/2015 Inactive levothyroxine 88 mcg tablet RxNorm: 997380 1 Tablet(s) UD on Monday, , Monday, Monday06/22/2015 12/20/2015 Inactive levothyroxine 88 mcg tablet RxNorm: 654602 1 Tablet(s) UD on Monday, , Monday, Monday03/19/2015 06/21/2015 Inactive levothyroxine 100 mcg tablet RxNorm: 486732 1 Tablet(s) PO UD on Monday03/19/2015 06/21/2015 Inactive Lasix 20 mg tablet RxNorm: 453522 1/2-1 Tablet(s) PO QDAY PRN 01/22/2015 01/26/2015 Inactive potassium chloride ER 10 mEq capsule,extended release RxNorm: 316444 1 Capsule(s) PO QDAY PRN 01/22/2015 06/05/2016 Inactive take with lasix (furosemide) levothyroxine 88 mcg tablet RxNorm: 631478 1 Tablet(s) PO daily 12/22/2014 03/18/2015 Inactive Breeze 2 Test Strips RxNorm: Miscellaneous test twice weekly or ud 10/22/2014 03/20/2015 Inactive dx- 250.00 Breeze 2 Test Strips RxNorm: Miscellaneous test twice weekly or ud 10/22/2014 10/21/2014 Inactive dx- 250.00 levothyroxine 88 mcg tablet RxNorm: 441653 1 Tablet(s) PO daily 09/22/2014 12/20/2014 Inactive Synthroid 100 mcg tablet RxNorm: 319223 1 Tablet(s) PO daily 06/19/2014 09/21/2014 Inactive Lancets,Thin RxNorm: 1 Miscellaneous BID 03/24/2014 04/22/2014 Inactive Synthroid 75 mcg tablet RxNorm: 069427 1 Tablet(s) PO daily 03/19/2014 06/18/2014 Inactive Breeze 2 Test Strips RxNorm: 1 Miscellaneous BID 03/19/2014 04/17/2014 Inactive Breeze 2 Test Strips RxNorm: 1 Miscellaneous BID 03/19/2014 03/18/2014 Inactive Synthroid 75 mcg tablet RxNorm: 929366 1 Tablet(s) PO daily 12/16/2013 03/18/2014 Inactive Synthroid 75 mcg tablet RxNorm: 138817 1 Tablet(s) PO daily 12/16/2013 12/15/2013 Inactive Synthroid 50 mcg tablet RxNorm: 722722 1 Tablet(s) PO daily 09/16/2013 12/15/2013 Inactive Synthroid 25 mcg tablet RxNorm: 410171 1 Tablet(s) PO daily 06/25/2013 09/15/2013 Inactive Glucosamine 1500 Complex 500 mg-400 mg capsule RxNorm: 1 Capsule(s) PO daily No Start Date Active Enbrel 50 mg/mL (0.98 mL) subcutaneous syringe RxNorm: 793337 Milliliter(s) SQ weekly No Start Date Active folic acid oral RxNorm: 4511 oral No Start Date Active Multiple Vitamins chewable tablet RxNorm: 1 Tablet(s) PO daily No Start Date Active Celebrex 200 mg capsule RxNorm: 595510 1 Capsule(s) PO daily No Start Date Active Tylenol 325 mg tablet RxNorm: 808318 Tablet(s) PO as needed No Start Date Active Zithromax Z-Mike 250 mg tablet RxNorm: 224363 1 Tablet(s) PO UD No Start Date 07/26/2017 Inactive zpack as directed Vitamin B-12 5,000 mcg sublingual tablet RxNorm: 836184 1 Tablet(s) SL daily No Start Date 11/27/2018 Inactive oxycodone 5 mg tablet RxNorm: 3856790 1/2-1 Tablet(s) PO daily as needed No Start Date 06/18/2014 Inactive loratadine 10 mg capsule RxNorm: 723768 1 Capsule(s) PO daily No Start Date 12/20/2015 Inactive Synthroid 50 mcg tablet RxNorm: 305031 1 Tablet(s) PO daily No Start Date 09/15/2013 Inactive sulfasalazine 500 mg tablet RxNorm: 2393935 1 Tablet(s) PO daily No Start Date 01/21/2015 Inactive ibuprofen 600 mg tablet RxNorm: 064188 1 Tablet(s) PO BID PRN No Start Date 03/18/2014 Inactive Medication Administered Medication Codes Instructions Start Date Status cyanocobalamin (vit B-12) 1,000 mcg/mL injection solution RxNorm: 970076 Milliliter 05/19/2016 No longer Active cyanocobalamin (vit B-12) 1,000 mcg/mL injection solution RxNorm: 334791 1Milliliter 04/20/2016 No longer Active Immunizations Vaccine Codes Date Status Influenza CVX: 141 05/19/2016 completed Pneumococcal (Adult) CVX: 33 04/20/2016 completed Influenza CVX: 141 06/16/2014 completed Influenza CVX: 141 06/25/2013 completed Assessments Condition Codes Effective Dates Encounter for general adult medical examination without abnormal findings ICD-10: Z00.00 ICD-9: V70.0 11/28/2018 Atrophy of thyroid (acquired) ICD-10: E03.4 ICD-9: 244.8 11/28/2018 Type 2 diabetes mellitus without complications ICD-10: E11.9 ICD-9: 250.00 11/28/2018 Hypothyroidism, unspecified ICD-10: E03.9 ICD-9: 244.9 11/23/2018 Encounter for screening for lipoid disorders ICD-10: Z13.220 ICD-9: V77.91 11/23/2018 Other vitamin B12 deficiency anemias ICD-10: D51.8 ICD-9: 281.1 11/22/2017 Acute laryngopharyngitis ICD-10: J06.0 ICD-9: 465.0 07/04/2017 Cough ICD-10: R05 ICD-9: 786.2 07/04/2017 Other allergic rhinitis ICD-10: J30.89 ICD-9: 477.8 07/04/2017 Other disturbances of skin sensation ICD-10: R20.8 ICD-9: 782.0 05/31/2017 Gastro-esophageal reflux disease without esophagitis ICD-10: K21.9 [...] Reason For Visit Effective Dates Notes hypothyroid 11/28/2018 hypothyroid 11/29/2017 sinus congestion 07/04/2017 hypothyroid 05/31/2017 hypothyroid 11/28/2016 sinus congestion 07/28/2016 abdominal pain 06/06/2016 vaccination against influenza 05/19/2016 hypothyroid 04/20/2016 fatigue 03/03/2016 hypothyroid 12/21/2015 hypothyroid 06/22/2015 hypothyroid 03/19/2015 edema 01/22/2015 hypothyroid 12/22/2014 hypothyroid 06/19/2014 hypothyroid 03/19/2014 medication follow up 09/25/2013 hypothyroid 06/25/2013 knee pain 06/10/2013 Results Observation Observation Code Item Item Code Result Date Lipid Ord30 CHOL 170 mg/dL 11/27/2018 Lipid Ord30 HDL 54.0 mg/dl 11/27/2018 Lipid Ord30 TRIG 125 mg/dL 11/27/2018 Lipid Ord30 LDL 91 mg/dL 11/27/2018 Lipid Ord30 C/HDL 3.1 Ratio 11/27/2018 Comp Metabolic Nqg441 NA 140 mEq/L 11/27/2018 Comp Metabolic Uva783 K 4.3 mEq/L 11/27/2018 Comp Metabolic Qky459 CL 104 mEq/L 11/27/2018 Comp Metabolic Rjs284 CO2 29.0 mEq/L 11/27/2018 Comp Metabolic Kba031 ANION GAP 11 11/27/2018 Comp Metabolic Uij436 GLUCOSE 126 mg/dL 11/27/2018 Comp Metabolic Alw937 Creat 0.9 mg/dL 11/27/2018 Comp Metabolic Rja530 eGFR 70 ml/min/1.73m2 11/27/2018 Comp Metabolic Stz613 BUN 19 mg/dL 11/27/2018 Comp Metabolic Nvf256 B/C Ratio 21.3 Ratio 11/27/2018 Comp Metabolic Ild590 CALCIUM 9.4 mg/dL 11/27/2018 Comp Metabolic Fcz508 ALK PHOS 44 U/L 11/27/2018 Comp Metabolic Kvt520 AST(SGOT) 16 U/L 11/27/2018 Comp Metabolic Qss067 ALT(SGPT) 22 U/L 11/27/2018 Comp Metabolic Jhh150 BILI T 0.5 mg/dL 11/27/2018 Comp Metabolic Tyu830 ALBUMIN 4.2 g/dL 11/27/2018 Comp Metabolic Cym366 TPRO 6.4 g/dL 11/27/2018 Comp Metabolic Gtm798 GLOB 2.2 g/dL 11/27/2018 Comp Metabolic Rps880 A/G Ratio 1.9 Ratio 11/27/2018 Comp Metabolic Nlr065 Osmo 283 mOsmo 11/27/2018 Cbc With Differential Ord2 WBC 5.77 K/ul 11/27/2018 Cbc With Differential Ord2 RBC 4.49 M/ul 11/27/2018 Cbc With Differential Ord2 HGB 12.9 g/dl 11/27/2018 Cbc With Differential Ord2 Neut% 46.0 % 11/27/2018 Cbc With Differential Ord2 HCT 39.3 % 11/27/2018 Cbc With Differential Ord2 MCV 87.5 fl 11/27/2018 Cbc With Differential Ord2 Lymph% 43.2 % 11/27/2018 Cbc With Differential Ord2 MCH 28.7 pg 11/27/2018 Cbc With Differential Ord2 [place]% 7.8 % 11/27/2018 Cbc With Differential Ord2 MCHC 32.8 pg 11/27/2018 Cbc With Differential Ord2 Eos% 2.8 % 11/27/2018 Cbc With Differential Ord2 PLT 214 K/ul 11/27/2018 Cbc With Differential Ord2 Baso% 0.2 % 11/27/2018 Cbc With Differential Ord2 RDW 13.1 % 11/27/2018 Cbc With Differential Ord2 Neut ABS# 2.66 K/ul 11/27/2018 Cbc With Differential Ord2 Lymph ABS# 2.49 K/ul 11/27/2018 Cbc With Differential Ord2 [place] ABS# 0.5 K/ul 11/27/2018 Cbc With Differential Ord2 Eos ABS# 0.2 K/ul 11/27/2018 Cbc With Differential Ord2 Baso ABS# 0.0 K/ul 11/27/2018 %Hba1C Cce080 % HbA1c 58582- 6 6.2 % 11/27/2018 %Hba1C Blx575 Gluc Ave 131 mg/dL 11/27/2018 Tsh Ord6 TSH (3rd IS) 1.81 uIU/mL 11/27/2018 Free T4 Slb357 FREE T4 0.99 ng/dL 11/27/2018 Lipid Ord30 CHOL 206 mg/dL 11/27/2017 Lipid Ord30 HDL 54.0 mg/dl 11/27/2017 Lipid Ord30 TRIG 141 mg/dL 11/27/2017 Lipid Ord30 LDL 124 mg/dL 11/27/2017 Lipid Ord30 C/HDL 3.8 Ratio 11/27/2017 Free T4 Mbe816 FREE T4 1.09 ng/dL 11/27/2017 %Hba1C Tpv674 % HbA1c 04671- 6 5.9 % 11/27/2017 %Hba1C Myb807 Gluc Ave 123 mg/dL 11/27/2017 Comp Metabolic Ckt526 NA 137 mEq/L 11/27/2017 Comp Metabolic Wto647 K 4.0 mEq/L 11/27/2017 Comp Metabolic Vuz292 CL 100 mEq/L 11/27/2017 Comp Metabolic Apg274 CO2 30.0 mEq/L 11/27/2017 Comp Metabolic Tqy507 ANION GAP 11 11/27/2017 Comp Metabolic Btp390 GLUCOSE 126 mg/dL 11/27/2017 Comp Metabolic Jur891 Creat 0.8 mg/dL 11/27/2017 Comp Metabolic Mha894 eGFR 78 ml/min/1.73m2 11/27/2017 Comp Metabolic Ymt125 BUN 16 mg/dL 11/27/2017 Comp Metabolic Twv868 B/C Ratio 19.8 Ratio 11/27/2017 Comp Metabolic Gnm195 CALCIUM 9.8 mg/dL 11/27/2017 Comp Metabolic Boe985 ALK PHOS 53 U/L 11/27/2017 Comp Metabolic Jkr982 AST(SGOT) 17 U/L 11/27/2017 Comp Metabolic Txk572 ALT(SGPT) 20 U/L 11/27/2017 Comp Metabolic Gad571 BILI T 0.6 mg/dL 11/27/2017 Comp Metabolic Yur111 ALBUMIN 4.4 g/dL 11/27/2017 Comp Metabolic Qwi722 TPRO 7.3 g/dL 11/27/2017 Comp Metabolic Qrf737 GLOB 2.9 g/dL 11/27/2017 Comp Metabolic Aqt835 A/G Ratio 1.5 Ratio 11/27/2017 Comp Metabolic Avr175 Osmo 277 mOsmo 11/27/2017 Cbc With Differential Ord2 WBC 6.47 K/ul 11/27/2017 Cbc With Differential Ord2 RBC 4.55 M/ul 11/27/2017 Cbc With Differential Ord2 HGB 13.1 g/dl 11/27/2017 Cbc With Differential Ord2 HCT 40.1 % 11/27/2017 Cbc With Differential Ord2 Neut% 54.8 % 11/27/2017 Cbc With Differential Ord2 MCV 88.1 fl 11/27/2017 Cbc With Differential Ord2 Lymph% 34.9 % 11/27/2017 Cbc With Differential Ord2 MCH 28.8 pg 11/27/2017 Cbc With Differential Ord2 [place]% 7.3 % 11/27/2017 Cbc With Differential Ord2 MCHC 32.7 pg 11/27/2017 Cbc With Differential Ord2 Eos% 2.8 % 11/27/2017 Cbc With Differential Ord2 PLT 231 K/ul 11/27/2017 Cbc With Differential Ord2 Baso% 0.2 % 11/27/2017 Cbc With Differential Ord2 RDW 13.3 % 11/27/2017 Cbc With Differential Ord2 Neut ABS# 3.55 K/ul 11/27/2017 Cbc With Differential Ord2 Lymph ABS# 2.26 K/ul 11/27/2017 Cbc With Differential Ord2 [place] ABS# 0.5 K/ul 11/27/2017 Cbc With Differential Ord2 Eos ABS# 0.2 K/ul 11/27/2017 Cbc With Differential Ord2 Baso ABS# 0.0 K/ul 11/27/2017 B12 Qsl551 B12 >1500.00 pg/ml 11/27/2017 Tsh Ord6 TSH (3rd IS) 1.15 uIU/mL 11/27/2017 C RAP A SC [id number] Strep A Negative 07/04/2017 Lipid Ord30 CHOL 163 mg/dL 05/29/2017 Lipid Ord30 HDL 53.0 mg/dl 05/29/2017 Lipid Ord30 TRIG 96 mg/dL 05/29/2017 Lipid Ord30 LDL 91 mg/dL 05/29/2017 Lipid Ord30 C/HDL 3.1 Ratio 05/29/2017 Free T4 Mqe988 FREE T4 1.05 ng/dL 05/29/2017 Cbc With Differential Ord2 WBC 5.98 K/ul 05/29/2017 Cbc With Differential Ord2 RBC 4.56 M/ul 05/29/2017 Cbc With Differential Ord2 HGB 13.0 g/dl 05/29/2017 Cbc With Differential Ord2 HCT 39.2 % 05/29/2017 Cbc With Differential Ord2 Neut% 54.4 % 05/29/2017 Cbc With Differential Ord2 MCV 86.0 fl 05/29/2017 Cbc With Differential Ord2 Lymph% 36.3 % 05/29/2017 Cbc With Differential Ord2 MCH 28.5 pg 05/29/2017 Cbc With Differential Ord2 [place]% 6.2 % 05/29/2017 Cbc With Differential Ord2 MCHC 33.2 pg 05/29/2017 Cbc With Differential Ord2 Eos% 2.8 % 05/29/2017 Cbc With Differential Ord2 PLT 240 K/ul 05/29/2017 Cbc With Differential Ord2 Baso% 0.3 % 05/29/2017 Cbc With Differential Ord2 RDW 13.9 % 05/29/2017 Cbc With Differential Ord2 Neut ABS# 3.25 K/ul 05/29/2017 Cbc With Differential Ord2 Lymph ABS# 2.17 K/ul 05/29/2017 Cbc With Differential Ord2 [place] ABS# 0.4 K/ul 05/29/2017 Cbc With Differential Ord2 Eos ABS# 0.2 K/ul 05/29/2017 Cbc With Differential Ord2 Baso ABS# 0.0 K/ul 05/29/2017 Comp Metabolic Tlk473 NA 137 mEq/L 05/29/2017 Comp Metabolic Uxa815 K 4.2 mEq/L 05/29/2017 Comp Metabolic Bxl503 CL 101 mEq/L 05/29/2017 Comp Metabolic Wvu564 CO2 27.0 mEq/L 05/29/2017 Comp Metabolic Kzo255 ANION GAP 13 05/29/2017 Comp Metabolic Sbv667 GLUCOSE 133 mg/dL 05/29/2017 Comp Metabolic Jyt448 Creat 0.8 mg/dL 05/29/2017 Comp Metabolic Wci183 eGFR 80 ml/min/1.73m2 05/29/2017 Comp Metabolic Raq981 BUN 17 mg/dL 05/29/2017 Comp Metabolic Yvw328 B/C Ratio 21.3 Ratio 05/29/2017 Comp Metabolic Xxg076 CALCIUM 9.3 mg/dL 05/29/2017 Comp Metabolic Nva435 ALK PHOS 53 U/L 05/29/2017 Comp Metabolic Nqt810 AST(SGOT) 17 U/L 05/29/2017 Comp Metabolic Jgq495 ALT(SGPT) 28 U/L 05/29/2017 Comp Metabolic Vog649 BILI T 0.3 mg/dL 05/29/2017 Comp Metabolic Pwd218 ALBUMIN 4.2 g/dL 05/29/2017 Comp Metabolic Cfd068 TPRO 6.5 g/dL 05/29/2017 Comp Metabolic Mgr474 GLOB 2.3 g/dL 05/29/2017 Comp Metabolic Xhp957 A/G Ratio 1.8 Ratio 05/29/2017 Comp Metabolic Xaf076 Osmo 277 mOsmo 05/29/2017 %Hba1C Wmc287 % HbA1c 75565- 6 6.3 % 05/29/2017 %Hba1C Zzi715 Gluc Ave 134 mg/dL 05/29/2017 Tsh Ord6 hTSH II 0.91 uIU/mL 05/29/2017 %Hba1C Blf786 % HbA1c 70162- 6 6.3 % 11/28/2016 %Hba1C Cpv172 Gluc Ave 134 mg/dL 11/28/2016 Cbc With Differential Ord2 WBC 7.25 K/ul 11/28/2016 Cbc With Differential Ord2 RBC 4.68 M/ul 11/28/2016 Cbc With Differential Ord2 HGB 13.3 g/dl 11/28/2016 Cbc With Differential Ord2 HCT 40.4 % 11/28/2016 Cbc With Differential Ord2 Neut% 58.8 % 11/28/2016 Cbc With Differential Ord2 MCV 86.3 fl 11/28/2016 Cbc With Differential Ord2 Lymph% 31.7 % 11/28/2016 Cbc With Differential Ord2 MCH 28.4 pg 11/28/2016 Cbc With Differential Ord2 [place]% 6.2 % 11/28/2016 Cbc With Differential Ord2 MCHC 32.9 pg 11/28/2016 Cbc With Differential Ord2 Eos% 3.2 % 11/28/2016 Cbc With Differential Ord2 PLT 235 K/ul 11/28/2016 Cbc With Differential Ord2 Baso% 0.1 % 11/28/2016 Cbc With Differential Ord2 RDW 13.8 % 11/28/2016 Cbc With Differential Ord2 Neut ABS# 4.26 K/ul 11/28/2016 Cbc With Differential Ord2 Lymph ABS# 2.30 K/ul 11/28/2016 Cbc With Differential Ord2 [place] ABS# 0.5 K/ul 11/28/2016 Cbc With Differential Ord2 Eos ABS# 0.2 K/ul 11/28/2016 Cbc With Differential Ord2 Baso ABS# 0.0 K/ul 11/28/2016 Tsh Ord6 hTSH II 3.96 uIU/mL 11/28/2016 B12 Mte767 B12 >1500.00 pg/ml 11/28/2016 Comp Metabolic Mbs672 NA 134 mEq/L 11/28/2016 Comp Metabolic Tud278 K 3.8 mEq/L 11/28/2016 Comp Metabolic Hxm712 CL 98 mEq/L 11/28/2016 Comp Metabolic Jvv689 CO2 28.0 mEq/L 11/28/2016 Comp Metabolic Boh434 ANION GAP 12 11/28/2016 Comp Metabolic Ccn539 GLUCOSE 156 mg/dL 11/28/2016 Comp Metabolic Gxa713 Creat 0.8 mg/dL 11/28/2016 Comp Metabolic Zvy217 eGFR 75 ml/min/1.73m2 11/28/2016 Comp Metabolic Wbs308 BUN 15 mg/dL 11/28/2016 Comp Metabolic Wxx951 B/C Ratio 17.9 Ratio 11/28/2016 Comp Metabolic Bhs416 CALCIUM 9.3 mg/dL 11/28/2016 Comp Metabolic Xxy673 ALK PHOS 55 U/L 11/28/2016 Comp Metabolic Hjm804 AST(SGOT) 17 U/L 11/28/2016 Comp Metabolic Vsl209 ALT(SGPT) 26 U/L 11/28/2016 Comp Metabolic Zdy081 BILI T 0.4 mg/dL 11/28/2016 Comp Metabolic Hak377 ALBUMIN 4.2 g/dL 11/28/2016 Comp Metabolic Uod146 TPRO 6.6 g/dL 11/28/2016 Comp Metabolic Dlu418 GLOB 2.4 g/dL 11/28/2016 Comp Metabolic Bfa115 A/G Ratio 1.8 Ratio 11/28/2016 Comp Metabolic Fwg880 Osmo 272 mOsmo 11/28/2016 Free T4 Gma903 FREE T4 0.81 ng/dL 11/28/2016 Free T4 Vyv978 FREE T4 0.85 ng/dL 07/27/2016 Cbc With [...] 28.8 pg 07/27/2016 Cbc With Differential Ord2 [place]% 6.0 % 07/27/2016 Cbc With Differential Ord2 MCHC 32.9 pg 07/27/2016 Cbc With Differential Ord2 Eos% 2.3 % 07/27/2016 Cbc With Differential Ord2 PLT 236 K/ul 07/27/2016 Cbc With Differential Ord2 Baso% 0.2 % 07/27/2016 Cbc With Differential Ord2 RDW 13.1 % 07/27/2016 Cbc With Differential Ord2 Neut ABS# 2.73 K/ul 07/27/2016 Cbc With Differential Ord2 Lymph ABS# 2.41 K/ul 07/27/2016 Cbc With Differential Ord2 [place] ABS# 0.3 K/ul 07/27/2016 Cbc With Differential Ord2 Eos ABS# 0.1 K/ul 07/27/2016 Cbc With Differential Ord2 Baso ABS# 0.0 K/ul 07/27/2016 %Hba1C Axd328 % HbA1c 06112- 6 6.1 % 07/27/2016 %Hba1C Bhq542 Gluc Ave 128 mg/dL 07/27/2016 Tsh Ord6 hTSH II 0.69 uIU/mL 07/27/2016 Helicobacter Pylori Iga [id number] H. PYLORI AB, IgA <9.0 units 06/10/2016 Helicobacter Pylori Igm Ab 135617 H. PYLORI AB, IgM <9.0 units 06/10/2016 H. Pylori Igg Abs 518212 H. PYLORI AB, IgG 0.2 INDEX 06/07/2016 H. Pylori Igg Abs 436281 06/07/2016 Comp Metabolic Mom137 NA 133 mEq/L 04/20/2016 Comp Metabolic Roy312 K 4.3 mEq/L 04/20/2016 Comp Metabolic Wza100 CL 100 mEq/L 04/20/2016 Comp Metabolic Onq475 CO2 28.0 mEq/L 04/20/2016 Comp Metabolic Vdd915 ANION GAP 9 04/20/2016 Comp Metabolic Cha265 GLUCOSE 139 mg/dL 04/20/2016 Comp Metabolic Zgg702 Creat 0.8 mg/dL 04/20/2016 Comp Metabolic Jrd877 eGFR 85 ml/min/1.73m2 04/20/2016 Comp Metabolic Ngl514 BUN 16 mg/dL 04/20/2016 Comp Metabolic Obs854 B/C Ratio 21.1 Ratio 04/20/2016 Comp Metabolic Dvm645 CALCIUM 9.1 mg/dL 04/20/2016 Comp Metabolic Hkr401 ALK PHOS 45 U/L 04/20/2016 Comp Metabolic Tah550 AST(SGOT) 16 U/L 04/20/2016 Comp Metabolic Hka771 ALT(SGPT) 29 U/L 04/20/2016 Comp Metabolic Gar348 BILI T 0.5 mg/dL 04/20/2016 Comp Metabolic Feb791 ALBUMIN 4.2 g/dL 04/20/2016 Comp Metabolic Iya935 TPRO 6.7 g/dL 04/20/2016 Comp Metabolic Tdm663 GLOB 2.5 g/dL 04/20/2016 Comp Metabolic Izl011 A/G Ratio 1.7 Ratio 04/20/2016 Comp Metabolic Zca863 Osmo 270 mOsmo 04/20/2016 %Hba1C Xxi203 % HbA1c 23761- 6 6.2 % 04/20/2016 %Hba1C Oia832 Gluc Ave 131 mg/dL 04/20/2016 Cbc With Differential Ord2 WBC 5.29 K/ul 04/20/2016 Cbc With Differential Ord2 RBC 4.43 M/ul 04/20/2016 Cbc With Differential Ord2 HGB 12.8 g/dl 04/20/2016 Cbc With Differential Ord2 HCT 39.1 % 04/20/2016 Cbc With Differential Ord2 Neut% 46.9 % 04/20/2016 Cbc With Differential Ord2 MCV 88.3 fl 04/20/2016 Cbc With Differential Ord2 Lymph% 41.0 % 04/20/2016 Cbc With Differential Ord2 MCH 28.9 pg 04/20/2016 Cbc With Differential Ord2 Lassen% 8.5 % 04/20/2016 Cbc With Differential Ord2 MCHC 32.7 pg 04/20/2016 Cbc With Differential Ord2 Eos% 3.4 % 04/20/2016 Cbc With Differential Ord2 PLT 225 K/ul 04/20/2016 Cbc With Differential Ord2 Baso% 0.2 % 04/20/2016 Cbc With Differential Ord2 RDW 13.3 % 04/20/2016 Cbc With Differential Ord2 Neut ABS# 2.48 K/ul 04/20/2016 Cbc With Differential Ord2 Lymph ABS# 2.17 K/ul 04/20/2016 Cbc With Differential Ord2 [place] ABS# 0.5 K/ul 04/20/2016 Cbc With Differential Ord2 Eos ABS# 0.2 K/ul 04/20/2016 Cbc With Differential Ord2 Baso ABS# 0.0 K/ul 04/20/2016 Lipid Ord30 CHOL 157 mg/dL 04/20/2016 Lipid Ord30 HDL 47.0 mg/dl 04/20/2016 Lipid Ord30 TRIG 143 mg/dL 04/20/2016 Lipid Ord30 LDL 81 mg/dL 04/20/2016 Lipid Ord30 C/HDL 3.3 Ratio 04/20/2016 Cbc With Differential Ord2 WBC 4.74 K/ul 03/03/2016 Cbc With Differential Ord2 RBC 4.39 M/ul 03/03/2016 Cbc With Differential Ord2 HGB 12.8 g/dl 03/03/2016 Cbc With Differential Ord2 HCT 38.9 % 03/03/2016 Cbc With Differential Ord2 Neut% 54.3 % 03/03/2016 Cbc With Differential Ord2 MCV 88.6 fl 03/03/2016 Cbc With Differential Ord2 Lymph% 36.5 % 03/03/2016 Cbc With Differential Ord2 MCH 29.2 pg 03/03/2016 Cbc With Differential Ord2 Lassen% 6.3 % 03/03/2016 Cbc With Differential Ord2 [...] 1.73 K/ul 03/03/2016 Cbc With Differential Ord2 [place] ABS# 0.3 K/ul 03/03/2016 Cbc With Differential Ord2 Eos ABS# 0.1 K/ul 03/03/2016 Cbc With Differential Ord2 Baso ABS# 0.0 K/ul 03/03/2016 Free T4 [id number] FREE T4 0.90 ng/dL 03/03/2016 Comp Metabolic Iqb956 NA 135 mEq/L 03/03/2016 Comp Metabolic Foz211 K 3.7 mEq/L 03/03/2016 Comp Metabolic Nwb115 CL 100 mEq/L 03/03/2016 Comp Metabolic Nkd016 CO2 29.0 mEq/L 03/03/2016 Comp Metabolic Ykf310 ANION GAP 10 03/03/2016 Comp Metabolic Mwu905 GLUCOSE 134 mg/dL 03/03/2016 Comp Metabolic Zer904 Creat 0.7 mg/dL 03/03/2016 Comp Metabolic Lkp751 eGFR 93 ml/min/1.73m2 03/03/2016 Comp Metabolic Olo548 BUN 16 mg/dL 03/03/2016 Comp Metabolic Tqq141 B/C Ratio 22.9 Ratio 03/03/2016 Comp Metabolic Sso782 CALCIUM 9.0 mg/dL 03/03/2016 Comp Metabolic Hws859 ALK PHOS 36 U/L 03/03/2016 Comp Metabolic Krc059 AST(SGOT) 17 U/L 03/03/2016 Comp Metabolic Jxt449 ALT(SGPT) 25 U/L 03/03/2016 Comp Metabolic Wdm931 BILI T 0.4 mg/dL 03/03/2016 Comp Metabolic Nxm560 ALBUMIN 4.3 g/dL 03/03/2016 Comp Metabolic Kff680 TPRO 6.6 g/dL 03/03/2016 Comp Metabolic Ekm046 GLOB 2.3 g/dL 03/03/2016 Comp Metabolic Bqe524 A/G Ratio 1.8 Ratio 03/03/2016 Comp Metabolic Zxv417 Osmo 273 mOsmo 03/03/2016 Tsh Ord6 hTSH II 2.99 uIU/mL 03/03/2016 Comp Metabolic Fmu272 NA 135 mEq/L 12/21/2015 Comp Metabolic Zlr429 K 4.1 mEq/L 12/21/2015 Comp Metabolic Dry494 CL 100 mEq/L 12/21/2015 Comp Metabolic Wwd131 CO2 29.0 mEq/L 12/21/2015 Comp Metabolic Zrz955 ANION GAP 10 12/21/2015 Comp Metabolic Xiq862 GLUCOSE 146 mg/dL 12/21/2015 Comp Metabolic Vgc520 Creat 0.8 mg/dL 12/21/2015 Comp Metabolic Vmn670 eGFR 76 ml/min/1.73m2 12/21/2015 Comp Metabolic Bfx716 BUN 14 mg/dL 12/21/2015 Comp Metabolic Wno395 B/C Ratio 16.7 Ratio 12/21/2015 Comp Metabolic Pyp941 CALCIUM 9.0 mg/dL 12/21/2015 Comp Metabolic Lkf284 ALK PHOS 47 U/L 12/21/2015 Comp Metabolic Jos314 AST(SGOT) 19 U/L 12/21/2015 Comp Metabolic Nnh301 ALT(SGPT) 31 U/L 12/21/2015 Comp Metabolic Esz905 BILI T 0.4 mg/dL 12/21/2015 Comp Metabolic Vtc806 ALBUMIN 4.1 g/dL 12/21/2015 Comp Metabolic Nrn219 TPRO 6.5 g/dL 12/21/2015 Comp Metabolic Vwe558 GLOB 2.5 g/dL 12/21/2015 Comp Metabolic Fuc149 A/G Ratio 1.7 Ratio 12/21/2015 Comp Metabolic Gzv799 Osmo 273 mOsmo 12/21/2015 Cbc With Differential Ord2 WBC 6.01 K/ul 12/21/2015 Cbc With Differential Ord2 RBC 4.45 M/ul 12/21/2015 Cbc With Differential Ord2 HGB 12.7 g/dl 12/21/2015 Cbc With Differential Ord2 HCT 39.2 % 12/21/2015 Cbc With Differential Ord2 Neut% 56.2 % 12/21/2015 Cbc With Differential Ord2 MCV 88.1 fl 12/21/2015 Cbc With Differential Ord2 Lymph% 35.3 % 12/21/2015 Cbc With Differential Ord2 MCH 28.5 pg 12/21/2015 Cbc With Differential Ord2 Lassen% 5.3 % 12/21/2015 Cbc With Differential Ord2 MCHC 32.4 pg 12/21/2015 Cbc With Differential Ord2 Eos% 3.0 % 12/21/2015 Cbc With Differential Ord2 PLT 251 K/ul 12/21/2015 Cbc With Differential Ord2 Baso% 0.2 % 12/21/2015 Cbc With Differential Ord2 RDW 13.8 % 12/21/2015 Cbc With Differential Ord2 Neut ABS# 3.38 K/ul 12/21/2015 Cbc With Differential Ord2 Lymph ABS# 2.12 K/ul 12/21/2015 Cbc With Differential Ord2 [place] ABS# 0.3 K/ul 12/21/2015 Cbc With Differential Ord2 Eos ABS# 0.2 K/ul 12/21/2015 Cbc With Differential Ord2 Baso ABS# 0.0 K/ul 12/21/2015 Cbc With Differential Ord2 New Analyzer Notice Please note new ref ranges starting 08-19-2015 due to implemntation of new five part differential hematolgy analyzer. 12/21/2015 Tsh Ord6 hTSH II 4.58 uIU/mL 12/21/2015 %Hba1C Ryk499 % HbA1c 18364- 6 6.2 % 12/21/2015 %Hba1C Umo508 Gluc Ave 131 mg/dL 12/21/2015 Lipid Ord30 CHOL 168 mg/dL 12/21/2015 Lipid Ord30 HDL 61.0 mg/dl 12/21/2015 Lipid Ord30 TRIG 161 mg/dL 12/21/2015 Lipid Ord30 LDL 75 mg/dL 12/21/2015 Lipid Ord30 C/HDL 2.8 Ratio 12/21/2015 Free T4 Cjs647 FREE T4 0.82 ng/dL 12/21/2015 Free T4 Axk761 FREE T4 1.03 ng/dL 06/22/2015 Tsh Ord6 [...] With Differential Ord2 RDW 14.0 % 03/18/2015 Lipid Ord30 CHOL 171 mg/dL 03/18/2015 Lipid Ord30 HDL 49.0 mg/dl 03/18/2015 Lipid Ord30 TRIG 169 mg/dL 03/18/2015 Lipid Ord30 LDL 88 mg/dL 03/18/2015 Lipid Ord30 C/HDL 3.5 Ratio 03/18/2015 Free T4 Ysh527 FREE T4 0.86 ng/dL 03/18/2015 Comp Metabolic Ufi372 NA 135 mEq/L 03/18/2015 Comp Metabolic Chu095 K 4.2 mEq/L 03/18/2015 Comp Metabolic Zro326 CL 103 mEq/L 03/18/2015 Comp Metabolic Sxm409 CO2 27.0 mEq/L 03/18/2015 Comp Metabolic Stt464 ANION GAP 9 03/18/2015 Comp Metabolic Doh774 GLUCOSE 124 mg/dL 03/18/2015 Comp Metabolic Flf269 Creat 0.8 mg/dL 03/18/2015 Comp Metabolic Dxc583 eGFR 78 ml/min/1.73m2 03/18/2015 Comp Metabolic Ite037 BUN 15 mg/dL 03/18/2015 Comp Metabolic Gpk591 B/C Ratio 18.3 Ratio 03/18/2015 Comp Metabolic Cgf430 CALCIUM 9.4 mg/dL 03/18/2015 Comp Metabolic Hyg791 ALK PHOS 42 U/L 03/18/2015 Comp Metabolic Pij547 AST(SGOT) 14 U/L 03/18/2015 Comp Metabolic May102 ALT(SGPT) 25 U/L 03/18/2015 Comp Metabolic Hda716 BILI T 0.3 mg/dL 03/18/2015 Comp Metabolic Zxi483 ALBUMIN 4.2 g/dL 03/18/2015 Comp Metabolic Eeb870 TPRO 6.5 g/dL 03/18/2015 Comp Metabolic Sja055 GLOB 2.3 g/dL 03/18/2015 Comp Metabolic Hua125 A/G Ratio 1.8 Ratio 03/18/2015 Comp Metabolic Ipu478 Osmo 272 mOsmo 03/18/2015 %Hba1C Lco286 % HbA1c 26327- 6 6.0 % 03/18/2015 %Hba1C Vmo773 Gluc Ave 126 mg/dL 03/18/2015 Review of Systems System Result Effective Dates Constitutional No recent illness 11/28/2018 Constitutional No anorexia 11/28/2018 Constitutional No night sweats 11/28/2018 Constitutional No chills 11/28/2018 Constitutional fatigue 11/28/2018 Constitutional No insomnia 11/28/2018 Constitutional No malaise 11/28/2018 Eyes No eye discharge 11/28/2018 Eyes No eye erythema 11/28/2018 Ears/Nose/Throat/Neck No dental pain 11/28/2018 Ears/Nose/Throat/Neck No dizziness 11/28/2018 Ears/Nose/Throat/Neck No dysphagia 11/28/2018 Ears/Nose/Throat/Neck No headache 11/28/2018 Ears/Nose/Throat/Neck No hearing loss 11/28/2018 Ears/Nose/Throat/Neck No nasal allergies 11/28/2018 Ears/Nose/Throat/Neck No nasal discharge 11/28/2018 Ears/Nose/Throat/Neck No sore throat 11/28/2018 Ears/Nose/Throat/Neck No postnasal drip 11/28/2018 Ears/Nose/Throat/Neck No sinus congestion 11/28/2018 Cardiovascular No arrhythmia 11/28/2018 Cardiovascular No chest pain/pressure 11/28/2018 Cardiovascular No dyspnea 11/28/2018 Cardiovascular No edema 11/28/2018 Cardiovascular No exercise intolerance 11/28/2018 Cardiovascular No fatigue 11/28/2018 Cardiovascular No near-syncope/dizziness 11/28/2018 Cardiovascular No orthopnea 11/28/2018 Cardiovascular No palpitations 11/28/2018 Respiratory No asthma 11/28/2018 Respiratory No pleuritic pain 11/28/2018 Respiratory No productive sputum 11/28/2018 Respiratory No chest tightness 11/28/2018 Respiratory No cigarette smoking 11/28/2018 Respiratory No cough 11/28/2018 Respiratory No dyspnea 11/28/2018 Respiratory No pedal edema 11/28/2018 Respiratory No snoring 11/28/2018 Respiratory No wheezing 11/28/2018 Gastrointestinal No hemorrhoids 11/28/2018 Gastrointestinal No abdominal pain 11/28/2018 Gastrointestinal No constipation 11/28/2018 Gastrointestinal No diarrhea 11/28/2018 Gastrointestinal No gastroesophageal reflux 11/28/2018 Gastrointestinal No melena 11/28/2018 Gastrointestinal No nausea 11/28/2018 Gastrointestinal No vomiting 11/28/2018 Genitourinary/Nephrology No dysuria 11/28/2018 Genitourinary/Nephrology No nocturia 11/28/2018 Genitourinary/Nephrology No urinary incontinence 11/28/2018 Musculoskeletal stiffness 11/28/2018 Dermatologic No rash 11/28/2018 Dermatologic No scar 11/28/2018 Neurologic No alteration of consciousness 11/28/2018 Neurologic paresthesia 11/28/2018 Psychiatric No anxiety 11/28/2018 Psychiatric No depression 11/28/2018 Endocrine diabetes mellitus type 2 11/28/2018 Musculoskeletal joint complaint 11/28/2018 Constitutional No recent illness 11/29/2017 Constitutional No anorexia 11/29/2017 Constitutional No night sweats 11/29/2017 Constitutional No chills 11/29/2017 Constitutional fatigue 11/29/2017 Constitutional No insomnia 11/29/2017 Constitutional No malaise 11/29/2017 Eyes No eye discharge 11/29/2017 Eyes No eye erythema 11/29/2017 Ears/Nose/Throat/Neck No dental pain 11/29/2017 Ears/Nose/Throat/Neck No dizziness 11/29/2017 Ears/Nose/Throat/Neck No dysphagia 11/29/2017 Ears/Nose/Throat/Neck No headache 11/29/2017 Ears/Nose/Throat/Neck No hearing loss 11/29/2017 Ears/Nose/Throat/Neck No nasal allergies 11/29/2017 Ears/Nose/Throat/Neck No nasal discharge 11/29/2017 Ears/Nose/Throat/Neck No sore throat 11/29/2017 Ears/Nose/Throat/Neck No postnasal drip 11/29/2017 Ears/Nose/Throat/Neck No sinus congestion 11/29/2017 Cardiovascular No arrhythmia 11/29/2017 Cardiovascular No chest pain/pressure 11/29/2017 Cardiovascular No dyspnea 11/29/2017 Cardiovascular No edema 11/29/2017 Cardiovascular No exercise intolerance 11/29/2017 Cardiovascular No fatigue 11/29/2017 Cardiovascular No near-syncope/dizziness 11/29/2017 Cardiovascular No orthopnea 11/29/2017 Cardiovascular No palpitations 11/29/2017 Respiratory No asthma 11/29/2017 Respiratory No pleuritic pain 11/29/2017 Respiratory No productive sputum 11/29/2017 Respiratory No chest tightness 11/29/2017 Respiratory No cigarette smoking 11/29/2017 Respiratory No cough 11/29/2017 Respiratory No dyspnea 11/29/2017 Respiratory No pedal edema 11/29/2017 Respiratory No snoring 11/29/2017 Respiratory No wheezing 11/29/2017 Gastrointestinal No hemorrhoids 11/29/2017 Gastrointestinal No abdominal pain 11/29/2017 Gastrointestinal No constipation 11/29/2017 Gastrointestinal No diarrhea 11/29/2017 Gastrointestinal No gastroesophageal reflux 11/29/2017 Gastrointestinal No melena 11/29/2017 Gastrointestinal No nausea 11/29/2017 Gastrointestinal No vomiting 11/29/2017 Genitourinary/Nephrology No dysuria 11/29/2017 Genitourinary/Nephrology No nocturia 11/29/2017 Genitourinary/Nephrology No urinary incontinence 11/29/2017 Musculoskeletal stiffness 11/29/2017 Musculoskeletal arthralgia(s) 11/29/2017 Dermatologic No rash 11/29/2017 Dermatologic No scar 11/29/2017 Neurologic No alteration of consciousness 11/29/2017 Neurologic paresthesia 11/29/2017 Psychiatric No anxiety 11/29/2017 Psychiatric No depression 11/29/2017 Constitutional recent illness 07/04/2017 Constitutional chills 07/04/2017 Constitutional No diaphoresis 07/04/2017 Constitutional fever 07/04/2017 Eyes No eye erythema 07/04/2017 Ears/Nose/Throat/Neck nasal allergies 07/04/2017 Ears/Nose/Throat/Neck nasal discharge 07/04/2017 Ears/Nose/Throat/Neck postnasal drip 07/04/2017 Ears/Nose/Throat/Neck sinus congestion 07/04/2017 Ears/Nose/Throat/Neck sore throat 07/04/2017 Cardiovascular No chest pain/pressure 07/04/2017 Cardiovascular No dyspnea 07/04/2017 Respiratory No chest congestion 07/04/2017 Respiratory cough 07/04/2017 Respiratory No dyspnea 07/04/2017 Gastrointestinal No constipation 07/04/2017 Gastrointestinal No diarrhea 07/04/2017 Gastrointestinal No nausea 07/04/2017 Gastrointestinal No vomiting 07/04/2017 Dermatologic No rash 07/04/2017 Neurologic No alteration of consciousness 07/04/2017 Neurologic No mental status change 07/04/2017 Constitutional No recent illness 05/31/2017 Constitutional No anorexia 05/31/2017 Constitutional No night sweats 05/31/2017 Constitutional No chills 05/31/2017 Constitutional fatigue 05/31/2017 Constitutional No insomnia 05/31/2017 Constitutional No malaise 05/31/2017 Eyes No eye discharge 05/31/2017 Eyes No eye erythema 05/31/2017 Ears/Nose/Throat/Neck No dental pain 05/31/2017 Ears/Nose/Throat/Neck No dizziness 05/31/2017 Ears/Nose/Throat/Neck No dysphagia 05/31/2017 Ears/Nose/Throat/Neck No headache 05/31/2017 Ears/Nose/Throat/Neck No hearing loss 05/31/2017 Ears/Nose/Throat/Neck No nasal allergies 05/31/2017 Ears/Nose/Throat/Neck No nasal discharge 05/31/2017 Ears/Nose/Throat/Neck No sore throat 05/31/2017 Ears/Nose/Throat/Neck No postnasal drip 05/31/2017 Ears/Nose/Throat/Neck No sinus congestion 05/31/2017 Cardiovascular No arrhythmia 05/31/2017 Cardiovascular No chest pain/pressure 05/31/2017 Cardiovascular No dyspnea 05/31/2017 Cardiovascular No edema 05/31/2017 Cardiovascular No exercise intolerance 05/31/2017 Cardiovascular No fatigue 05/31/2017 Cardiovascular No near-syncope/dizziness 05/31/2017 Cardiovascular No orthopnea 05/31/2017 Cardiovascular No palpitations 05/31/2017 Respiratory No asthma 05/31/2017 Respiratory No pleuritic pain 05/31/2017 Respiratory No productive sputum 05/31/2017 Respiratory No chest tightness 05/31/2017 Respiratory No cigarette smoking 05/31/2017 Respiratory No cough 05/31/2017 Respiratory No dyspnea 05/31/2017 Respiratory No pedal edema 05/31/2017 Respiratory No snoring 05/31/2017 Respiratory No wheezing 05/31/2017 Gastrointestinal No hemorrhoids 05/31/2017 Gastrointestinal No abdominal pain 05/31/2017 Gastrointestinal No constipation 05/31/2017 Gastrointestinal No diarrhea 05/31/2017 Gastrointestinal No gastroesophageal reflux 05/31/2017 Gastrointestinal No melena 05/31/2017 Gastrointestinal No nausea 05/31/2017 Gastrointestinal No vomiting 05/31/2017 Genitourinary/Nephrology No dysuria 05/31/2017 Genitourinary/Nephrology No nocturia 05/31/2017 Genitourinary/Nephrology No urinary incontinence 05/31/2017 Musculoskeletal stiffness 05/31/2017 Musculoskeletal arthralgia(s) 05/31/2017 Dermatologic No rash 05/31/2017 Dermatologic No scar 05/31/2017 Neurologic No alteration of consciousness 05/31/2017 Psychiatric No anxiety 05/31/2017 Psychiatric No depression 05/31/2017 Neurologic paresthesia 05/31/2017 Constitutional No recent illness 11/28/2016 Constitutional No [...] 1994 Constitutional general appearance Development: well developed 11/28/2018 None Full Exam - General 1994 Constitutional general appearance Development: appears stated age 0411/28/2018 None Full Exam - General 1994 Constitutional general appearance Hygiene/Attention to Grooming: good hygiene 11/28/2018 None Full Exam - General 1994 Eyes conjunctiva/eyelids Overall: conjunctiva clear 11/28/2018 None Full Exam - General 1994 Eyes conjunctiva/eyelids Overall: eyelids normal 11/28/2018 None Full Exam - General 1994 Eyes pupils and irises Overall: pupils equal, round, reactive to light and accomodation 11/28/2018 None Full Exam - General 1994 Ears/Nose/Throat lips/teeth/gingiva Overall: benign lips 11/28/2018 None Full Exam - General 1994 Ears/Nose/Throat lips/teeth/gingiva Overall: normal dentition 11/28/2018 None Full Exam - General 1994 Respiratory auscultation Overall: breath sounds clear bilaterally 11/28/2018 None Full Exam - General 1994 Respiratory respiratory effort/rhythm Overall: no retractions 11/28/2018 None Full Exam - General 1994 Respiratory respiratory effort/rhythm Overall: normal rate 11/28/2018 None Full Exam - General 1994 Cardiovascular extremities Overall: no clubbing 11/28/2018 None Full Exam - General 1994 Cardiovascular auscultation of heart Overall: regular rate 11/28/2018 None Full Exam - General 1994 Cardiovascular auscultation of heart Overall: normal heart sounds 11/28/2018 None Full Exam - General 1994 Abdomen abdominal exam Overall: no tenderness 11/28/2018 None Full Exam - General 1994 Abdomen abdominal exam Overall: normal bowel sounds 11/28/2018 None Full Exam - General 1994 Musculoskeletal digits and nails Overall: no clubbing 11/28/2018 None Full Exam - General 1994 Musculoskeletal digits and nails Overall: digits benign 11/28/2018 None Full Exam - General 1994 Musculoskeletal gait and station Overall: normal gait 11/28/2018 None Full Exam - General 1994 Musculoskeletal gait and station Overall: normal station 11/28/2018 None Full Exam - General 1994 Musculoskeletal head and neck Overall: head atraumatic 11/28/2018 None Full Exam - General 1994 Musculoskeletal head and neck Overall: cervical spine benign 11/28/2018 None Full Exam - General 1994 Psychiatric orientation/consciousness Overall: oriented to person, place and time 11/28/2018 None Full Exam - General 1994 Psychiatric mood and affect Overall: normal mood and affect 11/28/2018 None Full Exam - General 1994 Constitutional general appearance Development: well developed 11/29/2017 None Full Exam - General 1994 Constitutional general appearance Development: appears stated age 0411/29/2017 None Full Exam - General 1994 Constitutional general appearance Hygiene/Attention to Grooming: good hygiene 11/29/2017 None Full Exam - General 1994 Eyes conjunctiva/eyelids Overall: conjunctiva clear 11/29/2017 None Full Exam - General 1994 Eyes conjunctiva/eyelids Overall: eyelids normal 11/29/2017 None Full Exam - General 1994 Eyes pupils and irises Overall: pupils equal, round, reactive to light and accomodation 11/29/2017 None Full Exam - General 1994 Ears/Nose/Throat lips/teeth/gingiva Overall: benign lips 11/29/2017 None Full Exam - General 1994 Ears/Nose/Throat lips/teeth/gingiva Overall: normal dentition 11/29/2017 None Full Exam - General 1994 Respiratory auscultation Overall: breath sounds clear bilaterally 11/29/2017 None Full Exam - General 1994 Respiratory respiratory effort/rhythm Overall: no retractions 11/29/2017 None Full Exam - General 1994 Respiratory respiratory effort/rhythm Overall: normal rate 11/29/2017 None Full Exam - General 1994 Cardiovascular extremities Overall: no clubbing 11/29/2017 None Full Exam - General 1994 Cardiovascular auscultation of heart Overall: regular rate 11/29/2017 None Full Exam - General 1994 Cardiovascular auscultation of heart Overall: normal heart sounds 11/29/2017 None Full Exam - General 1994 Abdomen abdominal exam Overall: no tenderness 11/29/2017 None Full Exam - General 1994 Abdomen abdominal exam Overall: normal bowel sounds 11/29/2017 None Full Exam - General 1994 Musculoskeletal digits and nails Overall: no clubbing 11/29/2017 None Full Exam - General 1994 Musculoskeletal digits and nails Overall: digits benign 11/29/2017 None Full Exam - General 1994 Musculoskeletal gait and station Overall: normal gait 11/29/2017 None Full Exam - General 1994 Musculoskeletal gait and station Overall: normal station 11/29/2017 None Full Exam - General 1994 Musculoskeletal head and neck Overall: head atraumatic 11/29/2017 None Full Exam - General 1994 Musculoskeletal head and neck Overall: cervical spine benign 11/29/2017 None Full Exam - General 1994 Integument inspection of skin Rash/Lesions: surgical site 11/29/2017 on bilateral thumbs/wrists Full Exam - General 1994 Neurologic deep tendon reflexes Overall: deep tendon reflexes intact 11/29/2017 None Full Exam - General 1994 Psychiatric orientation/consciousness Overall: oriented to person, place and time 11/29/2017 None Full Exam - General 1994 Psychiatric mood and affect Overall: normal mood and affect 11/29/2017 None Full Exam - ENT Constitutional general appearance Overall: well nourished 07/04/2017 None Full Exam - ENT Constitutional general appearance Overall: well developed 07/04/2017 None Full Exam - ENT Constitutional general appearance Overall: in no acute distress 07/04/2017 None Full Exam - ENT Ears/Nose/Throat otoscopic exam Overall: external auditory canals normal 07/04/2017 None Full Exam - ENT Ears/Nose/Throat otoscopic exam Right tympanic membrane: air-fluid level 07/04/2017 None Full Exam - ENT Ears/Nose/Throat lips/teeth/gingiva Overall: benign lips 07/04/2017 None Full Exam - ENT Ears/Nose/Throat oropharynx Overall: oral mucosa clear 07/04/2017 None Full Exam - ENT Ears/Nose/Throat oropharynx Posterior Pharynx: clear post nasal drainage 07/04/2017 None Full Exam - ENT Ears/Nose/Throat oropharynx Posterior Pharynx: erythema 07/04/2017 None Full Exam - ENT Respiratory inspection Overall: no retractions 07/04/2017 None Full Exam - ENT Respiratory inspection Overall: normal rate 07/04/2017 None Full Exam - ENT Respiratory auscultation Overall: breath sounds clear bilaterally 07/04/2017 None Full Exam - ENT Cardiovascular auscultation of heart Rate: normal rate 07/04/2017 None Full Exam - ENT Cardiovascular auscultation of heart Rhythm: regular rhythm 07/04/2017 None Full Exam - ENT Lymphatic palpation of lymph nodes Overall: anterior cervical chain benign 07/04/2017 None Full Exam - ENT Lymphatic palpation of lymph nodes Overall: posterior cervical chain benign 07/04/2017 None Full Exam - ENT Neurologic mood and affect Overall: normal mood 07/04/2017 None Full Exam - ENT Neurologic mood and affect Overall: normal affect 07/04/2017 None Full Exam - ENT Neurologic orientation Overall: oriented to person, place and time 07/04/2017 None Full Exam - ENT Ears/Nose/Throat otoscopic exam Left tympanic membrane: bulging 07/04/2017 None Full Exam - General 1994 Constitutional general appearance Development: well developed 05/31/2017 None Full Exam - General 1994 Constitutional general appearance Development: appears stated age 1005/31/2017 None Full Exam - General 1994 Constitutional general appearance Hygiene/Attention to Grooming: good hygiene 05/31/2017 None Full Exam - General 1994 Eyes conjunctiva/eyelids Overall: conjunctiva clear 05/31/2017 None Full Exam - General 1994 Eyes conjunctiva/eyelids Overall: eyelids normal 05/31/2017 None Full Exam - General 1994 Eyes pupils and irises Overall: pupils equal, round, reactive to light and accomodation 05/31/2017 None Full Exam - General 1994 Ears/Nose/Throat lips/teeth/gingiva Overall: benign lips 05/31/2017 None Full Exam - General 1994 Ears/Nose/Throat lips/teeth/gingiva Overall: normal dentition 05/31/2017 None Full Exam - General 1994 Respiratory auscultation Overall: breath sounds clear bilaterally 05/31/2017 None Full Exam - General 1994 Respiratory respiratory effort/rhythm Overall: no retractions 05/31/2017 None Full Exam - General 1994 Respiratory respiratory effort/rhythm Overall: normal rate 05/31/2017 None Full Exam - General 1994 Cardiovascular extremities Overall: no clubbing 05/31/2017 None Full Exam - General 1994 Cardiovascular auscultation of heart Overall: regular rate 05/31/2017 None Full Exam - General 1994 Cardiovascular auscultation of heart Overall: normal heart sounds 05/31/2017 None Full Exam - General 1994 Abdomen abdominal exam Overall: no tenderness 05/31/2017 None Full Exam - General 1994 Abdomen abdominal exam Overall: normal bowel sounds 05/31/2017 None Full Exam - General 1994 Musculoskeletal digits and nails Overall: no clubbing 05/31/2017 None Full Exam - General 1994 Musculoskeletal digits and nails Overall: digits benign 05/31/2017 None Full Exam - General 1994 Musculoskeletal gait and station Overall: normal gait 05/31/2017 None Full Exam - General 1994 Musculoskeletal gait and station Overall: normal station 05/31/2017 None Full Exam - General 1994 Musculoskeletal head and neck Overall: head atraumatic 05/31/2017 None Full Exam - General 1994 Musculoskeletal head and neck Overall: cervical spine benign 05/31/2017 None Full Exam - General 1994 Integument inspection of skin Rash/Lesions: surgical site 05/31/2017 on bilateral thumbs/wrists Full Exam - General 1994 Neurologic deep tendon reflexes Overall: deep tendon reflexes intact 05/31/2017 None Full Exam - General 1994 Psychiatric orientation/consciousness Overall: oriented to person, place and time 05/31/2017 None Full Exam - General 1994 Psychiatric mood and affect Overall: normal mood and affect 05/31/2017 None Full Exam - General 1994 Constitutional [...] lips 06/19/2014 None Full Exam - General 1994 Ears/Nose/Throat lips/teeth/gingiva Overall: normal dentition 06/19/2014 None [...] Exam - General 1995 Ears/Nose/Throat lips/teeth/gingiva Overall: benign lips 06/10/2013 None Full Exam - General 1995 Ears/Nose/Throat lips/teeth/gingiva Overall: normal dentition 06/10/2013 None Full Exam - General 1995 Ears/Nose/Throat oral cavity/pharynx/larynx Overall: hypopharynx benign 06/10/2013 None Full Exam - General 1995 Ears/Nose/Throat oral cavity/pharynx/larynx Overall: no masses 06/10/2013 None Full Exam - General 1995 Ears/Nose/Throat oral cavity/pharynx/larynx Overall: oral mucosa clear 06/10/2013 None Full Exam - General 1995 Ears/Nose/Throat oral cavity/pharynx/larynx Overall: oropharyngeal mucosa clear 06/10/2013 None Full Exam - General 1994 Respiratory auscultation Overall: breath sounds clear bilaterally 06/10/2013 None Full Exam - General 1994 Respiratory respiratory effort/rhythm Overall: no retractions 06/10/2013 None Full Exam - General 1994 Respiratory respiratory effort/rhythm Overall: normal rate 06/10/2013 None Full Exam - General 1994 Cardiovascular extremities Overall: no clubbing 06/10/2013 None Full Exam - General 1994 Cardiovascular auscultation of heart Overall: normal heart sounds 06/10/2013 None Full Exam - General 1994 Cardiovascular auscultation of heart Overall: regular rate 06/10/2013 None Full Exam - General 1994 Abdomen abdominal exam Overall: no tenderness 06/10/2013 None Full Exam - General 1994 Abdomen abdominal exam Overall: normal bowel sounds 06/10/2013 None Full Exam - General 1994 Integument inspection of skin Overall: few scattered [...] None Procedures Procedure Codes Date IMMUNIZATION ADMIN CPT- 4: 69658 05/19/2016 THER/PROPH/DIAG INJ SC/IM CPT-4: 80091 05/19/2016 IIV4 FLU VACC NO PRESERV ID Formatting Model/CDA Sections, Assigned to/Gemma Granados SNYAHIR CT: [id number] CPT-4: [id number] 05/19/2016 VITAMIN B12 INJECTION CPT- 4: J3420 05/19/2016 THER/PROPH/DIAG INJ SC/IM CPT-4: 73125 04/20/2016 VITAMIN B12 INJECTION CPT- 4: J3420 04/20/2016 IMMUNIZATION ADMIN CPT- 4: 12197 04/20/2016 Pneumococcal Polysaccharide Vaccine, 23-Valent, Ad CPT-4: 45709 04/20/2016 Vital Signs Date Vital 11/28/2018 Blood Pressure 1: 118/78 Code: 8480-6 BMI: 34.5 Code: 17811-5 Heart Rate 1: 82 bpm Height: 5'6" SpO2: 97% Weight: 214 lbs 11/29/2017 Blood Pressure 1: 128/80 Code: 8480-6 BMI: 34.4 Code: 57260-3 Heart Rate 1: 75 bpm Height: 5'6" SpO2: 98% Weight: 213 lbs 07/04/2017 Blood Pressure 1: 138/88 Code: 8480-6 BMI: 36.8 Code: 82476-8 Heart Rate 1: 82 bpm Height: 5'6" SpO2: 98% Weight: 228 lbs 05/31/2017 Blood Pressure 1: 140/78 Code: 8480-6 BMI: 36.5 Code: 45489-4 Heart Rate 1: 87 bpm Height: 5'6" SpO2: 98% Weight: 226 lbs 11/28/2016 Blood Pressure 1: 128/78 Code: 8480-6 BMI: 37.5 Code: 47023-6 Heart Rate 1: 88 bpm Height: 5'6" SpO2: 98% Weight: 232 lbs 8 oz 07/28/2016 Blood Pressure 1: 122/72 Code: 8480-6 BMI: 37.6 Code: 68486-5 Heart Rate 1: 61 bpm Height: 5'6" SpO2: 97% Weight: 233 lbs 06/06/2016 Blood Pressure 1: 128/82 Code: 8480-6 BMI: 37.3 Code: 53562-3 Heart Rate 1: 66 bpm Height: 5'6" SpO2: 94% Weight: 231 lbs 04/20/2016 Blood Pressure 1: 136/80 Code: 8480-6 BMI: 38.3 Code: 68249-3 Heart Rate 1: 83 bpm Height: 5'6" SpO2: 98% Weight: 237 lbs 8 oz 03/03/2016 Blood Pressure 1: 130/80 Code: 8480-6 BMI: 38.4 Code: 09113-5 Heart Rate 1: 86 bpm Height: 5'6" SpO2: 96% Weight: 238 lbs 12/21/2015 Blood Pressure 1: 148/84 Code: 8480-6 BMI: 38.4 Code: 33492-5 Heart Rate 1: 94 bpm Height: 5'6" SpO2: 98% Weight: 238 lbs 06/22/2015 Blood Pressure 1: 128/74 Code: 8480-6 BMI: 37.4 Code: 15086-4 Heart Rate 1: 82 bpm Height: 5'6" SpO2: 98% Weight: 232 lbs 03/19/2015 Blood Pressure 1: 122/72 Code: 8480-6 BMI: 37.9 Code: 99398-6 Heart Rate 1: 80 bpm Height: 5'6" SpO2: 97% Weight: 235 lbs 01/22/2015 Blood Pressure 1: 122/80 Code: 8480-6 BMI: 38.6 Code: 88348-2 Heart Rate 1: 78 bpm Height: 5'6" SpO2: 98% Weight: 239 lbs 12/22/2014 Blood Pressure 1: 110/80 Code: 8480-6 BMI: 38.1 Code: 08043-9 Heart Rate 1: 76 bpm Height: 5'6" Weight: 236 lbs 06/19/2014 Blood Pressure 1: 122/74 Code: 8480-6 BMI: 36.8 Code: 21507-7 Heart Rate 1: 86 bpm Height: 5'6" Weight: 228 lbs 03/19/2014 Blood Pressure 1: 122/78 Code: 8480-6 BMI: 36.6 Code: 52971-6 Heart Rate 1: 80 bpm Height: 5'6" Weight: 227 lbs 09/25/2013 Blood Pressure 1: 130/70 Code: 8480-6 BMI: 37.1 Code: 45531-0 Heart Rate 1: 80 bpm Height: 5'6" SpO2: 98% Weight: 230 lbs 06/25/2013 Blood Pressure 1: 126/76 Code: 8480-6 BMI: 38.1 Code: 34649-3 Heart Rate 1: 76 bpm Height: 5'6" Weight: 236 lbs 06/10/2013 Blood Pressure 1: 128/76 Code: 8480-6 BMI: 38.1 Code: 55886-7 Heart Rate 1: 80 bpm Height: 5'6" Weight: 236 lbs Functional Status No Functional Status data History of Present Illness Symptom Name Status Result Effective Date Notes Quality chronic 11/28/2018 None Onset and Resolution ongoing 11/28/2018 None Severity mild with subclinical signs 11/28/2018 None Alleviating Factors medication 11/28/2018 None Quality non-insulin dependent 11/28/2018 None Exacerbating Factors diet 11/28/2018 None Pertinent Findings dizziness 11/28/2018 if her blood sugar drops- knows that she has to have protein in the morning Pertinent Findings Denies dyspnea 11/28/2018 None Pertinent Findings lethargy 11/28/2018 --takes B12 injections occasionally-- 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, 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 Pertinent Findings Denies nausea 11/28/2018 None Pertinent Findings tingling 11/28/2018 in her left foot--taking folic acid Quality chronic 11/28/2018 None Test results HgbA1c level 6.2 11/28/2018 None Test results Pt checking blood glucose readings, did not bring results to clinic 11/28/2018 None Glucose monitoring Denies occasional glucose testing 11/28/2018 None hypothyroid Quality chronic 11/29/2017 None hypothyroid Onset and Resolution ongoing 11/29/2017 None hypothyroid Severity mild with subclinical signs 11/29/2017 None hypothyroid Alleviating Factors medication 11/29/2017 None hypothyroid Pertinent Findings decreased energy 11/29/2017 ---improving diabetes mellitus Quality non-insulin dependent 11/29/2017 None diabetes mellitus Exacerbating Factors diet 11/29/2017 None diabetes mellitus Pertinent Findings dizziness 11/29/2017 if her blood sugar drops- knows that she has to have protein in the morning diabetes mellitus Pertinent Findings Denies dyspnea 11/29/2017 None diabetes mellitus Pertinent Findings lethargy 11/29/2017 ---improving diabetes mellitus Pertinent Findings Denies nausea 11/29/2017 None diabetes mellitus Pertinent Findings tingling 11/29/2017 in her left foot--improved diabetes mellitus Test results Pt checking blood glucose at home, see scanned readings 11/29/2017 None diabetes mellitus Glucose monitoring fasting 11/29/2017 None sinus congestion Location maxillary sinuses 07/04/2017 None sinus congestion Location on both sides 07/04/2017 left greater than right sinus congestion Quality acute 07/04/2017 None sinus congestion Onset and Resolution sudden in onset 07/04/2017 None sinus congestion Pertinent Findings Denies hoarseness 07/04/2017 None sinus congestion Pertinent Findings Denies cough 07/04/2017 None sore throat Location diffusely 07/04/2017 None sore throat Quality acute 07/04/2017 None sore throat Pertinent Findings Denies fever 07/04/2017 None sore throat Pertinent Findings cough 07/04/2017 None hypothyroid Quality chronic 05/31/2017 None hypothyroid Onset and Resolution ongoing 05/31/2017 None hypothyroid Severity mild with subclinical signs 05/31/2017 None hypothyroid Alleviating Factors medication 05/31/2017 None hypothyroid Pertinent Findings decreased energy 05/31/2017 ---improving diabetes mellitus Quality non-insulin dependent 05/31/2017 None diabetes mellitus Exacerbating Factors diet 05/31/2017 None diabetes mellitus Pertinent Findings dizziness 05/31/2017 if her blood sugar drops diabetes mellitus Pertinent Findings Denies dyspnea 05/31/2017 None diabetes mellitus Pertinent Findings lethargy 05/31/2017 ---improving diabetes mellitus Pertinent Findings Denies nausea 05/31/2017 None gastroesophageal reflux Quality intermittent 05/31/2017 None gastroesophageal reflux Quality stable 05/31/2017 None gastroesophageal reflux Onset and Resolution ongoing 05/31/2017 None gastroesophageal reflux Onset of Symptom during adulthood 05/31/2017 None gastroesophageal reflux Alleviating Factors proton pump inhibitor 05/31/2017 (omeprazole) diabetes mellitus Test results Pt checking blood glucose at home, see scanned readings 05/31/2017 --On her phone diabetes mellitus Glucose monitoring occasional glucose testing 05/31/2017 None diabetes mellitus Pertinent Findings tingling 05/31/2017 in her left foot paresthesia Location on the left foot 05/31/2017 None paresthesia Quality acute 05/31/2017 None paresthesia Quality pins and needles 05/31/2017 None paresthesia Quality tingling 05/31/2017 None paresthesia Onset and Resolution ongoing 05/31/2017 None paresthesia Onset of Symptom 1 months ago 05/31/2017 None hypothyroid Quality chronic 11/28/2016 None hypothyroid Onset [...] data Encounters Encounter Performer Location Codes Date ([id number]) PREV VISIT EST AGE 40-64 Diagnosis: Encounter for general adult medical examination without abnormal findings[ICD10: Z00.00] Saniay Schwab MD, [facility] CPT-4: 21808 11/28/2018 ([id number]) PREV VISIT EST AGE 40-64 Diagnosis: Encounter for general adult medical examination without abnormal findings[ICD10: Z00.00] Diagnosis: Atrophy of thyroid (acquired)[ICD10: E03.4] [facility] CPT-4: 07064 11/29/2017 [id number] EST. PATIENT, LEVEL III Diagnosis: Acute laryngopharyngitis[ICD10: J06.0] Diagnosis: Other allergic rhinitis[ICD10: J30.89] Diagnosis: Cough[ICD10: R05] [facility] CPT-4: 38785 07/04/2017 ([id number]) PREV VISIT EST AGE 40-64 Diagnosis: Encounter for general adult medical examination without abnormal findings[ICD10: Z00.00] [facility] CPT-4: 07474 05/31/2017 ([id number]) 74973 EST. PATIENT, LEVEL IV Diagnosis: Type 2 diabetes mellitus without complications[ICD10: E11.9] Diagnosis: Atrophy of thyroid (acquired)[ICD10: E03.4] Saniya Schwab MD, [facility] CPT-4: 03629 11/28/2016 ([id number]) PREV VISIT EST AGE 40-64 Diagnosis: Encounter for general adult medical examination without abnormal findings[ICD10: Z00.00] Diagnosis: Type 2 diabetes mellitus without complications[ICD10: E11.9] Diagnosis: Atrophy of thyroid (acquired)[ICD10: E03.4] Diagnosis: Gastro-esophageal reflux disease without esophagitis[ICD10: K21.9] Saniya Schwab MD, [facility] CPT-4: 53417 07/28/2016 ([id number]) 93495 EST. PATIENT, LEVEL III Diagnosis: Gastro-esophageal reflux disease without esophagitis[ICD10: K21.9] Macey Schwab MD, [facility] CPT-4: 62330 06/06/2016 ([id number]) 42138 EST. PATIENT, LEVEL IV Diagnosis: Type 2 diabetes mellitus without complications[ICD10: E11.9] Diagnosis: Atrophy of thyroid (acquired)[ICD10: E03.4] Diagnosis: Encounter for immunization[ICD10: Z23] Diagnosis: Other vitamin B12 deficiency anemias[ICD10: D51.8] Saniya Schwab MD, [facility] CPT-4: 72268 04/20/2016 ([id number]) 09798 EST. PATIENT, LEVEL III Diagnosis: Hypothyroidism, unspecified[ICD10: E03.9] Diagnosis: Other fatigue[ICD10: R53.83] Macey Schwab MD, [facility] CPT-4: 98245 03/03/2016 [id number]) 85588 EST. PATIENT, LEVEL IV Diagnosis: Type 2 diabetes mellitus without complications[ICD10: E11.9] Diagnosis: Hypothyroidism, unspecified[ICD10: E03.9] [facility] CPT-4: 47997 12/21/2015 [id number]) 69402 EST. PATIENT, LEVEL III Diagnosis: Type 2 diabetes mellitus without complications[ICD10: E11.9] Diagnosis: Hypothyroidism, unspecified[ICD10: E03.9] Saniya Schwab MD, [facility] CPT-4: 77171 06/22/2015 ([id number]) PREV VISIT EST AGE 40-64 Diagnosis: Routine medical exam[ICD9: V70.0] Saniya Schwab MD, [facility] CPT- 4: 31300 03/19/2015 ([id number]) 09511 EST. PATIENT, LEVEL III Diagnosis: EDEMA[ICD9: 782.3] Macey Schwab MD [facility] CPT-4: 98092 01/22/2015 ([id number]) 89008 EST. PATIENT, LEVEL IV Diagnosis: Hypothyroidism[ICD9: 244.9] Diagnosis: DIABETES TYPE II[ICD9: 250.00] Macey Schwab MD, [facility] CPT-4: 27799 12/22/2014 ([id number]) 68357 EST. PATIENT, LEVEL III Diagnosis: Hypothyroidism[ICD9: 244.9] Diagnosis: DIABETES TYPE II[ICD9: 250.00] Diagnosis: Osteoarthritis[ICD9: 715.90] Saniya Schwab MD, [facility] CPT-4: 38091 06/19/2014 ([id number]) 93616 EST. PATIENT, LEVEL IV Diagnosis: DIABETES TYPE II[ICD9: 250.00] Diagnosis: Hypothyroidism[ICD9: 244.9] Saniya Schwab MD, [facility] CPT-4: 79428 03/19/2014 ([id number]) 16690 EST. PATIENT, LEVEL IV Diagnosis: HYPOTHYROIDISM[ICD9: 244.9] Diagnosis: DIABETES TYPE II[SNOMED: 123751194] Saniya Schwab MD, [facility] CPT- 4: 68036 09/25/2013 ([id number]) 34949 EST. PATIENT, LEVEL IV Diagnosis: Hypothyroidism[ICD9: 244.9] Diagnosis: Elevated blood sugar[ICD9: 790.29] Saniya Schwab MD, [facility] CPT- 4: 57883 06/25/2013 ([id number]) OFFICE VISIT, NEW - LEVEL 3 Diagnosis: Osteoarthritis[ICD9: 715.90] Diagnosis: Knee pain, bilateral[ICD9: 719.46] Diagnosis: OBESITY[ICD9: 278.00] Diagnosis: Encounter for long-term (current) use of other medications[ICD9: V58.69] Saniya Schwab MD, [facility] CPT-4: 59892 06/10/2013 Plan of Care Planned Activity Notes Codes Status Date Visit Plan: Well Adult - pt was counseled about diet, exercise, and encouraged to follow a heart healthy diet and increase activity level. The patient was instructed to RTC yearly for well adult exams and PRN for acute illnesses. The pt was also instructed to have yearly labs for check of cholesterol, thyroid, chem panel, CBC, and renal functioning. Hypothyroidism - pt with chronic hypothyroidism, continue with current medication, will monitor pt to signs or symptoms of lack of adequate supplementation. Pt is to continue with current dose of medication unless directed otherwise. Check labs at regular intervals q 3 months or q 6 months based on previous levels of control. referral to bell for scope DM - diet controlled - continue with restriction - monitor FSBS at home. 11/28/2018 Patient Education: Patient Medication Summary Completed 11/28/2018 Patient Education: Diabetes Completed 11/28/2018 Patient Education: Patient Medication Summary Completed 11/23/2018 Visit Plan: Well Adult - pt was counseled about diet, exercise, and encouraged to follow a heart healthy diet and increase activity level. The patient was instructed to RTC yearly for well adult exams and PRN for acute illnesses. The pt was also instructed to have yearly labs for check of cholesterol, thyroid, chem panel, CBC, and renal functioning. Hypothyroidism - pt with chronic hypothyroidism, continue with current medication, will monitor pt to signs or symptoms of lack of adequate supplementation. Pt is to continue with current dose of medication unless directed otherwise. Check labs at regular intervals wither q 3 months or q 6 months based on previous levels of control. Vitamin B 12 deficiency - continue with injections at home. 11/29/2017 Appointment: Saniya Schwab WPtel: [facility] [place] 2[place] (15 min) Moderate 11/29/2017 Patient Education: Patient Medication Summary Completed 11/29/2017 Patient Education: Patient Medication Summary Completed 11/22/2017 Visit Plan: URI - Pt advised to increase fluids, vitamin C. Discussed natural and expected course of this diagnosis and need to alert me if symptoms do not follow expected course, or if any worse. RX sent to patient's pharmacy. Allergies - chronic - recommended pt to use allergy medication as prescribed. Pt has been counseled as to the appropriate use of the medication. Pt to call if allergy symptoms are not controlled with the medication. If using nasal spray, instructions as follows: Nasal spray- use twice daily, one spray per nostril twice daily, after 30 minutes, rinse out nose with saline spray.. Use opposite hand per nostril to spray in the nasal steroid allergy spray. 07/04/2017 Appointment: Ciara Lopez WPtel: [phone] [facility] (30 min) Complex 07/04/2017 Patient Education: Patient Medication Summary Completed 07/04/2017 Patient Education: Obesity Completed 07/04/2017 Visit Plan: Well Adult - pt was counseled about diet, exercise, and encouraged to follow a heart healthy diet and increase activity level. The patient was instructed to RTC yearly for well adult exams and PRN for acute illnesses. The pt was also instructed to have yearly labs for check of cholesterol, thyroid, chem panel, CBC, and renal functioning. Hypothyroidism - pt with chronic hypothyroidism, continue with current medication, will monitor pt to signs or symptoms of lack of adequate supplementation. Pt is to continue with current dose of medication unless directed otherwise. Check labs at regular intervals wither q 3 months or q 6 months based on previous levels of control. Diet controlled Diabetes Mellitus - controlled - per recent FSBS reports and hgba1c. I have recommended for the patient to have follow up labs prior to the next office visit. The patient has been instructed to continue with dietary restrictions, avoidance of carbohydrates, sweets, etc. Pt to call for any acute concerns, complaints, or if the blood glucose readings are starting to become less controlled. Neuropathy symptoms - recommended patient to increase the vitamin b12 to twice weekly. 05/31/2017 Appointment: [facility] [phone] [facility] (15 min) Moderate 05/31/2017 Patient Education: Patient Medication Summary Completed 05/31/2017 Visit Plan: Hypothyroidism - pt with chronic [...] as previously directed, continue with regular FSBS mon itoring to assure continued control of diabetes. Pt to call for any acute concerns, complaints, or if the blood glucose readings are starting to become less controlled. 11/28/2016 Appointment: San[facility] Schwab [facility]el[facility] [phone] [facility] [place] (15 min) Moderate 11/28/2016 Patient Education: Patient Medication Summary Completed 11/28/2016 Appointment: [facility] Schw[facility] [phone] [facility] [place] (15 min) Moderate 11/21/2016 Patient Education: Patient [...] not improving. 07/28/2016 Appointment: [facility] [phone] [facility] [place] (15 min) Moderate 07/28/2016 Patient Education: Patient Medication Summary Completed 07/28/2016 Visit Plan: Esophageal Reflux - the patient has been counseled against excessive intake of caffeine, spicy foods, peppermint, and cinnamon - all of which can exacerbate esophageal reflux. The patient is to take med ications as prescribed and call the office if the symptoms are not improving. 06/06/2016 Appointment: Macey yMers WPtel: [phone] [phone] (15 min) Moderate 06/06/2016 Patient Education: Patient [...] Vitamin b12 deficiency - b12 shot today 04/20/2016 [...] SYNTHROID-CHECK LABS Fatigue-CHECK LABS-RECOMMEND B COMPLEX VITAMIN 03/03/2016 Appointment: [phone] [phone] (30 min) Complex 03/03/2016 Patient Education: Patient [...] as previously directed, continue with regular FSBS mon itoring to assure continued control of diabetes. Pt to call for any acute concerns, complaints, or if the blood glucose readings are starting to become less controlled. 12/21/2015 Appointment: San[facility] Schwab [facility]el[facility] [phone] [facility] (15 min) Moderate 12/21/2015 Patient Education: Patient [...] of control. 06/22/2015 Appointment: [facility] Schwab [facility] [phone] [facility] (15 min) Moderate 06/22/2015 Patient Education: Patient [...] of control. 03/19/2015 Appointment: Saniya Schwab WPtel: [facility] [place]note 2[facility] Follow up 03/19/2015 Patient Education: Patient Medication [...] months based on previous levels of control. Hrkerl-ympfcnf-obftrqpzy name brand Synthroid Keep food diary-call in [...] months based on previous levels of control. Xrlopm-rjdxbrz-fpmwvhmyo name brand Synthroid Keep food diary-call in [...] months based on previous levels of control. Amvwrt-kptpefk-uqpcbhsnw name brand Synthroid Keep food diary-call in 2 weeks to discuss Monitor blood sugars when not feeling well 12/22/2014 Patient Education: Patient Medication Summary Completed 12/22/2014 Appointment: [facility] Schwab [facility]el[facility] [phone] [facility] Follow up 12/16/2014 Visit Plan: Hypothyroidism - [...] clinic. 06/19/2014 Appointment: [facility] Schw[facility] [phone] [facility] Follow up 06/19/2014 Patient Education: Patient Medication [...] control. 03/19/2014 Appointment: Saniya Schwab WPtel: [phone] [facility] Follow up 03/19/2014 Patient Education: Patient Medication [...] of synthroid. 09/25/2013 Appointment: [facility] Schwab [facility] [phone] [facility] Follow up 09/25/2013 Patient Education: Patient Medication [...] previous levels of control. 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 Obesity - chronic issue with this patient. The pt has been counseled about diet changes, calorie restriction, and need to exercise. Pt will RTC in one month for weight check. 06/10/2013 Appointment: Saniya Schwab WPtel: [phone] [facility] New Patient 06/10/2013 Patient Education: Patient Medication [...] are starting to become less controlled. . URI - Pt advised to increase fluids, vitamin C. Discussed natural and expected course of this diagnosis and need to alert me if symptoms do not follow expected course, or if any worse. RX sent to patient's pharmacy. Allergies - chronic - recommended pt to use allergy medication as prescribed. Pt has been counseled as to the appropriate use of the medication. Pt to call if allergy symptoms are not controlled with the medication. If using nasal spray, instructions as follows: Nasal spray- use twice daily, one spray per nostril twice daily, after 30 minutes, rinse out nose with saline spray.. Use opposite hand per nostril to spray in the nasal steroid allergy spray. . Well Adult - pt was counseled about diet, exercise, and encouraged to follow a heart healthy diet and increase activity level. The patient was instructed to RTC yearly for well adult exams and PRN for acute illnesses. The pt was also instructed to have yearly labs for check of cholesterol, thyroid, chem panel, CBC, and renal functioning. Hypothyroidism - pt with chronic hypothyroidism, continue with current medication, will monitor pt to signs or symptoms of lack of adequate supplementation. Pt is to continue with current dose of medication unless directed otherwise. Check labs at regular intervals wither q 3 months or q 6 months based on previous levels of control. Vitamin B 12 deficiency - continue with injections at home. . Diabetes Mellitus - controlled - per [...] of control. change synthroid to 88mcg tues, , sat, sun Synthroid 100mcg are on mon/wed/frid [...] on previous levels of control. REFER TO GIVING OFFICER AT THE HOSPITAL WEAR COMPRESSION STOCKINGS WHEN [...] to further attempt to reduce peripheral edema. . Well Adult - pt was counseled about diet, exercise, and encouraged to follow a heart healthy diet and increase activity level. The patient was instructed to RTC yearly for well adult exams and PRN for acute illnesses. The pt was also instructed to have yearly labs for check of cholesterol, thyroid, chem panel, CBC, and renal functioning. Hypothyroidism - pt with chronic hypothyroidism, continue with current medication, will monitor pt to signs or symptoms of lack of adequate supplementation. Pt is to continue with current dose of medication unless directed otherwise. Check labs at regular intervals q 3 months or q 6 months based on previous levels of control. referral to [facility] for scope DM - diet controlled - continue with restriction - monitor FSBS at home. PROBIOTIC TWICE DAILY DEXILANT 1 TAB DAILY [...] if the symptoms are not improving. . Well Adult - pt was counseled about diet, exercise, and encouraged to follow a heart healthy diet and increase activity level. The patient was instructed to RTC yearly for well adult exams and PRN for acute illnesses. The pt was also instructed to have yearly labs for check of cholesterol, thyroid, chem panel, CBC, and renal functioning. Hypothyroidism - pt with chronic hypothyroidism, continue with current medication, will monitor pt to signs or symptoms of lack of adequate supplementation. Pt is to continue with current dose of medication unless directed otherwise. Check labs at regular intervals wither q 3 months or q 6 months based on previous levels of control. Diet controlled Diabetes Mellitus - controlled - per recent FSBS reports and hgba1c. I have recommended for the patient to have follow up labs prior to the next office visit. The patient has been instructed to continue with dietary restrictions, avoidance of carbohydrates, sweets, etc. Pt to call for any acute concerns, complaints, or if the blood glucose readings are starting to become less controlled. Neuropathy symptoms - recommended patient to increase the vitamin b12 to twice weekly. . Diabetes Mellitus - controlled - per [...] months based on previous levels of control. Folubf-xoooxhp-qrdxwdphk name brand Synthroid Keep food diary-call in [...] months based on previous levels of control. Tkemvy-welecem-yvlfjrukv name brand Synthroid Keep food diary-call in [...] months based on previous levels of control. Gfppil-uqfguvw-aqzcdyujn name brand Synthroid Keep food diary-call in [...] as her records and labs from her film loader do not show any acute worried for [...]
--- OUTSIDE RECORDS SUMMARY | 2019-01-18 09:06 | XMS REPORT | CCD ---
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 Marital status Unknown Single 06/10/[address]: 8385884 Former smoker 06/10/[address]: 0083456 Former smoker quit 200606/10/2013 Number of years using tobacco Unknown 1 smoked a few months 06/10/2013 Alcohol history Unknown occasionally drinks alcohol 06/10/2013 Alcohol history Unknown occasionally drinks alcohol 06/10/2013 Frequency of drinks SNOMED CT: 762041227 Drinks rarely 1/month 06/10/2013 Allergies, Adverse Reactions, [...] ICD-10: E03.4 Active 04/19/2016 Unknown Encounter for screening for lipoid disorders ICD-9: V77.91 ICD-10: Z13.220 Active 11/23/2018 Unknown Hypothyroidism, unspecified ICD-9: 244.9 ICD-10: E03.9 Active 03/02/2016 Unknown Type 2 diabetes mellitus without complications ICD-9: 250.00 ICD-10: E11.9 Active 03/19/2014 Unknown Encounter for general adult medical examination without abnormal findings ICD-9: V70.0 ICD-10: Z00.00 Active 11/29/2017 Unknown Other vitamin B12 deficiency anemias ICD-9: [...] 244.8 ICD-10: E03.4 04/19/2016 Active Encounter for screening for lipoid disorders ICD-9: V77.91 ICD-10: Z13.220 11/23/2018 Active Hypothyroidism, unspecified ICD-9: 244.9 ICD-10: E03.9 03/02/2016 Active Type 2 diabetes mellitus without complications ICD-9: 250.00 ICD-10: E11.9 03/19/2014 Active Encounter for general adult medical examination without abnormal findings ICD-9: V70.0 ICD-10: Z00.00 11/29/2017 Active Other vitamin B12 deficiency anemias ICD-9: [...] Start Date Stop Date Status Fill Instructions cyanocobalamin (vit B-12) 1,000 mcg/mL injection solution RxNorm: 481834 1 Milliliter(s) Inj [id number] 11/13/2018 11/07/2019 Active multidose vial if available, if not do a 3 month supply omeprazole 20 mg capsule,delayed release RxNorm: 746025 TAKE 1 CAPSULE BY MOUTH TWICE DAILY 11/12/2018 11/06/2019 Active Generic For:*PRILOSEC 20 MG CAPSULE 11/12/2018 7:49:34 AM N O T I C E Last quantity doesn't match original quantity Synthroid 88 mcg tablet RxNorm: 954684 TAKE 1 TABLET BY MOUTH TWICE WEEKLY ON MONDAY AND Monday10/29/2018 05/24/2019 Active 10/29/2018 7:51:26 AM Synthroid 88 mcg tablet RxNorm: 646592 TAKE 1 TABLET BY MOUTH TWICE WEEKLY ON MONDAY AND Monday03/14/2018 10/07/2018 Inactive 03/14/2018 11:13:25 AM N O T I C E Last quantity doesn't match original quantity Synthroid 100 mcg tablet RxNorm: 353647 TAKE 1 TABLET BY MOUTH DAILY MONDAY THRU Monday01/08/2018 01/02/2019 Active 01/08/2018 8:22:22 AM omeprazole 20 mg capsule,delayed release RxNorm: 748182 1 Tablet(s) PO BID 09/11/2017 09/05/2018 Inactive Zithromax Z-Mike 250 mg tablet RxNorm: 277737 1 Tablet(s) PO UD 07/27/2017 11/21/2017 Inactive zpack as directed Flonase Allergy Relief 50 mcg/actuation nasal spray,suspension RxNorm: 0527466 1 [place] NASAL BID 07/04/2017 No Stop Date Active amoxicillin 500 mg tablet RxNorm: 746427 1 Tablet(s) PO TID 07/04/2017 07/13/2017 Inactive Synthroid 100 mcg tablet RxNorm: 252441 TAKE 1 TABLET BY MOUTH DAILY MONDAY THRU Monday06/19/2017 12/15/2017 Inactive 06/19/2017 9:33:46 AM cyanocobalamin (vit B-12) 1,000 mcg/mL injection solution RxNorm: 570412 1 Milliliter(s) Inj [id number] 05/31/2017 08/23/2018 Inactive multidose vial if available, if not do a 3 month supply Synthroid 88 mcg tablet RxNorm: 923741 1 Tablet(s) PO BIW on Sat and Sun 05/19/2017 09/15/2017 Inactive FERNANDO-1 ok for 90 day supply if she wants it Lancets,Thin RxNorm: USE TO TEST TWICE DAILY DIRECTED 05/08/2017 12/28/2018 Active 05/08/2017 9:20:31 AM Breeze 2 Test Strips RxNorm: USE TO TEST BLOOD GLUCOSE TWICE WEEKLY OR DIRECTED 05/08/2017 02/05/2023 Active 05/08/2017 9:20:48 AM Synthroid 100 mcg tablet RxNorm: 332046 TAKE 1 TABLET BY MOUTH DAILY MONDAY THRU Monday02/14/2017 06/18/2017 Inactive 02/14/2017 7:59:51 AM N O T I C E Last quantity doesn't match original quantity amoxicillin 500 mg tablet RxNorm: 129274 2 Tablet(s) PO prior to dental or other procedures and then 2 tabs 4 hours after procedure 11/28/2016 07/03/2017 Inactive cyanocobalamin (vit B-12) 1,000 mcg/mL injection solution RxNorm: 926242 1 Milliliter(s) Inj month 11/28/2016 05/30/2017 Inactive multidose vial if available, if not do a 3 month supply Synthroid 88 mcg tablet RxNorm: 197240 1 Tablet(s) PO BIW on Sat and Sun 09/16/2016 01/13/2017 Inactive FERNANDO-1 ok for 90 day supply if she wants it Synthroid 100 mcg tablet RxNorm: 102274 1 Tablet(s) PO daily Mon thru Mon08/09/2016 12/06/2016 Inactive FERNANDO-1 can have 90 day supply if she wants it omeprazole 20 mg capsule,delayed release RxNorm: 206217 1 Tablet(s) PO BID 07/28/2016 07/22/2017 Inactive Dexilant 60 mg capsule, delayed release RxNorm: 361021 1 Capsule(s) PO daily 06/27/2016 06/26/2016 Inactive Dexilant 60 mg capsule, delayed release RxNorm: 033029 1 Capsule(s) PO daily 06/27/2016 07/27/2016 Inactive cyanocobalamin (vit B-12) 1,000 mcg/mL injection solution RxNorm: 763195 Milliliter(s) Inj 05/19/2016 05/19/2016 Inactive cyanocobalamin (vit B-12) 1,000 mcg/mL injection solution RxNorm: 927913 1 Milliliter(s) Inj 04/20/2016 04/20/2016 Inactive Synthroid 100 mcg tablet RxNorm: 136707 1 Tablet(s) PO daily Mon thru Mon03/03/2016 06/30/2016 Inactive FERNANDO-1 can have 90 day supply if she wants it Synthroid 88 mcg tablet RxNorm: 067794 1 Tablet(s) PO UD take on Sat and Sun 03/03/2016 03/02/2016 Inactive Synthroid 88 mcg tablet RxNorm: 739451 1 Tablet(s) PO UD take on Sat and Sun 03/03/2016 06/30/2016 Inactive FERNANDO-1 ok for 90 day supply if she wants it Synthroid 100 mcg tablet RxNorm: 598362 1 Tablet(s) PO daily Mon thru Mon03/03/2016 03/02/2016 Inactive FERNANDO-1 Breeze 2 Test Strips RxNorm: Miscellaneous test twice weekly or ud 02/29/2016 05/07/2017 Inactive dx- 250.00 levothyroxine 88 mcg tablet RxNorm: 748794 1 Tablet(s) BIW on Monday, Monday12/21/2015 03/02/2016 Inactive loratadine 10 mg capsule RxNorm: 295677 1 Capsule(s) PO daily as needed 12/21/2015 06/05/2016 Inactive levothyroxine 100 mcg tablet RxNorm: 088820 1 Tablet(s) PO daily oon Monday through Monday12/21/2015 03/02/2016 Inactive levothyroxine 100 mcg tablet RxNorm: 836854 1 Tablet(s) PO UD on Monday06/22/2015 12/20/2015 Inactive levothyroxine 88 mcg tablet RxNorm: 038009 1 Tablet(s) UD on Monday, , Monday, Monday06/22/2015 12/20/2015 Inactive levothyroxine 88 mcg tablet RxNorm: 336896 1 Tablet(s) UD on Monday, , Monday, Monday03/19/2015 06/21/2015 Inactive levothyroxine 100 mcg tablet RxNorm: 797009 1 Tablet(s) PO UD on Monday03/19/2015 06/21/2015 Inactive Lasix 20 mg tablet RxNorm: 445289 1/2-1 Tablet(s) PO QDAY PRN 01/22/2015 01/26/2015 Inactive potassium chloride ER 10 mEq capsule,extended release RxNorm: 886794 1 Capsule(s) PO QDAY PRN 01/22/2015 06/05/2016 Inactive take with lasix (furosemide) levothyroxine 88 mcg tablet RxNorm: 078761 1 Tablet(s) PO daily 12/22/2014 03/18/2015 Inactive Breeze 2 Test Strips RxNorm: Miscellaneous test twice weekly or ud 10/22/2014 03/20/2015 Inactive dx- 250.00 Breeze 2 Test Strips RxNorm: Miscellaneous test twice weekly or ud 10/22/2014 10/21/2014 Inactive dx- 250.00 levothyroxine 88 mcg tablet RxNorm: 535384 1 Tablet(s) PO daily 09/22/2014 12/20/2014 Inactive Synthroid 100 mcg tablet RxNorm: 765088 1 Tablet(s) PO daily 06/19/2014 09/21/2014 Inactive Lancets,Thin RxNorm: 1 Miscellaneous BID 03/24/2014 04/22/2014 Inactive Synthroid 75 mcg tablet RxNorm: 334142 1 Tablet(s) PO daily 03/19/2014 06/18/2014 Inactive Breeze 2 Test Strips RxNorm: 1 Miscellaneous BID 03/19/2014 04/17/2014 Inactive Breeze 2 Test Strips RxNorm: 1 Miscellaneous BID 03/19/2014 03/18/2014 Inactive Synthroid 75 mcg tablet RxNorm: 603099 1 Tablet(s) PO daily 12/16/2013 03/18/2014 Inactive Synthroid 75 mcg tablet RxNorm: 875117 1 Tablet(s) PO daily 12/16/2013 12/15/2013 Inactive Synthroid 50 mcg tablet RxNorm: 069454 1 Tablet(s) PO daily 09/16/2013 12/15/2013 Inactive Synthroid 25 mcg tablet RxNorm: 024749 1 Tablet(s) PO daily 06/25/2013 09/15/2013 Inactive Glucosamine 1500 Complex 500 mg-400 mg capsule RxNorm: 1 Capsule(s) PO daily No Start Date Active Enbrel 50 mg/mL (0.98 mL) subcutaneous syringe RxNorm: 185964 Milliliter(s) SQ weekly No Start Date Active Multiple Vitamins chewable tablet RxNorm: 1 Tablet(s) PO daily No Start Date Active Vitamin B-12 5,000 mcg sublingual tablet RxNorm: 912457 1 Tablet(s) SL daily No Start Date Active Celebrex 200 mg capsule RxNorm: 241954 1 Capsule(s) PO daily No Start Date Active Tylenol 325 mg tablet RxNorm: 393887 Tablet(s) PO as needed No Start Date Active Zithromax Z-Mike 250 mg tablet RxNorm: 851148 1 Tablet(s) PO UD No Start Date 07/26/2017 Inactive zpack as directed oxycodone 5 mg tablet RxNorm: 4075172 1/2-1 Tablet(s) PO daily as needed No Start Date 06/18/2014 Inactive loratadine 10 mg capsule RxNorm: 007069 1 Capsule(s) PO daily No Start Date 12/20/2015 Inactive Synthroid 50 mcg tablet RxNorm: 665918 1 Tablet(s) PO daily No Start Date 09/15/2013 Inactive sulfasalazine 500 mg tablet RxNorm: 4320248 1 Tablet(s) PO daily No Start Date 01/21/2015 Inactive ibuprofen 600 mg tablet RxNorm: 780267 1 Tablet(s) PO BID PRN No Start Date 03/18/2014 Inactive Medication Administered Medication Codes Instructions Start Date Status cyanocobalamin (vit B-12) 1,000 mcg/mL injection solution RxNorm: 217692 Milliliter 05/19/2016 No longer Active cyanocobalamin (vit B-12) 1,000 mcg/mL injection solution RxNorm: 384340 1Milliliter 04/20/2016 No longer Active Immunizations Vaccine Codes Date Status Influenza CVX: 141 05/19/2016 completed Pneumococcal (Adult) CVX: 33 04/20/2016 completed Influenza CVX: 141 06/16/2014 completed Influenza CVX: 141 06/25/2013 completed Assessments Condition Codes Effective Dates Hypothyroidism, unspecified ICD-10: E03.9 ICD-9: 244.9 11/23/2018 Encounter for screening for lipoid disorders ICD-10: Z13.220 ICD-9: V77.91 11/23/2018 Type 2 diabetes mellitus without complications ICD-10: E11.9 ICD-9: 250.00 11/23/2018 Encounter for general adult medical examination without abnormal findings ICD-10: Z00.00 ICD-9: V70.0 11/29/2017 Atrophy of thyroid (acquired) ICD-10: E03.4 ICD-9: 244.8 11/29/2017 Other vitamin B12 deficiency anemias ICD-10: D51.8 [...] Reason For Visit Effective Dates Notes hypothyroid 11/29/2017 sinus congestion 07/04/2017 hypothyroid 05/31/2017 hypothyroid 11/28/2016 sinus congestion 07/28/2016 abdominal pain 06/06/2016 vaccination against influenza 05/19/2016 hypothyroid 04/20/2016 fatigue 03/03/2016 hypothyroid 12/21/2015 hypothyroid 06/22/2015 hypothyroid 03/19/2015 edema 01/22/2015 hypothyroid 12/22/2014 hypothyroid 06/19/2014 hypothyroid 03/19/2014 medication follow up 09/25/2013 hypothyroid 06/25/2013 knee pain 06/10/2013 Results Observation Observation Code Item Item Code Result Date Lipid Ord30 CHOL 206 mg/dL 11/27/2017 Lipid Ord30 HDL 54.0 mg/dl 11/27/2017 Lipid Ord30 TRIG 141 mg/dL 11/27/2017 Lipid Ord30 LDL 124 mg/dL 11/27/2017 Lipid Ord30 C/HDL 3.8 Ratio 11/27/2017 Free T4 Csz206 FREE T4 1.09 ng/dL 11/27/2017 %Hba1C Mqi313 % HbA1c 47801- 6 5.9 % 11/27/2017 %Hba1C Nas180 Gluc Ave 123 mg/dL 11/27/2017 Comp Metabolic Vtu617 NA 137 mEq/L 11/27/2017 Comp Metabolic Kod356 K 4.0 mEq/L 11/27/2017 Comp Metabolic Njm166 CL 100 mEq/L 11/27/2017 Comp Metabolic Uvx376 CO2 30.0 mEq/L 11/27/2017 Comp Metabolic Phd036 ANION GAP 11 11/27/2017 Comp Metabolic Rpx616 GLUCOSE 126 mg/dL 11/27/2017 Comp Metabolic Ciw205 Creat 0.8 mg/dL 11/27/2017 Comp Metabolic Xta164 eGFR 78 ml/min/1.73m2 11/27/2017 Comp Metabolic Ezd867 BUN 16 mg/dL 11/27/2017 Comp Metabolic Hqp052 B/C Ratio 19.8 Ratio 11/27/2017 Comp Metabolic Zxa072 CALCIUM 9.8 mg/dL 11/27/2017 Comp Metabolic Bia535 ALK PHOS 53 U/L 11/27/2017 Comp Metabolic Ghb053 AST(SGOT) 17 U/L 11/27/2017 Comp Metabolic Vkl042 ALT(SGPT) 20 U/L 11/27/2017 Comp Metabolic Ubt684 BILI T 0.6 mg/dL 11/27/2017 Comp Metabolic Hoj713 ALBUMIN 4.4 g/dL 11/27/2017 Comp Metabolic Pud958 TPRO 7.3 g/dL 11/27/2017 Comp Metabolic Obp898 GLOB 2.9 g/dL 11/27/2017 Comp Metabolic Azn540 A/G Ratio 1.5 Ratio 11/27/2017 Comp Metabolic Bel809 Osmo 277 mOsmo 11/27/2017 Cbc With Differential [...] 28.8 pg 11/27/2017 Cbc With Differential Ord2 [place]% 7.3 % 11/27/2017 Cbc With Differential Ord2 [...] 2.26 K/ul 11/27/2017 Cbc With Differential Ord2 [place] ABS# 0.5 K/ul 11/27/2017 Cbc With Differential Ord2 Eos ABS# 0.2 K/ul 11/27/2017 Cbc With Differential Ord2 Baso ABS# 0.0 K/ul 11/27/2017 B12 Kup052 B12 >1500.00 pg/ml 11/27/2017 Tsh Ord6 TSH (3rd IS) 1.15 uIU/mL 11/27/2017 C RAP A SC [id number] Strep A Negative 07/04/2017 Lipid Ord30 CHOL 163 mg/dL 05/29/2017 Lipid Ord30 HDL 53.0 mg/dl 05/29/2017 Lipid Ord30 TRIG 96 mg/dL 05/29/2017 Lipid Ord30 LDL 91 mg/dL 05/29/2017 Lipid Ord30 C/HDL 3.1 Ratio 05/29/2017 Free T4 Zaj017 FREE T4 1.05 ng/dL 05/29/2017 Cbc With [...] 28.5 pg 05/29/2017 Cbc With Differential Ord2 [place]% 6.2 % 05/29/2017 Cbc With Differential Ord2 [...] 2.17 K/ul 05/29/2017 Cbc With Differential Ord2 [place] ABS# 0.4 K/ul 05/29/2017 Cbc With Differential Ord2 Eos ABS# 0.2 K/ul 05/29/2017 Cbc With Differential Ord2 Baso ABS# 0.0 K/ul 05/29/2017 Comp Metabolic Wub841 NA 137 mEq/L 05/29/2017 Comp Metabolic Xyj746 K 4.2 mEq/L 05/29/2017 Comp Metabolic Tvr559 CL 101 mEq/L 05/29/2017 Comp Metabolic Uqr168 CO2 27.0 mEq/L 05/29/2017 Comp Metabolic Jms540 ANION GAP 13 05/29/2017 Comp Metabolic Stv274 GLUCOSE 133 mg/dL 05/29/2017 Comp Metabolic Bua790 Creat 0.8 mg/dL 05/29/2017 Comp Metabolic Mcb123 eGFR 80 ml/min/1.73m2 05/29/2017 Comp Metabolic Ckg471 BUN 17 mg/dL 05/29/2017 Comp Metabolic Smm115 B/C Ratio 21.3 Ratio 05/29/2017 Comp Metabolic Zlo208 CALCIUM 9.3 mg/dL 05/29/2017 Comp Metabolic Ixa873 ALK PHOS 53 U/L 05/29/2017 Comp Metabolic Ome799 AST(SGOT) 17 U/L 05/29/2017 Comp Metabolic Vtm840 ALT(SGPT) 28 U/L 05/29/2017 Comp Metabolic Rka373 BILI T 0.3 mg/dL 05/29/2017 Comp Metabolic Skj993 ALBUMIN 4.2 g/dL 05/29/2017 Comp Metabolic Zya867 TPRO 6.5 g/dL 05/29/2017 Comp Metabolic Xnz041 GLOB 2.3 g/dL 05/29/2017 Comp Metabolic Gog254 A/G Ratio 1.8 Ratio 05/29/2017 Comp Metabolic Ljl979 Osmo 277 mOsmo 05/29/2017 %Hba1C Vtg593 % HbA1c 30631- 6 6.3 % 05/29/2017 %Hba1C Ugj495 Gluc Ave 134 mg/dL 05/29/2017 Tsh Ord6 hTSH II 0.91 uIU/mL 05/29/2017 %Hba1C Vjl414 % HbA1c 04303- 6 6.3 % 11/28/2016 %Hba1C Dky069 Gluc Ave 134 mg/dL 11/28/2016 Cbc With [...] 28.4 pg 11/28/2016 Cbc With Differential Ord2 [place]% 6.2 % 11/28/2016 Cbc With Differential Ord2 [...] 2.30 K/ul 11/28/2016 Cbc With Differential Ord2 [place] ABS# 0.5 K/ul 11/28/2016 Cbc With Differential Ord2 Eos ABS# 0.2 K/ul 11/28/2016 Cbc With Differential Ord2 Baso ABS# 0.0 K/ul 11/28/2016 Tsh Ord6 hTSH II 3.96 uIU/mL 11/28/2016 B12 Tbf416 B12 >1500.00 pg/ml 11/28/2016 Comp Metabolic Opc277 NA 134 mEq/L 11/28/2016 Comp Metabolic Ifo771 K 3.8 mEq/L 11/28/2016 Comp Metabolic Yyq735 CL 98 mEq/L 11/28/2016 Comp Metabolic Rer846 CO2 28.0 mEq/L 11/28/2016 Comp Metabolic Epk151 ANION GAP 12 11/28/2016 Comp Metabolic Onb367 GLUCOSE 156 mg/dL 11/28/2016 Comp Metabolic Meh767 Creat 0.8 mg/dL 11/28/2016 Comp Metabolic Whg903 eGFR 75 ml/min/1.73m2 11/28/2016 Comp Metabolic Knw000 BUN 15 mg/dL 11/28/2016 Comp Metabolic Pbr850 B/C Ratio 17.9 Ratio 11/28/2016 Comp Metabolic Ebr261 CALCIUM 9.3 mg/dL 11/28/2016 Comp Metabolic Eeg578 ALK PHOS 55 U/L 11/28/2016 Comp Metabolic Yka221 AST(SGOT) 17 U/L 11/28/2016 Comp Metabolic Fmk964 ALT(SGPT) 26 U/L 11/28/2016 Comp Metabolic Igz139 BILI T 0.4 mg/dL 11/28/2016 Comp Metabolic Xfp490 ALBUMIN 4.2 g/dL 11/28/2016 Comp Metabolic Upd433 TPRO 6.6 g/dL 11/28/2016 Comp Metabolic Nrd405 GLOB 2.4 g/dL 11/28/2016 Comp Metabolic Dsz792 A/G Ratio 1.8 Ratio 11/28/2016 Comp Metabolic Zwa791 Osmo 272 mOsmo 11/28/2016 Free T4 Quz390 FREE T4 0.81 ng/dL 11/28/2016 Free T4 Dzy016 FREE T4 0.85 ng/dL 07/27/2016 Cbc With [...] 28.8 pg 07/27/2016 Cbc With Differential Ord2 [place]% 6.0 % 07/27/2016 Cbc With Differential Ord2 [...] 2.41 K/ul 07/27/2016 Cbc With Differential Ord2 [place] ABS# 0.3 K/ul 07/27/2016 Cbc With Differential Ord2 Eos ABS# 0.1 K/ul 07/27/2016 Cbc With Differential Ord2 Baso ABS# 0.0 K/ul 07/27/2016 %Hba1C Fnw093 % HbA1c 60229- 6 6.1 % 07/27/2016 %Hba1C Wdk145 Gluc Ave 128 mg/dL 07/27/2016 Tsh Ord6 hTSH II 0.69 uIU/mL 07/27/2016 Helicobacter Pylori Iga 153024 H. PYLORI AB, IgA <9.0 units 06/10/2016 Helicobacter Pylori Igm Ab 543992 H. PYLORI AB, IgM <9.0 units 06/10/2016 H. Pylori Igg Abs 486534 H. PYLORI AB, IgG 0.2 INDEX 06/07/2016 H. Pylori Igg Abs 681329 06/07/2016 Comp Metabolic Ovl964 NA 133 mEq/L 04/20/2016 Comp Metabolic Sky836 K 4.3 mEq/L 04/20/2016 Comp Metabolic Whi176 CL 100 mEq/L 04/20/2016 Comp Metabolic Ktv198 CO2 28.0 mEq/L 04/20/2016 Comp Metabolic Ips147 ANION GAP 9 04/20/2016 Comp Metabolic Ehi446 GLUCOSE 139 mg/dL 04/20/2016 Comp Metabolic Qvv534 Creat 0.8 mg/dL 04/20/2016 Comp Metabolic Sca515 eGFR 85 ml/min/1.73m2 04/20/2016 Comp Metabolic Djo387 BUN 16 mg/dL 04/20/2016 Comp Metabolic Cpe481 B/C Ratio 21.1 Ratio 04/20/2016 Comp Metabolic Gmp757 CALCIUM 9.1 mg/dL 04/20/2016 Comp Metabolic Xen586 ALK PHOS 45 U/L 04/20/2016 Comp Metabolic Sjy731 AST(SGOT) 16 U/L 04/20/2016 Comp Metabolic Xtw114 ALT(SGPT) 29 U/L 04/20/2016 Comp Metabolic Lro665 BILI T 0.5 mg/dL 04/20/2016 Comp Metabolic Czd928 ALBUMIN 4.2 g/dL 04/20/2016 Comp Metabolic Rmd181 TPRO 6.7 g/dL 04/20/2016 Comp Metabolic Foy034 GLOB 2.5 g/dL 04/20/2016 Comp Metabolic Htc480 A/G Ratio 1.7 Ratio 04/20/2016 Comp Metabolic Bpk448 Osmo 270 mOsmo 04/20/2016 %Hba1C Lwr437 % HbA1c 01110- 6 6.2 % 04/20/2016 %Hba1C Rjp808 Gluc Ave 131 mg/dL 04/20/2016 Cbc With [...] 28.9 pg 04/20/2016 Cbc With Differential Ord2 [place]% 8.5 % 04/20/2016 Cbc With Differential Ord2 [...] 2.17 K/ul 04/20/2016 Cbc With Differential Ord2 [place] ABS# 0.5 K/ul 04/20/2016 Cbc With Differential [...] 29.2 pg 03/03/2016 Cbc With Differential Ord2 [place]% 6.3 % 03/03/2016 Cbc With Differential Ord2 [...] 1.73 K/ul 03/03/2016 Cbc With Differential Ord2 [place] ABS# 0.3 K/ul 03/03/2016 Cbc With Differential Ord2 Eos ABS# 0.1 K/ul 03/03/2016 Cbc With Differential Ord2 Baso ABS# 0.0 K/ul 03/03/2016 Free T4 Rzb203 FREE T4 0.90 ng/dL 03/03/2016 Comp Metabolic Ddr239 NA 135 mEq/L 03/03/2016 Comp Metabolic Yge139 K 3.7 mEq/L 03/03/2016 Comp Metabolic Nxk311 CL 100 mEq/L 03/03/2016 Comp Metabolic Txf014 CO2 29.0 mEq/L 03/03/2016 Comp Metabolic Dwj378 ANION GAP 10 03/03/2016 Comp Metabolic Gsy978 GLUCOSE 134 mg/dL 03/03/2016 Comp Metabolic Axk652 Creat 0.7 mg/dL 03/03/2016 Comp Metabolic Orz073 eGFR 93 ml/min/1.73m2 03/03/2016 Comp Metabolic Qgx595 BUN 16 mg/dL 03/03/2016 Comp Metabolic Xue989 B/C Ratio 22.9 Ratio 03/03/2016 Comp Metabolic Qil675 CALCIUM 9.0 mg/dL 03/03/2016 Comp Metabolic Zrf320 ALK PHOS 36 U/L 03/03/2016 Comp Metabolic Krt657 AST(SGOT) 17 U/L 03/03/2016 Comp Metabolic Ram662 ALT(SGPT) 25 U/L 03/03/2016 Comp Metabolic Jng491 BILI T 0.4 mg/dL 03/03/2016 Comp Metabolic Yje883 ALBUMIN 4.3 g/dL 03/03/2016 Comp Metabolic Jub026 TPRO 6.6 g/dL 03/03/2016 Comp Metabolic Jbe084 GLOB 2.3 g/dL 03/03/2016 Comp Metabolic Lks396 A/G Ratio 1.8 Ratio 03/03/2016 Comp Metabolic Ptz246 Osmo 273 mOsmo 03/03/2016 Tsh Ord6 hTSH II 2.99 uIU/mL 03/03/2016 Comp Metabolic Jxn077 NA 135 mEq/L 12/21/2015 Comp Metabolic Ymq496 K 4.1 mEq/L 12/21/2015 Comp Metabolic Nii549 CL 100 mEq/L 12/21/2015 Comp Metabolic Aqb794 CO2 29.0 mEq/L 12/21/2015 Comp Metabolic Hro312 ANION GAP 10 12/21/2015 Comp Metabolic Yfk780 GLUCOSE 146 mg/dL 12/21/2015 Comp Metabolic Tow791 Creat 0.8 mg/dL 12/21/2015 Comp Metabolic Amb431 eGFR 76 ml/min/1.73m2 12/21/2015 Comp Metabolic Ims532 BUN 14 mg/dL 12/21/2015 Comp Metabolic Ffz125 B/C Ratio 16.7 Ratio 12/21/2015 Comp Metabolic Wxa064 CALCIUM 9.0 mg/dL 12/21/2015 Comp Metabolic Wjp275 ALK PHOS 47 U/L 12/21/2015 Comp Metabolic Ehu450 AST(SGOT) 19 U/L 12/21/2015 Comp Metabolic Kzs203 ALT(SGPT) 31 U/L 12/21/2015 Comp Metabolic Ywx451 BILI T 0.4 mg/dL 12/21/2015 Comp Metabolic Hgh706 ALBUMIN 4.1 g/dL 12/21/2015 Comp Metabolic Dat896 TPRO 6.5 g/dL 12/21/2015 Comp Metabolic Dil800 GLOB 2.5 g/dL 12/21/2015 Comp Metabolic Cvq631 A/G Ratio 1.7 Ratio 12/21/2015 Comp Metabolic Zjb755 Osmo 273 mOsmo 12/21/2015 Cbc With Differential [...] 28.5 pg 12/21/2015 Cbc With Differential Ord2 [place]% 5.3 % 12/21/2015 Cbc With Differential Ord2 [...] 2.12 K/ul 12/21/2015 Cbc With Differential Ord2 [place] ABS# 0.3 K/ul 12/21/2015 Cbc With Differential Ord2 Eos ABS# 0.2 K/ul 12/21/2015 Cbc With Differential Ord2 Baso ABS# 0.0 K/ul 12/21/2015 Cbc With Differential Ord2 New Analyzer Notice Please note new ref ranges starting 08-19-2015 due to implemntation of new five part differential hematolgy analyzer. 12/21/2015 Tsh Ord6 hTSH II 4.58 uIU/mL 12/21/2015 %Hba1C Rwm477 % HbA1c 01228- 6 6.2 % 12/21/2015 %Hba1C Mtn256 Gluc Ave 131 mg/dL 12/21/2015 Lipid Ord30 CHOL 168 mg/dL 12/21/2015 Lipid Ord30 HDL 61.0 mg/dl 12/21/2015 Lipid Ord30 TRIG 161 mg/dL 12/21/2015 Lipid Ord30 LDL 75 mg/dL 12/21/2015 Lipid Ord30 C/HDL 2.8 Ratio 12/21/2015 Free T4 Ahf777 FREE T4 0.82 ng/dL 12/21/2015 Free T4 Aac682 FREE T4 1.03 ng/dL 06/22/2015 Tsh Ord6 [...] Ord30 C/HDL 3.5 Ratio 03/18/2015 Free T4 Pti976 FREE T4 0.86 ng/dL 03/18/2015 Comp Metabolic Hyp511 NA 135 mEq/L 03/18/2015 Comp Metabolic Pvc967 K 4.2 mEq/L 03/18/2015 Comp Metabolic Hte554 CL 103 mEq/L 03/18/2015 Comp Metabolic Jhs808 CO2 27.0 mEq/L 03/18/2015 Comp Metabolic Rlt793 ANION GAP 9 03/18/2015 Comp Metabolic Tes630 GLUCOSE 124 mg/dL 03/18/2015 Comp Metabolic Jhg277 Creat 0.8 mg/dL 03/18/2015 Comp Metabolic Pzz400 eGFR 78 ml/min/1.73m2 03/18/2015 Comp Metabolic Ods050 BUN 15 mg/dL 03/18/2015 Comp Metabolic Xpj874 B/C Ratio 18.3 Ratio 03/18/2015 Comp Metabolic Oko391 CALCIUM 9.4 mg/dL 03/18/2015 Comp Metabolic Tzm981 ALK PHOS 42 U/L 03/18/2015 Comp Metabolic Wfh209 AST(SGOT) 14 U/L 03/18/2015 Comp Metabolic Epa582 ALT(SGPT) 25 U/L 03/18/2015 Comp Metabolic Ptm848 BILI T 0.3 mg/dL 03/18/2015 Comp Metabolic Dlq563 ALBUMIN 4.2 g/dL 03/18/2015 Comp Metabolic Gpr332 TPRO 6.5 g/dL 03/18/2015 Comp Metabolic Hyl031 GLOB 2.3 g/dL 03/18/2015 Comp Metabolic Vvu893 A/G Ratio 1.8 Ratio 03/18/2015 Comp Metabolic Dft219 Osmo 272 mOsmo 03/18/2015 %Hba1C Jox643 % HbA1c 15653- 6 6.0 % 03/18/2015 %Hba1C Npw369 Gluc Ave 126 mg/dL 03/18/2015 Review of Systems System Result Effective Dates Constitutional No recent illness 11/29/2017 Constitutional No [...] rate 03/19/2014 None Full Exam - General 1995 Cardiovascular extremities Overall: no clubbing 03/19/2014 None Full Exam - General 1994 Cardiovascular auscultation of heart Overall: regular rate 03/19/2014 None Full Exam - General 1994 Cardiovascular auscultation of heart Overall: normal heart sounds 03/19/2014 None Full Exam - General 1995 Musculoskeletal digits and nails Overall: no clubbing [...] retractions 09/25/2013 None Full Exam - General 1995 Respiratory respiratory effort/rhythm Overall: normal rate 09/25/2013 None Full Exam - General 1995 Cardiovascular extremities Overall: no clubbing 09/25/2013 None Full Exam - General 1995 Cardiovascular auscultation of heart Overall: regular rate 09/25/2013 None Full Exam - General 1995 Cardiovascular auscultation of heart Overall: normal heart sounds 09/25/2013 None Full Exam - General 1995 Musculoskeletal digits and nails Overall: no clubbing 09/25/2013 None Full Exam - General 1995 Musculoskeletal digits and nails Overall: digits benign 09/25/2013 None Full Exam - General 1995 Musculoskeletal gait and station Overall: normal gait 09/25/2013 None Full Exam - General 1995 Musculoskeletal gait and station Overall: normal station [...] retractions 06/25/2013 None Full Exam - General 1995 Respiratory respiratory effort/rhythm Overall: normal rate 06/25/2013 None Full Exam - General 1995 Cardiovascular extremities Overall: no clubbing 06/25/2013 None Full Exam - General 1995 Cardiovascular auscultation of heart Overall: regular rate 06/25/2013 None Full Exam - General 1995 Cardiovascular auscultation of heart Overall: normal heart sounds 06/25/2013 None Full Exam - General 1995 Musculoskeletal digits and nails Overall: no clubbing 06/25/2013 None Full Exam - General 1995 Musculoskeletal digits and nails Overall: digits benign 06/25/2013 None Full Exam - General 1995 Musculoskeletal gait and station Overall: normal gait 06/25/2013 None Full Exam - General 1995 Musculoskeletal gait and station Overall: normal station 06/25/2013 None Full Exam - General 1995 Musculoskeletal head and neck Overall: head atraumatic [...] Procedure Codes Date IMMUNIZATION ADMIN CPT- 4: 96564 05/19/2016 THER/PROPH/DIAG INJ SC/IM CPT-4: 14934 05/19/2016 IIV4 FLU VACC NO PRESERV ID Formatting Model/CDA Sections, Assigned to/Gemma Granados SNYAHIR CT: [id number] CPT-4: 63783Fqmgmpm 05/19/2016 VITAMIN B12 INJECTION CPT- 4: J3420 05/19/2016 THER/PROPH/DIAG INJ SC/IM CPT-4: 63517 04/20/2016 VITAMIN B12 INJECTION CPT- 4: J3420 04/20/2016 IMMUNIZATION ADMIN CPT- 4: 56398 04/20/2016 Pneumococcal Polysaccharide Vaccine, 23-Valent, Ad CPT-4: 90274 04/20/2016 Vital Signs Date Vital 11/29/2017 Blood Pressure 1: 128/80 Code: 8480-6 BMI: 34.4 Code: 44116-3 Heart Rate 1: 75 bpm Height: 5'6" SpO2: 98% Weight: 213 lbs 07/04/2017 Blood Pressure 1: 138/88 Code: 8480-6 BMI: 36.8 Code: 49809-0 Heart Rate 1: 82 bpm Height: 5'6" SpO2: 98% Weight: 228 lbs 05/31/2017 Blood Pressure 1: 140/78 Code: 8480-6 BMI: 36.5 Code: 33779-1 Heart Rate 1: 87 bpm Height: 5'6" SpO2: 98% Weight: 226 lbs 11/28/2016 Blood Pressure 1: 128/78 Code: 8480-6 BMI: 37.5 Code: 28754-3 Heart Rate 1: 88 bpm Height: 5'6" SpO2: 98% Weight: 232 lbs 8 oz 07/28/2016 Blood Pressure 1: 122/72 Code: 8480-6 BMI: 37.6 Code: 48129-4 Heart Rate 1: 61 bpm Height: 5'6" SpO2: 97% Weight: 233 lbs 06/06/2016 Blood Pressure 1: 128/82 Code: 8480-6 BMI: 37.3 Code: 86279-8 Heart Rate 1: 66 bpm Height: 5'6" SpO2: 94% Weight: 231 lbs 04/20/2016 Blood Pressure 1: 136/80 Code: 8480-6 BMI: 38.3 Code: 90725-0 Heart Rate 1: 83 bpm Height: 5'6" SpO2: 98% Weight: 237 lbs 8 oz 03/03/2016 Blood Pressure 1: 130/80 Code: 8480-6 BMI: 38.4 Code: 86764-2 Heart Rate 1: 86 bpm Height: 5'6" SpO2: 96% Weight: 238 lbs 12/21/2015 Blood Pressure 1: 148/84 Code: 8480-6 BMI: 38.4 Code: 98774-8 Heart Rate 1: 94 bpm Height: 5'6" SpO2: 98% Weight: 238 lbs 06/22/2015 Blood Pressure 1: 128/74 Code: 8480-6 BMI: 37.4 Code: 49815-5 Heart Rate 1: 82 bpm Height: 5'6" SpO2: 98% Weight: 232 lbs 03/19/2015 Blood Pressure 1: 122/72 Code: 8480-6 BMI: 37.9 Code: 39386-1 Heart Rate 1: 80 bpm Height: 5'6" SpO2: 97% Weight: 235 lbs 01/22/2015 Blood Pressure 1: 122/80 Code: 8480-6 BMI: 38.6 Code: 63760-9 Heart Rate 1: 78 bpm Height: 5'6" SpO2: 98% Weight: 239 lbs 12/22/2014 Blood Pressure 1: 110/80 Code: 8480-6 BMI: 38.1 Code: 01142-2 Heart Rate 1: 76 bpm Height: 5'6" Weight: 236 lbs 06/19/2014 Blood Pressure 1: 122/74 Code: 8480-6 BMI: 36.8 Code: 91700-9 Heart Rate 1: 86 bpm Height: 5'6" Weight: 228 lbs 03/19/2014 Blood Pressure 1: 122/78 Code: 8480-6 BMI: 36.6 Code: 75415-2 Heart Rate 1: 80 bpm Height: 5'6" Weight: 227 lbs 09/25/2013 Blood Pressure 1: 130/70 Code: 8480-6 BMI: 37.1 Code: 62442-3 Heart Rate 1: 80 bpm Height: 5'6" SpO2: 98% Weight: 230 lbs 06/25/2013 Blood Pressure 1: 126/76 Code: 8480-6 BMI: 38.1 Code: 63258-0 Heart Rate 1: 76 bpm Height: 5'6" Weight: 236 lbs 06/10/2013 Blood Pressure 1: 128/76 Code: 8480-6 BMI: 38.1 Code: 69107-5 Heart Rate 1: 80 bpm Height: 5'6" Weight: 236 lbs Functional Status No Functional Status data History of Present Illness Symptom Name Status Result Effective Date Notes hypothyroid Quality chronic 11/29/2017 None hypothyroid Onset [...] data Encounters Encounter Performer Location Codes Date ([id number]) PREV VISIT EST AGE 40-64 Diagnosis: Encounter for general adult medical examination without abnormal findings[ICD10: Z00.00] Diagnosis: Atrophy of thyroid (acquired)[ICD10: E03.4] Saniya Schwab MD, [facility] CPT-4: 40383 11/29/2017 [id number] EST. PATIENT, LEVEL III Diagnosis: Acute laryngopharyngitis[ICD10: J06.0] Diagnosis: Other allergic rhinitis[ICD10: J30.89] Diagnosis: Cough[ICD10: R05] Ciara Schwab MD, [facility] CPT-4: 87702 07/04/2017 ([id number]) PREV VISIT EST AGE 40-64 Diagnosis: Encounter for general adult medical examination without abnormal findings[ICD10: Z00.00] Saniya Schwab MD, [facility] CPT-4: 70799 05/31/2017 ([id number]) 46745 EST. PATIENT, LEVEL IV Diagnosis: Type 2 diabetes mellitus without complications[ICD10: E11.9] Diagnosis: Atrophy of thyroid (acquired)[ICD10: E03.4] Saniya Schwab MD, [facility] CPT-4: 08908 11/28/2016 ([id number]) PREV VISIT EST AGE 40-64 Diagnosis: Encounter for general adult medical examination without abnormal findings[ICD10: Z00.00] Diagnosis: Type 2 diabetes mellitus without complications[ICD10: E11.9] Diagnosis: Atrophy of thyroid (acquired)[ICD10: E03.4] Diagnosis: Gastro-esophageal reflux disease without esophagitis[ICD10: K21.9] Saniya Schwab MD, [facility] CPT-4: 26298 07/28/2016 ([id number]) 97714 EST. PATIENT, LEVEL III Diagnosis: Gastro-esophageal reflux disease without esophagitis[ICD10: K21.9] Macey Schwab MD, [facility] CPT-4: 77375 06/06/2016 ([id number]) 84118 EST. PATIENT, LEVEL IV Diagnosis: Type 2 diabetes mellitus without complications[ICD10: E11.9] Diagnosis: Atrophy of thyroid (acquired)[ICD10: E03.4] Diagnosis: Encounter for immunization[ICD10: Z23] Diagnosis: Other vitamin B12 deficiency anemias[ICD10: D51.8] Saniya Schwab MD, [facility] CPT-4: 90126 04/20/2016 ([id number]) 25062 EST. PATIENT, LEVEL III Diagnosis: Hypothyroidism, unspecified[ICD10: E03.9] Diagnosis: Other fatigue[ICD10: R53.83] Macey Schwab MD, [facility] CPT-4: 65940 03/03/2016 ([id number]) 69696 EST. PATIENT, LEVEL IV Diagnosis: Type 2 diabetes mellitus without complications[ICD10: E11.9] Diagnosis: Hypothyroidism, unspecified[ICD10: E03.9] Saniya Schwab MD [facility] CPT-4: 29671 12/21/2015 ([id number]) 63461 EST. PATIENT, LEVEL III Diagnosis: Type 2 diabetes mellitus without complications[ICD10: E11.9] Diagnosis: Hypothyroidism, unspecified[ICD10: E03.9] Saniya Schwba MD, [facility] CPT-4: 30476 06/22/2015 ([id number]) PREV VISIT EST AGE 40-64 Diagnosis: Routine medical exam[ICD9: V70.0] Saniya Schwab MD [facility] CPT- 4: 51224 03/19/2015 ([id number]) 37302 EST. PATIENT, LEVEL III Diagnosis: EDEMA[ICD9: 782.3] Macey Schwab MD, [facility] CPT-4: 22391 01/22/2015 ([id number]) 78025 EST. PATIENT, LEVEL IV Diagnosis: Hypothyroidism[ICD9: 244.9] Diagnosis: DIABETES TYPE II[ICD9: 250.00] Macey Schwab MD, [facility] CPT-4: 15692 12/22/2014 ([id number]) 94593 EST. PATIENT, LEVEL III Diagnosis: Hypothyroidism[ICD9: 244.9] Diagnosis: DIABETES TYPE II[ICD9: 250.00] Diagnosis: Osteoarthritis[ICD9: 715.90] Saniya Schwab MD, [facility] CPT-4: 33167 06/19/2014 ([id number]) 77782 EST. PATIENT, LEVEL IV Diagnosis: DIABETES TYPE II[ICD9: 250.00] Diagnosis: Hypothyroidism[ICD9: 244.9] Saniya Schwab MD, [facility] CPT-4: 13934 03/19/2014 ([id number]) 38700 EST. PATIENT, LEVEL IV Diagnosis: HYPOTHYROIDISM[ICD9: 244.9] Diagnosis: DIABETES TYPE II[SNOMED: 631554412] [facility] CPT- 4: 73464 09/25/2013 ([id number]) 57882 EST. PATIENT, LEVEL IV Diagnosis: Hypothyroidism[ICD9: 244.9] Diagnosis: Elevated blood sugar[ICD9: 790.29] [facility] CPT- 4: 26641 06/25/2013 ([id number]) OFFICE VISIT, NEW - LEVEL 3 Diagnosis: Osteoarthritis[ICD9: 715.90] Diagnosis: Knee pain, bilateral[ICD9: 719.46] Diagnosis: OBESITY[ICD9: 278.00] Diagnosis: Encounter for long-term (current) use of other medications[ICD9: V58.69] [facility] CPT-4: 22266 06/10/2013 Plan of Care Planned Activity Notes Codes Status Date Patient Education: Patient Medication Summary Completed 11/23/2018 Care Plan: Comp Metabolic Pending 11/23/2018 Care Plan: Cbc With Differential Pending 11/23/2018 Care Plan: %Hba1C LOINC : 91482-0 Pending 11/23/2018 Care Plan: Tsh Pending 11/23/2018 Care Plan: Lipid Pending 11/23/2018 Care Plan: Free T4 Pending 11/23/2018 Visit Plan: Well Adult - pt [...] at home. 11/29/2017 Appointment: Saniya Schwab WPtel: [address] [place], [place] [address] (15 min) Moderate 11/29/2017 Patient Education: Patient [...] spray. 07/04/2017 Appointment: Ciara Lopez WPtel: [phone] [facility] (30 min) Complex 07/04/2017 Patient Education: Patient [...] twice weekly. 05/31/2017 Appointment: Saniya Schwab WPtel: [phone] [facility] (15 min) Moderate 05/31/2017 Patient Education: Patient [...] controlled. 11/28/2016 Appointment: Saniya Schwab WPtel: [phone] [facility] [place] (15 min) Moderate 11/28/2016 Patient Education: Patient Medication Summary Completed 11/28/2016 Appointment: Saniya Schwab WPtel: [phone] [facility] (15 min) Moderate 11/21/2016 Patient Education: Patient [...] the symptoms are not improving. 07/28/2016 [place] [phone] (15 min) Moderate 07/28/2016 Patient Education: Patient Medication Summary Completed 07/28/2016 Visit Plan: Esophageal Reflux - the patient has been counseled against excessive intake of caffeine, spicy foods, peppermint, and cinnamon - all of which can exacerbate esophageal reflux. The patient is to take med ications as prescribed and call the office if the symptoms are not improving. 06/06/2016 [facility] [phone] [phone] (15 min) Moderate 06/06/2016 Patient Education: Patient [...] COMPLEX VITAMIN 03/03/2016 Appointment: [facility] [phone] [phone] [place] (30 min) Complex 03/03/2016 Patient Education: [...] less controlled. 12/21/2015 Appointment: Saniya Schwab WPtel: [phone] [facility] (15 min) Moderate 12/21/2015 Patient Education: Patient [...] of control. 06/22/2015 Appointment: San[facility] Schwab [facility]el[phone] (15 min) Moderate 06/22/2015 Patient Education: Patient [...] of control. 03/19/2015 Appointment: Saniya Schwab WPtel: [facility] Follow up 03/19/2015 Patient Education: Patient Medication [...] months based on previous levels of control. Ertsnw-mkoyvnj-wpfxdrbqo name brand Synthroid Keep food diary-call in [...] months based on previous levels of control. Qlroyp-dhvrqyo-jdqwtrace name brand Synthroid Keep food diary-call in [...] months based on previous levels of control. Wmedhk-hhoxexg-yekocdqgq name brand Synthroid Keep food diary-call in 2 weeks to discuss Monitor blood sugars when not feeling well 12/22/2014 Patient Education: Patient Medication Summary Completed 12/22/2014 Appointment: Saniya Shcwab WPtel: [address] [place], [place] [address] Follow up 12/16/2014 Visit Plan: Hypothyroidism - [...] clinic. 06/19/2014 Appointment: Saniya Schwab [facility]Ptel: [phone] Follow up 06/19/2014 Patient Education: Patient Medication [...] control. 03/19/2014 Appointment: Saniya Schwab WPtel: [phone] [facility] Follow up 03/19/2014 Patient Education: Patient [...] of synthroid. 09/25/2013 Appointment: Saniya Schwab WPtel: [phone] [facility] Follow up 09/25/2013 Patient Education: Patient Medication [...] DAILY 06/25/2013 Appointment: Macey Myers WPtel: [phone] [facility] [place] [address] Diabetic education 06/25/2013 Patient Education: Patient Medication [...] as her records and labs from her drying room attendant do not show any acute worried for renal function. Obesity - chronic issue with this patient. The pt has been counseled about diet changes, calorie restriction, and need to exercise. Pt will RTC in one month for weight check. 06/10/2013 Appointment: Saniya Schwab WPtel: [phone] [facility] New Patient 06/10/2013 Patient Education: Patient [...] on previous levels of control. REFER TO HYDROELECTRIC POWERPLANT SUPERVISOR AT THE HOSPITAL WEAR COMPRESSION STOCKINGS WHEN [...] months based on previous levels of control. Gbvjjv-apldqhv-qnzzrszhp name brand Synthroid Keep food diary-call in [...] months based on previous levels of control. Jehjtf-ouquwvq-smxnpdvlo name brand Synthroid Keep food diary-call in [...] months based on previous levels of control. Iyqeyx-upaqxac-akbrjijne name brand Synthroid Keep food diary-call in [...] as her records and labs from her drying room attendant do not show any acute worried for [...]
--- OUTSIDE RECORDS SUMMARY | 2019-01-18 09:10 | XMS REPORT | CCD ---
Author Author [facility] Organization [facility] Address [address] [place] [address] Phone Care Team Providers Care Mechanical Lead Name Role Phone PP Unavailable CCM Unavailable Summary Purpose Interface Exchange Insurance Providers Payer name Policy type / Coverage type Covered green party ID Effective Begin Date Effective End Date Blue Cross Blue 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 Marital status Unknown Single 06/10/[address]: 9732552 Former smoker 06/10/[address]: 3613722 Former smoker quit 200606/10/2013 Number of years using tobacco Unknown 1 smoked a few months 06/10/2013 Alcohol history Unknown occasionally drinks alcohol 06/10/2013 Alcohol history Unknown occasionally drinks alcohol 06/10/2013 Frequency of drinks SNOMED CT: 461434388 Drinks rarely 1/month 06/10/2013 Allergies, Adverse Reactions, [...] ICD-9: 281.1 ICD-10: D51.8 Active 05/18/2016 Unknown Type 2 diabetes mellitus without complications ICD-9: 250.00 ICD-10: E11.9 Active 03/19/2014 Unknown Acute laryngopharyngitis ICD-9: 465.0 ICD-10: J06.0 Active 07/04/2017 Unknown Cough ICD-9: 786.2 ICD-10: R05 Active 07/04/2017 Unknown Other allergic rhinitis ICD-9: 477.8 ICD-10: J30.89 Active 07/04/2017 Unknown Other disturbances of skin sensation ICD-9: 782.0 ICD-10: R20.8 Active 05/31/2017 Unknown Hypothyroidism, unspecified ICD-9: 244.9 ICD-10: E03.9 Active 03/02/2016 Unknown Gastro-esophageal reflux disease without esophagitis ICD-9: [...] anemias ICD-9: 281.1 ICD-10: D51.8 05/18/2016 Active Type 2 diabetes mellitus without complications ICD-9: 250.00 ICD-10: E11.9 03/19/2014 Active Acute laryngopharyngitis ICD-9: 465.0 ICD-10: J06.0 07/04/2017 Active Cough ICD-9: 786.2 ICD-10: R05 07/04/2017 Active Other allergic rhinitis ICD-9: 477.8 ICD-10: J30.89 07/04/2017 Active Other disturbances of skin sensation ICD-9: 782.0 ICD-10: R20.8 05/31/2017 Active Hypothyroidism, unspecified ICD-9: 244.9 ICD-10: E03.9 03/02/2016 Active Gastro-esophageal reflux disease without esophagitis ICD-9: [...] (vit B-12) 1,000 mcg/mL injection solution RxNorm: 927370 1 Milliliter(s) Inj E3akyvs 11/13/2018 11/07/2019 Active multidose vial if available, if not do a 3 month supply omeprazole 20 mg capsule,delayed release RxNorm: 063607 TAKE 1 CAPSULE BY MOUTH TWICE DAILY 11/12/2018 11/06/2019 Active Generic For:*PRILOSEC [address] 11/12/2018 7:49:34 AM N O T I C E Last quantity doesn't match original quantity Synthroid 88 mcg tablet RxNorm: 773792 TAKE 1 TABLET BY MOUTH TWICE WEEKLY ON MONDAY AND Monday10/29/2018 05/24/2019 Active 10/29/2018 7:51:26 AM Synthroid 88 mcg tablet RxNorm: 922066 TAKE 1 TABLET BY MOUTH TWICE WEEKLY ON MONDAY AND Monday03/14/2018 10/07/2018 Inactive 03/14/2018 11:13:25 AM N O T I C E Last quantity doesn't match original quantity Synthroid 100 mcg tablet RxNorm: 598622 TAKE 1 TABLET BY MOUTH DAILY MONDAY THRU Monday01/08/2018 01/02/2019 Active 01/08/2018 8:22:22 AM omeprazole 20 mg capsule,delayed release RxNorm: 433975 1 Tablet(s) PO BID 09/11/2017 09/05/2018 Inactive Zithromax Z-Mike 250 mg tablet RxNorm: 302129 1 Tablet(s) PO UD 07/27/2017 11/21/2017 Inactive zpack as directed Flonase Allergy Relief 50 mcg/actuation nasal spray,suspension RxNorm: 1047819 1 [place] NASAL BID 07/04/2017 No Stop Date Active amoxicillin 500 mg tablet RxNorm: 537842 1 Tablet(s) PO TID 07/04/2017 07/13/2017 Inactive Synthroid 100 mcg tablet RxNorm: 019876 TAKE 1 TABLET BY MOUTH DAILY MONDAY THRU Monday06/19/2017 12/15/2017 Inactive 06/19/2017 9:33:46 AM cyanocobalamin (vit B-12) 1,000 mcg/mL injection solution RxNorm: 112123 1 Milliliter(s) Inj [id number] 05/31/2017 08/23/2018 Inactive multidose vial if available, if not do a 3 month supply Synthroid 88 mcg tablet RxNorm: 322914 1 Tablet(s) PO BIW on Sat and Sun 05/19/2017 09/15/2017 Inactive FERNANDO-1 ok for 90 day supply if she wants it Lancets,Thin RxNorm: USE TO TEST TWICE DAILY DIRECTED 05/08/2017 12/28/2018 Active 05/08/2017 9:20:31 AM Breeze 2 Test Strips RxNorm: USE TO TEST BLOOD GLUCOSE TWICE WEEKLY OR DIRECTED 05/08/2017 02/05/2023 Active 05/08/2017 9:20:48 AM Synthroid 100 mcg tablet RxNorm: 607258 TAKE 1 TABLET BY MOUTH DAILY MONDAY THRU Monday02/14/2017 06/18/2017 Inactive 02/14/2017 7:59:51 AM N O T I C E Last quantity doesn't match original quantity amoxicillin 500 mg tablet RxNorm: 708885 2 Tablet(s) PO prior to dental or other procedures and then 2 tabs 4 hours after procedure 11/28/2016 07/03/2017 Inactive cyanocobalamin (vit B-12) 1,000 mcg/mL injection solution RxNorm: 937716 1 Milliliter(s) Inj month 11/28/2016 05/30/2017 Inactive multidose vial if available, if not do a 3 month supply Synthroid 88 mcg tablet RxNorm: 471363 1 Tablet(s) PO BIW on Sat and Sun 09/16/2016 01/13/2017 Inactive FERNANDO-1 ok for 90 day supply if she wants it Synthroid 100 mcg tablet RxNorm: 859476 1 Tablet(s) PO daily Mon thru Mon08/09/2016 12/06/2016 Inactive FERNANDO-1 can have 90 day supply if she wants it omeprazole 20 mg capsule,delayed release RxNorm: 012421 1 Tablet(s) PO BID 07/28/2016 07/22/2017 Inactive Dexilant 60 mg capsule, delayed release RxNorm: 584521 1 Capsule(s) PO daily 06/27/2016 06/26/2016 Inactive Dexilant 60 mg capsule, delayed release RxNorm: 287995 1 Capsule(s) PO daily 06/27/2016 07/27/2016 Inactive cyanocobalamin (vit B-12) 1,000 mcg/mL injection solution RxNorm: 079206 Milliliter(s) Inj 05/19/2016 05/19/2016 Inactive cyanocobalamin (vit B-12) 1,000 mcg/mL injection solution RxNorm: 799304 1 Milliliter(s) Inj 04/20/2016 04/20/2016 Inactive Synthroid 100 mcg tablet RxNorm: 708052 1 Tablet(s) PO daily Mon thru Mon03/03/2016 06/30/2016 Inactive FERNANDO-1 can have 90 day supply if she wants it Synthroid 88 mcg tablet RxNorm: 214842 1 Tablet(s) PO UD take on Sat and Sun 03/03/2016 03/02/2016 Inactive Synthroid 88 mcg tablet RxNorm: 547924 1 Tablet(s) PO UD take on Sat and Sun 03/03/2016 06/30/2016 Inactive FERNANDO-1 ok for 90 day supply if she wants it Synthroid 100 mcg tablet RxNorm: 192656 1 Tablet(s) PO daily Mon thru Mon03/03/2016 03/02/2016 Inactive FERNANDO-1 Thuyeze 2 Test Strips RxNorm: Miscellaneous test twice weekly or ud 02/29/2016 05/07/2017 Inactive dx- 250.00 levothyroxine 88 mcg tablet RxNorm: 189883 1 Tablet(s) BIW on Monday, Monday12/21/2015 03/02/2016 Inactive loratadine 10 mg capsule RxNorm: 267165 1 Capsule(s) PO daily as needed 12/21/2015 06/05/2016 Inactive levothyroxine 100 mcg tablet RxNorm: 953252 1 Tablet(s) PO daily oon Monday through Monday12/21/2015 03/02/2016 Inactive levothyroxine 100 mcg tablet RxNorm: 324279 1 Tablet(s) PO UD on Monday06/22/2015 12/20/2015 Inactive levothyroxine 88 mcg tablet RxNorm: 555445 1 Tablet(s) UD on Monday, , Monday, Monday06/22/2015 12/20/2015 Inactive levothyroxine 88 mcg tablet RxNorm: 846862 1 Tablet(s) UD on Monday, , Monday, Monday03/19/2015 06/21/2015 Inactive levothyroxine 100 mcg tablet RxNorm: 364384 1 Tablet(s) PO UD on Monday03/19/2015 06/21/2015 Inactive Lasix 20 mg tablet RxNorm: 831617 1/2-1 Tablet(s) PO QDAY PRN 01/22/2015 01/26/2015 Inactive potassium chloride ER 10 mEq capsule,extended release RxNorm: 869735 1 Capsule(s) PO QDAY PRN 01/22/2015 06/05/2016 Inactive take with lasix (furosemide) levothyroxine 88 mcg tablet RxNorm: 855574 1 Tablet(s) PO daily 12/22/2014 03/18/2015 Inactive Breeze 2 Test Strips RxNorm: Miscellaneous test twice weekly or ud 10/22/2014 03/20/2015 Inactive dx- 250.00 Breeze 2 Test Strips RxNorm: Miscellaneous test twice weekly or ud 10/22/2014 10/21/2014 Inactive dx- 250.00 levothyroxine 88 mcg tablet RxNorm: 882527 1 Tablet(s) PO daily 09/22/2014 12/20/2014 Inactive Synthroid 100 mcg tablet RxNorm: 845033 1 Tablet(s) PO daily 06/19/2014 09/21/2014 Inactive Lancets,Thin RxNorm: 1 Miscellaneous BID 03/24/2014 04/22/2014 Inactive Synthroid 75 mcg tablet RxNorm: 724910 1 Tablet(s) PO daily 03/19/2014 06/18/2014 Inactive Breeze 2 Test Strips RxNorm: 1 Miscellaneous BID 03/19/2014 04/17/2014 Inactive Breeze 2 Test Strips RxNorm: 1 Miscellaneous BID 03/19/2014 03/18/2014 Inactive Synthroid 75 mcg tablet RxNorm: 989053 1 Tablet(s) PO daily 12/16/2013 03/18/2014 Inactive Synthroid 75 mcg tablet RxNorm: 560418 1 Tablet(s) PO daily 12/16/2013 12/15/2013 Inactive Synthroid 50 mcg tablet RxNorm: 003782 1 Tablet(s) PO daily 09/16/2013 12/15/2013 Inactive Synthroid 25 mcg tablet RxNorm: 507932 1 Tablet(s) PO daily 06/25/2013 09/15/2013 Inactive Glucosamine 1500 Complex 500 mg-400 mg capsule RxNorm: 1 Capsule(s) PO daily No Start Date Active Enbrel 50 mg/mL (0.98 mL) subcutaneous syringe RxNorm: 589737 Milliliter(s) SQ weekly No Start Date Active Multiple Vitamins chewable tablet RxNorm: 1 Tablet(s) PO daily No Start Date Active Vitamin B-12 5,000 mcg sublingual tablet RxNorm: 957817 1 Tablet(s) SL daily No Start Date Active Celebrex 200 mg capsule RxNorm: 844942 1 Capsule(s) PO daily No Start Date Active Tylenol 325 mg tablet RxNorm: 072773 Tablet(s) PO as needed No Start Date Active Zithromax Z-Mike 250 mg tablet RxNorm: 769647 1 Tablet(s) PO UD No Start Date 07/26/2017 Inactive zpack as directed oxycodone 5 mg tablet RxNorm: 2510048 1/2-1 Tablet(s) PO daily as needed No Start Date 06/18/2014 Inactive loratadine 10 mg capsule RxNorm: 028139 1 Capsule(s) PO daily No Start Date 12/20/2015 Inactive Synthroid 50 mcg tablet RxNorm: 106258 1 Tablet(s) PO daily No Start Date 09/15/2013 Inactive sulfasalazine 500 mg tablet RxNorm: 8694502 1 Tablet(s) PO daily No Start Date 01/21/2015 Inactive ibuprofen 600 mg tablet RxNorm: 559124 1 Tablet(s) PO BID PRN No Start Date 03/18/2014 Inactive Medication Administered Medication Codes Instructions Start Date Status cyanocobalamin (vit B-12) 1,000 mcg/mL injection solution RxNorm: 067607 Milliliter 05/19/2016 No longer Active cyanocobalamin (vit B-12) 1,000 mcg/mL injection solution RxNorm: 321328 1Milliliter 04/20/2016 No longer Active Immunizations Vaccine [...] deficiency anemias ICD-10: D51.8 ICD-9: 281.1 11/22/2017 Type 2 diabetes mellitus without complications ICD-10: E11.9 ICD-9: 250.00 11/22/2017 Acute laryngopharyngitis ICD-10: J06.0 ICD-9: 465.0 07/04/2017 Cough ICD-10: R05 ICD-9: 786.2 07/04/2017 Other allergic rhinitis ICD-10: J30.89 ICD-9: 477.8 07/04/2017 Other disturbances of skin sensation ICD-10: R20.8 ICD-9: 782.0 05/31/2017 Hypothyroidism, unspecified ICD-10: E03.9 ICD-9: 244.9 11/07/2016 [...] Ord30 C/HDL 3.8 Ratio 11/27/2017 Free T4 Oat237 FREE T4 1.09 ng/dL 11/27/2017 %Hba1C Vuz189 % HbA1c 77543- 6 5.9 % 11/27/2017 %Hba1C Vqr212 Gluc Ave 123 mg/dL 11/27/2017 Comp Metabolic Yrb130 NA 137 mEq/L 11/27/2017 Comp Metabolic Jxn787 K 4.0 mEq/L 11/27/2017 Comp Metabolic Ozr633 CL 100 mEq/L 11/27/2017 Comp Metabolic Ach101 CO2 30.0 mEq/L 11/27/2017 Comp Metabolic Ayq609 ANION GAP 11 11/27/2017 Comp Metabolic Pmx529 GLUCOSE 126 mg/dL 11/27/2017 Comp Metabolic Sbh368 Creat 0.8 mg/dL 11/27/2017 Comp Metabolic Mky016 eGFR 78 ml/min/1.73m2 11/27/2017 Comp Metabolic Jyd466 BUN 16 mg/dL 11/27/2017 Comp Metabolic Gvx612 B/C Ratio 19.8 Ratio 11/27/2017 Comp Metabolic Ebg063 CALCIUM 9.8 mg/dL 11/27/2017 Comp Metabolic Jvy525 ALK PHOS 53 U/L 11/27/2017 Comp Metabolic Cpp463 AST(SGOT) 17 U/L 11/27/2017 Comp Metabolic Oom703 ALT(SGPT) 20 U/L 11/27/2017 Comp Metabolic Gvi273 BILI T 0.6 mg/dL 11/27/2017 Comp Metabolic Tif363 ALBUMIN 4.4 g/dL 11/27/2017 Comp Metabolic Rli394 TPRO 7.3 g/dL 11/27/2017 Comp Metabolic Erx987 GLOB 2.9 g/dL 11/27/2017 Comp Metabolic Kfs100 A/G Ratio 1.5 Ratio 11/27/2017 Comp Metabolic Lcy068 Osmo 277 mOsmo 11/27/2017 Cbc With Differential [...] 28.8 pg 11/27/2017 Cbc With Differential Ord2 [place]% 7.3 % 11/27/2017 Cbc With Differential Ord2 [...] 2.26 K/ul 11/27/2017 Cbc With Differential Ord2 [place] ABS# 0.5 K/ul 11/27/2017 Cbc With Differential Ord2 Eos ABS# 0.2 K/ul 11/27/2017 Cbc With Differential Ord2 Baso ABS# 0.0 K/ul 11/27/2017 B12 Ylh720 B12 >1500.00 pg/ml 11/27/2017 Tsh Ord6 TSH (3rd IS) 1.15 uIU/mL 11/27/2017 C RAP A SC [id number] Strep A Negative 07/04/2017 Lipid Ord30 CHOL 163 mg/dL 05/29/2017 Lipid Ord30 HDL 53.0 mg/dl 05/29/2017 Lipid Ord30 TRIG 96 mg/dL 05/29/2017 Lipid Ord30 LDL 91 mg/dL 05/29/2017 Lipid Ord30 C/HDL 3.1 Ratio 05/29/2017 Free T4 Chm648 FREE T4 1.05 ng/dL 05/29/2017 Cbc With [...] 28.5 pg 05/29/2017 Cbc With Differential Ord2 [place]% 6.2 % 05/29/2017 Cbc With Differential Ord2 [...] 2.17 K/ul 05/29/2017 Cbc With Differential Ord2 [place] ABS# 0.4 K/ul 05/29/2017 Cbc With Differential Ord2 Eos ABS# 0.2 K/ul 05/29/2017 Cbc With Differential Ord2 Baso ABS# 0.0 K/ul 05/29/2017 Comp Metabolic Hes596 NA 137 mEq/L 05/29/2017 Comp Metabolic Xtm697 K 4.2 mEq/L 05/29/2017 Comp Metabolic Hrr323 CL 101 mEq/L 05/29/2017 Comp Metabolic Isa672 CO2 27.0 mEq/L 05/29/2017 Comp Metabolic Mhc348 ANION GAP 13 05/29/2017 Comp Metabolic Qub436 GLUCOSE 133 mg/dL 05/29/2017 Comp Metabolic Jbb170 Creat 0.8 mg/dL 05/29/2017 Comp Metabolic Bdk661 eGFR 80 ml/min/1.73m2 05/29/2017 Comp Metabolic Kaz528 BUN 17 mg/dL 05/29/2017 Comp Metabolic Njd215 B/C Ratio 21.3 Ratio 05/29/2017 Comp Metabolic Dtj332 CALCIUM 9.3 mg/dL 05/29/2017 Comp Metabolic Yfo279 ALK PHOS 53 U/L 05/29/2017 Comp Metabolic Zpu845 AST(SGOT) 17 U/L 05/29/2017 Comp Metabolic Gdr568 ALT(SGPT) 28 U/L 05/29/2017 Comp Metabolic Tsj342 BILI T 0.3 mg/dL 05/29/2017 Comp Metabolic Dxl534 ALBUMIN 4.2 g/dL 05/29/2017 Comp Metabolic Jnd080 TPRO 6.5 g/dL 05/29/2017 Comp Metabolic Jkk458 GLOB 2.3 g/dL 05/29/2017 Comp Metabolic Tuq491 A/G Ratio 1.8 Ratio 05/29/2017 Comp Metabolic Zkd818 Osmo 277 mOsmo 05/29/2017 %Hba1C Nbf531 % HbA1c 99008- 6 6.3 % 05/29/2017 %Hba1C Cwt220 Gluc Ave 134 mg/dL 05/29/2017 Tsh Ord6 hTSH II 0.91 uIU/mL 05/29/2017 %Hba1C Qtx207 % HbA1c 06235- 6 6.3 % 11/28/2016 %Hba1C Ukq814 Gluc Ave 134 mg/dL 11/28/2016 Cbc With [...] 28.4 pg 11/28/2016 Cbc With Differential Ord2 [place]% 6.2 % 11/28/2016 Cbc With Differential Ord2 [...] 2.30 K/ul 11/28/2016 Cbc With Differential Ord2 [place] ABS# 0.5 K/ul 11/28/2016 Cbc With Differential Ord2 Eos ABS# 0.2 K/ul 11/28/2016 Cbc With Differential Ord2 Baso ABS# 0.0 K/ul 11/28/2016 Tsh Ord6 hTSH II 3.96 uIU/mL 11/28/2016 B12 Phx970 B12 >1500.00 pg/ml 11/28/2016 Comp Metabolic Oks656 NA 134 mEq/L 11/28/2016 Comp Metabolic Jij001 K 3.8 mEq/L 11/28/2016 Comp Metabolic Gox577 CL 98 mEq/L 11/28/2016 Comp Metabolic Rjp278 CO2 28.0 mEq/L 11/28/2016 Comp Metabolic Idq762 ANION GAP 12 11/28/2016 Comp Metabolic Jsw445 GLUCOSE 156 mg/dL 11/28/2016 Comp Metabolic Erw983 Creat 0.8 mg/dL 11/28/2016 Comp Metabolic Vtk144 eGFR 75 ml/min/1.73m2 11/28/2016 Comp Metabolic Efk325 BUN 15 mg/dL 11/28/2016 Comp Metabolic Pjw074 B/C Ratio 17.9 Ratio 11/28/2016 Comp Metabolic Ush302 CALCIUM 9.3 mg/dL 11/28/2016 Comp Metabolic Vau643 ALK PHOS 55 U/L 11/28/2016 Comp Metabolic Mal300 AST(SGOT) 17 U/L 11/28/2016 Comp Metabolic Jyk907 ALT(SGPT) 26 U/L 11/28/2016 Comp Metabolic Ejv981 BILI T 0.4 mg/dL 11/28/2016 Comp Metabolic Rsw517 ALBUMIN 4.2 g/dL 11/28/2016 Comp Metabolic Mtt617 TPRO 6.6 g/dL 11/28/2016 Comp Metabolic Ynk219 GLOB 2.4 g/dL 11/28/2016 Comp Metabolic Pea871 A/G Ratio 1.8 Ratio 11/28/2016 Comp Metabolic Qgb760 Osmo 272 mOsmo 11/28/2016 Free T4 Mgc809 FREE T4 0.81 ng/dL 11/28/2016 Free T4 Alz542 FREE T4 0.85 ng/dL 07/27/2016 Cbc With [...] 28.8 pg 07/27/2016 Cbc With Differential Ord2 [place]% 6.0 % 07/27/2016 Cbc With Differential Ord2 [...] 2.41 K/ul 07/27/2016 Cbc With Differential Ord2 [place] ABS# 0.3 K/ul 07/27/2016 Cbc With Differential Ord2 Eos ABS# 0.1 K/ul 07/27/2016 Cbc With Differential Ord2 Baso ABS# 0.0 K/ul 07/27/2016 %Hba1C Qfo043 % HbA1c 62529- 6 6.1 % 07/27/2016 %Hba1C Wij759 Gluc Ave 128 mg/dL 07/27/2016 Tsh Ord6 hTSH II 0.69 uIU/mL 07/27/2016 Helicobacter Pylori Iga 966273 H. PYLORI AB, IgA <9.0 units 06/10/2016 Helicobacter Pylori Igm Ab 692220 H. PYLORI AB, IgM <9.0 units 06/10/2016 H. Pylori Igg Abs 844175 H. PYLORI AB, IgG 0.2 INDEX 06/07/2016 H. Pylori Igg Abs 228861 06/07/2016 Comp Metabolic Isp528 NA 133 mEq/L 04/20/2016 Comp Metabolic Zgl844 K 4.3 mEq/L 04/20/2016 Comp Metabolic Wun386 CL 100 mEq/L 04/20/2016 Comp Metabolic Niq006 CO2 28.0 mEq/L 04/20/2016 Comp Metabolic Wiz616 ANION GAP 9 04/20/2016 Comp Metabolic Uqt921 GLUCOSE 139 mg/dL 04/20/2016 Comp Metabolic Vnr628 Creat 0.8 mg/dL 04/20/2016 Comp Metabolic Cmo721 eGFR 85 ml/min/1.73m2 04/20/2016 Comp Metabolic Bqc618 BUN 16 mg/dL 04/20/2016 Comp Metabolic Zjm583 B/C Ratio 21.1 Ratio 04/20/2016 Comp Metabolic Nha845 CALCIUM 9.1 mg/dL 04/20/2016 Comp Metabolic Enq695 ALK PHOS 45 U/L 04/20/2016 Comp Metabolic Ewq032 AST(SGOT) 16 U/L 04/20/2016 Comp Metabolic Qzj110 ALT(SGPT) 29 U/L 04/20/2016 Comp Metabolic Mpq344 BILI T 0.5 mg/dL 04/20/2016 Comp Metabolic Zcx462 ALBUMIN 4.2 g/dL 04/20/2016 Comp Metabolic Aag583 TPRO 6.7 g/dL 04/20/2016 Comp Metabolic Bdx938 GLOB 2.5 g/dL 04/20/2016 Comp Metabolic Xbd366 A/G Ratio 1.7 Ratio 04/20/2016 Comp Metabolic Loq336 Osmo 270 mOsmo 04/20/2016 %Hba1C Aft882 % HbA1c 80092- 6 6.2 % 04/20/2016 %Hba1C Sqj372 Gluc Ave 131 mg/dL 04/20/2016 Cbc With [...] 28.9 pg 04/20/2016 Cbc With Differential Ord2 [place]% 8.5 % 04/20/2016 Cbc With Differential Ord2 [...] 2.17 K/ul 04/20/2016 Cbc With Differential Ord2 [place] ABS# 0.5 K/ul 04/20/2016 Cbc With Differential [...] 29.2 pg 03/03/2016 Cbc With Differential Ord2 [place]% 6.3 % 03/03/2016 Cbc With Differential Ord2 [...] 1.73 K/ul 03/03/2016 Cbc With Differential Ord2 [place] ABS# 0.3 K/ul 03/03/2016 Cbc With Differential Ord2 Eos ABS# 0.1 K/ul 03/03/2016 Cbc With Differential Ord2 Baso ABS# 0.0 K/ul 03/03/2016 Free T4 Geh834 FREE T4 0.90 ng/dL 03/03/2016 Comp Metabolic Rcw497 NA 135 mEq/L 03/03/2016 Comp Metabolic Gng319 K 3.7 mEq/L 03/03/2016 Comp Metabolic Lon548 CL 100 mEq/L 03/03/2016 Comp Metabolic Wik756 CO2 29.0 mEq/L 03/03/2016 Comp Metabolic Lmp099 ANION GAP 10 03/03/2016 Comp Metabolic Dbb342 GLUCOSE 134 mg/dL 03/03/2016 Comp Metabolic Mro496 Creat 0.7 mg/dL 03/03/2016 Comp Metabolic Uik392 eGFR 93 ml/min/1.73m2 03/03/2016 Comp Metabolic Jgd039 BUN 16 mg/dL 03/03/2016 Comp Metabolic Nsd490 B/C Ratio 22.9 Ratio 03/03/2016 Comp Metabolic Zuu031 CALCIUM 9.0 mg/dL 03/03/2016 Comp Metabolic Ovf823 ALK PHOS 36 U/L 03/03/2016 Comp Metabolic Ual795 AST(SGOT) 17 U/L 03/03/2016 Comp Metabolic Pwd018 ALT(SGPT) 25 U/L 03/03/2016 Comp Metabolic Ezm358 BILI T 0.4 mg/dL 03/03/2016 Comp Metabolic Vnl929 ALBUMIN 4.3 g/dL 03/03/2016 Comp Metabolic Zde808 TPRO 6.6 g/dL 03/03/2016 Comp Metabolic Chi518 GLOB 2.3 g/dL 03/03/2016 Comp Metabolic Rve546 A/G Ratio 1.8 Ratio 03/03/2016 Comp Metabolic Eme768 Osmo 273 mOsmo 03/03/2016 Tsh Ord6 hTSH II 2.99 uIU/mL 03/03/2016 Comp Metabolic Lmt990 NA 135 mEq/L 12/21/2015 Comp Metabolic Uqv744 K 4.1 mEq/L 12/21/2015 Comp Metabolic Zyi701 CL 100 mEq/L 12/21/2015 Comp Metabolic Vxe377 CO2 29.0 mEq/L 12/21/2015 Comp Metabolic Mit954 ANION GAP 10 12/21/2015 Comp Metabolic Voh399 GLUCOSE 146 mg/dL 12/21/2015 Comp Metabolic Ofi141 Creat 0.8 mg/dL 12/21/2015 Comp Metabolic Oba691 eGFR 76 ml/min/1.73m2 12/21/2015 Comp Metabolic Aru014 BUN 14 mg/dL 12/21/2015 Comp Metabolic Iuf624 B/C Ratio 16.7 Ratio 12/21/2015 Comp Metabolic Fie904 CALCIUM 9.0 mg/dL 12/21/2015 Comp Metabolic Enl646 ALK PHOS 47 U/L 12/21/2015 Comp Metabolic Sim074 AST(SGOT) 19 U/L 12/21/2015 Comp Metabolic Dgu925 ALT(SGPT) 31 U/L 12/21/2015 Comp Metabolic Eei344 BILI T 0.4 mg/dL 12/21/2015 Comp Metabolic Cuc454 ALBUMIN 4.1 g/dL 12/21/2015 Comp Metabolic Atu885 TPRO 6.5 g/dL 12/21/2015 Comp Metabolic Vwt806 GLOB 2.5 g/dL 12/21/2015 Comp Metabolic Thq053 A/G Ratio 1.7 Ratio 12/21/2015 Comp Metabolic Bks563 Osmo 273 mOsmo 12/21/2015 Cbc With Differential [...] 28.5 pg 12/21/2015 Cbc With Differential Ord2 [place]% 5.3 % 12/21/2015 Cbc With Differential Ord2 [...] 2.12 K/ul 12/21/2015 Cbc With Differential Ord2 [place] ABS# 0.3 K/ul 12/21/2015 Cbc With Differential Ord2 Eos ABS# 0.2 K/ul 12/21/2015 Cbc With Differential Ord2 Baso ABS# 0.0 K/ul 12/21/2015 Cbc With Differential Ord2 New Analyzer Notice Please note new ref ranges starting 08-19-2015 due to implemntation of new five part differential hematolgy analyzer. 12/21/2015 Tsh Ord6 hTSH II 4.58 uIU/mL 12/21/2015 %Hba1C Czz801 % HbA1c 23642- 6 6.2 % 12/21/2015 %Hba1C Xav288 Gluc Ave 131 mg/dL 12/21/2015 Lipid Ord30 CHOL 168 mg/dL 12/21/2015 Lipid Ord30 HDL 61.0 mg/dl 12/21/2015 Lipid Ord30 TRIG 161 mg/dL 12/21/2015 Lipid Ord30 LDL 75 mg/dL 12/21/2015 Lipid Ord30 C/HDL 2.8 Ratio 12/21/2015 Free T4 Yin781 FREE T4 0.82 ng/dL 12/21/2015 Free T4 Wri159 FREE T4 1.03 ng/dL 06/22/2015 Tsh Ord6 [...] Ord30 C/HDL 3.5 Ratio 03/18/2015 Free T4 Yni694 FREE T4 0.86 ng/dL 03/18/2015 Comp Metabolic Hkx927 NA 135 mEq/L 03/18/2015 Comp Metabolic Jvh422 K 4.2 mEq/L 03/18/2015 Comp Metabolic Vrq972 CL 103 mEq/L 03/18/2015 Comp Metabolic Owl689 CO2 27.0 mEq/L 03/18/2015 Comp Metabolic Mna192 ANION GAP 9 03/18/2015 Comp Metabolic Ljj669 GLUCOSE 124 mg/dL 03/18/2015 Comp Metabolic Nyv570 Creat 0.8 mg/dL 03/18/2015 Comp Metabolic Iku094 eGFR 78 ml/min/1.73m2 03/18/2015 Comp Metabolic Odr726 BUN 15 mg/dL 03/18/2015 Comp Metabolic Rel460 B/C Ratio 18.3 Ratio 03/18/2015 Comp Metabolic Qnm535 CALCIUM 9.4 mg/dL 03/18/2015 Comp Metabolic Odi359 ALK PHOS 42 U/L 03/18/2015 Comp Metabolic Akc339 AST(SGOT) 14 U/L 03/18/2015 Comp Metabolic Gxu504 ALT(SGPT) 25 U/L 03/18/2015 Comp Metabolic Ihb134 BILI T 0.3 mg/dL 03/18/2015 Comp Metabolic Bsw600 ALBUMIN 4.2 g/dL 03/18/2015 Comp Metabolic Scy657 TPRO 6.5 g/dL 03/18/2015 Comp Metabolic Lpc193 GLOB 2.3 g/dL 03/18/2015 Comp Metabolic Iih699 A/G Ratio 1.8 Ratio 03/18/2015 Comp Metabolic Rsq666 Osmo 272 mOsmo 03/18/2015 %Hba1C Lcc886 % HbA1c 57354- 6 6.0 % 03/18/2015 %Hba1C Mqs968 Gluc Ave 126 mg/dL 03/18/2015 Review of [...] 06/25/2013 None Full Exam - General 1995 Neurologic deep tendon reflexes Overall: deep tendon [...] - General 1994 Ears/Nose/Throat otoscopic exam Overall: tympanic membranes clear [...] Procedure Codes Date IMMUNIZATION ADMIN CPT- 4: 35667 05/19/2016 THER/PROPH/DIAG INJ SC/IM CPT-4: 09093 05/19/2016 IIV4 FLU VACC NO PRESERV ID Formatting Model/CDA Sections, Assigned to/Darwin Gemma SNYAHIR CT: [id number] CPT-4: [id number] 05/19/2016 VITAMIN B12 INJECTION CPT- 4: J3420 05/19/2016 THER/PROPH/DIAG INJ SC/IM CPT-4: 09495 04/20/2016 VITAMIN B12 INJECTION CPT- 4: J3420 04/20/2016 IMMUNIZATION ADMIN CPT- 4: 04412 04/20/2016 Pneumococcal Polysaccharide Vaccine, 23-Valent, Ad CPT-4: 53096 04/20/2016 Vital Signs Date Vital 11/29/2017 Blood Pressure 1: 128/80 Code: 8480-6 BMI: 34.4 Code: 56554-1 Heart Rate 1: 75 bpm Height: 5'6" SpO2: 98% Weight: 213 lbs 07/04/2017 Blood Pressure 1: 138/88 Code: 8480-6 BMI: 36.8 Code: 26972-7 Heart Rate 1: 82 bpm Height: 5'6" SpO2: 98% Weight: 228 lbs 05/31/2017 Blood Pressure 1: 140/78 Code: 8480-6 BMI: 36.5 Code: 26340-5 Heart Rate 1: 87 bpm Height: 5'6" SpO2: 98% Weight: 226 lbs 11/28/2016 Blood Pressure 1: 128/78 Code: 8480-6 BMI: 37.5 Code: 39492-6 Heart Rate 1: 88 bpm Height: 5'6" SpO2: 98% Weight: 232 lbs 8 oz 07/28/2016 Blood Pressure 1: 122/72 Code: 8480-6 BMI: 37.6 Code: 79285-6 Heart Rate 1: 61 bpm Height: 5'6" SpO2: 97% Weight: 233 lbs 06/06/2016 Blood Pressure 1: 128/82 Code: 8480-6 BMI: 37.3 Code: 31964-7 Heart Rate 1: 66 bpm Height: 5'6" SpO2: 94% Weight: 231 lbs 04/20/2016 Blood Pressure 1: 136/80 Code: 8480-6 BMI: 38.3 Code: 38802-9 Heart Rate 1: 83 bpm Height: 5'6" SpO2: 98% Weight: 237 lbs 8 oz 03/03/2016 Blood Pressure 1: 130/80 Code: 8480-6 BMI: 38.4 Code: 20059-4 Heart Rate 1: 86 bpm Height: 5'6" SpO2: 96% Weight: 238 lbs 12/21/2015 Blood Pressure 1: 148/84 Code: 8480-6 BMI: 38.4 Code: 45951-9 Heart Rate 1: 94 bpm Height: 5'6" SpO2: 98% Weight: 238 lbs 06/22/2015 Blood Pressure 1: 128/74 Code: 8480-6 BMI: 37.4 Code: 72526-0 Heart Rate 1: 82 bpm Height: 5'6" SpO2: 98% Weight: 232 lbs 03/19/2015 Blood Pressure 1: 122/72 Code: 8480-6 BMI: 37.9 Code: 54858-1 Heart Rate 1: 80 bpm Height: 5'6" SpO2: 97% Weight: 235 lbs 01/22/2015 Blood Pressure 1: 122/80 Code: 8480-6 BMI: 38.6 Code: 48013-9 Heart Rate 1: 78 bpm Height: 5'6" SpO2: 98% Weight: 239 lbs 12/22/2014 Blood Pressure 1: 110/80 Code: 8480-6 BMI: 38.1 Code: 09816-7 Heart Rate 1: 76 bpm Height: 5'6" Weight: 236 lbs 06/19/2014 Blood Pressure 1: 122/74 Code: 8480-6 BMI: 36.8 Code: 67626-8 Heart Rate 1: 86 bpm Height: 5'6" Weight: 228 lbs 03/19/2014 Blood Pressure 1: 122/78 Code: 8480-6 BMI: 36.6 Code: 01115-6 Heart Rate 1: 80 bpm Height: 5'6" Weight: 227 lbs 09/25/2013 Blood Pressure 1: 130/70 Code: 8480-6 BMI: 37.1 Code: 04152-9 Heart Rate 1: 80 bpm Height: 5'6" SpO2: 98% Weight: 230 lbs 06/25/2013 Blood Pressure 1: 126/76 Code: 8480-6 BMI: 38.1 Code: 98892-7 Heart Rate 1: 76 bpm Height: 5'6" Weight: 236 lbs 06/10/2013 Blood Pressure 1: 128/76 Code: 8480-6 BMI: 38.1 Code: 48986-1 Heart Rate 1: 80 bpm Height: 5'6" [...] data Encounters Encounter Performer Location Codes Date ([id number]) PREV VISIT EST AGE 40-64 Diagnosis: Encounter for general adult medical examination without abnormal findings[ICD10: Z00.00] Diagnosis: Atrophy of thyroid (acquired)[ICD10: E03.4] [facility] CPT-4: 66806 11/29/2017 [id number] EST. PATIENT, LEVEL III Diagnosis: Acute laryngopharyngitis[ICD10: J06.0] Diagnosis: Other allergic rhinitis[ICD10: J30.89] Diagnosis: Cough[ICD10: R05] [facility] CPT-4: 53732 07/04/2017 ([id number]) PREV VISIT EST AGE 40-64 Diagnosis: Encounter for general adult medical examination without abnormal findings[ICD10: Z00.00] Saniya Schwab MD, [facility] CPT-4: 77186 05/31/2017 ([id number]) 30298 EST. PATIENT, LEVEL IV Diagnosis: Type 2 diabetes mellitus without complications[ICD10: E11.9] Diagnosis: Atrophy of thyroid (acquired)[ICD10: E03.4] Saniya Schwab MD, [facility] CPT-4: 51634 11/28/2016 ([id number]) PREV VISIT EST AGE 40-64 Diagnosis: Encounter for general adult medical examination without abnormal findings[ICD10: Z00.00] Diagnosis: Type 2 diabetes mellitus without complications[ICD10: E11.9] Diagnosis: Atrophy of thyroid (acquired)[ICD10: E03.4] Diagnosis: Gastro-esophageal reflux disease without esophagitis[ICD10: K21.9] Saniya Schwab MD, [facility] CPT-4: 97729 07/28/2016 ([id number]) 09063 EST. PATIENT, LEVEL III Diagnosis: Gastro-esophageal reflux disease without esophagitis[ICD10: K21.9] Macey Schwab MD, [facility] CPT-4: 29706 06/06/2016 ([id number]) 93216 EST. PATIENT, LEVEL IV Diagnosis: Type 2 diabetes mellitus without complications[ICD10: E11.9] Diagnosis: Atrophy of thyroid (acquired)[ICD10: E03.4] Diagnosis: Encounter for immunization[ICD10: Z23] Diagnosis: Other vitamin B12 deficiency anemias[ICD10: D51.8] Saniya Schwab MD, [facility] CPT-4: 00745 04/20/2016 ([id number]) 75543 EST. PATIENT, LEVEL III Diagnosis: Hypothyroidism, unspecified[ICD10: E03.9] Diagnosis: Other fatigue[ICD10: R53.83] Macey Schwab MD, [facility] CPT-4: 45057 03/03/2016 ([id number]) 82186 EST. PATIENT, LEVEL IV Diagnosis: Type 2 diabetes mellitus without complications[ICD10: E11.9] Diagnosis: Hypothyroidism, unspecified[ICD10: E03.9] Saniya Schwab MD, [facility] CPT-4: 30028 12/21/2015 ([id number]) 41728 EST. PATIENT, LEVEL III Diagnosis: Type 2 diabetes mellitus without complications[ICD10: E11.9] Diagnosis: Hypothyroidism, unspecified[ICD10: E03.9] Saniya Schwab MD, [facility] CPT-4: 28765 06/22/2015 ([id number]) PREV VISIT EST AGE 40-64 Diagnosis: Routine medical exam[ICD9: V70.0] [facility] CPT- 4: 19397 03/19/2015 ([id number]) 20566 EST. PATIENT, LEVEL III Diagnosis: EDEMA[ICD9: 782.3] [facility] CPT-4: 25845 01/22/2015 ([id number]) 31432 EST. PATIENT, LEVEL IV Diagnosis: Hypothyroidism[ICD9: 244.9] Diagnosis: DIABETES TYPE II[ICD9: 250.00] Macey Schwab MD, [facility] CPT-4: 27466 12/22/2014 ([id number]) 12250 EST. PATIENT, LEVEL III Diagnosis: Hypothyroidism[ICD9: 244.9] Diagnosis: DIABETES TYPE II[ICD9: 250.00] Diagnosis: Osteoarthritis[ICD9: 715.90] Saniya Schwab MD, [facility] CPT-4: 45016 06/19/2014 ([id number]) 27583 EST. PATIENT, LEVEL IV Diagnosis: DIABETES TYPE II[ICD9: 250.00] Diagnosis: Hypothyroidism[ICD9: 244.9] Saniya Schwab MD [facility] CPT-4: 16442 03/19/2014 ([id number]) 00633 EST. PATIENT, LEVEL IV Diagnosis: HYPOTHYROIDISM[ICD9: 244.9] Diagnosis: DIABETES TYPE II[SNOMED: 003225856] [facility] CPT- 4: 11891 09/25/2013 ([id number]) 85244 EST. PATIENT, LEVEL IV Diagnosis: Hypothyroidism[ICD9: 244.9] Diagnosis: Elevated blood sugar[ICD9: 790.29] [facility] CPT- 4: 02041 06/25/2013 ([id number]) OFFICE VISIT, NEW - LEVEL 3 Diagnosis: Osteoarthritis[ICD9: 715.90] Diagnosis: Knee pain, bilateral[ICD9: 719.46] Diagnosis: OBESITY[ICD9: 278.00] Diagnosis: Encounter for long-term (current) use of other medications[ICD9: V58.69] [facility] CPT-4: 31148 06/10/2013 Plan of Care Planned Activity Notes [...] at home. 11/29/2017 [phone] ([facility] min) Moderate 11/29/2017 Patient Education: [...] spray. 07/04/2017 [phone] ([facility] min) Complex 07/04/2017 Patient Education: Patient [...] weekly. 05/31/2017 Appointment: [phone] [facility] [place] (15 min) Moderate 05/31/2017 Patient Education: Patient [...] less controlled. 11/28/2016 App[facility]ment: [facility] [phone] [facility] [place] (15 min) Moderate 11/28/2016 Patient Education: Patient Medication Summary Completed 11/28/2016 App[facility]ment: [facility] [phone] [facility] (15 min) Moderate 11/21/2016 Patient Education: Patient [...] not improving. 07/28/2016 App[facility]ment: [facility] [phone] [facility] [place] (15 min) Moderate 07/28/2016 Patient [...] not improving. 06/06/2016 [facility] [phone] [facility] [place] (15 min) Moderate 06/06/2016 Patient Education: Patient [...] COMPLEX VITAMIN 03/03/2016 Appointment: Macey Myers [phone] (30 min) Complex 03/03/2016 Patient Education: [...] controlled. 12/21/2015 App[facility]ment: [facility] [phone] [facility] (15 min) Moderate 12/21/2015 Patient Education: [...] control. 06/22/2015 App[facility]ment: [facility] [phone] [facility] (15 min) Moderate 06/22/2015 Patient Education: [...] on previous levels of control. 03/19/2015 Appointment: JosselinSaniya [facility] Follow [facility] 03/19/2015 Patient Education: Patient [...] months based on previous levels of control. Puzdyt-cyvjwfu-papuylncw name brand Synthroid Keep food diary-call in [...] months based on previous levels of control. Jsrghk-xmedpkw-gaegjbrlx name brand Synthroid Keep food diary-call in [...] months based on previous levels of control. Xdvbaz-qynkdbi-znkyregxk name brand Synthroid Keep food diary-call in 2 weeks to discuss Monitor blood sugars when not feeling well 12/22/2014 Patient Education: Patient Medication Summary Completed 12/22/2014 [facility]ment: [facility] [phone] [facility] Follow up 12/16/2014 Visit Plan: Hypothyroidism [...] clinic. 06/19/2014 Appointment: [facility] [phone] [facility] Follow up 06/19/2014 Patient Education: Patient [...] control. 03/19/2014 Appointment: Saniya Schwab WPtel: [phone] [facility] Follow up 03/19/2014 Patient Education: Patient [...] synthroid. 09/25/2013 Appointment: [facility] [phone] [facility] Follow [facility] 09/25/2013 Patient Education: Patient [...] 25MCG DAILY 06/25/2013 Appointment: Macey Myers WPtel: [phone] 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 Obesity - chronic issue with this patient. The pt has been counseled about diet changes, calorie restriction, and need to exercise. Pt will RTC in one month for weight check. 06/10/2013 Appointment: [facility] [phone] [facility] New Patient 06/10/2013 Patient Education: Patient Medication [...] or send FSBS report intermittently to clinic. REFER TO FAST FO[employer] SALES ASSISTANT AT THE HOSPITAL WEAR COMPRESSION STOCKINGS WHEN [...] further attempt to reduce peripheral edema. . Diabetes Mellitus - controlled - per [...] based on previous levels of control. . Diabetes Mellitus - diabetes and diet [...] previous levels of control. SYNTHROID 25MCG DAILY change synthroid to 88mcg tues, thurs, sat, [...] based on previous levels of control. . Diabetes Mellitus - controlled - per [...] based on previous levels of control. . Well Adult - pt was counseled [...] - continue with injections at home. . URI - Pt advised to increase [...] in the nasal steroid allergy spray. . Hypothyroidism - pt with chronic hypothyroidism, [...] are starting to become less controlled. . Hypothyroidism - pt with chronic hypothyroidism, [...] are starting to become less controlled. . Arthritis- occasionally uncontrolled symptoms- recommend pt to take antiinflammatory as directed for pain control. Pt is NOT to use additional NSAIDs while taking celebrex - she has instead been advised to use tylenol for break through pain symptoms. 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 Obesity - chronic issue with this patient. The pt has been counseled about diet changes, calorie restriction, and need to exercise. Pt will RTC in one month for weight check. . Diabetes Mellitus - controlled - per [...] months based on previous levels of control. Vggfhf-kvrnnvg-knqtmeowv name brand Synthroid Keep food diary-call in [...] months based on previous levels of control. Rpbdkw-nqgaglp-jqiivdled name brand Synthroid Keep food diary-call in [...] months based on previous levels of control. Kchycg-xmwzwvo-swkjjpgpo name brand Synthroid Keep food diary-call in 2 weeks to discuss Monitor blood sugars when not feeling well . Well Adult - pt was counseled [...] increase the vitamin b12 to twice weekly. PROBIOTIC TWICE DAILY DEXILANT 1 TAB DAILY [...]
--- OUTSIDE RECORDS SUMMARY | 2019-01-18 09:14 | XMS REPORT | CCD ---
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 Marital status Unknown Single 06/10/[address]: 0183246 Former smoker 06/10/[address]: 1761427 Former smoker quit 200606/10/2013 Number of years using tobacco Unknown 1 smoked a few months 06/10/2013 Alcohol history Unknown occasionally drinks alcohol 06/10/2013 Alcohol history Unknown occasionally drinks alcohol 06/10/2013 Frequency of drinks SNOMED CT: 596806248 Drinks rarely 1/month 06/10/2013 Allergies, Adverse Reactions, [...] Start Date Stop Date Status Fill Instructions omeprazole 20 mg capsule,delayed release RxNorm: 876521 TAKE 1 CAPSULE BY MOUTH TWICE DAILY 11/12/2018 11/06/2019 Active Generic For:*PRILOSEC [address] 11/12/2018 7:49:34 AM N O T I C E Last quantity doesn't match original quantity Synthroid 88 mcg tablet RxNorm: 497308 TAKE 1 TABLET BY MOUTH TWICE WEEKLY ON MONDAY AND Monday10/29/2018 05/24/2019 Active 10/29/2018 7:51:26 AM Synthroid 88 mcg tablet RxNorm: 843494 TAKE 1 TABLET BY MOUTH TWICE WEEKLY ON MONDAY AND Monday03/14/2018 10/07/2018 Inactive 03/14/2018 11:13:25 AM N O T I C E Last quantity doesn't match original quantity Synthroid 100 mcg tablet RxNorm: 064030 TAKE 1 TABLET BY MOUTH DAILY MONDAY THRU Monday01/08/2018 01/02/2019 Active 01/08/2018 8:22:22 AM omeprazole 20 mg capsule,delayed release RxNorm: 892935 1 Tablet(s) PO BID 09/11/2017 09/05/2018 Inactive Zithromax Z-Mike 250 mg tablet RxNorm: 487451 1 Tablet(s) PO UD 07/27/2017 11/21/2017 Inactive zpack as directed Flonase Allergy Relief 50 mcg/actuation nasal spray,suspension RxNorm: 6427683 1 [place] NASAL BID 07/04/2017 No Stop Date Active amoxicillin 500 mg tablet RxNorm: 832597 1 Tablet(s) PO TID 07/04/2017 07/13/2017 Inactive Synthroid 100 mcg tablet RxNorm: 790979 TAKE 1 TABLET BY MOUTH DAILY MONDAY THRU Monday06/19/2017 12/15/2017 Inactive 06/19/2017 9:33:46 AM cyanocobalamin (vit B-12) 1,000 mcg/mL injection solution RxNorm: 586451 1 Milliliter(s) Inj [id number] 05/31/2017 08/23/2018 Inactive multidose vial if available, if not do a 3 month supply Synthroid 88 mcg tablet RxNorm: 390067 1 Tablet(s) PO BIW on Sat and Sun 05/19/2017 09/15/2017 Inactive FERNANDO-1 ok for 90 day supply if she wants it Lancets,Thin RxNorm: USE TO TEST TWICE DAILY DIRECTED 05/08/2017 12/28/2018 Active 05/08/2017 9:20:31 AM Thuyeze 2 Test Strips RxNorm: USE TO TEST BLOOD GLUCOSE TWICE WEEKLY OR DIRECTED 05/08/2017 02/05/2023 Active 05/08/2017 9:20:48 AM Synthroid 100 mcg tablet RxNorm: 405545 TAKE 1 TABLET BY MOUTH DAILY MONDAY THRU Monday02/14/2017 06/18/2017 Inactive 02/14/2017 7:59:51 AM N O T I C E Last quantity doesn't match original quantity amoxicillin 500 mg tablet RxNorm: 914047 2 Tablet(s) PO prior to dental or other procedures and then 2 tabs 4 hours after procedure 11/28/2016 07/03/2017 Inactive cyanocobalamin (vit B-12) 1,000 mcg/mL injection solution RxNorm: 770667 1 Milliliter(s) Inj month 11/28/2016 05/30/2017 Inactive multidose vial if available, if not do a 3 month supply Synthroid 88 mcg tablet RxNorm: 173339 1 Tablet(s) PO BIW on Sat and Sun 09/16/2016 01/13/2017 Inactive FERNANDO-1 ok for 90 day supply if she wants it Synthroid 100 mcg tablet RxNorm: 739121 1 Tablet(s) PO daily Mon thru Mon08/09/2016 12/06/2016 Inactive FERNANDO-1 can have 90 day supply if she wants it omeprazole 20 mg capsule,delayed release RxNorm: 984941 1 Tablet(s) PO BID 07/28/2016 07/22/2017 Inactive Dexilant 60 mg capsule, delayed release RxNorm: 881558 1 Capsule(s) PO daily 06/27/2016 06/26/2016 Inactive Dexilant 60 mg capsule, delayed release RxNorm: 314093 1 Capsule(s) PO daily 06/27/2016 07/27/2016 Inactive cyanocobalamin (vit B-12) 1,000 mcg/mL injection solution RxNorm: 324761 Milliliter(s) Inj 05/19/2016 05/19/2016 Inactive cyanocobalamin (vit B-12) 1,000 mcg/mL injection solution RxNorm: 040469 1 Milliliter(s) Inj 04/20/2016 04/20/2016 Inactive Synthroid 100 mcg tablet RxNorm: 368822 1 Tablet(s) PO daily Mon thru Mon03/03/2016 06/30/2016 Inactive FERNANDO-1 can have 90 day supply if she wants it Synthroid 88 mcg tablet RxNorm: 893640 1 Tablet(s) PO UD take on Sat and Sun 03/03/2016 03/02/2016 Inactive Synthroid 88 mcg tablet RxNorm: 731322 1 Tablet(s) PO UD take on Sat and Sun 03/03/2016 06/30/2016 Inactive FERNANDO-1 ok for 90 day supply if she wants it Synthroid 100 mcg tablet RxNorm: 149103 1 Tablet(s) PO daily Mon thru Mon03/03/2016 03/02/2016 Inactive FERNANDO-1 Breeze 2 Test Strips RxNorm: Miscellaneous test twice weekly or ud 02/29/2016 05/07/2017 Inactive dx- 250.00 levothyroxine 88 mcg tablet RxNorm: 266018 1 Tablet(s) BIW on Monday, Monday12/21/2015 03/02/2016 Inactive loratadine 10 mg capsule RxNorm: 849088 1 Capsule(s) PO daily as needed 12/21/2015 06/05/2016 Inactive levothyroxine 100 mcg tablet RxNorm: 990269 1 Tablet(s) PO daily oon Monday through Monday12/21/2015 03/02/2016 Inactive levothyroxine 100 mcg tablet RxNorm: 638369 1 Tablet(s) PO UD on Monday06/22/2015 12/20/2015 Inactive levothyroxine 88 mcg tablet RxNorm: 763088 1 Tablet(s) UD on Monday, , Monday, Monday06/22/2015 12/20/2015 Inactive levothyroxine 88 mcg tablet RxNorm: 254483 1 Tablet(s) UD on Monday, , Monday, Monday03/19/2015 06/21/2015 Inactive levothyroxine 100 mcg tablet RxNorm: 342988 1 Tablet(s) PO UD on Monday03/19/2015 06/21/2015 Inactive Lasix 20 mg tablet RxNorm: 885284 1/2-1 Tablet(s) PO QDAY PRN 01/22/2015 01/26/2015 Inactive potassium chloride ER 10 mEq capsule,extended release RxNorm: 620084 1 Capsule(s) PO QDAY PRN 01/22/2015 06/05/2016 Inactive take with lasix (furosemide) levothyroxine 88 mcg tablet RxNorm: 645852 1 Tablet(s) PO daily 12/22/2014 03/18/2015 Inactive Breeze 2 Test Strips RxNorm: Miscellaneous test twice weekly or ud 10/22/2014 03/20/2015 Inactive dx- 250.00 Breeze 2 Test Strips RxNorm: Miscellaneous test twice weekly or ud 10/22/2014 10/21/2014 Inactive dx- 250.00 levothyroxine 88 mcg tablet RxNorm: 949055 1 Tablet(s) PO daily 09/22/2014 12/20/2014 Inactive Synthroid 100 mcg tablet RxNorm: 803669 1 Tablet(s) PO daily 06/19/2014 09/21/2014 Inactive Lancets,Thin RxNorm: 1 Miscellaneous BID 03/24/2014 04/22/2014 Inactive Synthroid 75 mcg tablet RxNorm: 810724 1 Tablet(s) PO daily 03/19/2014 06/18/2014 Inactive Breeze 2 Test Strips RxNorm: 1 Miscellaneous BID 03/19/2014 04/17/2014 Inactive Breeze 2 Test Strips RxNorm: 1 Miscellaneous BID 03/19/2014 03/18/2014 Inactive Synthroid 75 mcg tablet RxNorm: 174971 1 Tablet(s) PO daily 12/16/2013 03/18/2014 Inactive Synthroid 75 mcg tablet RxNorm: 702040 1 Tablet(s) PO daily 12/16/2013 12/15/2013 Inactive Synthroid 50 mcg tablet RxNorm: 443396 1 Tablet(s) PO daily 09/16/2013 12/15/2013 Inactive Synthroid 25 mcg tablet RxNorm: 158156 1 Tablet(s) PO daily 06/25/2013 09/15/2013 Inactive Glucosamine 1500 Complex 500 mg-400 mg capsule RxNorm: 1 Capsule(s) PO daily No Start Date Active Enbrel 50 mg/mL (0.98 mL) subcutaneous syringe RxNorm: 910796 Milliliter(s) SQ weekly No Start Date Active Multiple Vitamins chewable tablet RxNorm: 1 Tablet(s) PO daily No Start Date Active Vitamin B-12 5,000 mcg sublingual tablet RxNorm: 941118 1 Tablet(s) SL daily No Start Date Active Celebrex 200 mg capsule RxNorm: 024531 1 Capsule(s) PO daily No Start Date Active Tylenol 325 mg tablet RxNorm: 903344 Tablet(s) PO as needed No Start Date Active Zithromax Z-Mike 250 mg tablet RxNorm: 728319 1 Tablet(s) PO UD No Start Date 07/26/2017 Inactive zpack as directed oxycodone 5 mg tablet RxNorm: 8789378 1/2-1 Tablet(s) PO daily as needed No Start Date 06/18/2014 Inactive loratadine 10 mg capsule RxNorm: 951116 1 Capsule(s) PO daily No Start Date 12/20/2015 Inactive Synthroid 50 mcg tablet RxNorm: 187389 1 Tablet(s) PO daily No Start Date 09/15/2013 Inactive sulfasalazine 500 mg tablet RxNorm: 7583544 1 Tablet(s) PO daily No Start Date 01/21/2015 Inactive ibuprofen 600 mg tablet RxNorm: 750328 1 Tablet(s) PO BID PRN No Start Date 03/18/2014 Inactive Medication Administered Medication Codes Instructions Start Date Status cyanocobalamin (vit B-12) 1,000 mcg/mL injection solution RxNorm: 716529 Milliliter 05/19/2016 No longer Active cyanocobalamin (vit B-12) 1,000 mcg/mL injection solution RxNorm: 625937 1Milliliter 04/20/2016 No longer Active Immunizations Vaccine [...] Ord30 C/HDL 3.8 Ratio 11/27/2017 Free T4 Noj085 FREE T4 1.09 ng/dL 11/27/2017 %Hba1C Amq327 % HbA1c 28596- 6 5.9 % 11/27/2017 %Hba1C Pzp206 Gluc Ave 123 mg/dL 11/27/2017 Comp Metabolic Pof180 NA 137 mEq/L 11/27/2017 Comp Metabolic Afs193 K 4.0 mEq/L 11/27/2017 Comp Metabolic Aun783 CL 100 mEq/L 11/27/2017 Comp Metabolic Hzy541 CO2 30.0 mEq/L 11/27/2017 Comp Metabolic Lkq790 ANION GAP 11 11/27/2017 Comp Metabolic Tbx131 GLUCOSE 126 mg/dL 11/27/2017 Comp Metabolic Jgn330 Creat 0.8 mg/dL 11/27/2017 Comp Metabolic Hoa192 eGFR 78 ml/min/1.73m2 11/27/2017 Comp Metabolic Ukq435 BUN 16 mg/dL 11/27/2017 Comp Metabolic Yab362 B/C Ratio 19.8 Ratio 11/27/2017 Comp Metabolic Qzk044 CALCIUM 9.8 mg/dL 11/27/2017 Comp Metabolic Vvg801 ALK PHOS 53 U/L 11/27/2017 Comp Metabolic Rjo094 AST(SGOT) 17 U/L 11/27/2017 Comp Metabolic Wbx164 ALT(SGPT) 20 U/L 11/27/2017 Comp Metabolic Qyf017 BILI T 0.6 mg/dL 11/27/2017 Comp Metabolic Vbc025 ALBUMIN 4.4 g/dL 11/27/2017 Comp Metabolic Tlt589 TPRO 7.3 g/dL 11/27/2017 Comp Metabolic Yjk761 GLOB 2.9 g/dL 11/27/2017 Comp Metabolic Vbi554 A/G Ratio 1.5 Ratio 11/27/2017 Comp Metabolic Owv692 Osmo 277 mOsmo 11/27/2017 Cbc With Differential [...] 28.8 pg 11/27/2017 Cbc With Differential Ord2 [place]% 7.3 % 11/27/2017 Cbc With Differential Ord2 [...] 2.26 K/ul 11/27/2017 Cbc With Differential Ord2 [place] ABS# 0.5 K/ul 11/27/2017 Cbc With Differential Ord2 Eos ABS# 0.2 K/ul 11/27/2017 Cbc With Differential Ord2 Baso ABS# 0.0 K/ul 11/27/2017 B12 Rkn906 B12 >1500.00 pg/ml 11/27/2017 Tsh Ord6 TSH (3rd IS) 1.15 uIU/mL 11/27/2017 C RAP A SC [id number] Strep A Negative 07/04/2017 Lipid Ord30 CHOL 163 mg/dL 05/29/2017 Lipid Ord30 HDL 53.0 mg/dl 05/29/2017 Lipid Ord30 TRIG 96 mg/dL 05/29/2017 Lipid Ord30 LDL 91 mg/dL 05/29/2017 Lipid Ord30 C/HDL 3.1 Ratio 05/29/2017 Free T4 Zbl917 FREE T4 1.05 ng/dL 05/29/2017 Cbc With [...] 28.5 pg 05/29/2017 Cbc With Differential Ord2 [place]% 6.2 % 05/29/2017 Cbc With Differential Ord2 [...] 2.17 K/ul 05/29/2017 Cbc With Differential Ord2 [place] ABS# 0.4 K/ul 05/29/2017 Cbc With Differential Ord2 Eos ABS# 0.2 K/ul 05/29/2017 Cbc With Differential Ord2 Baso ABS# 0.0 K/ul 05/29/2017 Comp Metabolic Cff387 NA 137 mEq/L 05/29/2017 Comp Metabolic Pau023 K 4.2 mEq/L 05/29/2017 Comp Metabolic Mlf911 CL 101 mEq/L 05/29/2017 Comp Metabolic Isf541 CO2 27.0 mEq/L 05/29/2017 Comp Metabolic Pot212 ANION GAP 13 05/29/2017 Comp Metabolic Lca350 GLUCOSE 133 mg/dL 05/29/2017 Comp Metabolic Kae004 Creat 0.8 mg/dL 05/29/2017 Comp Metabolic Pgq709 eGFR 80 ml/min/1.73m2 05/29/2017 Comp Metabolic Hbm251 BUN 17 mg/dL 05/29/2017 Comp Metabolic Cnu310 B/C Ratio 21.3 Ratio 05/29/2017 Comp Metabolic Ley489 CALCIUM 9.3 mg/dL 05/29/2017 Comp Metabolic Vpm540 ALK PHOS 53 U/L 05/29/2017 Comp Metabolic Zim489 AST(SGOT) 17 U/L 05/29/2017 Comp Metabolic Cvh292 ALT(SGPT) 28 U/L 05/29/2017 Comp Metabolic Mig487 BILI T 0.3 mg/dL 05/29/2017 Comp Metabolic Kam586 ALBUMIN 4.2 g/dL 05/29/2017 Comp Metabolic Uww730 TPRO 6.5 g/dL 05/29/2017 Comp Metabolic Efb233 GLOB 2.3 g/dL 05/29/2017 Comp Metabolic Jab106 A/G Ratio 1.8 Ratio 05/29/2017 Comp Metabolic Syr737 Osmo 277 mOsmo 05/29/2017 %Hba1C Ocz961 % HbA1c 65540- 6 6.3 % 05/29/2017 %Hba1C Qlj184 Gluc Ave 134 mg/dL 05/29/2017 Tsh Ord6 hTSH II 0.91 uIU/mL 05/29/2017 %Hba1C Prt167 % HbA1c 78745- 6 6.3 % 11/28/2016 %Hba1C Qrm639 Gluc Ave 134 mg/dL 11/28/2016 Cbc With [...] 28.4 pg 11/28/2016 Cbc With Differential Ord2 [place]% 6.2 % 11/28/2016 Cbc With Differential Ord2 [...] 2.30 K/ul 11/28/2016 Cbc With Differential Ord2 [place] ABS# 0.5 K/ul 11/28/2016 Cbc With Differential Ord2 Eos ABS# 0.2 K/ul 11/28/2016 Cbc With Differential Ord2 Baso ABS# 0.0 K/ul 11/28/2016 Tsh Ord6 hTSH II 3.96 uIU/mL 11/28/2016 B12 Ixv725 B12 >1500.00 pg/ml 11/28/2016 Comp Metabolic Inr984 NA 134 mEq/L 11/28/2016 Comp Metabolic Cml468 K 3.8 mEq/L 11/28/2016 Comp Metabolic Vnh772 CL 98 mEq/L 11/28/2016 Comp Metabolic Drs914 CO2 28.0 mEq/L 11/28/2016 Comp Metabolic Epk221 ANION GAP 12 11/28/2016 Comp Metabolic Wxj000 GLUCOSE 156 mg/dL 11/28/2016 Comp Metabolic Usz615 Creat 0.8 mg/dL 11/28/2016 Comp Metabolic Zyd615 eGFR 75 ml/min/1.73m2 11/28/2016 Comp Metabolic Pec814 BUN 15 mg/dL 11/28/2016 Comp Metabolic Whc468 B/C Ratio 17.9 Ratio 11/28/2016 Comp Metabolic Myy728 CALCIUM 9.3 mg/dL 11/28/2016 Comp Metabolic Gal962 ALK PHOS 55 U/L 11/28/2016 Comp Metabolic Oeo933 AST(SGOT) 17 U/L 11/28/2016 Comp Metabolic Suo524 ALT(SGPT) 26 U/L 11/28/2016 Comp Metabolic Tpb516 BILI T 0.4 mg/dL 11/28/2016 Comp Metabolic Szg515 ALBUMIN 4.2 g/dL 11/28/2016 Comp Metabolic Ieu223 TPRO 6.6 g/dL 11/28/2016 Comp Metabolic Yte173 GLOB 2.4 g/dL 11/28/2016 Comp Metabolic Qiw113 A/G Ratio 1.8 Ratio 11/28/2016 Comp Metabolic Hsb212 Osmo 272 mOsmo 11/28/2016 Free T4 Pee515 FREE T4 0.81 ng/dL 11/28/2016 Free T4 Pii325 FREE T4 0.85 ng/dL 07/27/2016 Cbc With [...] 28.8 pg 07/27/2016 Cbc With Differential Ord2 [place]% 6.0 % 07/27/2016 Cbc With Differential Ord2 [...] 2.41 K/ul 07/27/2016 Cbc With Differential Ord2 [place] ABS# 0.3 K/ul 07/27/2016 Cbc With Differential Ord2 Eos ABS# 0.1 K/ul 07/27/2016 Cbc With Differential Ord2 Baso ABS# 0.0 K/ul 07/27/2016 %Hba1C Mjq735 % HbA1c 87286- 6 6.1 % 07/27/2016 %Hba1C Fne359 Gluc Ave 128 mg/dL 07/27/2016 Tsh Ord6 hTSH II 0.69 uIU/mL 07/27/2016 Helicobacter Pylori Iga 479773 H. PYLORI AB, IgA <9.0 units 06/10/2016 Helicobacter Pylori Igm Ab 264409 H. PYLORI AB, IgM <9.0 units 06/10/2016 H. Pylori Igg Abs 254686 H. PYLORI AB, IgG 0.2 INDEX 06/07/2016 H. Pylori Igg Abs 566423 06/07/2016 Comp Metabolic Quc393 NA 133 mEq/L 04/20/2016 Comp Metabolic Whd836 K 4.3 mEq/L 04/20/2016 Comp Metabolic Nkl728 CL 100 mEq/L 04/20/2016 Comp Metabolic Msj176 CO2 28.0 mEq/L 04/20/2016 Comp Metabolic Nbt858 ANION GAP 9 04/20/2016 Comp Metabolic Usr731 GLUCOSE 139 mg/dL 04/20/2016 Comp Metabolic Jph668 Creat 0.8 mg/dL 04/20/2016 Comp Metabolic Vvo386 eGFR 85 ml/min/1.73m2 04/20/2016 Comp Metabolic Ahi347 BUN 16 mg/dL 04/20/2016 Comp Metabolic Npm358 B/C Ratio 21.1 Ratio 04/20/2016 Comp Metabolic Asw366 CALCIUM 9.1 mg/dL 04/20/2016 Comp Metabolic Dsj063 ALK PHOS 45 U/L 04/20/2016 Comp Metabolic Xqd305 AST(SGOT) 16 U/L 04/20/2016 Comp Metabolic Ufl472 ALT(SGPT) 29 U/L 04/20/2016 Comp Metabolic Paz513 BILI T 0.5 mg/dL 04/20/2016 Comp Metabolic Frz375 ALBUMIN 4.2 g/dL 04/20/2016 Comp Metabolic Uqv231 TPRO 6.7 g/dL 04/20/2016 Comp Metabolic Hlg498 GLOB 2.5 g/dL 04/20/2016 Comp Metabolic Czp393 A/G Ratio 1.7 Ratio 04/20/2016 Comp Metabolic Zvd916 Osmo 270 mOsmo 04/20/2016 %Hba1C Dih791 % HbA1c 97884- 6 6.2 % 04/20/2016 %Hba1C Tbu842 Gluc Ave 131 mg/dL 04/20/2016 Cbc With [...] 28.9 pg 04/20/2016 Cbc With Differential Ord2 [place]% 8.5 % 04/20/2016 Cbc With Differential Ord2 [...] 2.17 K/ul 04/20/2016 Cbc With Differential Ord2 [place] ABS# 0.5 K/ul 04/20/2016 Cbc With Differential [...] 29.2 pg 03/03/2016 Cbc With Differential Ord2 [place]% 6.3 % 03/03/2016 Cbc With Differential Ord2 [...] 1.73 K/ul 03/03/2016 Cbc With Differential Ord2 [place] ABS# 0.3 K/ul 03/03/2016 Cbc With Differential Ord2 Eos ABS# 0.1 K/ul 03/03/2016 Cbc With Differential Ord2 Baso ABS# 0.0 K/ul 03/03/2016 Free T4 Ioy304 FREE T4 0.90 ng/dL 03/03/2016 Comp Metabolic Qpu182 NA 135 mEq/L 03/03/2016 Comp Metabolic Fkt058 K 3.7 mEq/L 03/03/2016 Comp Metabolic Npl385 CL 100 mEq/L 03/03/2016 Comp Metabolic Cwg963 CO2 29.0 mEq/L 03/03/2016 Comp Metabolic Haq478 ANION GAP 10 03/03/2016 Comp Metabolic Awd038 GLUCOSE 134 mg/dL 03/03/2016 Comp Metabolic Pad385 Creat 0.7 mg/dL 03/03/2016 Comp Metabolic Umf704 eGFR 93 ml/min/1.73m2 03/03/2016 Comp Metabolic Bgv470 BUN 16 mg/dL 03/03/2016 Comp Metabolic Dsk855 B/C Ratio 22.9 Ratio 03/03/2016 Comp Metabolic Ztw161 CALCIUM 9.0 mg/dL 03/03/2016 Comp Metabolic Cwc218 ALK PHOS 36 U/L 03/03/2016 Comp Metabolic Huo353 AST(SGOT) 17 U/L 03/03/2016 Comp Metabolic Fcc930 ALT(SGPT) 25 U/L 03/03/2016 Comp Metabolic Tsm104 BILI T 0.4 mg/dL 03/03/2016 Comp Metabolic Anp284 ALBUMIN 4.3 g/dL 03/03/2016 Comp Metabolic Dzl506 TPRO 6.6 g/dL 03/03/2016 Comp Metabolic Iqe385 GLOB 2.3 g/dL 03/03/2016 Comp Metabolic Nuz291 A/G Ratio 1.8 Ratio 03/03/2016 Comp Metabolic Pbn514 Osmo 273 mOsmo 03/03/2016 Tsh Ord6 hTSH II 2.99 uIU/mL 03/03/2016 Comp Metabolic Elv688 NA 135 mEq/L 12/21/2015 Comp Metabolic Kss258 K 4.1 mEq/L 12/21/2015 Comp Metabolic Wmk298 CL 100 mEq/L 12/21/2015 Comp Metabolic Xao599 CO2 29.0 mEq/L 12/21/2015 Comp Metabolic Cqm266 ANION GAP 10 12/21/2015 Comp Metabolic Hil750 GLUCOSE 146 mg/dL 12/21/2015 Comp Metabolic Ydd849 Creat 0.8 mg/dL 12/21/2015 Comp Metabolic Kye788 eGFR 76 ml/min/1.73m2 12/21/2015 Comp Metabolic Wvb223 BUN 14 mg/dL 12/21/2015 Comp Metabolic Ztm818 B/C Ratio 16.7 Ratio 12/21/2015 Comp Metabolic Ukm206 CALCIUM 9.0 mg/dL 12/21/2015 Comp Metabolic Bcy748 ALK PHOS 47 U/L 12/21/2015 Comp Metabolic Gzb680 AST(SGOT) 19 U/L 12/21/2015 Comp Metabolic Yzm665 ALT(SGPT) 31 U/L 12/21/2015 Comp Metabolic Zru779 BILI T 0.4 mg/dL 12/21/2015 Comp Metabolic Shv034 ALBUMIN 4.1 g/dL 12/21/2015 Comp Metabolic Jhb963 TPRO 6.5 g/dL 12/21/2015 Comp Metabolic Brq424 GLOB 2.5 g/dL 12/21/2015 Comp Metabolic Win082 A/G Ratio 1.7 Ratio 12/21/2015 Comp Metabolic Aav517 Osmo 273 mOsmo 12/21/2015 Cbc With Differential [...] 28.5 pg 12/21/2015 Cbc With Differential Ord2 [place]% 5.3 % 12/21/2015 Cbc With Differential Ord2 [...] 2.12 K/ul 12/21/2015 Cbc With Differential Ord2 [place] ABS# 0.3 K/ul 12/21/2015 Cbc With Differential Ord2 Eos ABS# 0.2 K/ul 12/21/2015 Cbc With Differential Ord2 Baso ABS# 0.0 K/ul 12/21/2015 Cbc With Differential Ord2 New Analyzer Notice Please note new ref ranges starting 08-19-2015 due to implemntation of new five part differential hematolgy analyzer. 12/21/2015 Tsh Ord6 hTSH II 4.58 uIU/mL 12/21/2015 %Hba1C Zie192 % HbA1c 25573- 6 6.2 % 12/21/2015 %Hba1C Ykr085 Gluc Ave 131 mg/dL 12/21/2015 Lipid Ord30 CHOL 168 mg/dL 12/21/2015 Lipid Ord30 HDL 61.0 mg/dl 12/21/2015 Lipid Ord30 TRIG 161 mg/dL 12/21/2015 Lipid Ord30 LDL 75 mg/dL 12/21/2015 Lipid Ord30 C/HDL 2.8 Ratio 12/21/2015 Free T4 Gql518 FREE T4 0.82 ng/dL 12/21/2015 Free T4 Lkn005 FREE T4 1.03 ng/dL 06/22/2015 Tsh Ord6 [...] Ord30 C/HDL 3.5 Ratio 03/18/2015 Free T4 Euo440 FREE T4 0.86 ng/dL 03/18/2015 Comp Metabolic Ilh362 NA 135 mEq/L 03/18/2015 Comp Metabolic Vas592 K 4.2 mEq/L 03/18/2015 Comp Metabolic Qzs355 CL 103 mEq/L 03/18/2015 Comp Metabolic Tgt649 CO2 27.0 mEq/L 03/18/2015 Comp Metabolic Xft637 ANION GAP 9 03/18/2015 Comp Metabolic Tdr469 GLUCOSE 124 mg/dL 03/18/2015 Comp Metabolic Rcf370 Creat 0.8 mg/dL 03/18/2015 Comp Metabolic Ikf587 eGFR 78 ml/min/1.73m2 03/18/2015 Comp Metabolic Htd776 BUN 15 mg/dL 03/18/2015 Comp Metabolic Evd750 B/C Ratio 18.3 Ratio 03/18/2015 Comp Metabolic Iqu923 CALCIUM 9.4 mg/dL 03/18/2015 Comp Metabolic Wmq302 ALK PHOS 42 U/L 03/18/2015 Comp Metabolic Rfw612 AST(SGOT) 14 U/L 03/18/2015 Comp Metabolic Owe590 ALT(SGPT) 25 U/L 03/18/2015 Comp Metabolic Ipt100 BILI T 0.3 mg/dL 03/18/2015 Comp Metabolic Ptt558 ALBUMIN 4.2 g/dL 03/18/2015 Comp Metabolic Xkb805 TPRO 6.5 g/dL 03/18/2015 Comp Metabolic Uvx726 GLOB 2.3 g/dL 03/18/2015 Comp Metabolic Qdh169 A/G Ratio 1.8 Ratio 03/18/2015 Comp Metabolic Ozt570 Osmo 272 mOsmo 03/18/2015 %Hba1C Rnd868 % HbA1c 63181- 6 6.0 % 03/18/2015 %Hba1C Srz338 Gluc Ave 126 mg/dL 03/18/2015 Review of [...] Effective Dates Notes Full Exam - General 1995 Constitutional general appearance Development: well developed 11/29/2017 [...] station 09/25/2013 None Full Exam - General 1995 Musculoskeletal head and neck Overall: head atraumatic 09/25/2013 None Full Exam - General 1995 Musculoskeletal head and neck Overall: cervical spine benign 09/25/2013 None Full Exam - General 1995 Neurologic deep tendon reflexes Overall: deep tendon reflexes intact 09/25/2013 None Full Exam - General 1994 Psychiatric orientation/consciousness Overall: oriented to person, place and time 09/25/2013 None Full Exam - General 1994 Psychiatric mood and affect Overall: normal mood and affect 09/25/2013 None Full Exam - General 1995 Constitutional general appearance Development: well developed 06/25/2013 None Full Exam - General 1995 Constitutional general appearance Development: appears stated age 1106/25/2013 None Full Exam - General 1994 Constitutional general appearance Development: appears older than stated age 1106/25/2013 None Full Exam - General 1995 Constitutional general appearance Hygiene/Attention to Grooming: good hygiene 06/25/2013 None Full Exam - General 1994 Eyes conjunctiva/eyelids Overall: eyelids normal 06/25/2013 None Full Exam - General 1994 Eyes pupils and irises Overall: pupils equal, round, reactive to light and accomodation 06/25/2013 None Full Exam - General 1994 Ears/Nose/Throat lips/teeth/gingiva Overall: benign lips 06/25/2013 None Full Exam - General 1995 Ears/Nose/Throat lips/teeth/gingiva Overall: normal dentition 06/25/2013 None [...] atraumatic 06/25/2013 None Full Exam - General 1995 Musculoskeletal head and neck Overall: cervical spine benign 06/25/2013 None Full Exam - General 1995 Neurologic deep tendon reflexes Overall: deep tendon reflexes intact 06/25/2013 None Full Exam - General 1994 Psychiatric orientation/consciousness Overall: oriented to person, place and time 06/25/2013 None Full Exam - General 1995 Psychiatric mood and affect Overall: normal mood and affect 06/25/2013 None Full Exam - General 1995 Eyes conjunctiva/eyelids Overall: conjunctiva clear 06/25/2013 None Full Exam - General 1994 Constitutional general appearance Development: appears older than stated age 1106/10/2013 None Full Exam - General 1994 Constitutional general appearance Development: appears stated age 1106/10/2013 None Full Exam - General 1995 Constitutional general appearance Development: well developed 06/10/2013 [...] gait 06/10/2013 None Full Exam - General 1995 Musculoskeletal lower extremity Palpation - knee: crepitus 06/10/2013 None Procedures Procedure Codes Date IMMUNIZATION ADMIN CPT- 4: 58168 05/19/2016 THER/PROPH/DIAG INJ SC/IM CPT-4: 41504 05/19/2016 IIV4 FLU VACC NO PRESERV ID Formatting Model/CDA Sections, Assigned to/Gemma Granados CT: [id number] CPT-4: 11759Hfaxdhj 05/19/2016 VITAMIN B12 INJECTION CPT- 4: J3420 05/19/2016 THER/PROPH/DIAG INJ SC/IM CPT-4: 80663 04/20/2016 VITAMIN B12 INJECTION CPT- 4: J3420 04/20/2016 IMMUNIZATION ADMIN CPT- 4: 98661 04/20/2016 Pneumococcal Polysaccharide Vaccine, 23-Valent, Ad CPT-4: 63129 04/20/2016 Vital Signs Date Vital 11/29/2017 Blood Pressure 1: 128/80 Code: 8480-6 BMI: 34.4 Code: 23621-7 Heart Rate 1: 75 bpm Height: 5'6" SpO2: 98% Weight: 213 lbs 07/04/2017 Blood Pressure 1: 138/88 Code: 8480-6 BMI: 36.8 Code: 40852-4 Heart Rate 1: 82 bpm Height: 5'6" SpO2: 98% Weight: 228 lbs 05/31/2017 Blood Pressure 1: 140/78 Code: 8480-6 BMI: 36.5 Code: 87686-4 Heart Rate 1: 87 bpm Height: 5'6" SpO2: 98% Weight: 226 lbs 11/28/2016 Blood Pressure 1: 128/78 Code: 8480-6 BMI: 37.5 Code: 67545-5 Heart Rate 1: 88 bpm Height: 5'6" SpO2: 98% Weight: 232 lbs 8 oz 07/28/2016 Blood Pressure 1: 122/72 Code: 8480-6 BMI: 37.6 Code: 10580-2 Heart Rate 1: 61 bpm Height: 5'6" SpO2: 97% Weight: 233 lbs 06/06/2016 Blood Pressure 1: 128/82 Code: 8480-6 BMI: 37.3 Code: 44718-1 Heart Rate 1: 66 bpm Height: 5'6" SpO2: 94% Weight: 231 lbs 04/20/2016 Blood Pressure 1: 136/80 Code: 8480-6 BMI: 38.3 Code: 86055-0 Heart Rate 1: 83 bpm Height: 5'6" SpO2: 98% Weight: 237 lbs 8 oz 03/03/2016 Blood Pressure 1: 130/80 Code: 8480-6 BMI: 38.4 Code: 70800-6 Heart Rate 1: 86 bpm Height: 5'6" SpO2: 96% Weight: 238 lbs 12/21/2015 Blood Pressure 1: 148/84 Code: 8480-6 BMI: 38.4 Code: 33756-2 Heart Rate 1: 94 bpm Height: 5'6" SpO2: 98% Weight: 238 lbs 06/22/2015 Blood Pressure 1: 128/74 Code: 8480-6 BMI: 37.4 Code: 42840-0 Heart Rate 1: 82 bpm Height: 5'6" SpO2: 98% Weight: 232 lbs 03/19/2015 Blood Pressure 1: 122/72 Code: 8480-6 BMI: 37.9 Code: 74599-0 Heart Rate 1: 80 bpm Height: 5'6" SpO2: 97% Weight: 235 lbs 01/22/2015 Blood Pressure 1: 122/80 Code: 8480-6 BMI: 38.6 Code: 83419-0 Heart Rate 1: 78 bpm Height: 5'6" SpO2: 98% Weight: 239 lbs 12/22/2014 Blood Pressure 1: 110/80 Code: 8480-6 BMI: 38.1 Code: 59414-5 Heart Rate 1: 76 bpm Height: 5'6" Weight: 236 lbs 06/19/2014 Blood Pressure 1: 122/74 Code: 8480-6 BMI: 36.8 Code: 76688-4 Heart Rate 1: 86 bpm Height: 5'6" Weight: 228 lbs 03/19/2014 Blood Pressure 1: 122/78 Code: 8480-6 BMI: 36.6 Code: 27838-0 Heart Rate 1: 80 bpm Height: 5'6" Weight: 227 lbs 09/25/2013 Blood Pressure 1: 130/70 Code: 8480-6 BMI: 37.1 Code: 19842-8 Heart Rate 1: 80 bpm Height: 5'6" SpO2: 98% Weight: 230 lbs 06/25/2013 Blood Pressure 1: 126/76 Code: 8480-6 BMI: 38.1 Code: 92675-2 Heart Rate 1: 76 bpm Height: 5'6" Weight: 236 lbs 06/10/2013 Blood Pressure 1: 128/76 Code: 8480-6 BMI: 38.1 Code: 27828-6 Heart Rate 1: 80 bpm Height: 5'6" [...] data Encounters Encounter Performer Location Codes Date ([id number]) PREV VISIT EST AGE 40-64 Diagnosis: Encounter for general adult medical examination without abnormal findings[ICD10: Z00.00] Diagnosis: Atrophy of thyroid (acquired)[ICD10: E03.4] [facility] CPT-4: 44203 11/29/2017 [id number] EST. PATIENT, LEVEL III Diagnosis: Acute laryngopharyngitis[ICD10: J06.0] Diagnosis: Other allergic rhinitis[ICD10: J30.89] Diagnosis: Cough[ICD10: R05] [facility] CPT-4: 17642 07/04/2017 ([id number]) PREV VISIT EST AGE 40-64 Diagnosis: Encounter for general adult medical examination without abnormal findings[ICD10: Z00.00] [facility] CPT-4: 97069 05/31/2017 ([id number]) 27687 EST. PATIENT, LEVEL IV Diagnosis: Type 2 diabetes mellitus without complications[ICD10: E11.9] Diagnosis: Atrophy of thyroid (acquired)[ICD10: E03.4] Saniya Schwab MD, [facility] CPT-4: 11558 11/28/2016 ([id number]) PREV VISIT EST AGE 40-64 Diagnosis: Encounter for general adult medical examination without abnormal findings[ICD10: Z00.00] Diagnosis: Type 2 diabetes mellitus without complications[ICD10: E11.9] Diagnosis: Atrophy of thyroid (acquired)[ICD10: E03.4] Diagnosis: Gastro-esophageal reflux disease without esophagitis[ICD10: K21.9] Saniya Schwab MD, [facility] CPT-4: 32835 07/28/2016 ([id number]) 98479 EST. PATIENT, LEVEL III Diagnosis: Gastro-esophageal reflux disease without esophagitis[ICD10: K21.9] Macey Schwab MD, [facility] CPT-4: 26836 06/06/2016 ([id number]) 07880 EST. PATIENT, LEVEL IV Diagnosis: Type 2 diabetes mellitus without complications[ICD10: E11.9] Diagnosis: Atrophy of thyroid (acquired)[ICD10: E03.4] Diagnosis: Encounter for immunization[ICD10: Z23] Diagnosis: Other vitamin B12 deficiency anemias[ICD10: D51.8] Saniya Schwab MD, [facility] CPT-4: 31858 04/20/2016 ([id number]) 14272 EST. PATIENT, LEVEL III Diagnosis: Hypothyroidism, unspecified[ICD10: E03.9] Diagnosis: Other fatigue[ICD10: R53.83] Macey Schwab MD, [facility] CPT-4: 01192 03/03/2016 ([id number]) 98291 EST. PATIENT, LEVEL IV Diagnosis: Type 2 diabetes mellitus without complications[ICD10: E11.9] Diagnosis: Hypothyroidism, unspecified[ICD10: E03.9] Saniya Schwab MD, [facility] CPT-4: 75184 12/21/2015 ([id number]) 29348 EST. PATIENT, LEVEL III Diagnosis: Type 2 diabetes mellitus without complications[ICD10: E11.9] Diagnosis: Hypothyroidism, unspecified[ICD10: E03.9] Saniya Schwab MD, [facility] CPT-4: 76632 06/22/2015 ([id number]) PREV VISIT EST AGE 40-64 Diagnosis: Routine medical exam[ICD9: V70.0] Saniya Schwab MD [facility] CPT- 4: 70949 03/19/2015 ([id number]) 73093 EST. PATIENT, LEVEL III Diagnosis: EDEMA[ICD9: 782.3] Macey Schwab MD [facility] CPT-4: 87504 01/22/2015 ([id number]) 88010 EST. PATIENT, LEVEL IV Diagnosis: Hypothyroidism[ICD9: 244.9] Diagnosis: DIABETES TYPE II[ICD9: 250.00] Macey Schwab MD [facility] CPT-4: 78379 12/22/2014 ([id number]) 87424 EST. PATIENT, LEVEL III Diagnosis: Hypothyroidism[ICD9: 244.9] Diagnosis: DIABETES TYPE II[ICD9: 250.00] Diagnosis: Osteoarthritis[ICD9: 715.90] Saniya Schwab MD [facility] CPT-4: 76817 06/19/2014 ([id number]) 70823 EST. PATIENT, LEVEL IV Diagnosis: DIABETES TYPE II[ICD9: 250.00] Diagnosis: Hypothyroidism[ICD9: 244.9] Saniya Schwab MD [facility] CPT-4: 41785 03/19/2014 ([id number]) 11493 EST. PATIENT, LEVEL IV Diagnosis: HYPOTHYROIDISM[ICD9: 244.9] Diagnosis: DIABETES TYPE II[SNOMED: 546349273] Saniya Schwab MD [facility] CPT- 4: 46955 09/25/2013 ([id number]) 56424 EST. PATIENT, LEVEL IV Diagnosis: Hypothyroidism[ICD9: 244.9] Diagnosis: Elevated blood sugar[ICD9: 790.29] Saniya Schwab MD, [facility] CPT- 4: 59238 06/25/2013 ([id number]) OFFICE VISIT, NEW - LEVEL 3 Diagnosis: Osteoarthritis[ICD9: 715.90] Diagnosis: Knee pain, bilateral[ICD9: 719.46] Diagnosis: OBESITY[ICD9: 278.00] Diagnosis: Encounter for long-term (current) use of other medications[ICD9: V58.69] [facility] CPT-4: 30254 06/10/2013 Plan of Care Planned Activity Notes [...] home. 11/29/2017 Appointment: Saniya Schwab WPtel: [phone] [facility] (15 min) Moderate 11/29/2017 Patient Education: Patient [...] allergy spray. 07/04/2017 [phone] (30 min) Complex 07/04/2017 Patient Education: [...] weekly. 05/31/2017 [phone] (15 min) Moderate 05/31/2017 Patient Education: Patient [...] less controlled. 11/28/2016 Appointment: San[facility] Schwab [facility] [phone] [facility] [place] (15 min) Moderate 11/28/2016 Patient Education: Patient Medication Summary Completed 11/28/2016 Appointment: [phone] (15 min) Moderate 11/21/2016 Patient Education: Patient [...] not improving. 07/28/2016 Appointment: [phone] (15 min) Moderate 07/28/2016 Patient Education: Patient Medication Summary Completed 07/28/2016 Visit Plan: Esophageal Reflux - the patient has been counseled against excessive intake of caffeine, spicy foods, peppermint, and cinnamon - all of which can exacerbate esophageal reflux. The patient is to take med ications as prescribed and call the office if the symptoms are not improving. 06/06/2016 Appointment: [phone] (15 min) Moderate 06/06/2016 Patient Education: [...] COMPLEX VITAMIN 03/03/2016 Appointment: Macey Myers WPtel: [phone] [phone] (30 min) Complex 03/03/2016 Patient Education: Patient [...] less controlled. 12/21/2015 Appointment: [facility] Schwab [phone] [facility] (15 min) Moderate 12/21/2015 Patient Education: Patient [...] of control. 06/22/2015 Appointment: Saniya Schwab WPtel: [facility] (15 min) Moderate 06/22/2015 Patient Education: Patient [...] of control. 03/19/2015 Appointment: Saniya Schwab WPtel: [facility] Follow up 03/19/2015 Patient Education: Patient Medication [...] reduce peripheral edema. 01/22/2015 Appointment: (15 min) Sally 01/22/2015 Patient Education: Patient Medication Summary Completed [...] months based on previous levels of control. Wlsxhu-xhxumeh-twkqkbgqq name brand Synthroid Keep food diary-call in [...] months based on previous levels of control. Orcoqf-aqlnrzc-wfhcthgez name brand Synthroid Keep food diary-call in [...] months based on previous levels of control. Cixsor-asfgruf-idhzvmfqd name brand Synthroid Keep food diary-call in 2 weeks to discuss Monitor blood sugars when not feeling well 12/22/2014 Patient Education: Patient Medication Summary Completed 12/22/2014 Appointment: Saniya Schwab WPtel: [phone] [facility] Follow up 12/16/2014 Visit Plan: Hypothyroidism - [...] to clinic. 06/19/2014 Appointment: Saniya Schwab WPtel: [facility] Follow up 06/19/2014 Patient Education: Patient Medication [...] control. 03/19/2014 Appointment: Saniya Schwab WPtel: [phone] [facility] Follow up 03/19/2014 Patient Education: Patient Medication [...] of synthroid. 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 Obesity - chronic issue with this patient. The pt has been counseled about diet changes, calorie restriction, and need to exercise. Pt will RTC in one month for weight check. 06/10/2013 Appointment: San[facility]ab [phone] New Patient 06/10/2013 Patient Education: Patient Medication [...] on previous levels of control. REFER TO STATION MASTER AT THE [facility] WEAR COMPRESSION STOCKINGS WHEN [...] months based on previous levels of control. Ituzvq-ifrgwvh-hdxcqtgxm name brand Synthroid Keep food diary-call in [...] if the symptoms are not improving. . 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 Gmsfyx-lweqmja-fzmombdcr name brand Synthroid Keep food diary-call in [...] months based on previous levels of control. Jezwrz-mvzokso-jvnikogyt name brand Synthroid Keep food diary-call in 2 weeks to discuss Monitor blood sugars when not feeling well
--- OUTSIDE RECORDS SUMMARY | 2019-01-18 09:17 | XMS REPORT | CCD ---
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 Marital status Unknown Single 06/10/[address]: 2029817 Former smoker 06/10/[address]: 4817701 Former smoker quit 200606/10/2013 Number of years using tobacco Unknown 1 smoked a few months 06/10/2013 Alcohol history Unknown occasionally drinks alcohol 06/10/2013 Alcohol history Unknown occasionally drinks alcohol 06/10/2013 Frequency of drinks SNOMED CT: 161827105 Drinks rarely 1/month 06/10/2013 Allergies, Adverse Reactions, [...] Fill Instructions Synthroid 88 mcg tablet RxNorm: 577255 TAKE 1 TABLET BY MOUTH TWICE WEEKLY ON MONDAY AND Monday10/29/2018 05/24/2019 Active 10/29/2018 7:51:26 AM Synthroid 88 mcg tablet RxNorm: 006022 TAKE 1 TABLET BY MOUTH TWICE WEEKLY ON MONDAY AND Monday03/14/2018 10/07/2018 Inactive 03/14/2018 11:13:25 AM N O T I C E Last quantity doesn't match original quantity Synthroid 100 mcg tablet RxNorm: 418046 TAKE 1 TABLET BY MOUTH DAILY MONDAY THRU Monday01/08/2018 01/02/2019 Active 01/08/2018 8:22:22 AM omeprazole 20 mg capsule,delayed release RxNorm: 984442 1 Tablet(s) PO BID 09/11/2017 09/05/2018 Inactive Zithromax Z-Mike 250 mg tablet RxNorm: 637927 1 Tablet(s) PO UD 07/27/2017 11/21/2017 Inactive zpack as directed Flonase Allergy Relief 50 mcg/actuation nasal spray,suspension RxNorm: 4216324 1 [place] NASAL BID 07/04/2017 No Stop Date Active amoxicillin 500 mg tablet RxNorm: 314965 1 Tablet(s) PO TID 07/04/2017 07/13/2017 Inactive Synthroid 100 mcg tablet RxNorm: 934148 TAKE 1 TABLET BY MOUTH DAILY MONDAY THRU Monday06/19/2017 12/15/2017 Inactive 06/19/2017 9:33:46 AM cyanocobalamin (vit B-12) 1,000 mcg/mL injection solution RxNorm: 509232 1 Milliliter(s) Inj [id number] 05/31/2017 08/23/2018 Inactive multidose vial if available, if not do a 3 month supply Synthroid 88 mcg tablet RxNorm: 094511 1 Tablet(s) PO BIW on Sat and Sun 05/19/2017 09/15/2017 Inactive FERNANDO-1 ok for 90 day supply if she wants it Lancets,Brady RxNorm: USE TO TEST TWICE DAILY DIRECTED 05/08/2017 12/28/2018 Active 05/08/2017 9:20:31 AM Brennan 2 Test Strips RxNorm: USE TO TEST BLOOD GLUCOSE TWICE WEEKLY OR DIRECTED 05/08/2017 02/05/2023 Active 05/08/2017 9:20:48 AM Synthroid 100 mcg tablet RxNorm: 271999 TAKE 1 TABLET BY MOUTH DAILY MONDAY THRU Monday02/14/2017 06/18/2017 Inactive 02/14/2017 7:59:51 AM N O T I C E Last quantity doesn't match original quantity amoxicillin 500 mg tablet RxNorm: 560259 2 Tablet(s) PO prior to dental or other procedures and then 2 tabs 4 hours after procedure 11/28/2016 07/03/2017 Inactive cyanocobalamin (vit B-12) 1,000 mcg/mL injection solution RxNorm: 675671 1 Milliliter(s) Inj month 11/28/2016 05/30/2017 Inactive multidose vial if available, if not do a 3 month supply Synthroid 88 mcg tablet RxNorm: 078524 1 Tablet(s) PO BIW on Sat and Sun 09/16/2016 01/13/2017 Inactive FERNANDO-1 ok for 90 day supply if she wants it Synthroid 100 mcg tablet RxNorm: 936785 1 Tablet(s) PO daily Mon thru Mon08/09/2016 12/06/2016 Inactive FERNANDO-1 can have 90 day supply if she wants it omeprazole 20 mg capsule,delayed release RxNorm: 459889 1 Tablet(s) PO BID 07/28/2016 07/22/2017 Inactive Dexilant 60 mg capsule, delayed release RxNorm: 897909 1 Capsule(s) PO daily 06/27/2016 06/26/2016 Inactive Dexilant 60 mg capsule, delayed release RxNorm: 571616 1 Capsule(s) PO daily 06/27/2016 07/27/2016 Inactive cyanocobalamin (vit B-12) 1,000 mcg/mL injection solution RxNorm: 577162 Milliliter(s) Inj 05/19/2016 05/19/2016 Inactive cyanocobalamin (vit B-12) 1,000 mcg/mL injection solution RxNorm: 157754 1 Milliliter(s) Inj 04/20/2016 04/20/2016 Inactive Synthroid 100 mcg tablet RxNorm: 338818 1 Tablet(s) PO daily Mon thru Mon03/03/2016 06/30/2016 Inactive FERNANDO-1 can have 90 day supply if she wants it Synthroid 88 mcg tablet RxNorm: 377614 1 Tablet(s) PO UD take on Sat and Sun 03/03/2016 03/02/2016 Inactive Synthroid 88 mcg tablet RxNorm: 812974 1 Tablet(s) PO UD take on Sat and Sun 03/03/2016 06/30/2016 Inactive FERNANDO-1 ok for 90 day supply if she wants it Synthroid 100 mcg tablet RxNorm: 771169 1 Tablet(s) PO daily Mon thru Mon03/03/2016 03/02/2016 Inactive FERNANDO-1 Breeze 2 Test Strips RxNorm: Miscellaneous test twice weekly or ud 02/29/2016 05/07/2017 Inactive dx- 250.00 levothyroxine 88 mcg tablet RxNorm: 736884 1 Tablet(s) BIW on Monday, Monday12/21/2015 03/02/2016 Inactive loratadine 10 mg capsule RxNorm: 043198 1 Capsule(s) PO daily as needed 12/21/2015 06/05/2016 Inactive levothyroxine 100 mcg tablet RxNorm: 124404 1 Tablet(s) PO daily oon Monday through Monday12/21/2015 03/02/2016 Inactive levothyroxine 100 mcg tablet RxNorm: 635969 1 Tablet(s) PO UD on Monday06/22/2015 12/20/2015 Inactive levothyroxine 88 mcg tablet RxNorm: 682639 1 Tablet(s) UD on Monday, , Monday, Monday06/22/2015 12/20/2015 Inactive levothyroxine 88 mcg tablet RxNorm: 248100 1 Tablet(s) UD on Monday, , Monday, Monday03/19/2015 06/21/2015 Inactive levothyroxine 100 mcg tablet RxNorm: 794593 1 Tablet(s) PO UD on Monday03/19/2015 06/21/2015 Inactive Lasix 20 mg tablet RxNorm: 012334 1/2-1 Tablet(s) PO QDAY PRN 01/22/2015 01/26/2015 Inactive potassium chloride ER 10 mEq capsule,extended release RxNorm: 125971 1 Capsule(s) PO QDAY PRN 01/22/2015 06/05/2016 Inactive take with lasix (furosemide) levothyroxine 88 mcg tablet RxNorm: 574209 1 Tablet(s) PO daily 12/22/2014 03/18/2015 Inactive Breeze 2 Test Strips RxNorm: Miscellaneous test twice weekly or ud 10/22/2014 03/20/2015 Inactive dx- 250.00 Breeze 2 Test Strips RxNorm: Miscellaneous test twice weekly or ud 10/22/2014 10/21/2014 Inactive dx- 250.00 levothyroxine 88 mcg tablet RxNorm: 563681 1 Tablet(s) PO daily 09/22/2014 12/20/2014 Inactive Synthroid 100 mcg tablet RxNorm: 863877 1 Tablet(s) PO daily 06/19/2014 09/21/2014 Inactive Lancets,Thin RxNorm: 1 Miscellaneous BID 03/24/2014 04/22/2014 Inactive Synthroid 75 mcg tablet RxNorm: 159491 1 Tablet(s) PO daily 03/19/2014 06/18/2014 Inactive Breeze 2 Test Strips RxNorm: 1 Miscellaneous BID 03/19/2014 04/17/2014 Inactive Breeze 2 Test Strips RxNorm: 1 Miscellaneous BID 03/19/2014 03/18/2014 Inactive Synthroid 75 mcg tablet RxNorm: 229675 1 Tablet(s) PO daily 12/16/2013 03/18/2014 Inactive Synthroid 75 mcg tablet RxNorm: 823500 1 Tablet(s) PO daily 12/16/2013 12/15/2013 Inactive Synthroid 50 mcg tablet RxNorm: 950982 1 Tablet(s) PO daily 09/16/2013 12/15/2013 Inactive Synthroid 25 mcg tablet RxNorm: 995647 1 Tablet(s) PO daily 06/25/2013 09/15/2013 Inactive Glucosamine 1500 Complex 500 mg-400 mg capsule RxNorm: 1 Capsule(s) PO daily No Start Date Active Enbrel 50 mg/mL (0.98 mL) subcutaneous syringe RxNorm: 567982 Milliliter(s) SQ weekly No Start Date Active Multiple Vitamins chewable tablet RxNorm: 1 Tablet(s) PO daily No Start Date Active Vitamin B-12 5,000 mcg sublingual tablet RxNorm: 700840 1 Tablet(s) SL daily No Start Date Active Celebrex 200 mg capsule RxNorm: 153910 1 Capsule(s) PO daily No Start Date Active Tylenol 325 mg tablet RxNorm: 390883 Tablet(s) PO as needed No Start Date Active Zithromax Z-Mike 250 mg tablet RxNorm: 400892 1 Tablet(s) PO UD No Start Date 07/26/2017 Inactive zpack as directed oxycodone 5 mg tablet RxNorm: 7084272 1/2-1 Tablet(s) PO daily as needed No Start Date 06/18/2014 Inactive loratadine 10 mg capsule RxNorm: 105208 1 Capsule(s) PO daily No Start Date 12/20/2015 Inactive Synthroid 50 mcg tablet RxNorm: 598036 1 Tablet(s) PO daily No Start Date 09/15/2013 Inactive sulfasalazine 500 mg tablet RxNorm: 0263508 1 Tablet(s) PO daily No Start Date 01/21/2015 Inactive ibuprofen 600 mg tablet RxNorm: 869221 1 Tablet(s) PO BID PRN No Start Date 03/18/2014 Inactive Medication Administered Medication Codes Instructions Start Date Status cyanocobalamin (vit B-12) 1,000 mcg/mL injection solution RxNorm: 966639 Milliliter 05/19/2016 No longer Active cyanocobalamin (vit B-12) 1,000 mcg/mL injection solution RxNorm: 589172 1Milliliter 04/20/2016 No longer Active Immunizations Vaccine [...] Ord30 C/HDL 3.8 Ratio 11/27/2017 Free T4 Uit783 FREE T4 1.09 ng/dL 11/27/2017 %Hba1C Exf397 % HbA1c 38439- 6 5.9 % 11/27/2017 %Hba1C Mzz141 Gluc Ave 123 mg/dL 11/27/2017 Comp Metabolic Uim286 NA 137 mEq/L 11/27/2017 Comp Metabolic Zpq566 K 4.0 mEq/L 11/27/2017 Comp Metabolic Llb385 CL 100 mEq/L 11/27/2017 Comp Metabolic Oag459 CO2 30.0 mEq/L 11/27/2017 Comp Metabolic Xwa293 ANION GAP 11 11/27/2017 Comp Metabolic Ksj670 GLUCOSE 126 mg/dL 11/27/2017 Comp Metabolic Hiv792 Creat 0.8 mg/dL 11/27/2017 Comp Metabolic Ath654 eGFR 78 ml/min/1.73m2 11/27/2017 Comp Metabolic Boe655 BUN 16 mg/dL 11/27/2017 Comp Metabolic Vzp527 B/C Ratio 19.8 Ratio 11/27/2017 Comp Metabolic Tre936 CALCIUM 9.8 mg/dL 11/27/2017 Comp Metabolic Bju600 ALK PHOS 53 U/L 11/27/2017 Comp Metabolic Uyq669 AST(SGOT) 17 U/L 11/27/2017 Comp Metabolic Icb261 ALT(SGPT) 20 U/L 11/27/2017 Comp Metabolic Wvx404 BILI T 0.6 mg/dL 11/27/2017 Comp Metabolic Irt491 ALBUMIN 4.4 g/dL 11/27/2017 Comp Metabolic Umh206 TPRO 7.3 g/dL 11/27/2017 Comp Metabolic Fjq673 GLOB 2.9 g/dL 11/27/2017 Comp Metabolic Aax999 A/G Ratio 1.5 Ratio 11/27/2017 Comp Metabolic Ciw763 Osmo 277 mOsmo 11/27/2017 Cbc With Differential [...] 28.8 pg 11/27/2017 Cbc With Differential Ord2 [place]% 7.3 % 11/27/2017 Cbc With Differential Ord2 [...] 2.26 K/ul 11/27/2017 Cbc With Differential Ord2 [place] ABS# 0.5 K/ul 11/27/2017 Cbc With Differential Ord2 Eos ABS# 0.2 K/ul 11/27/2017 Cbc With Differential Ord2 Baso ABS# 0.0 K/ul 11/27/2017 B12 Hba234 B12 >1500.00 pg/ml 11/27/2017 Tsh Ord6 TSH (3rd IS) 1.15 uIU/mL 11/27/2017 C RAP A SC [id number] Strep A Negative 07/04/2017 Lipid Ord30 CHOL 163 mg/dL 05/29/2017 Lipid Ord30 HDL 53.0 mg/dl 05/29/2017 Lipid Ord30 TRIG 96 mg/dL 05/29/2017 Lipid Ord30 LDL 91 mg/dL 05/29/2017 Lipid Ord30 C/HDL 3.1 Ratio 05/29/2017 Free T4 Hjz691 FREE T4 1.05 ng/dL 05/29/2017 Cbc With [...] 28.5 pg 05/29/2017 Cbc With Differential Ord2 [place]% 6.2 % 05/29/2017 Cbc With Differential Ord2 [...] 2.17 K/ul 05/29/2017 Cbc With Differential Ord2 [place] ABS# 0.4 K/ul 05/29/2017 Cbc With Differential Ord2 Eos ABS# 0.2 K/ul 05/29/2017 Cbc With Differential Ord2 Baso ABS# 0.0 K/ul 05/29/2017 Comp Metabolic Ahb731 NA 137 mEq/L 05/29/2017 Comp Metabolic Ypu081 K 4.2 mEq/L 05/29/2017 Comp Metabolic Wys854 CL 101 mEq/L 05/29/2017 Comp Metabolic Nnn307 CO2 27.0 mEq/L 05/29/2017 Comp Metabolic Bji848 ANION GAP 13 05/29/2017 Comp Metabolic Edf179 GLUCOSE 133 mg/dL 05/29/2017 Comp Metabolic Yog458 Creat 0.8 mg/dL 05/29/2017 Comp Metabolic Tpv013 eGFR 80 ml/min/1.73m2 05/29/2017 Comp Metabolic Gho247 BUN 17 mg/dL 05/29/2017 Comp Metabolic Xps015 B/C Ratio 21.3 Ratio 05/29/2017 Comp Metabolic Lnv027 CALCIUM 9.3 mg/dL 05/29/2017 Comp Metabolic Ycu090 ALK PHOS 53 U/L 05/29/2017 Comp Metabolic Uus280 AST(SGOT) 17 U/L 05/29/2017 Comp Metabolic Hcd526 ALT(SGPT) 28 U/L 05/29/2017 Comp Metabolic Poj105 BILI T 0.3 mg/dL 05/29/2017 Comp Metabolic Bqf844 ALBUMIN 4.2 g/dL 05/29/2017 Comp Metabolic Lak454 TPRO 6.5 g/dL 05/29/2017 Comp Metabolic Tal480 GLOB 2.3 g/dL 05/29/2017 Comp Metabolic Jqj712 A/G Ratio 1.8 Ratio 05/29/2017 Comp Metabolic Mbw415 Osmo 277 mOsmo 05/29/2017 %Hba1C Din115 % HbA1c 57377- 6 6.3 % 05/29/2017 %Hba1C Qws350 Gluc Ave 134 mg/dL 05/29/2017 Tsh Ord6 hTSH II 0.91 uIU/mL 05/29/2017 %Hba1C Rkx944 % HbA1c 12854- 6 6.3 % 11/28/2016 %Hba1C Vuf010 Gluc Ave 134 mg/dL 11/28/2016 Cbc With [...] 28.4 pg 11/28/2016 Cbc With Differential Ord2 [place]% 6.2 % 11/28/2016 Cbc With Differential Ord2 [...] 2.30 K/ul 11/28/2016 Cbc With Differential Ord2 [place] ABS# 0.5 K/ul 11/28/2016 Cbc With Differential Ord2 Eos ABS# 0.2 K/ul 11/28/2016 Cbc With Differential Ord2 Baso ABS# 0.0 K/ul 11/28/2016 Tsh Ord6 hTSH II 3.96 uIU/mL 11/28/2016 B12 Bte877 B12 >1500.00 pg/ml 11/28/2016 Comp Metabolic Duc943 NA 134 mEq/L 11/28/2016 Comp Metabolic Vhy219 K 3.8 mEq/L 11/28/2016 Comp Metabolic Mrc609 CL 98 mEq/L 11/28/2016 Comp Metabolic Rxo217 CO2 28.0 mEq/L 11/28/2016 Comp Metabolic Joc816 ANION GAP 12 11/28/2016 Comp Metabolic Euf240 GLUCOSE 156 mg/dL 11/28/2016 Comp Metabolic Sew598 Creat 0.8 mg/dL 11/28/2016 Comp Metabolic Ngt760 eGFR 75 ml/min/1.73m2 11/28/2016 Comp Metabolic Tjb850 BUN 15 mg/dL 11/28/2016 Comp Metabolic Ohg474 B/C Ratio 17.9 Ratio 11/28/2016 Comp Metabolic Irn239 CALCIUM 9.3 mg/dL 11/28/2016 Comp Metabolic Zon896 ALK PHOS 55 U/L 11/28/2016 Comp Metabolic Dnz514 AST(SGOT) 17 U/L 11/28/2016 Comp Metabolic Cjv474 ALT(SGPT) 26 U/L 11/28/2016 Comp Metabolic Izz833 BILI T 0.4 mg/dL 11/28/2016 Comp Metabolic Tms971 ALBUMIN 4.2 g/dL 11/28/2016 Comp Metabolic Zcf609 TPRO 6.6 g/dL 11/28/2016 Comp Metabolic Egb027 GLOB 2.4 g/dL 11/28/2016 Comp Metabolic Wpb404 A/G Ratio 1.8 Ratio 11/28/2016 Comp Metabolic Iko860 Osmo 272 mOsmo 11/28/2016 Free T4 Rzj339 FREE T4 0.81 ng/dL 11/28/2016 Free T4 Qyy717 FREE T4 0.85 ng/dL 07/27/2016 Cbc With [...] 28.8 pg 07/27/2016 Cbc With Differential Ord2 [place]% 6.0 % 07/27/2016 Cbc With Differential Ord2 [...] 2.41 K/ul 07/27/2016 Cbc With Differential Ord2 [place] ABS# 0.3 K/ul 07/27/2016 Cbc With Differential Ord2 Eos ABS# 0.1 K/ul 07/27/2016 Cbc With Differential Ord2 Baso ABS# 0.0 K/ul 07/27/2016 %Hba1C Zcp434 % HbA1c 57816- 6 6.1 % 07/27/2016 %Hba1C Gtj476 Gluc Ave 128 mg/dL 07/27/2016 Tsh Ord6 hTSH II 0.69 uIU/mL 07/27/2016 Helicobacter Pylori Iga 722717 H. PYLORI AB, IgA <9.0 units 06/10/2016 Helicobacter Pylori Igm Ab 704630 H. PYLORI AB, IgM <9.0 units 06/10/2016 H. Pylori Igg Abs 601617 H. PYLORI AB, IgG 0.2 INDEX 06/07/2016 H. Pylori Igg Abs 231710 06/07/2016 Comp Metabolic Frc343 NA 133 mEq/L 04/20/2016 Comp Metabolic Wqe099 K 4.3 mEq/L 04/20/2016 Comp Metabolic Icm780 CL 100 mEq/L 04/20/2016 Comp Metabolic Nux867 CO2 28.0 mEq/L 04/20/2016 Comp Metabolic Ojm356 ANION GAP 9 04/20/2016 Comp Metabolic Uju637 GLUCOSE 139 mg/dL 04/20/2016 Comp Metabolic Nel734 Creat 0.8 mg/dL 04/20/2016 Comp Metabolic Lcf443 eGFR 85 ml/min/1.73m2 04/20/2016 Comp Metabolic Rob153 BUN 16 mg/dL 04/20/2016 Comp Metabolic Olx663 B/C Ratio 21.1 Ratio 04/20/2016 Comp Metabolic Ixq021 CALCIUM 9.1 mg/dL 04/20/2016 Comp Metabolic Obk633 ALK PHOS 45 U/L 04/20/2016 Comp Metabolic Tsy305 AST(SGOT) 16 U/L 04/20/2016 Comp Metabolic Gwm315 ALT(SGPT) 29 U/L 04/20/2016 Comp Metabolic Xfs324 BILI T 0.5 mg/dL 04/20/2016 Comp Metabolic Yyr443 ALBUMIN 4.2 g/dL 04/20/2016 Comp Metabolic Glc803 TPRO 6.7 g/dL 04/20/2016 Comp Metabolic Rjs540 GLOB 2.5 g/dL 04/20/2016 Comp Metabolic Iwl368 A/G Ratio 1.7 Ratio 04/20/2016 Comp Metabolic Zew021 Osmo 270 mOsmo 04/20/2016 %Hba1C Zgr105 % HbA1c 48541- 6 6.2 % 04/20/2016 %Hba1C Yur037 Gluc Ave 131 mg/dL 04/20/2016 Cbc With [...] 28.9 pg 04/20/2016 Cbc With Differential Ord2 [place]% 8.5 % 04/20/2016 Cbc With Differential Ord2 [...] 2.17 K/ul 04/20/2016 Cbc With Differential Ord2 [place] ABS# 0.5 K/ul 04/20/2016 Cbc With Differential [...] 29.2 pg 03/03/2016 Cbc With Differential Ord2 [place]% 6.3 % 03/03/2016 Cbc With Differential Ord2 [...] 1.73 K/ul 03/03/2016 Cbc With Differential Ord2 [place] ABS# 0.3 K/ul 03/03/2016 Cbc With Differential Ord2 Eos ABS# 0.1 K/ul 03/03/2016 Cbc With Differential Ord2 Baso ABS# 0.0 K/ul 03/03/2016 Free T4 Flj051 FREE T4 0.90 ng/dL 03/03/2016 Comp Metabolic Cbl322 NA 135 mEq/L 03/03/2016 Comp Metabolic Acr424 K 3.7 mEq/L 03/03/2016 Comp Metabolic Oue084 CL 100 mEq/L 03/03/2016 Comp Metabolic Cbo469 CO2 29.0 mEq/L 03/03/2016 Comp Metabolic Pqt465 ANION GAP 10 03/03/2016 Comp Metabolic Xic473 GLUCOSE 134 mg/dL 03/03/2016 Comp Metabolic Hxy662 Creat 0.7 mg/dL 03/03/2016 Comp Metabolic Kso066 eGFR 93 ml/min/1.73m2 03/03/2016 Comp Metabolic Qkg061 BUN 16 mg/dL 03/03/2016 Comp Metabolic Nfn080 B/C Ratio 22.9 Ratio 03/03/2016 Comp Metabolic Ddk291 CALCIUM 9.0 mg/dL 03/03/2016 Comp Metabolic Wne410 ALK PHOS 36 U/L 03/03/2016 Comp Metabolic Jac086 AST(SGOT) 17 U/L 03/03/2016 Comp Metabolic Wcu808 ALT(SGPT) 25 U/L 03/03/2016 Comp Metabolic Rqg187 BILI T 0.4 mg/dL 03/03/2016 Comp Metabolic Dmx366 ALBUMIN 4.3 g/dL 03/03/2016 Comp Metabolic Whf303 TPRO 6.6 g/dL 03/03/2016 Comp Metabolic Zvn378 GLOB 2.3 g/dL 03/03/2016 Comp Metabolic Sun491 A/G Ratio 1.8 Ratio 03/03/2016 Comp Metabolic Fag937 Osmo 273 mOsmo 03/03/2016 Tsh Ord6 hTSH II 2.99 uIU/mL 03/03/2016 Comp Metabolic Cdj648 NA 135 mEq/L 12/21/2015 Comp Metabolic Flq891 K 4.1 mEq/L 12/21/2015 Comp Metabolic Iaj757 CL 100 mEq/L 12/21/2015 Comp Metabolic Ydx590 CO2 29.0 mEq/L 12/21/2015 Comp Metabolic Pvy791 ANION GAP 10 12/21/2015 Comp Metabolic Jcs904 GLUCOSE 146 mg/dL 12/21/2015 Comp Metabolic Cia033 Creat 0.8 mg/dL 12/21/2015 Comp Metabolic Bfo795 eGFR 76 ml/min/1.73m2 12/21/2015 Comp Metabolic Nng269 BUN 14 mg/dL 12/21/2015 Comp Metabolic Wja797 B/C Ratio 16.7 Ratio 12/21/2015 Comp Metabolic Xcs768 CALCIUM 9.0 mg/dL 12/21/2015 Comp Metabolic Fqj348 ALK PHOS 47 U/L 12/21/2015 Comp Metabolic Mqa504 AST(SGOT) 19 U/L 12/21/2015 Comp Metabolic Pbp880 ALT(SGPT) 31 U/L 12/21/2015 Comp Metabolic Gyx966 BILI T 0.4 mg/dL 12/21/2015 Comp Metabolic Zee181 ALBUMIN 4.1 g/dL 12/21/2015 Comp Metabolic Ais730 TPRO 6.5 g/dL 12/21/2015 Comp Metabolic Wqm225 GLOB 2.5 g/dL 12/21/2015 Comp Metabolic Jia742 A/G Ratio 1.7 Ratio 12/21/2015 Comp Metabolic Lbf794 Osmo 273 mOsmo 12/21/2015 Cbc With Differential [...] 28.5 pg 12/21/2015 Cbc With Differential Ord2 [place]% 5.3 % 12/21/2015 Cbc With Differential Ord2 [...] 2.12 K/ul 12/21/2015 Cbc With Differential Ord2 [place] ABS# 0.3 K/ul 12/21/2015 Cbc With Differential Ord2 Eos ABS# 0.2 K/ul 12/21/2015 Cbc With Differential Ord2 Baso ABS# 0.0 K/ul 12/21/2015 Cbc With Differential Ord2 New Analyzer Notice Please note new ref ranges starting 08-19-2015 due to implemntation of new five part differential hematolgy analyzer. 12/21/2015 Tsh Ord6 hTSH II 4.58 uIU/mL 12/21/2015 %Hba1C Mpb160 % HbA1c 08171- 6 6.2 % 12/21/2015 %Hba1C Ibw813 Gluc Ave 131 mg/dL 12/21/2015 Lipid Ord30 CHOL 168 mg/dL 12/21/2015 Lipid Ord30 HDL 61.0 mg/dl 12/21/2015 Lipid Ord30 TRIG 161 mg/dL 12/21/2015 Lipid Ord30 LDL 75 mg/dL 12/21/2015 Lipid Ord30 C/HDL 2.8 Ratio 12/21/2015 Free T4 Dto476 FREE T4 0.82 ng/dL 12/21/2015 Free T4 Ppe232 FREE T4 1.03 ng/dL 06/22/2015 Tsh Ord6 [...] Ord30 C/HDL 3.5 Ratio 03/18/2015 Free T4 Zqg151 FREE T4 0.86 ng/dL 03/18/2015 Comp Metabolic Nth648 NA 135 mEq/L 03/18/2015 Comp Metabolic Jdh080 K 4.2 mEq/L 03/18/2015 Comp Metabolic Izi042 CL 103 mEq/L 03/18/2015 Comp Metabolic Svn704 CO2 27.0 mEq/L 03/18/2015 Comp Metabolic Fcg835 ANION GAP 9 03/18/2015 Comp Metabolic Yta635 GLUCOSE 124 mg/dL 03/18/2015 Comp Metabolic Yci099 Creat 0.8 mg/dL 03/18/2015 Comp Metabolic Cms270 eGFR 78 ml/min/1.73m2 03/18/2015 Comp Metabolic Bkr598 BUN 15 mg/dL 03/18/2015 Comp Metabolic Vzm305 B/C Ratio 18.3 Ratio 03/18/2015 Comp Metabolic Imn061 CALCIUM 9.4 mg/dL 03/18/2015 Comp Metabolic Nct070 ALK PHOS 42 U/L 03/18/2015 Comp Metabolic Fym525 AST(SGOT) 14 U/L 03/18/2015 Comp Metabolic Hmf695 ALT(SGPT) 25 U/L 03/18/2015 Comp Metabolic Yzv558 BILI T 0.3 mg/dL 03/18/2015 Comp Metabolic Bvl482 ALBUMIN 4.2 g/dL 03/18/2015 Comp Metabolic Wss091 TPRO 6.5 g/dL 03/18/2015 Comp Metabolic Wpm433 GLOB 2.3 g/dL 03/18/2015 Comp Metabolic Wvi905 A/G Ratio 1.8 Ratio 03/18/2015 Comp Metabolic Rjo251 Osmo 272 mOsmo 03/18/2015 %Hba1C Hio279 % HbA1c 24261- 6 6.0 % 03/18/2015 %Hba1C Nia496 Gluc Ave 126 mg/dL 03/18/2015 Review of [...] clear 06/25/2013 None Full Exam - General 1995 Constitutional general appearance Development: appears older than stated age 1106/10/2013 None Full Exam - General 1994 Constitutional general appearance Development: appears stated age 1106/10/2013 None Full Exam - General 1995 Constitutional general appearance Development: well developed 06/10/2013 None Full Exam - General 1995 Constitutional general appearance Hygiene/Attention to Grooming: good hygiene 06/10/2013 None Full Exam - General 1995 Eyes conjunctiva/eyelids Overall: conjunctiva clear 06/10/2013 None Full Exam - General 1995 Eyes conjunctiva/eyelids Overall: cornea clear 06/10/2013 None Full Exam - General 1994 Eyes conjunctiva/eyelids Overall: eyelids normal 06/10/2013 None Full Exam - General 1994 Eyes pupils and irises Overall: pupils equal, round, reactive to light and accomodation 06/10/2013 None Full Exam - General 1995 Ears/Nose/Throat otoscopic exam Overall: external auditory canals [...] Procedure Codes Date IMMUNIZATION ADMIN CPT- 4: 44813 05/19/2016 THER/PROPH/DIAG INJ SC/IM CPT-4: 74601 05/19/2016 IIV4 FLU VACC NO PRESERV ID Formatting Model/CDA Sections, Assigned to/Gemma Granados SNYAHIR CT: [id number] CPT-4: 61449Nbjecye 05/19/2016 VITAMIN B12 INJECTION CPT- 4: J3420 05/19/2016 THER/PROPH/DIAG INJ SC/IM CPT-4: 65338 04/20/2016 VITAMIN B12 INJECTION CPT- 4: J3420 04/20/2016 IMMUNIZATION ADMIN CPT- 4: 52748 04/20/2016 Pneumococcal Polysaccharide Vaccine, 23-Valent, Ad CPT-4: 63940 04/20/2016 Vital Signs Date Vital 11/29/2017 Blood Pressure 1: 128/80 Code: 8480-6 BMI: 34.4 Code: 90917-6 Heart Rate 1: 75 bpm Height: 5'6" SpO2: 98% Weight: 213 lbs 07/04/2017 Blood Pressure 1: 138/88 Code: 8480-6 BMI: 36.8 Code: 43622-8 Heart Rate 1: 82 bpm Height: 5'6" SpO2: 98% Weight: 228 lbs 05/31/2017 Blood Pressure 1: 140/78 Code: 8480-6 BMI: 36.5 Code: 60950-0 Heart Rate 1: 87 bpm Height: 5'6" SpO2: 98% Weight: 226 lbs 11/28/2016 Blood Pressure 1: 128/78 Code: 8480-6 BMI: 37.5 Code: 03559-9 Heart Rate 1: 88 bpm Height: 5'6" SpO2: 98% Weight: 232 lbs 8 oz 07/28/2016 Blood Pressure 1: 122/72 Code: 8480-6 BMI: 37.6 Code: 26036-7 Heart Rate 1: 61 bpm Height: 5'6" SpO2: 97% Weight: 233 lbs 06/06/2016 Blood Pressure 1: 128/82 Code: 8480-6 BMI: 37.3 Code: 62308-5 Heart Rate 1: 66 bpm Height: 5'6" SpO2: 94% Weight: 231 lbs 04/20/2016 Blood Pressure 1: 136/80 Code: 8480-6 BMI: 38.3 Code: 12448-1 Heart Rate 1: 83 bpm Height: 5'6" SpO2: 98% Weight: 237 lbs 8 oz 03/03/2016 Blood Pressure 1: 130/80 Code: 8480-6 BMI: 38.4 Code: 35022-7 Heart Rate 1: 86 bpm Height: 5'6" SpO2: 96% Weight: 238 lbs 12/21/2015 Blood Pressure 1: 148/84 Code: 8480-6 BMI: 38.4 Code: 27943-9 Heart Rate 1: 94 bpm Height: 5'6" SpO2: 98% Weight: 238 lbs 06/22/2015 Blood Pressure 1: 128/74 Code: 8480-6 BMI: 37.4 Code: 60369-7 Heart Rate 1: 82 bpm Height: 5'6" SpO2: 98% Weight: 232 lbs 03/19/2015 Blood Pressure 1: 122/72 Code: 8480-6 BMI: 37.9 Code: 30436-6 Heart Rate 1: 80 bpm Height: 5'6" SpO2: 97% Weight: 235 lbs 01/22/2015 Blood Pressure 1: 122/80 Code: 8480-6 BMI: 38.6 Code: 91687-3 Heart Rate 1: 78 bpm Height: 5'6" SpO2: 98% Weight: 239 lbs 12/22/2014 Blood Pressure 1: 110/80 Code: 8480-6 BMI: 38.1 Code: 75968-9 Heart Rate 1: 76 bpm Height: 5'6" Weight: 236 lbs 06/19/2014 Blood Pressure 1: 122/74 Code: 8480-6 BMI: 36.8 Code: 60609-8 Heart Rate 1: 86 bpm Height: 5'6" Weight: 228 lbs 03/19/2014 Blood Pressure 1: 122/78 Code: 8480-6 BMI: 36.6 Code: 78695-0 Heart Rate 1: 80 bpm Height: 5'6" Weight: 227 lbs 09/25/2013 Blood Pressure 1: 130/70 Code: 8480-6 BMI: 37.1 Code: 07614-0 Heart Rate 1: 80 bpm Height: 5'6" SpO2: 98% Weight: 230 lbs 06/25/2013 Blood Pressure 1: 126/76 Code: 8480-6 BMI: 38.1 Code: 40562-5 Heart Rate 1: 76 bpm Height: 5'6" Weight: 236 lbs 06/10/2013 Blood Pressure 1: 128/76 Code: 8480-6 BMI: 38.1 Code: 03022-0 Heart Rate 1: 80 bpm Height: 5'6" [...] data Encounters Encounter Performer Location Codes Date ([id number]) PREV VISIT EST AGE 40-64 Diagnosis: Encounter for general adult medical examination without abnormal findings[ICD10: Z00.00] Diagnosis: Atrophy of thyroid (acquired)[ICD10: E03.4] [facility] CPT-4: 01702 11/29/2017 [id number] EST. PATIENT, LEVEL III Diagnosis: Acute laryngopharyngitis[ICD10: J06.0] Diagnosis: Other allergic rhinitis[ICD10: J30.89] Diagnosis: Cough[ICD10: R05] [facility] CPT-4: 36509 07/04/2017 ([id number]) PREV VISIT EST AGE 40-64 Diagnosis: Encounter for general adult medical examination without abnormal findings[ICD10: Z00.00] [facility] CPT-4: 04220 05/31/2017 ([id number]) 14289 EST. PATIENT, LEVEL IV Diagnosis: Type 2 diabetes mellitus without complications[ICD10: E11.9] Diagnosis: Atrophy of thyroid (acquired)[ICD10: E03.4] [facility] CPT-4: 55039 11/28/2016 ([id number]) PREV VISIT EST AGE 40-64 Diagnosis: Encounter for general adult medical examination without abnormal findings[ICD10: Z00.00] Diagnosis: Type 2 diabetes mellitus without complications[ICD10: E11.9] Diagnosis: Atrophy of thyroid (acquired)[ICD10: E03.4] Diagnosis: Gastro-esophageal reflux disease without esophagitis[ICD10: K21.9] KATH Araujo MD CPT-4: 54981 07/28/2016 ([id number]) 38912 EST. PATIENT, LEVEL III Diagnosis: Gastro-esophageal reflux disease without esophagitis[ICD10: K21.9] [facility] CPT-4: 30380 06/06/2016 ([id number]) 93882 EST. PATIENT, LEVEL IV Diagnosis: Type 2 diabetes mellitus without complications[ICD10: E11.9] Diagnosis: Atrophy of thyroid (acquired)[ICD10: E03.4] Diagnosis: Encounter for immunization[ICD10: Z23] Diagnosis: Other vitamin B12 deficiency anemias[ICD10: D51.8] [facility] CPT-4: 90809 04/20/2016 ([id number]) 08921 EST. PATIENT, LEVEL III Diagnosis: Hypothyroidism, unspecified[ICD10: E03.9] Diagnosis: Other fatigue[ICD10: R53.83] [facility] CPT-4: 00388 03/03/2016 ([id number]) 57160 EST. PATIENT, LEVEL IV Diagnosis: Type 2 diabetes mellitus without complications[ICD10: E11.9] Diagnosis: Hypothyroidism, unspecified[ICD10: E03.9] [facility] CPT-4: 79078 12/21/2015 ([id number]) 10631 EST. PATIENT, LEVEL III Diagnosis: Type 2 diabetes mellitus without complications[ICD10: E11.9] Diagnosis: Hypothyroidism, unspecified[ICD10: E03.9] [facility] CPT-4: 09006 06/22/2015 ([id number]) PREV VISIT EST AGE 40-64 Diagnosis: Routine medical exam[ICD9: V70.0] [facility] CPT- 4: 94004 03/19/2015 ([id number]) 60483 EST. PATIENT, LEVEL III Diagnosis: EDEMA[ICD9: 782.3] Macey Schwab MD, [facility] CPT-4: 85777 01/22/2015 ([id number]) 31578 EST. PATIENT, LEVEL IV Diagnosis: Hypothyroidism[ICD9: 244.9] Diagnosis: DIABETES TYPE II[ICD9: 250.00] Macey Schwba MD, [facility] CPT-4: 54856 12/22/2014 ([id number]) 53829 EST. PATIENT, LEVEL III Diagnosis: Hypothyroidism[ICD9: 244.9] Diagnosis: DIABETES TYPE II[ICD9: 250.00] Diagnosis: Osteoarthritis[ICD9: 715.90] Saniya Schwab MD, [facility] CPT-4: 51254 06/19/2014 ([id number]) 79307 EST. PATIENT, LEVEL IV Diagnosis: DIABETES TYPE II[ICD9: 250.00] Diagnosis: Hypothyroidism[ICD9: 244.9] Saniya Schwab MD, [facility] CPT-4: 58816 03/19/2014 ([id number]) 63244 EST. PATIENT, LEVEL IV Diagnosis: HYPOTHYROIDISM[ICD9: 244.9] Diagnosis: DIABETES TYPE II[SNOMED: [id number]] Saniya Schwab MD, [facility] CPT- 4: 48968 09/25/2013 ([id number]) 89213 EST. PATIENT, LEVEL IV Diagnosis: Hypothyroidism[ICD9: 244.9] Diagnosis: Elevated blood sugar[ICD9: 790.29] Saniya Schwab MD, [facility] CPT- 4: 05961 06/25/2013 ([id number]) OFFICE VISIT, NEW - LEVEL 3 Diagnosis: Osteoarthritis[ICD9: 715.90] Diagnosis: Knee pain, bilateral[ICD9: 719.46] Diagnosis: OBESITY[ICD9: 278.00] Diagnosis: Encounter for long-term (current) use of other medications[ICD9: V58.69] Saniya Schwab MD, [facility] CPT-4: 62377 06/10/2013 Plan of Care Planned Activity Notes [...] home. 11/29/2017 [phone] ([facility] min) Moderate 11/29/2017 Patient Education: [...] allergy spray. 07/04/2017 [phone] ([facility] Complex 07/04/2017 Patient Education: Patient [...] weekly. 05/31/2017 Appointment: Saniya Schwab WPtel: [phone] [facility] (15 min) Moderate 05/31/2017 Patient Education: Patient [...] controlled. 11/28/2016 Appointment: [facility] [phone] [facility] (15 min) Moderate 11/28/2016 Patient Education: Patient Medication Summary Completed 11/28/2016 Appointment: [facility] [phone] [facility] (15 min) Moderate 11/21/2016 Patient Education: [...] improving. 07/28/2016 App[facility]ment: [phone] [facility] (15 min) Moderate 07/28/2016 Patient Education: Patient Medication Summary Completed 07/28/2016 Visit Plan: Esophageal Reflux - the patient has been counseled against excessive intake of caffeine, spicy foods, peppermint, and cinnamon - all of which can exacerbate esophageal reflux. The patient is to take med ications as prescribed and call the office if the symptoms are not improving. 06/06/2016 [facility]ment: [phone] [place] (15 min) Moderate 06/06/2016 Patient Education: [...] VITAMIN 03/03/2016 App[facility]ment: [phone] [place] (30 min) Complex 03/03/2016 [...] controlled. 12/21/2015 Appointment: [facility] [phone] [facility] [place] (15 min) Moderate 12/21/2015 Patient Education: Patient [...] control. 06/22/2015 Appointment: Saniya Schwab WPtel: [phone] [facility] (15 min) Moderate 06/22/2015 Patient Education: Patient [...] of control. 03/19/2015 Appointment: Saniya Schwab WPtel: [phone] [facility] Follow up 03/19/2015 Patient Education: Patient Medication [...] months based on previous levels of control. Tlhsfq-nfloiag-huxilrgdk name brand Synthroid Keep food diary-call in [...] months based on previous levels of control. Nevpmn-ybdasuv-zusorzbnc name brand Synthroid Keep food diary-call in [...] months based on previous levels of control. Ajrrxz-qkcefhi-oyyzsltoo name brand Synthroid Keep food diary-call in 2 weeks to discuss Monitor blood sugars when not feeling well 12/22/2014 Patient Education: Patient Medication Summary Completed 12/22/2014 Appointment: Saniya Schwab WPtel: [phone] [facility] Follow up 12/16/2014 Visit Plan: Hypothyroidism - [...] to clinic. 06/19/2014 Appointment: Saniya Schwab WPtel: [facility] [place] [phone] Follow up 06/19/2014 Patient Education: Patient Medication [...] of control. 03/19/2014 Appointment: Saniya Schwab WPtel: [phone] [facility] Follow up 03/19/2014 Patient Education: Patient Medication [...] synthroid. 09/25/2013 App[facility]ment: [phone] [facility] Follow [facility] 09/25/2013 Patient Education: Patient [...] 25MCG DAILY 06/25/2013 [facility]ment[phone] Diabetic education 06/25/2013 Patient Education: Patient Medication [...] as her records and labs from her clinical editor do not show any acute worried for renal function. Obesity - chronic issue with this patient. The pt has been counseled about diet changes, calorie restriction, and need to exercise. Pt will RTC in one month for weight check. 06/10/2013 Appointment: [facility]elinSaniya [phone] [facility] [place] New Patient 06/10/2013 Patient Education: Patient Medication [...] on previous levels of control. REFER TO ENGINEERING PROFESSOR AT THE HOSPITAL WEAR COMPRESSION STOCKINGS WHEN [...] months based on previous levels of control. Jpjswm-dstkgiq-pepeowoli name brand Synthroid Keep food diary-call in [...] months based on previous levels of control. Kzchzr-rvsvayu-ngkjeduyj name brand Synthroid Keep food diary-call in [...] months based on previous levels of control. Kruhww-rvymtbj-ytalgoawf name brand Synthroid Keep food diary-call in [...] as her records and labs from her clinical editor do not show any acute worried for [...]
--- OUTSIDE RECORDS SUMMARY | 2019-01-18 09:20 | XMS REPORT | CCD ---
Author Author [facility] Organization [facility] Address [address] [place] [address] Phone Care Team Providers Care Faculty Criminal Justice Name Role Phone PP Unavailable CCM Unavailable Summary Purpose Interface Exchange Insurance Providers Payer name Policy type / Coverage type Covered libertarian ID Effective Begin Date Effective End Date Blue Cross [facility] Blue Cross/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 Marital status Unknown Single 06/10/[address]: 3136603 Former smoker 06/10/[address]: 1287111 Former smoker quit 200606/10/2013 Number of years using tobacco Unknown 1 smoked a few months 06/10/2013 Alcohol history Unknown occasionally drinks alcohol 06/10/2013 Alcohol history Unknown occasionally drinks alcohol 06/10/2013 Frequency of drinks SNOMED CT: 122814783 Drinks rarely 1/month 06/10/2013 Allergies, Adverse Reactions, Alerts Allergies, Adverse Reactions, Alerts data not found Past Medical History Illness Codes Condition Status Onset Date Resolved Date Acute laryngopharyngitis ICD-9: 465.0 ICD-10: J06.0 Active 07/04/2017 Unknown Cough ICD-9: 786.2 ICD-10: R05 Active 07/04/2017 Unknown Other allergic rhinitis ICD-9: 477.8 ICD-10: J30.89 Active 07/04/2017 Unknown Atrophy of thyroid (acquired) ICD-9: 244.8 ICD-10: E03.4 Active 04/19/2016 Unknown Encounter for general adult medical examination without abnormal findings ICD-9: V70.0 ICD-10: Z00.00 Active 05/31/2017 Unknown Other disturbances of skin sensation ICD-9: 782.0 ICD-10: R20.8 Active 05/31/2017 Unknown Other vitamin B12 deficiency anemias ICD-9: 281.1 ICD-10: D51.8 Active 05/18/2016 Unknown Type 2 diabetes mellitus without complications ICD-9: 250.00 ICD-10: E11.9 Active 03/19/2014 Unknown Hypothyroidism, unspecified ICD-9: 244.9 ICD-10: E03.9 [...] Problems Condition Codes Effective Dates Condition Status Acute laryngopharyngitis ICD-9: 465.0 ICD-10: J06.0 07/04/2017 Active Cough ICD-9: 786.2 ICD-10: R05 07/04/2017 Active Other allergic rhinitis ICD-9: 477.8 ICD-10: J30.89 07/04/2017 Active Atrophy of thyroid (acquired) ICD-9: 244.8 ICD-10: E03.4 04/19/2016 Active Encounter for general adult medical examination without abnormal findings ICD-9: V70.0 ICD-10: Z00.00 05/31/2017 Active Other disturbances of skin sensation ICD-9: 782.0 ICD-10: R20.8 05/31/2017 Active Other vitamin B12 deficiency anemias ICD-9: 281.1 ICD-10: D51.8 05/18/2016 Active Type 2 diabetes mellitus without complications ICD-9: 250.00 ICD-10: E11.9 03/19/2014 Active Hypothyroidism, unspecified ICD-9: 244.9 ICD-10: E03.9 [...] Instructions omeprazole 20 mg capsule,delayed release RxNorm: 067306 1 Tablet(s) PO BID 09/11/2017 09/05/2018 Active Zithromax Z-Mike 250 mg tablet RxNorm: 328173 1 Tablet(s) PO UD 07/27/2017 No Stop Date Active zpack as directed Flonase Allergy Relief 50 mcg/actuation nasal spray,suspension RxNorm: 2379923 1 [place] NASAL BID 07/04/2017 No Stop Date Active amoxicillin 500 mg tablet RxNorm: 769709 1 Tablet(s) PO TID 07/04/2017 07/13/2017 Inactive Synthroid 100 mcg tablet RxNorm: 452267 TAKE 1 TABLET BY MOUTH DAILY MONDAY THRU Monday06/19/2017 12/15/2017 Active 06/19/2017 9:33:46 AM cyanocobalamin (vit B-12) 1,000 mcg/mL injection solution RxNorm: 415339 1 Milliliter(s) Inj [id number] 05/31/2017 08/23/2018 Active multidose vial if available, if not do a 3 month supply Synthroid 88 mcg tablet RxNorm: 686838 1 Tablet(s) PO BIW on Sat and Sun 05/19/2017 09/15/2017 Active FERNANDO-1 ok for 90 day supply if she wants it Lancets,Thin RxNorm: USE TO TEST TWICE DAILY DIRECTED 05/08/2017 12/28/2018 Active 05/08/2017 9:20:31 AM Breeze 2 Test Strips RxNorm: USE TO TEST BLOOD GLUCOSE TWICE WEEKLY OR DIRECTED 05/08/2017 02/05/2023 Active 05/08/2017 9:20:48 AM Synthroid 100 mcg tablet RxNorm: 100338 TAKE 1 TABLET BY MOUTH DAILY MONDAY THRU Monday02/14/2017 06/18/2017 Inactive 02/14/2017 7:59:51 AM N O T I C E Last quantity doesn't match original quantity amoxicillin 500 mg tablet RxNorm: 458400 2 Tablet(s) PO prior to dental or other procedures and then 2 tabs 4 hours after procedure 11/28/2016 07/03/2017 Inactive cyanocobalamin (vit B-12) 1,000 mcg/mL injection solution RxNorm: 813111 1 Milliliter(s) Inj month 11/28/2016 05/30/2017 Inactive multidose vial if available, if not do a 3 month supply Synthroid 88 mcg tablet RxNorm: 165350 1 Tablet(s) PO BIW on Sat and Sun 09/16/2016 01/13/2017 Inactive FERNANDO-1 ok for 90 day supply if she wants it Synthroid 100 mcg tablet RxNorm: 588190 1 Tablet(s) PO daily Mon thru Mon08/09/2016 12/06/2016 Inactive FERNANDO-1 can have 90 day supply if she wants it omeprazole 20 mg capsule,delayed release RxNorm: 003030 1 Tablet(s) PO BID 07/28/2016 07/22/2017 Inactive Dexilant 60 mg capsule, delayed release RxNorm: 008111 1 Capsule(s) PO daily 06/27/2016 06/26/2016 Inactive Dexilant 60 mg capsule, delayed release RxNorm: 173087 1 Capsule(s) PO daily 06/27/2016 07/27/2016 Inactive cyanocobalamin (vit B-12) 1,000 mcg/mL injection solution RxNorm: 148903 Milliliter(s) Inj 05/19/2016 05/19/2016 Inactive cyanocobalamin (vit B-12) 1,000 mcg/mL injection solution RxNorm: 268415 1 Milliliter(s) Inj 04/20/2016 04/20/2016 Inactive Synthroid 100 mcg tablet RxNorm: 551865 1 Tablet(s) PO daily Mon thru Mon03/03/2016 06/30/2016 Inactive FERNANDO-1 can have 90 day supply if she wants it Synthroid 88 mcg tablet RxNorm: 832614 1 Tablet(s) PO UD take on Sat and Sun 03/03/2016 03/02/2016 Inactive Synthroid 88 mcg tablet RxNorm: 508386 1 Tablet(s) PO UD take on Sat and Sun 03/03/2016 06/30/2016 Inactive FERNANDO-1 ok for 90 day supply if she wants it Synthroid 100 mcg tablet RxNorm: 032825 1 Tablet(s) PO daily Mon thru Mon03/03/2016 03/02/2016 Inactive FERNANDO-1 Breeze 2 Test Strips RxNorm: Miscellaneous test twice weekly or ud 02/29/2016 05/07/2017 Inactive dx- 250.00 levothyroxine 88 mcg tablet RxNorm: 502002 1 Tablet(s) BIW on Monday, Monday12/21/2015 03/02/2016 Inactive loratadine 10 mg capsule RxNorm: 814937 1 Capsule(s) PO daily as needed 12/21/2015 06/05/2016 Inactive levothyroxine 100 mcg tablet RxNorm: 403323 1 Tablet(s) PO daily oon Monday through Monday12/21/2015 03/02/2016 Inactive levothyroxine 100 mcg tablet RxNorm: 024398 1 Tablet(s) PO UD on Monday06/22/2015 12/20/2015 Inactive levothyroxine 88 mcg tablet RxNorm: 902066 1 Tablet(s) UD on Monday, , Monday, Monday06/22/2015 12/20/2015 Inactive levothyroxine 88 mcg tablet RxNorm: 723942 1 Tablet(s) UD on Monday, , Monday, Monday03/19/2015 06/21/2015 Inactive levothyroxine 100 mcg tablet RxNorm: 722203 1 Tablet(s) PO UD on Monday03/19/2015 06/21/2015 Inactive Lasix 20 mg tablet RxNorm: 392414 1/2-1 Tablet(s) PO QDAY PRN 01/22/2015 01/26/2015 Inactive potassium chloride ER 10 mEq capsule,extended release RxNorm: 959915 1 Capsule(s) PO QDAY PRN 01/22/2015 06/05/2016 Inactive take with lasix (furosemide) levothyroxine 88 mcg tablet RxNorm: 882648 1 Tablet(s) PO daily 12/22/2014 03/18/2015 Inactive Breeze 2 Test Strips RxNorm: Miscellaneous test twice weekly or ud 10/22/2014 03/20/2015 Inactive dx- 250.00 Breeze 2 Test Strips RxNorm: Miscellaneous test twice weekly or ud 10/22/2014 10/21/2014 Inactive dx- 250.00 levothyroxine 88 mcg tablet RxNorm: 473454 1 Tablet(s) PO daily 09/22/2014 12/20/2014 Inactive Synthroid 100 mcg tablet RxNorm: 097677 1 Tablet(s) PO daily 06/19/2014 09/21/2014 Inactive Lancets,Thin RxNorm: 1 Miscellaneous BID 03/24/2014 04/22/2014 Inactive Synthroid 75 mcg tablet RxNorm: 326310 1 Tablet(s) PO daily 03/19/2014 06/18/2014 Inactive Breeze 2 Test Strips RxNorm: 1 Miscellaneous BID 03/19/2014 04/17/2014 Inactive Breeze 2 Test Strips RxNorm: 1 Miscellaneous BID 03/19/2014 03/18/2014 Inactive Synthroid 75 mcg tablet RxNorm: 742692 1 Tablet(s) PO daily 12/16/2013 03/18/2014 Inactive Synthroid 75 mcg tablet RxNorm: 171227 1 Tablet(s) PO daily 12/16/2013 12/15/2013 Inactive Synthroid 50 mcg tablet RxNorm: 409382 1 Tablet(s) PO daily 09/16/2013 12/15/2013 Inactive Synthroid 25 mcg tablet RxNorm: 144650 1 Tablet(s) PO daily 06/25/2013 09/15/2013 Inactive Glucosamine 1500 Complex 500 mg-400 mg capsule RxNorm: 1 Capsule(s) PO daily No Start Date Active Enbrel 50 mg/mL (0.98 mL) subcutaneous syringe RxNorm: 524651 Milliliter(s) SQ weekly No Start Date Active Multiple Vitamins chewable tablet RxNorm: 1 Tablet(s) PO daily No Start Date Active Vitamin B-12 5,000 mcg sublingual tablet RxNorm: 559691 1 Tablet(s) SL daily No Start Date Active Celebrex 200 mg capsule RxNorm: 732939 1 Capsule(s) PO daily No Start Date Active Tylenol 325 mg tablet RxNorm: 474547 Tablet(s) PO as needed No Start Date Active Zithromax Z-Mike 250 mg tablet RxNorm: 965223 1 Tablet(s) PO UD No Start Date 07/26/2017 Inactive zpack as directed oxycodone 5 mg tablet RxNorm: 6325227 1/2-1 Tablet(s) PO daily as needed No Start Date 06/18/2014 Inactive loratadine 10 mg capsule RxNorm: 650478 1 Capsule(s) PO daily No Start Date 12/20/2015 Inactive Synthroid 50 mcg tablet RxNorm: 591796 1 Tablet(s) PO daily No Start Date 09/15/2013 Inactive sulfasalazine 500 mg tablet RxNorm: 5724249 1 Tablet(s) PO daily No Start Date 01/21/2015 Inactive ibuprofen 600 mg tablet RxNorm: 312871 1 Tablet(s) PO BID PRN No Start Date 03/18/2014 Inactive Medication Administered Medication Codes Instructions Start Date Status cyanocobalamin (vit B-12) 1,000 mcg/mL injection solution RxNorm: 178826 Milliliter 05/19/2016 No longer Active cyanocobalamin (vit B-12) 1,000 mcg/mL injection solution RxNorm: 079264 1Milliliter 04/20/2016 No longer Active Immunizations Vaccine Codes Date Status Influenza CVX: 141 05/19/2016 completed Pneumococcal (Adult) CVX: 33 04/20/2016 completed Influenza CVX: 141 06/16/2014 completed Influenza CVX: 141 06/25/2013 completed Assessments Condition Codes Effective Dates Acute laryngopharyngitis ICD-10: J06.0 ICD-9: 465.0 07/04/2017 Cough ICD-10: R05 ICD-9: 786.2 07/04/2017 Other allergic rhinitis ICD-10: J30.89 ICD-9: 477.8 07/04/2017 Type 2 diabetes mellitus without complications ICD-10: E11.9 ICD-9: 250.00 05/31/2017 Other disturbances of skin sensation ICD-10: R20.8 ICD-9: 782.0 05/31/2017 Other vitamin B12 deficiency anemias ICD-10: D51.8 ICD-9: 281.1 05/31/2017 Encounter for general adult medical examination without abnormal findings ICD-10: Z00.00 ICD-9: V70.0 05/31/2017 Atrophy of thyroid (acquired) ICD-10: E03.4 ICD-9: 244.8 05/31/2017 Hypothyroidism, unspecified ICD-10: E03.9 ICD-9: 244.9 [...] 06/19/2014 Elevated blood sugar ICD-9: 790.29 06/25/2013 Encounter for long-term (current) use of other medications ICD- 9: V58.69 06/10/2013 Knee pain, bilateral ICD-9: 719.46 06/10/2013 OBESITY ICD-9: 278.00 06/10/2013 Reason For Visit Reason For Visit Effective Dates Notes sinus congestion 07/04/2017 hypothyroid 05/31/2017 hypothyroid 11/28/2016 sinus congestion 07/28/2016 abdominal pain 06/06/2016 vaccination against influenza 05/19/2016 hypothyroid 04/20/2016 fatigue 03/03/2016 hypothyroid 12/21/2015 hypothyroid 06/22/2015 hypothyroid 03/19/2015 edema 01/22/2015 hypothyroid 12/22/2014 hypothyroid 06/19/2014 hypothyroid 03/19/2014 medication follow up 09/25/2013 hypothyroid 06/25/2013 knee pain 06/10/2013 Results Observation Observation Code Item Item Code Result Date C RAP A [place] 9945053 Strep A Negative 07/04/2017 Cbc With Differential Ord2 WBC 5.98 K/ul 05/29/2017 Cbc With Differential Ord2 RBC 4.56 M/ul 05/29/2017 Cbc With Differential Ord2 HGB 13.0 g/dl 05/29/2017 Cbc With Differential Ord2 Neut% 54.4 % 05/29/2017 Cbc With Differential Ord2 HCT 39.2 % 05/29/2017 Cbc With Differential Ord2 Lymph% 36.3 % 05/29/2017 Cbc With Differential Ord2 MCV 86.0 fl 05/29/2017 Cbc With Differential Ord2 MCH 28.5 pg 05/29/2017 Cbc With Differential Ord2 [place]% 6.2 % 05/29/2017 Cbc With Differential Ord2 Eos% 2.8 % 05/29/2017 Cbc With Differential Ord2 MCHC 33.2 pg 05/29/2017 Cbc With Differential Ord2 PLT 240 K/ul 05/29/2017 Cbc With Differential Ord2 Baso% 0.3 % 05/29/2017 Cbc With Differential Ord2 RDW 13.9 % 05/29/2017 Cbc With Differential Ord2 Neut ABS# 3.25 K/ul 05/29/2017 Cbc With Differential Ord2 Lymph ABS# 2.17 K/ul 05/29/2017 Cbc With Differential Ord2 [place] ABS# 0.4 K/ul 05/29/2017 Cbc With Differential Ord2 Eos ABS# 0.2 K/ul 05/29/2017 Cbc With Differential Ord2 Baso ABS# 0.0 K/ul 05/29/2017 %Hba1C Coh560 % HbA1c 92860- 6 6.3 % 05/29/2017 %Hba1C Xro218 Gluc Ave 134 mg/dL 05/29/2017 Comp Metabolic Jnw948 NA 137 mEq/L 05/29/2017 Comp Metabolic Bwx835 K 4.2 mEq/L 05/29/2017 Comp Metabolic Mdi150 CL 101 mEq/L 05/29/2017 Comp Metabolic Jcn263 CO2 27.0 mEq/L 05/29/2017 Comp Metabolic Vfj911 ANION GAP 13 05/29/2017 Comp Metabolic Tig438 GLUCOSE 133 mg/dL 05/29/2017 Comp Metabolic Rra194 Creat 0.8 mg/dL 05/29/2017 Comp Metabolic Lcp252 eGFR 80 ml/min/1.73m2 05/29/2017 Comp Metabolic Fea467 BUN 17 mg/dL 05/29/2017 Comp Metabolic Seo318 B/C Ratio 21.3 Ratio 05/29/2017 Comp Metabolic Qgr264 CALCIUM 9.3 mg/dL 05/29/2017 Comp Metabolic Ytu932 ALK PHOS 53 U/L 05/29/2017 Comp Metabolic Uhb944 AST(SGOT) 17 U/L 05/29/2017 Comp Metabolic Vcw768 ALT(SGPT) 28 U/L 05/29/2017 Comp Metabolic Xzo512 BILI T 0.3 mg/dL 05/29/2017 Comp Metabolic Gfr751 ALBUMIN 4.2 g/dL 05/29/2017 Comp Metabolic Cei079 TPRO 6.5 g/dL 05/29/2017 Comp Metabolic Oqd651 GLOB 2.3 g/dL 05/29/2017 Comp Metabolic Avp881 A/G Ratio 1.8 Ratio 05/29/2017 Comp Metabolic Rqj008 Osmo 277 mOsmo 05/29/2017 Free T4 Mcn744 FREE T4 1.05 ng/dL 05/29/2017 Lipid Ord30 CHOL 163 mg/dL 05/29/2017 Lipid Ord30 HDL 53.0 mg/dl 05/29/2017 Lipid Ord30 TRIG 96 mg/dL 05/29/2017 Lipid Ord30 LDL 91 mg/dL 05/29/2017 Lipid Ord30 C/HDL 3.1 Ratio 05/29/2017 Tsh Ord6 hTSH II 0.91 uIU/mL 05/29/2017 Free T4 Wbb426 FREE T4 0.81 ng/dL 11/28/2016 Comp Metabolic Rhy246 NA 134 mEq/L 11/28/2016 Comp Metabolic Xju720 K 3.8 mEq/L 11/28/2016 Comp Metabolic Ffx870 CL 98 mEq/L 11/28/2016 Comp Metabolic Cwe304 CO2 28.0 mEq/L 11/28/2016 Comp Metabolic Qfm174 ANION GAP 12 11/28/2016 Comp Metabolic Xgf615 GLUCOSE 156 mg/dL 11/28/2016 Comp Metabolic Wxw099 Creat 0.8 mg/dL 11/28/2016 Comp Metabolic Gbr704 eGFR 75 ml/min/1.73m2 11/28/2016 Comp Metabolic Bka283 BUN 15 mg/dL 11/28/2016 Comp Metabolic Axc298 B/C Ratio 17.9 Ratio 11/28/2016 Comp Metabolic Dew966 CALCIUM 9.3 mg/dL 11/28/2016 Comp Metabolic Rek622 ALK PHOS 55 U/L 11/28/2016 Comp Metabolic Btq547 AST(SGOT) 17 U/L 11/28/2016 Comp Metabolic Sxn333 ALT(SGPT) 26 U/L 11/28/2016 Comp Metabolic Xcy621 BILI T 0.4 mg/dL 11/28/2016 Comp Metabolic Ynz189 ALBUMIN 4.2 g/dL 11/28/2016 Comp Metabolic Jeb977 TPRO 6.6 g/dL 11/28/2016 Comp Metabolic Fva817 GLOB 2.4 g/dL 11/28/2016 Comp Metabolic Gkm369 A/G Ratio 1.8 Ratio 11/28/2016 Comp Metabolic Eui000 Osmo 272 mOsmo 11/28/2016 B12 Chp429 B12 >1500.00 pg/ml 11/28/2016 Tsh Ord6 hTSH II 3.96 uIU/mL 11/28/2016 Cbc With Differential Ord2 WBC 7.25 K/ul 11/28/2016 Cbc With Differential Ord2 RBC 4.68 M/ul 11/28/2016 Cbc With Differential Ord2 HGB 13.3 g/dl 11/28/2016 Cbc With Differential Ord2 HCT 40.4 % 11/28/2016 Cbc With Differential Ord2 Neut% 58.8 % 11/28/2016 Cbc With Differential Ord2 Lymph% 31.7 % 11/28/2016 Cbc With Differential Ord2 MCV 86.3 fl 11/28/2016 Cbc With Differential Ord2 [place]% 6.2 % 11/28/2016 Cbc With Differential Ord2 [...] 2.30 K/ul 11/28/2016 Cbc With Differential Ord2 [place] ABS# 0.5 K/ul 11/28/2016 Cbc With Differential Ord2 Eos ABS# 0.2 K/ul 11/28/2016 Cbc With Differential Ord2 Baso ABS# 0.0 K/ul 11/28/2016 %Hba1C Okh912 % HbA1c 64673- 6 6.3 % 11/28/2016 %Hba1C Mcz600 Gluc Ave 134 mg/dL 11/28/2016 Free T4 Vox134 FREE T4 0.85 ng/dL 07/27/2016 %Hba1C Wcn134 % HbA1c 35416- 6 6.1 % 07/27/2016 %Hba1C Vpm731 Gluc Ave 128 mg/dL 07/27/2016 Tsh Ord6 hTSH II 0.69 uIU/mL 07/27/2016 Cbc With Differential Ord2 WBC 5.62 [...] 28.8 pg 07/27/2016 Cbc With Differential Ord2 [place]% 6.0 % 07/27/2016 Cbc With Differential Ord2 [...] 2.41 K/ul 07/27/2016 Cbc With Differential Ord2 [place] ABS# 0.3 K/ul 07/27/2016 Cbc With Differential Ord2 Eos ABS# 0.1 K/ul 07/27/2016 Cbc With Differential Ord2 Baso ABS# 0.0 K/ul 07/27/2016 Helicobacter Pylori Iga 208393 H. PYLORI AB, IgA <9.0 units 06/10/2016 Helicobacter Pylori Igm Ab 446324 H. PYLORI AB, IgM <9.0 units 06/10/2016 H. Pylori Igg Abs 354475 H. PYLORI AB, IgG 0.2 INDEX 06/07/2016 H. Pylori Igg Abs 980955 06/07/2016 Cbc With Differential Ord2 WBC 5.29 K/ul 04/20/2016 Cbc With Differential Ord2 RBC 4.43 M/ul 04/20/2016 Cbc With Differential Ord2 HGB 12.8 g/dl 04/20/2016 Cbc With Differential Ord2 HCT 39.1 % 04/20/2016 Cbc With Differential Ord2 Neut% 46.9 % 04/20/2016 Cbc With Differential Ord2 MCV 88.3 fl 04/20/2016 Cbc With Differential Ord2 Lymph% 41.0 % 04/20/2016 Cbc With Differential Ord2 [place]% 8.5 % 04/20/2016 Cbc With Differential Ord2 [...] 2.17 K/ul 04/20/2016 Cbc With Differential Ord2 [place] ABS# 0.5 K/ul 04/20/2016 Cbc With Differential Ord2 Eos ABS# 0.2 K/ul 04/20/2016 Cbc With Differential Ord2 Baso ABS# 0.0 K/ul 04/20/2016 Lipid Ord30 CHOL 157 mg/dL 04/20/2016 Lipid Ord30 HDL 47.0 mg/dl 04/20/2016 Lipid Ord30 TRIG 143 mg/dL 04/20/2016 Lipid Ord30 LDL 81 mg/dL 04/20/2016 Lipid Ord30 C/HDL 3.3 Ratio 04/20/2016 %Hba1C Bcw700 % HbA1c 19507- 6 6.2 % 04/20/2016 %Hba1C Fxh220 Gluc Ave 131 mg/dL 04/20/2016 Comp Metabolic Vem685 NA 133 mEq/L 04/20/2016 Comp Metabolic Phz784 K 4.3 mEq/L 04/20/2016 Comp Metabolic Ctb153 CL 100 mEq/L 04/20/2016 Comp Metabolic Jih418 CO2 28.0 mEq/L 04/20/2016 Comp Metabolic Jpc682 ANION GAP 9 04/20/2016 Comp Metabolic Vpj423 GLUCOSE 139 mg/dL 04/20/2016 Comp Metabolic Guu173 Creat 0.8 mg/dL 04/20/2016 Comp Metabolic Hwh946 eGFR 85 ml/min/1.73m2 04/20/2016 Comp Metabolic Sts086 BUN 16 mg/dL 04/20/2016 Comp Metabolic Wnj426 B/C Ratio 21.1 Ratio 04/20/2016 Comp Metabolic Psf718 CALCIUM 9.1 mg/dL 04/20/2016 Comp Metabolic Ahu703 ALK PHOS 45 U/L 04/20/2016 Comp Metabolic Kia055 AST(SGOT) 16 U/L 04/20/2016 Comp Metabolic Dlm739 ALT(SGPT) 29 U/L 04/20/2016 Comp Metabolic Uxo315 BILI T 0.5 mg/dL 04/20/2016 Comp Metabolic Sun579 ALBUMIN 4.2 g/dL 04/20/2016 Comp Metabolic Zti807 TPRO 6.7 g/dL 04/20/2016 Comp Metabolic Yki168 GLOB 2.5 g/dL 04/20/2016 Comp Metabolic Bqj990 A/G Ratio 1.7 Ratio 04/20/2016 Comp Metabolic Mus582 Osmo 270 mOsmo 04/20/2016 Cbc With Differential Ord2 WBC 4.74 [...] 29.2 pg 03/03/2016 Cbc With Differential Ord2 [place]% 6.3 % 03/03/2016 Cbc With Differential Ord2 MCHC 32.9 pg 03/03/2016 Cbc With Differential Ord2 Eos% 2.7 % 03/03/2016 Cbc With Differential Ord2 Baso% 0.2 % 03/03/2016 Cbc With Differential Ord2 PLT 203 K/ul 03/03/2016 Cbc With Differential Ord2 RDW 13.7 % 03/03/2016 Cbc With Differential Ord2 Neut ABS# 2.57 K/ul 03/03/2016 Cbc With Differential Ord2 Lymph ABS# 1.73 K/ul 03/03/2016 Cbc With Differential Ord2 [place] ABS# 0.3 K/ul 03/03/2016 Cbc With Differential Ord2 Eos ABS# 0.1 K/ul 03/03/2016 Cbc With Differential Ord2 Baso ABS# 0.0 K/ul 03/03/2016 Free T4 Nhz950 FREE T4 0.90 ng/dL 03/03/2016 Comp Metabolic Vuk071 NA 135 mEq/L 03/03/2016 Comp Metabolic Pwv361 K 3.7 mEq/L 03/03/2016 Comp Metabolic Bah917 CL 100 mEq/L 03/03/2016 Comp Metabolic Tby467 CO2 29.0 mEq/L 03/03/2016 Comp Metabolic Sgz287 ANION GAP 10 03/03/2016 Comp Metabolic Acm221 GLUCOSE 134 mg/dL 03/03/2016 Comp Metabolic Qai499 Creat 0.7 mg/dL 03/03/2016 Comp Metabolic Dts227 eGFR 93 ml/min/1.73m2 03/03/2016 Comp Metabolic Icj620 BUN 16 mg/dL 03/03/2016 Comp Metabolic Jxe856 B/C Ratio 22.9 Ratio 03/03/2016 Comp Metabolic Whs134 CALCIUM 9.0 mg/dL 03/03/2016 Comp Metabolic Zuu844 ALK PHOS 36 U/L 03/03/2016 Comp Metabolic Apa960 AST(SGOT) 17 U/L 03/03/2016 Comp Metabolic Xdk012 ALT(SGPT) 25 U/L 03/03/2016 Comp Metabolic Jzd051 BILI T 0.4 mg/dL 03/03/2016 Comp Metabolic Tma465 ALBUMIN 4.3 g/dL 03/03/2016 Comp Metabolic Tpk037 TPRO 6.6 g/dL 03/03/2016 Comp Metabolic Eda829 GLOB 2.3 g/dL 03/03/2016 Comp Metabolic Dhg687 A/G Ratio 1.8 Ratio 03/03/2016 Comp Metabolic Zse316 Osmo 273 mOsmo 03/03/2016 Tsh Ord6 hTSH II 2.99 uIU/mL 03/03/2016 Lipid Ord30 CHOL 168 mg/dL 12/21/2015 Lipid Ord30 HDL 61.0 mg/dl 12/21/2015 Lipid Ord30 TRIG 161 mg/dL 12/21/2015 Lipid Ord30 LDL 75 mg/dL 12/21/2015 Lipid Ord30 C/HDL 2.8 Ratio 12/21/2015 Cbc With Differential Ord2 WBC 6.01 [...] 28.5 pg 12/21/2015 Cbc With Differential Ord2 [place]% 5.3 % 12/21/2015 Cbc With Differential Ord2 [...] 2.12 K/ul 12/21/2015 Cbc With Differential Ord2 [place] ABS# 0.3 K/ul 12/21/2015 Cbc With Differential Ord2 Eos ABS# 0.2 K/ul 12/21/2015 Cbc With Differential Ord2 Baso ABS# 0.0 K/ul 12/21/2015 Cbc With Differential Ord2 New Analyzer Notice Please note new ref ranges starting 08-19-2015 due to implemntation of new five part differential hematolgy analyzer. 12/21/2015 Tsh Ord6 hTSH II 4.58 uIU/mL 12/21/2015 %Hba1C Gje761 % HbA1c 71004- 6 6.2 % 12/21/2015 %Hba1C Xiz150 Gluc Ave 131 mg/dL 12/21/2015 Comp Metabolic Ntl978 NA 135 mEq/L 12/21/2015 Comp Metabolic Fwu810 K 4.1 mEq/L 12/21/2015 Comp Metabolic Fia021 CL 100 mEq/L 12/21/2015 Comp Metabolic Hmj116 CO2 29.0 mEq/L 12/21/2015 Comp Metabolic Jwc012 ANION GAP 10 12/21/2015 Comp Metabolic Joh454 GLUCOSE 146 mg/dL 12/21/2015 Comp Metabolic Ske181 Creat 0.8 mg/dL 12/21/2015 Comp Metabolic Pbd848 eGFR 76 ml/min/1.73m2 12/21/2015 Comp Metabolic Scp902 BUN 14 mg/dL 12/21/2015 Comp Metabolic Iju806 B/C Ratio 16.7 Ratio 12/21/2015 Comp Metabolic Qpj057 CALCIUM 9.0 mg/dL 12/21/2015 Comp Metabolic Gvt423 ALK PHOS 47 U/L 12/21/2015 Comp Metabolic Gci844 AST(SGOT) 19 U/L 12/21/2015 Comp Metabolic Jeq484 ALT(SGPT) 31 U/L 12/21/2015 Comp Metabolic Osp340 BILI T 0.4 mg/dL 12/21/2015 Comp Metabolic Ksr245 ALBUMIN 4.1 g/dL 12/21/2015 Comp Metabolic Wvh848 TPRO 6.5 g/dL 12/21/2015 Comp Metabolic Jlf726 GLOB 2.5 g/dL 12/21/2015 Comp Metabolic Ull906 A/G Ratio 1.7 Ratio 12/21/2015 Comp Metabolic Qio645 Osmo 273 mOsmo 12/21/2015 Free T4 Dnx279 FREE T4 0.82 ng/dL 12/21/2015 Free T4 Cam031 FREE T4 1.03 ng/dL 06/22/2015 Tsh Ord6 hTSH II 1.62 uIU/mL 06/22/2015 Tsh Ord6 hTSH II 2.06 uIU/mL 03/18/2015 Lipid Ord30 CHOL 171 mg/dL 03/18/2015 Lipid Ord30 HDL 49.0 mg/dl 03/18/2015 Lipid Ord30 TRIG 169 mg/dL 03/18/2015 Lipid Ord30 LDL 88 mg/dL 03/18/2015 Lipid Ord30 C/HDL 3.5 Ratio 03/18/2015 Comp Metabolic Duj810 NA 135 mEq/L 03/18/2015 Comp Metabolic Lau716 K 4.2 mEq/L 03/18/2015 Comp Metabolic Lpj550 CL 103 mEq/L 03/18/2015 Comp Metabolic Tjf153 CO2 27.0 mEq/L 03/18/2015 Comp Metabolic Euk592 ANION GAP 9 03/18/2015 Comp Metabolic Njy742 GLUCOSE 124 mg/dL 03/18/2015 Comp Metabolic Ode525 Creat 0.8 mg/dL 03/18/2015 Comp Metabolic Duy048 eGFR 78 ml/min/1.73m2 03/18/2015 Comp Metabolic Jnm414 BUN 15 mg/dL 03/18/2015 Comp Metabolic Npo180 B/C Ratio 18.3 Ratio 03/18/2015 Comp Metabolic Kpz079 CALCIUM 9.4 mg/dL 03/18/2015 Comp Metabolic Sfy286 ALK PHOS 42 U/L 03/18/2015 Comp Metabolic Gwe294 AST(SGOT) 14 U/L 03/18/2015 Comp Metabolic Bqi322 ALT(SGPT) 25 U/L 03/18/2015 Comp Metabolic Gmp563 BILI T 0.3 mg/dL 03/18/2015 Comp Metabolic Dzs089 ALBUMIN 4.2 g/dL 03/18/2015 Comp Metabolic Iuo356 TPRO 6.5 g/dL 03/18/2015 Comp Metabolic Rvx576 GLOB 2.3 g/dL 03/18/2015 Comp Metabolic Fsy172 A/G Ratio 1.8 Ratio 03/18/2015 Comp Metabolic Lww808 Osmo 272 mOsmo 03/18/2015 %Hba1C Ejs903 % HbA1c 78885- 6 6.0 % 03/18/2015 %Hba1C Nos876 Gluc Ave 126 mg/dL 03/18/2015 Free T4 Hty271 FREE T4 0.86 ng/dL 03/18/2015 Cbc With Differential Ord2 WBC 5.1 [...] With Differential Ord2 RDW 14.0 % 03/18/2015 Review of Systems System Result Effective Dates Constitutional recent illness 07/04/2017 Constitutional chills 07/04/2017 [...] Result Effective Dates Notes Full Exam - ENT Constitutional general appearance [...] accomodation 03/19/2014 None Full Exam - General 1995 Ears/Nose/Throat lips/teeth/gingiva Overall: benign lips 03/19/2014 None Full Exam - General 1995 Ears/Nose/Throat lips/teeth/gingiva Overall: normal dentition 03/19/2014 None [...] normal 09/25/2013 None Full Exam - General 1995 Eyes pupils and irises Overall: pupils equal, round, reactive to light and accomodation 09/25/2013 None Full Exam - General 1995 Ears/Nose/Throat lips/teeth/gingiva Overall: benign lips 09/25/2013 None Full Exam - General 1995 Ears/Nose/Throat lips/teeth/gingiva Overall: normal dentition 09/25/2013 None [...] normal 06/25/2013 None Full Exam - General 1995 Eyes pupils and irises Overall: pupils equal, round, reactive to light and accomodation 06/25/2013 None Full Exam - General 1995 Ears/Nose/Throat lips/teeth/gingiva Overall: benign lips 06/25/2013 None Full Exam - General 1995 Ears/Nose/Throat lips/teeth/gingiva Overall: normal dentition 06/25/2013 None Full Exam - General 1995 Respiratory auscultation Overall: breath sounds clear bilaterally 06/25/2013 None Full Exam - General 1995 Respiratory respiratory effort/rhythm Overall: no retractions 06/25/2013 [...] Exam - General 1995 Eyes conjunctiva/eyelids Overall: eyelids normal 06/10/2013 None [...] 06/10/2013 None Full Exam - General 1995 Lymphatic neck nodes Overall: posterior cervical chain [...] Procedure Codes Date IMMUNIZATION ADMIN CPT- 4: 02678 05/19/2016 THER/PROPH/DIAG INJ SC/IM CPT-4: 40220 05/19/2016 IIV4 FLU VACC NO PRESERV ID Formatting Model/CDA Sections, Assigned to/Gemma Granados CT: [id number] CPT-4: 79217Adyuivo 05/19/2016 VITAMIN B12 INJECTION CPT- 4: J3420 05/19/2016 THER/PROPH/DIAG INJ SC/IM CPT-4: 13271 04/20/2016 VITAMIN B12 INJECTION CPT- 4: J3420 04/20/2016 IMMUNIZATION ADMIN CPT- 4: 77328 04/20/2016 Pneumococcal Polysaccharide Vaccine, 23-Valent, Ad CPT-4: 72335 04/20/2016 Vital Signs Date Vital 07/04/2017 Blood Pressure 1: 138/88 Code: 8480-6 BMI: 36.8 Code: 14242-8 Heart Rate 1: 82 bpm Height: 5'6" SpO2: 98% Weight: 228 lbs 05/31/2017 Blood Pressure 1: 140/78 Code: 8480-6 BMI: 36.5 Code: 23262-8 Heart Rate 1: 87 bpm Height: 5'6" SpO2: 98% Weight: 226 lbs 11/28/2016 Blood Pressure 1: 128/78 Code: 8480-6 BMI: 37.5 Code: 53811-5 Heart Rate 1: 88 bpm Height: 5'6" SpO2: 98% Weight: 232 lbs 8 oz 07/28/2016 Blood Pressure 1: 122/72 Code: 8480-6 BMI: 37.6 Code: 30716-7 Heart Rate 1: 61 bpm Height: 5'6" SpO2: 97% Weight: 233 lbs 06/06/2016 Blood Pressure 1: 128/82 Code: 8480-6 BMI: 37.3 Code: 39981-7 Heart Rate 1: 66 bpm Height: 5'6" SpO2: 94% Weight: 231 lbs 04/20/2016 Blood Pressure 1: 136/80 Code: 8480-6 BMI: 38.3 Code: 95115-6 Heart Rate 1: 83 bpm Height: 5'6" SpO2: 98% Weight: 237 lbs 8 oz 03/03/2016 Blood Pressure 1: 130/80 Code: 8480-6 BMI: 38.4 Code: 05274-5 Heart Rate 1: 86 bpm Height: 5'6" SpO2: 96% Weight: 238 lbs 12/21/2015 Blood Pressure 1: 148/84 Code: 8480-6 BMI: 38.4 Code: 82828-4 Heart Rate 1: 94 bpm Height: 5'6" SpO2: 98% Weight: 238 lbs 06/22/2015 Blood Pressure 1: 128/74 Code: 8480-6 BMI: 37.4 Code: 53302-1 Heart Rate 1: 82 bpm Height: 5'6" SpO2: 98% Weight: 232 lbs 03/19/2015 Blood Pressure 1: 122/72 Code: 8480-6 BMI: 37.9 Code: 22174-0 Heart Rate 1: 80 bpm Height: 5'6" SpO2: 97% Weight: 235 lbs 01/22/2015 Blood Pressure 1: 122/80 Code: 8480-6 BMI: 38.6 Code: 13036-7 Heart Rate 1: 78 bpm Height: 5'6" SpO2: 98% Weight: 239 lbs 12/22/2014 Blood Pressure 1: 110/80 Code: 8480-6 BMI: 38.1 Code: 72991-7 Heart Rate 1: 76 bpm Height: 5'6" Weight: 236 lbs 06/19/2014 Blood Pressure 1: 122/74 Code: 8480-6 BMI: 36.8 Code: 17917-2 Heart Rate 1: 86 bpm Height: 5'6" Weight: 228 lbs 03/19/2014 Blood Pressure 1: 122/78 Code: 8480-6 BMI: 36.6 Code: 47708-7 Heart Rate 1: 80 bpm Height: 5'6" Weight: 227 lbs 09/25/2013 Blood Pressure 1: 130/70 Code: 8480-6 BMI: 37.1 Code: 00097-2 Heart Rate 1: 80 bpm Height: 5'6" SpO2: 98% Weight: 230 lbs 06/25/2013 Blood Pressure 1: 126/76 Code: 8480-6 BMI: 38.1 Code: 10689-3 Heart Rate 1: 76 bpm Height: 5'6" Weight: 236 lbs 06/10/2013 Blood Pressure 1: 128/76 Code: 8480-6 BMI: 38.1 Code: 80735-9 Heart Rate 1: 80 bpm Height: 5'6" Weight: 236 lbs Functional Status No Functional Status data History of Present Illness Symptom Name Status Result Effective Date Notes sinus congestion Location maxillary sinuses 07/04/2017 None [...] data Encounters Encounter Performer Location Codes Date EST. PATIENT, LEVEL III Diagnosis: Acute laryngopharyngitis[ICD10: J06.0] Diagnosis: Other allergic rhinitis[ICD10: J30.89] Diagnosis: Cough[ICD10: R05] [facility] CPT-4: 49186 07/04/2017 ([id number]) PREV VISIT EST AGE 40-64 Diagnosis: Encounter for general adult medical examination without abnormal findings[ICD10: Z00.00] [facility] CPT-4: 88957 05/31/2017 ([id number]) 30019 EST. PATIENT, LEVEL IV Diagnosis: Type 2 diabetes mellitus without complications[ICD10: E11.9] Diagnosis: Atrophy of thyroid (acquired)[ICD10: E03.4] [facility] CPT-4: 51349 11/28/2016 ([id number]) PREV VISIT EST AGE 40-64 Diagnosis: Encounter for general adult medical examination without abnormal findings[ICD10: Z00.00] Diagnosis: Type 2 diabetes mellitus without complications[ICD10: E11.9] Diagnosis: Atrophy of thyroid (acquired)[ICD10: E03.4] Diagnosis: Gastro-esophageal reflux disease without esophagitis[ICD10: K21.9] Saniya Schwab MD, [facility] CPT-4: 17172 07/28/2016 ([id number]) 37426 EST. PATIENT, LEVEL III Diagnosis: Gastro-esophageal reflux disease without esophagitis[ICD10: K21.9] Macey Schwab MD, [facility] CPT-4: 89893 06/06/2016 ([id number]) 47411 EST. PATIENT, LEVEL IV Diagnosis: Type 2 diabetes mellitus without complications[ICD10: E11.9] Diagnosis: Atrophy of thyroid (acquired)[ICD10: E03.4] Diagnosis: Encounter for immunization[ICD10: Z23] Diagnosis: Other vitamin B12 deficiency anemias[ICD10: D51.8] Saniya Schwab MD, [facility] CPT-4: 00258 04/20/2016 ([id number]) 85569 EST. PATIENT, LEVEL III Diagnosis: Hypothyroidism, unspecified[ICD10: E03.9] Diagnosis: Other fatigue[ICD10: R53.83] Macey Schwab MD, [facility] CPT-4: 82254 03/03/2016 ([id number]) 43193 EST. PATIENT, LEVEL IV Diagnosis: Type 2 diabetes mellitus without complications[ICD10: E11.9] Diagnosis: Hypothyroidism, unspecified[ICD10: E03.9] Saniya Schwab MD, [facility] CPT-4: 75282 12/21/2015 ([id number]) 25881 EST. PATIENT, LEVEL III Diagnosis: Type 2 diabetes mellitus without complications[ICD10: E11.9] Diagnosis: Hypothyroidism, unspecified[ICD10: E03.9] Saniya Schwab MD, [facility] CPT-4: 23543 06/22/2015 ([id number]) PREV VISIT EST AGE 40-64 Diagnosis: Routine medical exam[ICD9: V70.0] [facility] CPT- 4: 70308 03/19/2015 ([id number]) 22737 EST. PATIENT, LEVEL III Diagnosis: EDEMA[ICD9: 782.3] Macey Schwab MD, [facility] CPT-4: 52849 01/22/2015 ([id number]) 84256 EST. PATIENT, LEVEL IV Diagnosis: Hypothyroidism[ICD9: 244.9] Diagnosis: DIABETES TYPE II[ICD9: 250.00] Macey Schwab MD, [facility] CPT-4: 63715 12/22/2014 ([id number]) 28460 EST. PATIENT, LEVEL III Diagnosis: Hypothyroidism[ICD9: 244.9] Diagnosis: DIABETES TYPE II[ICD9: 250.00] Diagnosis: Osteoarthritis[ICD9: 715.90] Saniya Schwab MD [facility] CPT-4: 97360 06/19/2014 ([id number]) 13988 EST. PATIENT, LEVEL IV Diagnosis: DIABETES TYPE II[ICD9: 250.00] Diagnosis: Hypothyroidism[ICD9: 244.9] Saniya Schwab MD, [facility] CPT-4: 21079 03/19/2014 ([id number]) 12515 EST. PATIENT, LEVEL IV Diagnosis: HYPOTHYROIDISM[ICD9: 244.9] Diagnosis: DIABETES TYPE II[SNOMED: 864576097] Saniya Schwab MD, [facility] CPT- 4: 46386 09/25/2013 ([id number]) 89596 EST. PATIENT, LEVEL IV Diagnosis: Hypothyroidism[ICD9: 244.9] Diagnosis: Elevated blood sugar[ICD9: 790.29] Saniya Schwab MD, [facility] CPT- 4: 25536 06/25/2013 ([id number]) OFFICE VISIT, NEW - LEVEL 3 Diagnosis: Osteoarthritis[ICD9: 715.90] Diagnosis: Knee pain, bilateral[ICD9: 719.46] Diagnosis: OBESITY[ICD9: 278.00] Diagnosis: Encounter for long-term (current) use of other medications[ICD9: V58.69] [facility] CPT-4: 54993 06/10/2013 Plan of Care Planned Activity Notes Codes Status Date Visit Plan: URI - Pt advised to [...] spray. 07/04/2017 Appointment: Ciara Lopez WPtel: [phone] [facility] ([facility] Complex 07/04/2017 Patient Education: Patient [...] twice weekly. 05/31/2017 Appointment: Saniya Schwab WPtel: [phone] [facility] (15 min) Moderate 05/31/2017 Patient Education: Patient [...] controlled. 11/28/2016 Appointment: Saniya Schwab WPtel: [phone] [facility] [place] (15 min) Moderate 11/28/2016 Patient Education: Patient Medication Summary Completed 11/28/2016 Appointment: [phone] (15 min) Moderate 11/21/2016 Patient Education: Patient [...] the symptoms are not improving. 07/28/2016 Appointment: JosselinSaniya WPtel: [phone] [place] (15 min) Moderate 07/28/2016 Patient Education: [...] not improving. 06/06/2016 [phone] [place] (15 min) Moderate 06/06/2016 [...] VITAMIN 03/03/2016 Appointment: [phone] [place] (30 min) Complex 03/03/2016 [...] less controlled. 12/21/2015 Appointment: Saniya Schwab WPtel: [phone] [facility] (15 min) Moderate 12/21/2015 Patient Education: Patient [...] control. 06/22/2015 Appointment: Saniya Schwab WPtel: [phone] [place] (15 min) Moderate 06/22/2015 Patient Education: [...] of control. 03/19/2015 Appointment: Saniya Schwab WPtel: [facility] Follow up 03/19/2015 Patient Education: Patient Medication [...] months based on previous levels of control. Husijz-pktkwin-giopzecqm name brand Synthroid Keep food diary-call in [...] months based on previous levels of control. Ldlvke-drxpdla-kgznaylhv name brand Synthroid Keep food diary-call in [...] months based on previous levels of control. Irepug-ynfpfqz-btusebzyu name brand Synthroid Keep food diary-call in 2 weeks to discuss Monitor blood sugars when not feeling well 12/22/2014 Patient Education: Patient Medication Summary Completed 12/22/2014 Appointment: Saniya Schwab WPtel: [address] [place], [place] [address] Follow up 12/16/2014 Visit Plan: Hypothyroidism - [...] report intermittently to clinic. 06/19/2014 Appointment: Saniya Schwabtel: [phone] Follow up 06/19/2014 Patient Education: Patient Medication [...] of control. 03/19/2014 Appointment: Saniya Schwab WPtel: [phone] [phone] Follow up 03/19/2014 Patient Education: Patient Medication [...] of synthroid. 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 Obesity - chronic issue with this patient. The pt has been counseled about diet changes, calorie restriction, and need to exercise. Pt will RTC in one month for weight check. 06/10/2013 Appointment: Saniya Schwab WPtel: [phone] [facility] New Patient 06/10/2013 Patient Education: Patient Medication Summary Completed 06/10/2013 Instructions Comment . Well Adult - pt was counseled [...] months based on previous levels of control. Yizxkk-qfmrhpd-eczdsjxys name brand Synthroid Keep food diary-call in 2 weeks to discuss Monitor blood sugars when not feeling well . Hypothyroidism - pt with chronic hypothyroidism, [...] or send FSBS report intermittently to clinic. change synthroid to 88mcg tues, th, sat, sun Synthroid 100mcg are on mon/wed/frid [...] months based on previous levels of control. Lgdxqp-jzkzfvj-mbieyukks name brand Synthroid Keep food diary-call in 2 weeks to discuss Monitor blood sugars when not feeling well PROBIOTIC TWICE DAILY DEXILANT 1 TAB DAILY [...] office if the symptoms are not improving. REFER TO DIE CASTER AT THE HOSPITAL WEAR COMPRESSION STOCKINGS WHEN [...] based on previous levels of control. . URI - Pt advised to increase [...] - rx for 50mcg dose of synthroid. B COMPLEX CHECK LABS BRAND NAME SYNTHROID [...] LABS Fatigue-CHECK LABS-RECOMMEND B COMPLEX VITAMIN . Arthritis- occasionally uncontrolled symptoms- recommend pt to take antiinflammatory as directed for pain control. Pt is NOT to use additional NSAIDs while taking celebrex - she has instead been advised to use tylenol for break through pain symptoms. Pt will be surgically cleared for knee surgery in July as long as her records and labs from her [employer] do not show any acute worried for [...] months based on previous levels of control. Lmzbcs-fknrrol-isvogqkxa name brand Synthroid Keep food diary-call in [...]
--- OUTSIDE RECORDS SUMMARY | 2019-01-18 09:21 | XMS REPORT ---
Author Author MARTHA LAWSON Organization [employer] Address Unknown Phone Unavailable Care Team Providers Care Orthopedic Technician Name Role Phone MARTHA LAWSON Unavailable Allergies No Known Allergies Problems Problem Type Condition Code Onset Dates Condition Status Assessment Encounter for immunization Z23 Active Medications No Known Medications Procedures Procedure Coding System Code Date SINGLE IMMUNIZATION ADMIN CPT-4 22746 May 22, 2015 FLUARIX QUAD (3 & UP)-GSK-2014 CPT-4 48615 May 22, 2015 Results No Known Results Immunizations Vaccine Administration Date FLUARIX QUAD (3 & UP)-GSK-2014May 22, 2015 Summary Purpose [employer] Submission
--- OUTSIDE RECORDS SUMMARY | 2019-01-18 09:21 | XMS REPORT | Continuity of Care Document ---
Author Organization Unknown Address Unknown Allergies Active Description Code Type Severity Reaction Onset Reported/Identified Relationship to Patient Clinical Status Yes erythromycin base [id number] Drug Allergy Unknown NAUSEA 07/05/2013 Medications There is no data. Problems Date Dx Coded Attending Type Code Diagnosis Diagnosed By 07/13/2013 ALEXI BOWMAN MD Ot 244.9 HYPOTHYROIDISM NOS 07/13/2013 ALEXI BOWMAN MD Ot 250.00 DIAB VIVIANA WO COMPL, TYPE II OR UNSPEC TY 07/13/2013 ALEXI BOWMAN MD Ot 696.0 PSORIATIC ARTHROPATHY 07/13/2013 ALEXI BOWMAN MD Ot 715.36 LOC OSTEOARTH NOS-L/LEG 07/13/2013 ALEXI BOWMAN MD Ot 787.02 NAUSEA ALONE 10/10/2018 ALEXI BOWMAN MD Ot 715.36 LOC OSTEOARTH NOS-L/LEG 10/10/2018 ALEXI BOWMAN MD Ot 780.79 OTH MALAISE FATIGUE 10/10/2018 ALEXI BOWMAN MD Ot V57.1 PHYSICAL THERAPY NEC 10/10/2018 ALEXI BOWMAN MD Ot V57.21 ENCOUNTER FOR OCCUPATIONAL THERAPY 10/10/2018 ALEXI BOWMAN MD Ot V72.63 PRE-PROCEDURAL LABORATORY EXAMINATION 10/10/2018 ALEXI BOWMAN MD Ot V72.83 EXAM PRE-OPERATIVE NEC 10/10/2018 ALEXI BOWMAN MD Ot V74.8 SCREEN-BACTERIAL DIS NEC 10/15/2018 RUBEN DPM, [place] Q Ot M72.2 PLANTAR FASCIAL FIBROMATOSIS 10/15/2018 RUBEN DPOphelia, [place] Q Ot M76.62 ACHILLES TENDINITIS, LEFT LEG 10/15/2018 RUBEN DPM, [place] Q Ot M77.52 OTHER ENTHESOPATHY OF LEFT FOOT 10/15/2018 RUBEN DPM, [place] Q Ot S92.342A DISP FX OF FOURTH METATARSAL BONE, LEFT 10/15/2018 [place] MIRANDA DPM Ot S96.812A STRAIN OF MUSCLES AND TENDONS AT ANK/FT 11/02/2018 [place] MIRANDA DPM Q Ot M72.2 PLANTAR FASCIAL FIBROMATOSIS 11/02/2018 RUBEN DPMELL JacintoIN Q Ot M76.62 ACHILLES TENDINITIS, LEFT LEG 11/02/2018 RUBEN DPMELL JacintoIN Q Ot M77.52 OTHER ENTHESOPATHY OF LEFT FOOT 11/02/2018 RUBEN DPBROOKLYN Jacinto Q Ot S92.342A DISP FX OF FOURTH METATARSAL BONE, LEFT 11/02/2018 RUBEN DPMELL JacintoIN Q Ot S96.812A STRAIN OF MUSCLES AND TENDONS AT ANK/FT Procedures Code Description Performed By Performed On 81.54 TOTAL KNEE REPLACEMENT 07/10/2013 81.92 INJECTION INTO JOINT 07/10/2013 Results There is no data. Encounters ACCT No. Visit Date/Time Discharge Status Pt. Type Provider Facility Loc./Unit Complaint [id number] 01/16/2019 05:58:00 01/16/2019 14:08:00 DIS Outpatient NASIR LAY MD [facility] PREOP COLONOSCOPY [id number] 10/12/2018 08:29:00 10/12/2018 23:59:59 CLS Outpatient [place] MIRANDA DPM [facility] RAD ACHILLIES, PERONEAL TENDONITIS, LEFT [id number] 07/10/2013 06:00:00 07/13/2013 19:38:00 DIS Inpatient ALEXI BOWMAN MD [facility] SURGICAL RIGHT KNEE DJD [id number] 07/05/2013 11:54:00 07/05/2013 23:59:59 CLS Outpatient ALEXI BOWMAN MD [facility] PREOP RIGHT KNEE DJD [id number] 01/18/2019 10:15:00 PEN Preadmit NASIR LAY MD [facility] ENDO SCREENING/FAMILY HX COLON CA 0000 05/31/2017 16:42:44 05/31/2017 23:59:59 CLS Outpatient
--- OUTSIDE RECORDS SUMMARY | 2019-01-18 09:21 | XMS REPORT ---
Author Author YVONNE FOLEY [facility] Address [address] [place] [address] Care Team Providers Care Job Estimator Name Role Phone YVONNE FOLEY Unavailable PROBLEMS Unknown Problems ALLERGIES No Information ENCOUNTERS Encounter Location Date Diagnosis [facility] [address] [facility] [id number] [address] May, Encounter for immunization Z23 [facility] [address] [facility] [facility] [id number], [place] [address] May, Encounter for immunization Z23 IMMUNIZATIONS Vaccine Route Administration Date Status FLULAVAL QUAD 0.5ML (6 MO & UP) 2018 IM Intramuscular May 29, 2018 Administered SOCIAL HISTORY Never Assessed REASON FOR VISIT Flu shot PLAN OF CARE VITAL SIGNS MEDICATIONS Unknown Medications RESULTS No Results PROCEDURES Procedure Date Ordered Result Body Site FLULAVAL QUAD 0.5ML (6 MO AND UP) 2017May 29, 2018 SINGLE IMMUNIZATION ADMIN May 29, 2018 INSTRUCTIONS MEDICATIONS ADMINISTERED No Known Medications
--- NOTE | 2019-01-18 09:23 | Pre-Op Note & Conscious Sedat ---
Pre-Operative Progress Note H&P Reviewed The H&P was reviewed, patient examined and no changes noted. Date H&P Reviewed: Jan 18, 2019 Time H&P Reviewed: 09:23 Conscious Sedation Pre-Proced ASA Score 2 For ASA 3 and 4: Consider anesthesia and medical clearance. Also, for patients with a history of failed moderate sedation consider anesthesia. Airway Lungs Heart ASA score ASA 1: a normal healthy patient ASA 2: a patient with a mild systemic disease (mid diabetes, controlled hypertension, obesity ASA 3: a patient with a severe systemic disease that limits activity (angina, COPD, prior Myocardial infarction) ASA 4: a patient with an incapacitating disease that is a constant threat to life (CHF, renal failure) ASA 5: a moribund patient not expected to survive 24 hrs. (ruptured aneurysm) ASA 6: a declared brain- patient whose organs are being harvested. For emergent operations, add the letter E after the classification Mallampati Classification Grade 2 Sedation Plan Analgesia, Amnesia, Plan communicated to team members, Discussed options with patient/fam, Discussed risks with patient/fam The patient is an appropriate candidate to undergo the planned procedure, sedation, and anesthesia. The patient immediately re-assessed prior to indication. NASIR LAY MD Jan 18, 2019 09:23
[2019-01-18 09:36] VITALS: BP 113/74
[2019-01-18] MEDS ORDERED: LIDOCAINE JELLY 2% 6 ML SYRINGE ONE (10:22)
[2019-01-18] MEDS ORDERED: fentaNYL INJECTION 100 MCG/2 ML AMP ONE ×2 (10:22→10:37)
[2019-01-18] MEDS ORDERED: MIDAZOLAM 2 MG/2 ML (VERSED) VIAL ONE ×2 (10:22)
[2019-01-18 11:05] VITALS: BP 132/72
[2019-01-18 11:30] VITALS: BP 119/69
[2019-01-18 12:00] VITALS: BP 119/69
--- NOTE | 2019-01-18 16:12 | OPERATIVE REPORT ---
DATE OF SERVICE: 01/18/2019 SCREENING COLONOSCOPY INDICATION FOR THE PROCEDURE: The patient was placed in the left lateral decubitus position. Prior to undergoing colonoscopy, digital rectal evaluation was performed. Anal sphincter tone was normal and the perianal reflexes intact. No abnormalities noted on digital inspection of the anal canal or distal rectal vault. The colonoscope was then inserted into the rectum and under direct visualization advanced to cecum. The cecum was identified by identification of the ileocecal valve and cecal strap. Photographic documentation was obtained. Careful inspection was made as colonoscope was withdrawn. The quality of prep was good. FINDINGS: There is no evidence for internal or external hemorrhoids. The rectum was unremarkable. Present at the rectosigmoid junction was a diminutive 4 mm sessile polyp. It was photographed and biopsied and ablated with no subsequent blood loss. The proximal, mid at the distal sigmoid colon was unremarkable. Present in mid and proximal portion of the sigmoid colon and to a lesser extent extending to the hepatic flexure were small to medium size diverticulum. No other abnormalities were noted in the segments of the colon. The ascending colon revealed a sessile adenomatous appearing polyp measuring about 12 x 15 mm in size. There is no evidence for ulceration noted. It was biopsied and cauterized in three locations. Tissue submitted for histopathology. There was no significant bleeding. The cecum and the colon and terminal ileum were unremarkable. ASSESSMENT: Two polyps were removed. The larger one from the ascending colon. She will need closer follow up, especially in light of this patient's family history of colon cancer diagnosed in her father. She also has a sister who has had multiple colonic polyps removed. As long as there are no surprises on histopathology report, we will be advocating a repeat surveillance colonoscopy in one year. The patient does have mild to moderate diverticular disease scattered from the mid sigmoid colon to the hepatic flexure without evidence for acute diverticulitis. I thank you for the referral of this pleasant lady. Job ID: [id number] DocumentID: [id number] Dictated Date: 01/18/2019 11:22:19 Creative Resource Manager Date: 01/18/2019 16:12:14 Dictated By: MD KARRIE MALAVE
== END 2019-01-18 12:00 | disposition home or self-care (01) ==
LOC: ENDO 08:53
PROVIDERS: ATTEND Internal Medicine
DX: Z12.11 Encounter for screening for malignant neoplasm of colon (principal); D12.2 Benign neoplasm of ascending colon; K63.5 Polyp of colon; K57.30 Diverticulosis of large intestine without perforation or abscess without bleeding; Z80.0 Family history of malignant neoplasm of digestive organs; Z83.71 Family history of colonic polyps; K21.9 Gastro-esophageal reflux disease without esophagitis; E11.9 Type 2 diabetes mellitus without complications; E06.3 Autoimmune thyroiditis; L40.50 Arthropathic psoriasis, unspecified; Z79.899 Other long term (current) drug therapy
CPT/HCPCS: 82962

== ENCOUNTER 2020-01-16 05:41 | Outpatient (RCR) | payer BC ==
[~2020-01-16] VITALS: Ht 167 cm; Wt 99.5 kg
[~2020-01-16 05:41] MED LIST changes: +CHOL10007 PO; +LEVO88TA54 PO
== END 2020-01-16 15:05 | disposition home or self-care (01) ==
LOC: PREOP 05:41
PROVIDERS: ATTEND Internal Medicine
DX: Z01.818 Encounter for other preprocedural examination (principal); Z20.828 Contact with and (suspected) exposure to other viral communicable diseases
CPT/HCPCS: 87635

== ENCOUNTER 2020-01-21 07:02 | Day surgery (SDC) | payer BC ==
--- NOTE | 2020-01-14 17:32 | HISTORY AND PHYSICAL ---
DATE OF SERVICE: DATE OF ADMISSION: 01/21/2020. HISTORY OF PRESENT ILLNESS: The patient is a 54-year-old white female referred by Dr. Schwab for surveillance colonoscopy. She had undergone colonoscopy one year ago, at which time she had a serrated adenoma and a serrated polyp removed from the ascending colon. Also had a hyperplastic polyp removed from the rectosigmoid junction. To ensure that there was no recurrence of a serrated adenoma in an individual with positive family history for colon cancer, she is scheduled for repeat surveillance colonoscopy. She reports that she has felt well. She has had some arthroscopic knee surgery. No other changes in health history over the past year. She has been following an anti-inflammatory diet. Reports that it has improved her energy level and she has lost 10 pounds over the past several months. PAST MEDICAL HISTORY: Significant for traumatic arthritis of the right knee, required total knee replacements and she has a history of psoriatic arthritis for which she takes Enbrel. 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 SOCIAL HISTORY: She has no past smoking history or significant alcohol intake. 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 FAMILY HISTORY: Father had history of colon cancer diagnosed at the age of 60, at the age of 81. Mother also had colon polyps, of complications following intestinal resection at the age of 87. PHYSICAL EXAMINATION: GENERAL: Reveals a well-appearing white female in no acute distress. VITAL SIGNS: Weight at 214.9 pounds, is down 8 pounds from a year ago. Blood pressure 120/80. HEENT: Unremarkable. CHEST: Clear. CARDIOVASCULAR: Revealed a regular rate and rhythm without murmur, S3 or S4. ABDOMEN: Soft, supple without mass, organomegaly or tenderness. EXTREMITIES: Reveal no cyanosis, clubbing or edema. ASSESSMENT AND PLAN: The patient is set up for surveillance colonoscopy due to past history of serrated polyp removed from the proximal ascending colon. Prep instructions with the Suprep kit were given and questions were answered. I thank you for the referral of this pleasant lady. Job ID: [id number] DocumentID: [id number] Dictated Date: 01/14/2020 16:52:37 Middle School Director Date: 01/14/2020 17:31:47 Dictated By: NASIR LAY MD [facility] INSANEJovana
[2020-01-21] VITALS (12 sets, daily range): BP systolic 107–148; BP diastolic 60–81
[~2020-01-21] VITALS: Ht 167.5 cm; Wt 99.5 kg
--- OUTSIDE RECORDS SUMMARY | 2020-01-21 07:09 | XMS REPORT | CCD ---
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 Marital status Unknown S jaja 06/10/[address]: 8776322 Former smoker 06/10/[address]: 3331195 Former smoker quit 200606/10/2013 Number of years using tobacco Unknown 1 smoked a few months 06/10/2013 Alcohol history Unknown occasionally drinks alcohol 06/10/2013 Alcohol history Unknown occasionally drinks alcohol 06/10/2013 Frequency of drinks SNOMED CT: 461777309 Drinks rarely 1/month 06/10/2013 Allergies, Adverse Reactions, Alerts Substance Reaction Codes Entered Date Inactivated Date Status * NO KNOWN FOOD KIRILL RGIES Unknown 06/10/2013 No Inactive Date Active Seasonal Unknown 06/10/2013 No In active Date Active * NO KNOWN DRUG KIRILL RGIES Unknown 06/10/2013 No Inactive Date Active Past Medical History Illness Codes Condition Status Onset Date Resolved Date Atrophy of thyroid ( acquired) ICD-9: 244.8 ICD-10: E03.4 Active 04/19/2016 Unknown Encounter for genera l adult medical examination without abnormal findings ICD-9: V70.0 ICD-10: Z00.00 Active 11/28/2018 Unknown Type 2 diabetes enrrique itus without complications ICD-9: 250.00 ICD-10: E11.9 Active 03/19/2014 Unknown Encounter for screen ing for lipoid disorders ICD-9: V77.91 ICD-10: Z13.220 Active 11/23/2018 Unknown Hypothyroidism, unsp ecified ICD-9: 244.9 ICD-10: E03.9 Active 03/02/2016 Unknown Other vitamin B12 de ficiency anemias ICD-9: 281.1 ICD-10: D51.8 Active 05/18/2016 Unknown Acute laryngopharyng itis ICD-9: 465.0 ICD-10: J06.0 Active 07/04/2017 Unknown Cough ICD-9: 786.2 ICD-10: R05 Active 07/04/2017 Unknown Other allergic rhinitis ICD-9: 477.8 ICD-10: J30.89 Active 07/04/2017 Unknown Other disturbances o f skin sensation ICD-9: 782.0 ICD-10: R20.8 Active 05/31/2017 Unknown Gastro-esophageal re flux disease without esophagitis ICD-9: 530.81 ICD-10: K21.9 Active 06/05/2016 Unknown VACCIN FOR INFLUENZA ICD-9: V04.81 ICD-10: Z23 Active 05/18/2016 Unknown Encounter for immuni zation ICD-9: V03.9 ICD-10: Z23 Active 04/19/2016 Unknown Other fatigue ICD-9: 780.79 ICD-10: R53.83 Active 03/02/2016 Unknown Routine medical exam ICD-9: V70.0 Active 03/18/2015 Unknown EDEMA ICD-9: 782.3 Active 01/21/2015 Unknow n Osteoarthritis ICD-9: 715.90 Active 06/19/2014 Unknown DIABETES TYPE II ICD-9: 250.00 Active 03/19/2014 Unknown Hypothyroidism ICD-9: 244.9 Active 03/19/2014 Unknown Diabetes Unknown Active 09/25/2013 Unknow n Hypothryroidism Unknown Active 06/25/2013 Unknow n Elevated blood sugar ICD-9: 790.29 Active 06/25/2013 Unknown Arthritis Unknown Active 06/10/2013 Unknow n Osteoarthritis Unknown Active 06/10/2013 Unknow n 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 Unknown Encounter for long-t erm (current) use of other medications ICD-9: V58.69 Active 06/10/2013 Unknown Knee pain, bilateral ICD-9: 719.46 Active 06/10/2013 Unknown OBESITY ICD-9: 278.00 Active 06/10/2013 Unknow n Problems Condition Codes Effectiv e Dates Condition Status Atrophy of thyroid ( acquired) ICD-9: 244.8 ICD-10: E03.4 04/19/2016 Active Encounter for genera l adult medical examination without abnormal findings ICD-9: V70.0 ICD-10: Z00.00 11/28/2018 Active Type 2 diabetes enrrique itus without complications ICD-9: 250.00 ICD-10: E11.9 03/19/2014 Active Encounter for screen ing for lipoid disorders ICD-9: V77.91 ICD-10: Z13.220 11/23/2018 Active Hypothyroidism, unsp ecified ICD-9: 244.9 ICD-10: E03.9 03/02/2016 Active Other vitamin B12 de ficiency anemias ICD-9: 281.1 ICD-10: D51.8 05/18/2016 Active Acute laryngopharyng itis ICD-9: 465.0 ICD-10: J06.0 07/04/2017 Active Cough ICD-9: 786.2 ICD-10: R05 07/04/2017 Active Other allergic rhinitis ICD-9: 477.8 ICD-10: J30.89 07/04/2017 Active Other disturbances o f skin sensation ICD-9: 782.0 ICD-10: R20.8 05/31/2017 Active Gastro-esophageal re flux disease without esophagitis ICD-9: 530.81 ICD-10: K21.9 06/05/2016 Active VACCIN FOR INFLUENZA ICD-9: V04.81 ICD-10: Z23 05/18/2016 Active Encounter for immuni zation ICD-9: V03.9 ICD-10: Z23 04/19/2016 Active Other fatigue ICD-9: 780.79 ICD-10: R53.83 03/02/2016 Active Routine medical exam ICD-9: V70.0 03/18/2015 Active EDEMA ICD-9: 782.3 01/21/2015 Active Osteoarthritis ICD-9: 715.90 06/19/2014 Active DIABETES TYPE II ICD-9: 250.00 03/19/2014 Active Hypothyroidism ICD-9: 244.9 03/19/2014 Active Diabetes Unknown 09/25/2013 Active Hypothryroidism Unknown 06/25/2013 Active Elevated blood sugar ICD-9: 790.29 06/25/2013 Active Arthritis Unknown 06/10/2013 Active Osteoarthritis Unknown 06/10/2013 Active 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 Active Encounter for long-t erm (current) use of other medications ICD-9: V58.69 06/10/2013 Active Knee pain, bilateral ICD-9: 719.46 06/10/2013 Active OBESITY ICD-9: 278.00 06/10/2013 Active Medications Medication Codes Instruc tions Start Date Stop Date Sta tus Fill Instructions Brady Garcia RxNorm: USE TO TEST TWICE DAILY DIRECTED 02/26/2019 10/17/2020 Active 02/26/2019 8:36:19 AM Synthroid 88 mcg tablet RxNorm: 815991 Tablet(s) TAKE 1 TABLET BY MOUTH TWICE W EEKLY ON MONDAY AND Monday11/28/2018 01/21/2020 Active brand name only Synthroid 100 mcg ta blet RxNorm: 645798 1 Tablet(s) PO TAKE 1 TABLET BY MOUTH DAILY MONDAY THRU Monday11/28/2018 11/22/2019 Active brand name only cyanocobalamin (vit B-12) 1,000 mcg/mL injection solution RxNorm: 933084 1 Milliliter(s) Inj R1orpbb 11/13/2018 11/07/2019 Active multidose vial if available, if not do a 3 month supply omeprazole 20 mg cap wilber,delayed release RxNorm: 579303 TAKE 1 CAPSULE BY HERNANDEZ TH TWICE DAILY 11/12/2018 11/06/2019 Active Generic For:*PRILOSEC 20 MG CAPSULE 11/12/2018 7:49:34 AM N O T I C E Last quantity doesn't match original quantity Synthroid 88 mcg tablet RxNorm: 316138 TAKE 1 TABLET BY MOUTH TWICE WEEKLY ON AND Monday10/29/2018 11/27/2018 Inactive 10/29/2018 7:51:26 AM Synthroid 88 mcg tablet RxNorm: 105494 TAKE 1 TABLET BY MOUTH TWICE WEEKLY ON AND Monday03/14/2018 10/07/2018 Inactive 03/14/2018 11:13:25 AM N O T I C E Last quantity doesn't match original quantity Synthroid 100 mcg ta blet RxNorm: 149964 TAKE 1 TABLET BY MOUT H DAILY MONDAY THRU Monday01/08/2018 11/27/2018 Inactive 01/08/2018 8:22:22 AM omeprazole 20 mg cap wilber,delayed release RxNorm: 443577 1 Tablet(s) PO BID 09/11/2017 09/05/2018 In active Zithromax Z-Mike 250 mg tablet RxNorm: 997933 1 Tablet(s) PO UD 07/27/2017 11/21/2017 Inactive zpack as directed Flonase Allergy Reli ef 50 mcg/actuation nasal spray,suspension RxNorm: 9909485 1 [place]o NASAL BID 07/04/2017 No Stop Date Active amoxicillin 500 mg t ablet RxNorm: 711856 1 Tablet(s) PO TID 07/04/2017 07/13/2017 Inactive Synthroid 100 mcg ta blet RxNorm: 921709 TAKE 1 TABLET BY MOUT H DAILY MONDAY THRU Monday06/19/2017 12/15/2017 Inactive 06/19/2017 9:33:46 AM cyanocobalamin (vit B-12) 1,000 mcg/mL injection solution RxNorm: 668547 1 Milliliter(s) Inj X6pfdcx 05/31/2017 08/23/2018 Inactive multidose vial if available, if not do a 3 month supply Synthroid 88 mcg tablet RxNorm: 446773 1 Tablet(s) PO BIW on Sat and Sun 05/19/2017 09/15/2017 In active FERNANDO-1 ok for 90 day supply if she wants it Brennan 2 Test Strips RxNorm: USE TO TEST BLOOD GLUCOSE TWICE WEEKLY O R DIRECTED 05/08/2017 02/05/2023 Active 05/08/2017 9:20:48 AM Lancets,Thin RxNorm: USE TO TEST TWICE DAILY DIRECTED 05/08/2017 12/28/2018 Inactive 05/08/2017 9:20:31 AM Synthroid 100 mcg ta blet RxNorm: 492925 TAKE 1 TABLET BY MOUT H DAILY MONDAY THRU Monday02/14/2017 06/18/2017 Inactive 02/14/2017 7:59:51 AM N O T I C E [facility] quantity doesn't match original quantity amoxicillin 500 mg t ablet RxNorm: 469828 2 Tablet(s) PO prior to dental or other procedures and then 2 tabs 4 hours after procedure 11/28/2016 07/03/2017 Inactive cyanocobalamin (vit B-12) 1,000 mcg/mL injection solution RxNorm: 248667 1 Milliliter(s) Inj month 11/28/2016 05/30/2017 Inactive multidose vial if available, if not do a 3 month supply Synthroid 88 mcg tablet RxNorm: 714946 1 Tablet(s) PO BIW on Sat and Sun 09/16/2016 01/13/2017 In active FERNANDO-1 ok for 90 day supply if she wants it Synthroid 100 mcg ta blet RxNorm: 000742 1 Tablet(s) PO daily Mon thru Mon08/09/2016 12/06/2016 In active FERNANDO-1 can have 90 day supply if she want s it omeprazole 20 mg cap wilber,delayed release RxNorm: 103673 1 Tablet(s) PO BID 07/28/2016 07/22/2017 In active Dexilant 60 mg capsu le, delayed release RxNorm: 427149 1 Capsule(s) PO daily 06/27/2016 06/26/2016 In active Dexilant 60 mg capsu le, delayed release RxNorm: 244159 1 Capsule(s) PO daily 06/27/2016 07/27/2016 In active cyanocobalamin (vit B-12) 1,000 mcg/mL injection solution RxNorm: 038871 Milliliter(s) Inj 05/19/2016 05/19/2016 Inactive cyanocobalamin (vit B-12) 1,000 mcg/mL injection solution RxNorm: 911622 1 Milliliter(s) Inj 04/20/2016 04/20/2016 Inactive Synthroid 100 mcg ta blet RxNorm: 440257 1 Tablet(s) PO daily Mon thru Mon03/03/2016 06/30/2016 In active FERNANDO-1 can have 90 day supply if she want s it Synthroid 88 mcg tablet RxNorm: 775799 1 Tablet(s) PO UD take on Sat and Sun 03/03/2016 03/02/2016 In active Synthroid 88 mcg tablet RxNorm: 954440 1 Tablet(s) PO UD take on Sat and Sun 03/03/2016 06/30/2016 In active FERNANDO-1 ok for 90 day supply if she wants it Synthroid 100 mcg ta blet RxNorm: 693488 1 Tablet(s) PO daily Mon thru Mon03/03/2016 03/02/2016 In active FERNANDO-1 Breeze 2 Test Strips RxNorm: Miscellaneous test twice weekly or ud 02/29/2016 05/07/2017 In active dx- 250.00 levothyroxine 88 mcg tablet RxNorm: 876150 1 Tablet(s) BIW on , Monday12/21/2015 03/02/2016 In active loratadine 10 mg cap wilber RxNorm: 347216 1 Capsule(s) PO daily as needed 12/21/2015 06/05/2016 In active levothyroxine 100 mc g tablet RxNorm: 963208 1 Tablet(s) PO daily oon Monday through Monday12/21/2015 03/02/2016 Inactive levothyroxine 100 mc g tablet RxNorm: 553147 1 Tablet(s) PO UD on Monday06/22/2015 12/20/2015 Inactive levothyroxine 88 mcg tablet RxNorm: 168329 1 Tablet(s) UD on Mon, , Monday, Monday06/22/2015 12/20/2015 Inactive levothyroxine 88 mcg tablet RxNorm: 983294 1 Tablet(s) UD on Mon, , Monday, Monday03/19/2015 06/21/2015 Inactive levothyroxine 100 mc g tablet RxNorm: 794312 1 Tablet(s) PO UD on Monday03/19/2015 06/21/2015 Inactive Lasix 20 mg tablet RxNorm: 477351 1/2-1 Tablet(s) PO QDAY PRN 01/22/2015 01/26/2015 Inactive potassium chloride E R 10 mEq capsule,extended release RxNorm: 211861 1 Capsule(s) PO QDAY PRN 01/22/2015 06/05/2016 Inactive take with lasix (furosemide ) levothyroxine 88 mcg tablet RxNorm: 214082 1 Tablet(s) PO daily 12/22/2014 03/18/2015 Inactive Breeze 2 Test Strips RxNorm: Miscellaneous test twice weekly or ud 10/22/2014 03/20/2015 In active dx- 250.00 Breeze 2 Test Strips RxNorm: Miscellaneous test twice weekly or ud 10/22/2014 10/21/2014 In active dx- 250.00 levothyroxine 88 mcg tablet RxNorm: 658947 1 Tablet(s) PO daily 09/22/2014 12/20/2014 Inactive Synthroid 100 mcg ta blet RxNorm: 857802 1 Tablet(s) PO daily 06/19/2014 09/21/2014 Inactive Lancets,Thin RxNorm: 1 Miscellaneous BID 03/24/2014 04/22/2014 Inactive Synthroid 75 mcg tablet RxNorm: 897518 1 Tablet(s) PO daily 03/19/2014 06/18/2014 Inactive Breeze 2 Test Strips RxNorm: 1 Miscellaneous BID 03/19/2014 04/17/2014 Inactive Breeze 2 Test Strips RxNorm: 1 Miscellaneous BID 03/19/2014 03/18/2014 Inactive Synthroid 75 mcg tablet RxNorm: 282748 1 Tablet(s) PO daily 12/16/2013 03/18/2014 Inactive Synthroid 75 mcg tablet RxNorm: 873835 1 Tablet(s) PO daily 12/16/2013 12/15/2013 Inactive Synthroid 50 mcg tablet RxNorm: 664525 1 Tablet(s) PO daily 09/16/2013 12/15/2013 Inactive Synthroid 25 mcg tablet RxNorm: 123691 1 Tablet(s) PO daily 06/25/2013 09/15/2013 Inactive Glucosamine 1500 Com plex 500 mg-400 mg capsule RxNorm: 1 Capsule(s) PO daily No Start Date Active Enbrel 50 mg/mL (0.9 8 mL) subcutaneous syringe RxNorm: 800397 Milliliter(s) SQ week ly No Start Date Active folic acid oral RxNorm: 4511 oral No Start Date Active Multiple Vitamins ch ewable tablet RxNorm: 1 Tablet(s) PO daily No Start Date Active Celebrex 200 mg capsule RxNorm: 578632 1 Capsule(s) PO daily No Start Date Active Tylenol 325 mg tablet RxNorm: 980508 Tablet(s) PO as needed No Start Date Active Zithromax Z-Mike 250 mg tablet RxNorm: 886657 1 Tablet(s) PO UD No Start Date 07/26/2017 Inactive zpack as directed Vitamin B-12 5,000 m cg sublingual tablet RxNorm: 200384 1 Tablet(s) SL daily No Start Date 11/27/2018 Inactive oxycodone 5 mg tablet RxNorm: 3425688 1/2-1 Tablet(s) PO daily as needed No Start Date 06/18/2014 Inactive loratadine 10 mg cap wilber RxNorm: 801601 1 Capsule(s) PO daily No Start Date 12/20/2015 Inactive Synthroid 50 mcg tablet RxNorm: 592761 1 Tablet(s) PO daily No Start Date 09/15/2013 Inactive sulfasalazine 500 mg tablet RxNorm: 7274293 1 Tablet(s) PO daily No Start Date 01/21/2015 Inactive ibuprofen 600 mg tablet RxNorm: 774631 1 Tablet(s) PO BID PRN No Start Date 03/18/2014 Inactive Medication Administered Medication Codes Instruc tions Start Date Status cyanocobalamin (vit B-12) 1,000 mcg/mL injection solut ion RxNorm: 937633 Milliliter 05/19/2016 No longer Active cyanocobalamin (vit B-12) 1,000 mcg/mL injection solut ion RxNorm: 710430 1Milliliter 04/20/2016 No longer Active Immunizations Vaccine Codes Date Status Influenza CVX: 141 05/19 completed Pneumococcal (Adult) CVX: 33 04/20/2016 completed Influenza CVX: 141 06/16 completed Influenza CVX: 141 06/25 completed Assessments Condition Codes Effectiv e Dates Encounter for general adult medical exam ination without abnormal findings ICD-10: Z00.00 ICD-9: V70.0 11/28/2018 Atrophy of thyroid (acquired) ICD-10 : E03.4 ICD-9: 244.8 11/28/2018 Type 2 diabetes mellitus without complications ICD-10: E11.9 ICD-9: 250.00 11/28/2018 Hypothyroidism, unspecified ICD-10: E03.9 ICD-9: 244.9 11/23/2018 Encounter for screening for lipoid disorders ICD-10: Z13.220 ICD-9: V77.91 11/23/2018 Other vitamin B12 deficiency anemias ICD-10: D51.8 ICD-9: 281.1 11/22/2017 Acute laryngopharyngitis ICD-10: J06 .0 ICD-9: 465.0 07/04/2017 Cough ICD-10: R05 ICD-9: 786.2 07/04/2017 Other allergic rhinitis ICD-10: J30. 89 ICD-9: 477.8 07/04/2017 Other disturbances of skin sensation ICD-10: R20.8 ICD-9: 782.0 05/31/2017 Gastro-esophageal reflux disease without esophagitis ICD-10: K21.9 ICD-9: 530.81 07/28/2016 VACCIN FOR INFLUENZA ICD-10: Z23 ICD-9: V04.81 05/19/2016 Encounter for immunization ICD-10: Z 23 ICD-9: V03.9 04/20/2016 Other fatigue ICD-10: R53.83 ICD-9: 780.79 03/03/2016 Routine medical exam ICD-9: V70.0 03/19/2015 HYPOTHYROIDISM ICD-9: 244.9 03/19/2015 DIABETES TYPE II ICD-9: 250.00 03/19/2015 EDEMA ICD-9: 782.3 01/22 Osteoarthritis ICD-9: 715.90 06/19/2014 Elevated blood sugar ICD-9: 790.29 06/25/2013 OBESITY ICD-9: 278.00 Encounter for long-term (current) use of other medicat ions ICD-9: V58.69 06/10/2013 Knee pain, bilateral ICD-9: 719.46 [...] Ord30 C/HDL 3.1 Ratio 11/27/2018 Comp Metabolic Iqd069 NA 140 mEq/L 11/27/2018 Comp Metabolic Ncq006 K 4.3 mEq/L 11/27/2018 Comp Metabolic Dvi948 CL 104 mEq/L 11/27/2018 Comp Metabolic Rfj865 CO2 29.0 mEq/L 11/27/2018 Comp Metabolic Vfw101 AN ION GAP 11 11/27/2018 Comp Metabolic Mlq638 GL UCOSE 126 mg/dL 11/27/2018 Comp Metabolic Usx416 Cr eat 0.9 mg/dL 11/27/2018 Comp Metabolic Pyl023 eG FR 70 ml/min/1.73m2 11/27 Comp Metabolic Yka686 BUN 19 mg/dL 11/27/2018 Comp Metabolic Pzm838 B/ C Ratio 21.3 Ratio 11/27/2018 Comp Metabolic Aic292 CA LCIUM 9.4 mg/dL 11/27/2018 Comp Metabolic Ghw999 AL K PHOS 44 U/L 11/27/2018 Comp Metabolic Gzp785 T(SGOT) 16 U/L 11/27/2018 Comp Metabolic Dbf474 AL T(SGPT) 22 U/L 11/27/2018 Comp Metabolic Ntu338 BI LI T 0.5 mg/dL 11/27/2018 Comp Metabolic Lln811 AL BUMIN 4.2 g/dL 11/27/2018 Comp Metabolic Hja626 TP RO 6.4 g/dL 11/27/2018 Comp Metabolic Brh447 GL OB 2.2 g/dL 11/27/2018 Comp Metabolic Ikz163 A/ G Ratio 1.9 Ratio 11/27/2018 Comp Metabolic Hdx943 Os mo 283 mOsmo 11/27/2018 Cbc With Differential Ord2 [...] 28.7 pg 11/27/2018 Cbc With Differential Ord2 [place]% 7.8 % 11/27/2018 Cbc With Differential Ord2 [...] 2.49 K/ul 11/27/2018 Cbc With Differential Ord2 [place] ABS# 0.5 K/ul 11/27/2018 Cbc With Differential Ord2 Eos ABS# 0.2 K/ul 11/27/2018 Cbc With Differential Ord2 Baso ABS# 0.0 K/ul 11/27/2018 %Hba1C Ctz290 % HbA1c 81171-9 6.2 % 11/27/2018 %Hba1C Bkc200 Gluc Ave 131 mg/dL 11/27/2018 Tsh Ord6 TSH (3rd IS) 1.81 uIU/mL 11/27/2018 Free T4 Sdr134 FREE T4 0.99 ng/dL 11/27/2018 Lipid Ord30 CHOL 206 mg/dL 11/27/2017 Lipid Ord30 HDL 54.0 mg/dl 11/27/2017 Lipid Ord30 TRIG 141 mg/dL 11/27/2017 Lipid Ord30 LDL 124 mg/dL 11/27/2017 Lipid Ord30 C/HDL 3.8 Ratio 11/27/2017 Free T4 Bvo155 FREE T4 1.09 ng/dL 11/27/2017 %Hba1C Uqp660 % HbA1c 49358-4 5.9 % 11/27/2017 %Hba1C Vwv683 Gluc Ave 123 mg/dL 11/27/2017 Comp Metabolic Nfu861 NA 137 mEq/L 11/27/2017 Comp Metabolic Wfb458 K 4.0 mEq/L 11/27/2017 Comp Metabolic Dhm989 CL 100 mEq/L 11/27/2017 Comp Metabolic Dij345 CO2 30.0 mEq/L 11/27/2017 Comp Metabolic Lmm405 AN ION GAP 11 11/27/2017 Comp Metabolic Fxa739 GL UCOSE 126 mg/dL 11/27/2017 Comp Metabolic Hhs252 Cr eat 0.8 mg/dL 11/27/2017 Comp Metabolic Oos907 eG FR 78 ml/min/1.73m2 11/27 Comp Metabolic Iuz531 BUN 16 mg/dL 11/27/2017 Comp Metabolic Vkc567 B/ C Ratio 19.8 Ratio 11/27/2017 Comp Metabolic Uee067 CA LCIUM 9.8 mg/dL 11/27/2017 Comp Metabolic Jvd163 AL K PHOS 53 U/L 11/27/2017 Comp Metabolic Hjg648 T(SGOT) 17 U/L 11/27/2017 Comp Metabolic Ebd015 AL T(SGPT) 20 U/L 11/27/2017 Comp Metabolic Tuv949 BI LI T 0.6 mg/dL 11/27/2017 Comp Metabolic Exx512 AL BUMIN 4.4 g/dL 11/27/2017 Comp Metabolic Yeg120 TP RO 7.3 g/dL 11/27/2017 Comp Metabolic Rfc152 GL OB 2.9 g/dL 11/27/2017 Comp Metabolic Hld216 A/ G Ratio 1.5 Ratio 11/27/2017 Comp Metabolic Umq558 Os mo 277 mOsmo 11/27/2017 Cbc With Differential Ord2 [...] 28.8 pg 11/27/2017 Cbc With Differential Ord2 [place]% 7.3 % 11/27/2017 Cbc With Differential Ord2 [...] 2.26 K/ul 11/27/2017 Cbc With Differential Ord2 [place] ABS# 0.5 K/ul 11/27/2017 Cbc With Differential Ord2 Eos ABS# 0.2 K/ul 11/27/2017 Cbc With Differential Ord2 Baso ABS# 0.0 K/ul 11/27/2017 B12 Goa340 B12 >1500.00 pg/ml 11/27/2017 Tsh Ord6 TSH (3rd IS) 1.15 uIU/mL 11/27/2017 C RAP A SC [id number] Strep A Negative 07/04/2017 Lipid Ord30 CHOL 163 mg/dL 05/29/2017 Lipid Ord30 HDL 53.0 mg/dl 05/29/2017 Lipid Ord30 TRIG 96 mg/dL 05/29/2017 Lipid Ord30 LDL 91 mg/dL 05/29/2017 Lipid Ord30 C/HDL 3.1 Ratio 05/29/2017 Free T4 Cze223 FREE T4 1.05 ng/dL 05/29/2017 Cbc With [...] 28.5 pg 05/29/2017 Cbc With Differential Ord2 [place]% 6.2 % 05/29/2017 Cbc With Differential Ord2 [...] 2.17 K/ul 05/29/2017 Cbc With Differential Ord2 [place] ABS# 0.4 K/ul 05/29/2017 Cbc With Differential Ord2 Eos ABS# 0.2 K/ul 05/29/2017 Cbc With Differential Ord2 Baso ABS# 0.0 K/ul 05/29/2017 Comp Metabolic Xyp303 NA 137 mEq/L 05/29/2017 Comp Metabolic Oub529 K 4.2 mEq/L 05/29/2017 Comp Metabolic Uyl700 CL 101 mEq/L 05/29/2017 Comp Metabolic Ich554 CO2 27.0 mEq/L 05/29/2017 Comp Metabolic Ywi573 AN ION GAP 13 05/29/2017 Comp Metabolic Ytd915 GL UCOSE 133 mg/dL 05/29/2017 Comp Metabolic Ljt799 Cr eat 0.8 mg/dL 05/29/2017 Comp Metabolic Alj049 eG FR 80 ml/min/1.73m2 05/29 Comp Metabolic Zza780 BUN 17 mg/dL 05/29/2017 Comp Metabolic Hqa611 B/ C Ratio 21.3 Ratio 05/29/2017 Comp Metabolic Otx098 CA LCIUM 9.3 mg/dL 05/29/2017 Comp Metabolic Gsb780 AL K PHOS 53 U/L 05/29/2017 Comp Metabolic Thm342 T(SGOT) 17 U/L 05/29/2017 Comp Metabolic Uqp658 AL T(SGPT) 28 U/L 05/29/2017 Comp Metabolic Pgt752 BI LI T 0.3 mg/dL 05/29/2017 Comp Metabolic Yan134 AL BUMIN 4.2 g/dL 05/29/2017 Comp Metabolic Kth168 TP RO 6.5 g/dL 05/29/2017 Comp Metabolic Osy202 GL OB 2.3 g/dL 05/29/2017 Comp Metabolic Rrn024 A/ G Ratio 1.8 Ratio 05/29/2017 Comp Metabolic Lgb803 Os mo 277 mOsmo 05/29/2017 %Hba1C Vss998 % HbA1c 39690-9 6.3 % 05/29/2017 %Hba1C Oyk220 Gluc Ave 134 mg/dL 05/29/2017 Tsh Ord6 hTSH II 0.91 uIU/mL 05/29/2017 %Hba1C Zdh052 % HbA1c 49182-5 6.3 % 11/28/2016 %Hba1C Llq826 Gluc Ave 134 mg/dL 11/28/2016 Cbc With [...] 28.4 pg 11/28/2016 Cbc With Differential Ord2 [place]% 6.2 % 11/28/2016 Cbc With Differential Ord2 [...] 2.30 K/ul 11/28/2016 Cbc With Differential Ord2 [place] ABS# 0.5 K/ul 11/28/2016 Cbc With Differential Ord2 Eos ABS# 0.2 K/ul 11/28/2016 Cbc With Differential Ord2 Baso ABS# 0.0 K/ul 11/28/2016 Tsh Ord6 hTSH II 3.96 uIU/mL 11/28/2016 B12 Wks659 B12 >1500.00 pg/ml 11/28/2016 Comp Metabolic Rhl049 NA 134 mEq/L 11/28/2016 Comp Metabolic Cxd240 K 3.8 mEq/L 11/28/2016 Comp Metabolic Onm162 CL 98 mEq/L 11/28/2016 Comp Metabolic Uqd132 CO2 28.0 mEq/L 11/28/2016 Comp Metabolic Rsf007 AN ION GAP 12 11/28/2016 Comp Metabolic Hsh269 GL UCOSE 156 mg/dL 11/28/2016 Comp Metabolic Ewh218 Cr eat 0.8 mg/dL 11/28/2016 Comp Metabolic Nyc491 eG FR 75 ml/min/1.73m2 11/28 Comp Metabolic Teu351 BUN 15 mg/dL 11/28/2016 Comp Metabolic Rkm076 B/ C Ratio 17.9 Ratio 11/28/2016 Comp Metabolic Rfy080 CA LCIUM 9.3 mg/dL 11/28/2016 Comp Metabolic Vrm142 AL K PHOS 55 U/L 11/28/2016 Comp Metabolic Zjh221 T(SGOT) 17 U/L 11/28/2016 Comp Metabolic Vpy617 AL T(SGPT) 26 U/L 11/28/2016 Comp Metabolic Brj909 BI LI T 0.4 mg/dL 11/28/2016 Comp Metabolic Rxn464 AL BUMIN 4.2 g/dL 11/28/2016 Comp Metabolic Ref619 TP RO 6.6 g/dL 11/28/2016 Comp Metabolic Bcn480 GL OB 2.4 g/dL 11/28/2016 Comp Metabolic Jrr528 A/ G Ratio 1.8 Ratio 11/28/2016 Comp Metabolic Trd228 Os mo 272 mOsmo 11/28/2016 Free T4 Krj240 FREE T4 0.81 ng/dL 11/28/2016 Free T4 Lcp488 FREE T4 0.85 ng/dL 07/27/2016 Cbc With [...] 28.8 pg 07/27/2016 Cbc With Differential Ord2 [place]% 6.0 % 07/27/2016 Cbc With Differential Ord2 [...] 2.41 K/ul 07/27/2016 Cbc With Differential Ord2 [place] ABS# 0.3 K/ul 07/27/2016 Cbc With Differential Ord2 Eos ABS# 0.1 K/ul 07/27/2016 Cbc With Differential Ord2 Baso ABS# 0.0 K/ul 07/27/2016 %Hba1C Djd953 % HbA1c 72080-0 6.1 % 07/27/2016 %Hba1C Puk470 Gluc Ave 128 mg/dL 07/27/2016 Tsh Ord6 hTSH II 0.69 uIU/mL 07/27/2016 Helicobacter Pylori Iga 545732 H. PYLORI AB, IgA <9.0 units 06/10/2016 Helicobacter Pylori Igm Ab 538222 H. PYLORI AB, IgM <9.0 units 06/10/2016 H. Pylori Igg Abs 963234 H. PYLORI AB, IgG 0.2 INDEX 06/07/2016 H. Pylori Igg Abs 093168 06/07/2016 Comp Metabolic Okt082 NA 133 mEq/L 04/20/2016 Comp Metabolic Pzk890 K 4.3 mEq/L 04/20/2016 Comp Metabolic Twu586 CL 100 mEq/L 04/20/2016 Comp Metabolic Rug615 CO2 28.0 mEq/L 04/20/2016 Comp Metabolic Qak137 AN ION GAP 9 04/20/2016 Comp Metabolic Agf801 GL UCOSE 139 mg/dL 04/20/2016 Comp Metabolic Zas710 Cr eat 0.8 mg/dL 04/20/2016 Comp Metabolic Lrl450 eG FR 85 ml/min/1.73m2 04/20 Comp Metabolic Bcx527 BUN 16 mg/dL 04/20/2016 Comp Metabolic Hzd635 B/ C Ratio 21.1 Ratio 04/20/2016 Comp Metabolic Axk688 CA LCIUM 9.1 mg/dL 04/20/2016 Comp Metabolic Zaz075 AL K PHOS 45 U/L 04/20/2016 Comp Metabolic Kpy899 T(SGOT) 16 U/L 04/20/2016 Comp Metabolic Jhm756 AL T(SGPT) 29 U/L 04/20/2016 Comp Metabolic Sia582 BI LI T 0.5 mg/dL 04/20/2016 Comp Metabolic Kdo921 AL BUMIN 4.2 g/dL 04/20/2016 Comp Metabolic Ryz014 TP RO 6.7 g/dL 04/20/2016 Comp Metabolic Nkk077 GL OB 2.5 g/dL 04/20/2016 Comp Metabolic Dfv550 A/ G Ratio 1.7 Ratio 04/20/2016 Comp Metabolic Klm426 Os mo 270 mOsmo 04/20/2016 %Hba1C Cyn066 % HbA1c 76201-4 6.2 % 04/20/2016 %Hba1C Tkw074 Gluc Ave 131 mg/dL 04/20/2016 Cbc With [...] 28.9 pg 04/20/2016 Cbc With Differential Ord2 [place]% 8.5 % 04/20/2016 Cbc With Differential Ord2 [...] 2.17 K/ul 04/20/2016 Cbc With Differential Ord2 [place] ABS# 0.5 K/ul 04/20/2016 Cbc With Differential [...] 29.2 pg 03/03/2016 Cbc With Differential Ord2 [place]% 6.3 % 03/03/2016 Cbc With Differential Ord2 [...] 1.73 K/ul 03/03/2016 Cbc With Differential Ord2 [place] ABS# 0.3 K/ul 03/03/2016 Cbc With Differential Ord2 Eos ABS# 0.1 K/ul 03/03/2016 Cbc With Differential Ord2 Baso ABS# 0.0 K/ul 03/03/2016 Free T4 Lok423 FREE T4 0.90 ng/dL 03/03/2016 Comp Metabolic Hth701 NA 135 mEq/L 03/03/2016 Comp Metabolic Oim218 K 3.7 mEq/L 03/03/2016 Comp Metabolic Ziz518 CL 100 mEq/L 03/03/2016 Comp Metabolic Ggw960 CO2 29.0 mEq/L 03/03/2016 Comp Metabolic Arp248 AN ION GAP 10 03/03/2016 Comp Metabolic Iie248 GL UCOSE 134 mg/dL 03/03/2016 Comp Metabolic Kvz378 Cr eat 0.7 mg/dL 03/03/2016 Comp Metabolic Rwn164 eG FR 93 ml/min/1.73m2 03/03 Comp Metabolic Ryf038 BUN 16 mg/dL 03/03/2016 Comp Metabolic Zua384 B/ C Ratio 22.9 Ratio 03/03/2016 Comp Metabolic Ktk734 CA LCIUM 9.0 mg/dL 03/03/2016 Comp Metabolic Gpu759 AL K PHOS 36 U/L 03/03/2016 Comp Metabolic Nbl339 T(SGOT) 17 U/L 03/03/2016 Comp Metabolic Qlo507 AL T(SGPT) 25 U/L 03/03/2016 Comp Metabolic Wjc972 BI LI T 0.4 mg/dL 03/03/2016 Comp Metabolic Quj591 AL BUMIN 4.3 g/dL 03/03/2016 Comp Metabolic Blu405 TP RO 6.6 g/dL 03/03/2016 Comp Metabolic Yev757 GL OB 2.3 g/dL 03/03/2016 Comp Metabolic Ncx054 A/ G Ratio 1.8 Ratio 03/03/2016 Comp Metabolic Hjs932 Os mo 273 mOsmo 03/03/2016 Tsh Ord6 hTSH II 2.99 uIU/mL 03/03/2016 Comp Metabolic Rdu321 NA 135 mEq/L 12/21/2015 Comp Metabolic Dok173 K 4.1 mEq/L 12/21/2015 Comp Metabolic Snb120 CL 100 mEq/L 12/21/2015 Comp Metabolic Gzc022 CO2 29.0 mEq/L 12/21/2015 Comp Metabolic Ssw328 AN ION GAP 10 12/21/2015 Comp Metabolic Zlg530 GL UCOSE 146 mg/dL 12/21/2015 Comp Metabolic Pdr364 Cr eat 0.8 mg/dL 12/21/2015 Comp Metabolic Tyf243 eG FR 76 ml/min/1.73m2 12/20 Comp Metabolic Klq867 BUN 14 mg/dL 12/21/2015 Comp Metabolic Sla407 B/ C Ratio 16.7 Ratio 12/21/2015 Comp Metabolic Hgy365 CA LCIUM 9.0 mg/dL 12/21/2015 Comp Metabolic Oqk936 AL K PHOS 47 U/L 12/21/2015 Comp Metabolic Lal878 T(SGOT) 19 U/L 12/21/2015 Comp Metabolic Nkb081 AL T(SGPT) 31 U/L 12/21/2015 Comp Metabolic Htb332 BI LI T 0.4 mg/dL 12/21/2015 Comp Metabolic Onh425 AL BUMIN 4.1 g/dL 12/21/2015 Comp Metabolic Spz335 TP RO 6.5 g/dL 12/21/2015 Comp Metabolic Rbz034 GL OB 2.5 g/dL 12/21/2015 Comp Metabolic Ddn209 A/ G Ratio 1.7 Ratio 12/21/2015 Comp Metabolic Ryc934 Os mo 273 mOsmo 12/21/2015 Cbc With Differential Ord2 [...] 28.5 pg 12/21/2015 Cbc With Differential Ord2 [place]% 5.3 % 12/21/2015 Cbc With Differential Ord2 [...] 2.12 K/ul 12/21/2015 Cbc With Differential Ord2 [place] ABS# 0.3 K/ul 12/21/2015 Cbc With Differential Ord2 Eos ABS# 0.2 K/ul 12/21/2015 Cbc With Differential Ord2 Baso ABS# 0.0 K/ul 12/21/2015 Cbc With Differential Ord2 New Analyzer Notice Please note new ref ranges s tarting 08-19-2015 due to implemntation of new five part differential hematolgy analyzer. 12/21/2015 Tsh Ord6 hTSH II 4.58 uIU/mL 12/21/2015 %Hba1C Vmk196 % HbA1c 20080-0 6.2 % 12/21/2015 %Hba1C Nbv519 Gluc Ave 131 mg/dL 12/21/2015 Lipid Ord30 CHOL 168 mg/dL 12/21/2015 Lipid Ord30 HDL 61.0 mg/dl 12/21/2015 Lipid Ord30 TRIG 161 mg/dL 12/21/2015 Lipid Ord30 LDL 75 mg/dL 12/21/2015 Lipid Ord30 C/HDL 2.8 Ratio 12/21/2015 Free T4 Zis175 FREE T4 0.82 ng/dL 12/21/2015 Free T4 Cyh497 FREE T4 1.03 ng/dL 06/22/2015 Tsh Ord6 [...] Ord30 C/HDL 3.5 Ratio 03/18/2015 Free T4 Qyr346 FREE T4 0.86 ng/dL 03/18/2015 Comp Metabolic Utx758 NA 135 mEq/L 03/18/2015 Comp Metabolic Xfe695 K 4.2 mEq/L 03/18/2015 Comp Metabolic Vzm365 CL 103 mEq/L 03/18/2015 Comp Metabolic Flt371 CO2 27.0 mEq/L 03/18/2015 Comp Metabolic Kkl974 AN ION GAP 9 03/18/2015 Comp Metabolic Mch757 GL UCOSE 124 mg/dL 03/18/2015 Comp Metabolic Uvc483 Cr eat 0.8 mg/dL 03/18/2015 Comp Metabolic Bhj107 eG FR 78 ml/min/1.73m2 03/18 Comp Metabolic Qsc418 BUN 15 mg/dL 03/18/2015 Comp Metabolic Uhm791 B/ C Ratio 18.3 Ratio 03/18/2015 Comp Metabolic Psa441 CA LCIUM 9.4 mg/dL 03/18/2015 Comp Metabolic Amg434 AL K PHOS 42 U/L 03/18/2015 Comp Metabolic Oow634 T(SGOT) 14 U/L 03/18/2015 Comp Metabolic Cjk795 AL T(SGPT) 25 U/L 03/18/2015 Comp Metabolic Ras009 BI LI T 0.3 mg/dL 03/18/2015 Comp Metabolic Wmc586 AL BUMIN 4.2 g/dL 03/18/2015 Comp Metabolic Eoj500 TP RO 6.5 g/dL 03/18/2015 Comp Metabolic Jlj209 GL OB 2.3 g/dL 03/18/2015 Comp Metabolic Fwl190 A/ G Ratio 1.8 Ratio 03/18/2015 Comp Metabolic Xcf787 Os mo 272 mOsmo 03/18/2015 %Hba1C Hor712 % HbA1c 17485-3 6.0 % 03/18/2015 %Hba1C Ekr084 Gluc Ave 126 mg/dL 03/18/2015 Review of Systems System Result Effective Dates Constitutional No recent illness 11/28/2018 Constitutional No anorexia 11/28/2018 Constitutional No night sweats 11/28/2018 Constitutional No chills 11/28/2018 Constitutional fatigue 0 11/28/2018 Constitutional No insomnia 11/28/2018 Constitutional No malaise 11/28/2018 Eyes No eye discharge Eyes No eye erythema Ears/Nose/Throat/Neck No dental pain 11/28/2018 Ears/Nose/Throat/Neck No [...] Cardiovascular No palpitations 11/28/2018 Respiratory No asthma Respiratory No pleuritic pain 11/28/2018 Respiratory No productive sputum 11/28/2018 Respiratory No chest tightness 11/28/2018 Respiratory No cigarette smoking 11/28/2018 Respiratory No cough Respiratory No dyspnea 0 11/28/2018 Respiratory No pedal edema 11/28/2018 Respiratory No snoring 0 11/28/2018 Respiratory No wheezing 11/28/2018 Gastrointestinal No hemorrhoids 11/28/2018 Gastrointestinal No abdominal pain 11/28/2018 Gastrointestinal No constipation 11/28/2018 Gastrointestinal No diarrhea 11/28/2018 Gastrointestinal No gastroesophageal reflu x 11/28/2018 Gastrointestinal No melena 11/28/2018 Gastrointestinal No nausea 11/28/2018 Gastrointestinal No vomiting 11/28/2018 Genitourinary/Nephrology No dysuria 11/28/2018 Genitourinary/Nephrology No nocturia 11/28/2018 Genitourinary/Nephrology No urinary incontinence 11/28/2018 Musculoskeletal stiffness 11/28/2018 Dermatologic No rash Dermatologic No scar Neurologic No alteration of consciousness 11/28/2018 Neurologic paresthesia 0 11/28/2018 Psychiatric No anxiety 0 11/28/2018 Psychiatric No depression 11/28/2018 Endocrine diabetes mellitus type 2 11/28/2018 Musculoskeletal joint complaint 11/28/2018 Constitutional No recent illness 11/29/2017 Constitutional No anorexia 11/29/2017 Constitutional No night sweats 11/29/2017 Constitutional No chills 11/29/2017 Constitutional fatigue 0 11/29/2017 Constitutional No insomnia 11/29/2017 Constitutional No malaise 11/29/2017 Eyes No eye discharge Eyes No eye erythema Ears/Nose/Throat/Neck No dental pain 11/29/2017 Ears/Nose/Throat/Neck No [...] Cardiovascular No palpitations 11/29/2017 Respiratory No asthma Respiratory No pleuritic pain 11/29/2017 Respiratory No productive sputum 11/29/2017 Respiratory No chest tightness 11/29/2017 Respiratory No cigarette smoking 11/29/2017 Respiratory No cough Respiratory No dyspnea 0 11/29/2017 Respiratory No pedal edema 11/29/2017 Respiratory No snoring 0 11/29/2017 Respiratory No wheezing 11/29/2017 Gastrointestinal No hemorrhoids 11/29/2017 Gastrointestinal No abdominal pain 11/29/2017 Gastrointestinal No constipation 11/29/2017 Gastrointestinal No diarrhea 11/29/2017 Gastrointestinal No gastroesophageal reflu x 11/29/2017 Gastrointestinal No melena 11/29/2017 Gastrointestinal No nausea 11/29/2017 Gastrointestinal No vomiting 11/29/2017 Genitourinary/Nephrology No dysuria 11/29/2017 Genitourinary/Nephrology No nocturia 11/29/2017 Genitourinary/Nephrology No urinary incontinence 11/29/2017 Musculoskeletal stiffness 11/29/2017 Musculoskeletal arthralgia(s) 11/29/2017 Dermatologic No rash Dermatologic No scar Neurologic No alteration of consciousness 11/29/2017 Neurologic paresthesia 0 11/29/2017 Psychiatric No anxiety 0 11/29/2017 Psychiatric No depression 11/29/2017 Constitutional recent illness 07/04/2017 Constitutional chills Constitutional No diaphoresis 07/04/2017 Constitutional fever Eyes No eye erythema Ears/Nose/Throat/Neck nasal allergies 07/04/2017 Ears/Nose/Throat/Neck nasal discharge 07/04/2017 Ears/Nose/Throat/Neck postnasal drip 07/04/2017 Ears/Nose/Throat/Neck sinus congestion 07/04/2017 Ears/Nose/Throat/Neck sore throat 07/04/2017 Cardiovascular No chest pain/pressure 07/04/2017 Cardiovascular No dyspnea 07/04/2017 Respiratory No chest congestion 07/04/2017 Respiratory cough 2016 Respiratory No dyspnea 1 09/03/2016 Gastrointestinal No constipation 07/04/2017 Gastrointestinal No diarrhea 07/04/2017 Gastrointestinal No nausea 07/04/2017 Gastrointestinal No vomiting 07/04/2017 Dermatologic No rash Neurologic No alteration of consciousness 07/04/2017 Neurologic No mental status change 07/04/2017 Constitutional No recent illness 05/31/2017 Constitutional No anorexia 05/31/2017 Constitutional No night sweats 05/31/2017 Constitutional No chills 05/31/2017 Constitutional fatigue 1 Constitutional No insomnia 05/31/2017 Constitutional No malaise 05/31/2017 Eyes No eye discharge Eyes No eye erythema Ears/Nose/Throat/Neck No dental pain 05/31/2017 Ears/Nose/Throat/Neck No [...] Cardiovascular No palpitations 05/31/2017 Respiratory No asthma Respiratory No pleuritic pain 05/31/2017 Respiratory No productive sputum 05/31/2017 Respiratory No chest tightness 05/31/2017 Respiratory No cigarette smoking 05/31/2017 Respiratory No cough Respiratory No dyspnea 1 Respiratory No pedal edema 05/31/2017 Respiratory No snoring 1 Respiratory No wheezing 05/31/2017 Gastrointestinal No hemorrhoids 05/31/2017 Gastrointestinal No abdominal pain 05/31/2017 Gastrointestinal No constipation 05/31/2017 Gastrointestinal No diarrhea 05/31/2017 Gastrointestinal No gastroesophageal reflu x 05/31/2017 Gastrointestinal No melena 05/31/2017 Gastrointestinal No nausea 05/31/2017 Gastrointestinal No vomiting 05/31/2017 Genitourinary/Nephrology No dysuria 05/31/2017 Genitourinary/Nephrology No nocturia 05/31/2017 Genitourinary/Nephrology No urinary incontinence 05/31/2017 Musculoskeletal stiffness 05/31/2017 Musculoskeletal arthralgia(s) 05/31/2017 Dermatologic No rash Dermatologic No scar Neurologic No alteration of consciousness 05/31/2017 Psychiatric No anxiety 1 Psychiatric No depression 05/31/2017 Neurologic paresthesia 1 Constitutional No recent illness 11/28/2016 Constitutional No anorexia 11/28/2016 Constitutional No night sweats 11/28/2016 Constitutional No chills 11/28/2016 Constitutional fatigue 0 11/28/2016 Constitutional No insomnia 11/28/2016 Constitutional No malaise 11/28/2016 Eyes No eye discharge Eyes No eye erythema Ears/Nose/Throat/Neck No dental pain 11/28/2016 Ears/Nose/Throat/Neck No [...] Cardiovascular No palpitations 11/28/2016 Respiratory No asthma Respiratory No pleuritic pain 11/28/2016 Respiratory No productive sputum 11/28/2016 Respiratory No chest tightness 11/28/2016 Respiratory No cigarette smoking 11/28/2016 Respiratory No cough Respiratory No dyspnea 0 11/28/2016 Respiratory No pedal edema 11/28/2016 Respiratory No snoring 0 11/28/2016 Respiratory No wheezing 11/28/2016 Gastrointestinal No hemorrhoids 11/28/2016 Gastrointestinal No abdominal pain 11/28/2016 Gastrointestinal No constipation 11/28/2016 Gastrointestinal No diarrhea 11/28/2016 Gastrointestinal No gastroesophageal reflu x 11/28/2016 Gastrointestinal No melena 11/28/2016 Gastrointestinal No nausea 11/28/2016 Gastrointestinal No vomiting 11/28/2016 Genitourinary/Nephrology No dysuria 11/28/2016 Genitourinary/Nephrology No nocturia 11/28/2016 Genitourinary/Nephrology No urinary incontinence 11/28/2016 Musculoskeletal stiffness 11/28/2016 Musculoskeletal arthralgia(s) 11/28/2016 Dermatologic No rash Dermatologic No scar Neurologic No alteration of consciousness 11/28/2016 Psychiatric No anxiety 0 11/28/2016 Psychiatric No depression 11/28/2016 Constitutional No recent illness 07/28/2016 Constitutional No anorexia 07/28/2016 Constitutional No night sweats 07/28/2016 Constitutional No chills 07/28/2016 Constitutional fatigue 1 09/28/2015 Constitutional No insomnia 07/28/2016 Constitutional No malaise 07/28/2016 Eyes No eye discharge Eyes No eye erythema Ears/Nose/Throat/Neck No dental pain 07/28/2016 Ears/Nose/Throat/Neck No [...] Cardiovascular No palpitations 07/28/2016 Respiratory No asthma Respiratory No pleuritic pain 07/28/2016 Respiratory No productive sputum 07/28/2016 Respiratory No chest tightness 07/28/2016 Respiratory No cigarette smoking 07/28/2016 Respiratory No cough Respiratory No dyspnea 1 09/28/2015 Respiratory No pedal edema 07/28/2016 Respiratory No snoring 1 09/28/2015 Respiratory No wheezing 07/28/2016 Gastrointestinal No hemorrhoids 07/28/2016 Gastrointestinal No abdominal pain 07/28/2016 Gastrointestinal No constipation 07/28/2016 Gastrointestinal No diarrhea 07/28/2016 Gastrointestinal No gastroesophageal reflu x 07/28/2016 Gastrointestinal No melena 07/28/2016 Gastrointestinal No nausea 07/28/2016 Gastrointestinal No vomiting 07/28/2016 Genitourinary/Nephrology No dysuria 07/28/2016 Genitourinary/Nephrology No nocturia 07/28/2016 Genitourinary/Nephrology No urinary incontinence 07/28/2016 Musculoskeletal stiffness 07/28/2016 Musculoskeletal arthralgia(s) 07/28/2016 Dermatologic No rash Dermatologic No scar Neurologic No alteration of consciousness 07/28/2016 Psychiatric No anxiety 1 09/28/2015 Psychiatric No depression 07/28/2016 Constitutional recent illness 06/06/2016 Constitutional anorexia 06/06/2016 Constitutional No night sweats 06/06/2016 Constitutional No chills 06/06/2016 Constitutional No diaphoresis 06/06/2016 Constitutional No fatigue 06/06/2016 Constitutional No fever 06/06/2016 Constitutional No insomnia 06/06/2016 Constitutional No malaise 06/06/2016 Constitutional weight loss 06/06/2016 Constitutional No weight gain 06/06/2016 Eyes No eye discharge Eyes No eye erythema Gastrointestinal abdominal pain 06/06/2016 Gastrointestinal No constipation 06/06/2016 Gastrointestinal diarrhea 06/06/2016 Gastrointestinal gas and bloating 06/06/2016 Gastrointestinal gastroesophageal reflux 06/06/2016 Gastrointestinal No vomiting 06/06/2016 Gastrointestinal No nausea 06/06/2016 Ears/Nose/Throat/Neck No dizziness 06/06/2016 Ears/Nose/Throat/Neck No headache 06/06/2016 Cardiovascular No chest pain/pressure 06/06/2016 Respiratory No cough Genitourinary/Nephrology No dysuria 06/06/2016 Musculoskeletal No joint complaint 06/06/2016 Dermatologic No rash Constitutional No recent illness 04/20/2016 Constitutional No anorexia 04/20/2016 Constitutional No night sweats 04/20/2016 Constitutional No chills 04/20/2016 Constitutional fatigue 0 04/20/2016 Constitutional No insomnia 04/20/2016 Constitutional No malaise 04/20/2016 Eyes No eye discharge Eyes No eye erythema Ears/Nose/Throat/Neck No dental pain 04/20/2016 Ears/Nose/Throat/Neck No [...] Cardiovascular No palpitations 04/20/2016 Respiratory No asthma Respiratory No pleuritic pain 04/20/2016 Respiratory No productive sputum 04/20/2016 Respiratory No chest tightness 04/20/2016 Respiratory No cigarette smoking 04/20/2016 Respiratory No cough Respiratory No dyspnea 0 04/20/2016 Respiratory No pedal edema 04/20/2016 Respiratory No snoring 0 04/20/2016 Respiratory No wheezing 04/20/2016 Gastrointestinal No hemorrhoids 04/20/2016 Gastrointestinal No abdominal pain 04/20/2016 Gastrointestinal No constipation 04/20/2016 Gastrointestinal No diarrhea 04/20/2016 Gastrointestinal No gastroesophageal reflu x 04/20/2016 Gastrointestinal No melena 04/20/2016 Gastrointestinal No nausea 04/20/2016 Gastrointestinal No vomiting 04/20/2016 Genitourinary/Nephrology No dysuria 04/20/2016 Genitourinary/Nephrology No nocturia 04/20/2016 Genitourinary/Nephrology No urinary incontinence 04/20/2016 Dermatologic No rash Dermatologic No scar Neurologic No alteration of consciousness 04/20/2016 Psychiatric No anxiety 0 04/20/2016 Psychiatric No depression 04/20/2016 Musculoskeletal stiffness 04/20/2016 Musculoskeletal arthralgia(s) 04/20/2016 Constitutional No recent illness 03/03/2016 Constitutional No night sweats 03/03/2016 Constitutional No chills 03/03/2016 Constitutional fatigue 0 03/03/2016 Constitutional No insomnia 03/03/2016 Constitutional No malaise 03/03/2016 Eyes No eye discharge Eyes No eye erythema Ears/Nose/Throat/Neck No dental pain 03/03/2016 Ears/Nose/Throat/Neck No [...] Cardiovascular No palpitations 03/03/2016 Respiratory No asthma Respiratory No pleuritic pain 03/03/2016 Respiratory No productive sputum 03/03/2016 Respiratory No chest tightness 03/03/2016 Respiratory No cigarette smoking 03/03/2016 Respiratory No cough Respiratory No dyspnea 0 03/03/2016 Respiratory No pedal edema 03/03/2016 Respiratory No snoring 0 03/03/2016 Respiratory No wheezing 03/03/2016 Gastrointestinal No hemorrhoids 03/03/2016 Gastrointestinal No abdominal pain 03/03/2016 Gastrointestinal No constipation 03/03/2016 Gastrointestinal No diarrhea 03/03/2016 Gastrointestinal No gastroesophageal reflu x 03/03/2016 Gastrointestinal No melena 03/03/2016 Gastrointestinal No nausea 03/03/2016 Gastrointestinal No vomiting 03/03/2016 Genitourinary/Nephrology No dysuria 03/03/2016 Genitourinary/Nephrology No nocturia 03/03/2016 Genitourinary/Nephrology No urinary incontinence 03/03/2016 Musculoskeletal joint complaint 03/03/2016 Dermatologic No rash Dermatologic No scar Psychiatric No anxiety 0 03/03/2016 Psychiatric No depression 03/03/2016 Constitutional No anorexia 03/03/2016 Neurologic No alteration of consciousness 03/03/2016 Eyes eye pain 03/03/2016 Constitutional No recent illness 12/21/2015 Constitutional No night sweats 12/21/2015 Constitutional No chills 12/21/2015 Constitutional No fatigue 12/21/2015 Constitutional No insomnia 12/21/2015 Constitutional No malaise 12/21/2015 Eyes No eye discharge Eyes No eye erythema Ears/Nose/Throat/Neck No dental pain 12/21/2015 Ears/Nose/Throat/Neck No [...] Cardiovascular No palpitations 12/21/2015 Respiratory No asthma Respiratory No pleuritic pain 12/21/2015 Respiratory No productive sputum 12/21/2015 Respiratory No chest tightness 12/21/2015 Respiratory No cigarette smoking 12/21/2015 Respiratory No cough Respiratory No dyspnea 0 12/21/2015 Respiratory No pedal edema 12/21/2015 Respiratory No snoring 0 12/21/2015 Respiratory No wheezing 12/21/2015 Gastrointestinal No hemorrhoids 12/21/2015 Gastrointestinal No abdominal pain 12/21/2015 Gastrointestinal No constipation 12/21/2015 Gastrointestinal No diarrhea 12/21/2015 Gastrointestinal No gastroesophageal reflu x 12/21/2015 Gastrointestinal No melena 12/21/2015 Gastrointestinal No nausea 12/21/2015 Gastrointestinal No vomiting 12/21/2015 Genitourinary/Nephrology No dysuria 12/21/2015 Genitourinary/Nephrology No nocturia 12/21/2015 Genitourinary/Nephrology No urinary incontinence 12/21/2015 Musculoskeletal No joint complaint 12/21/2015 Dermatologic No rash Dermatologic No scar Psychiatric No anxiety 0 12/21/2015 Psychiatric No depression 12/21/2015 Constitutional No recent illness 06/22/2015 Constitutional No night sweats 06/22/2015 Constitutional No chills 06/22/2015 Constitutional No insomnia 06/22/2015 Constitutional No malaise 06/22/2015 Eyes No eye discharge Eyes No eye erythema Ears/Nose/Throat/Neck No dental pain 06/22/2015 Ears/Nose/Throat/Neck No [...] Cardiovascular No palpitations 06/22/2015 Respiratory No asthma Respiratory No pleuritic pain 06/22/2015 Respiratory No productive sputum 06/22/2015 Respiratory No chest tightness 06/22/2015 Respiratory No cigarette smoking 06/22/2015 Respiratory No cough Respiratory No dyspnea 1 08/22/2014 Respiratory No pedal edema 06/22/2015 Respiratory No snoring 1 08/22/2014 Respiratory No wheezing 06/22/2015 Gastrointestinal No hemorrhoids 06/22/2015 Gastrointestinal No abdominal pain 06/22/2015 Gastrointestinal No constipation 06/22/2015 Gastrointestinal No diarrhea 06/22/2015 Gastrointestinal No gastroesophageal reflu x 06/22/2015 Gastrointestinal No melena 06/22/2015 Gastrointestinal No nausea 06/22/2015 Gastrointestinal No vomiting 06/22/2015 Genitourinary/Nephrology No dysuria 06/22/2015 Genitourinary/Nephrology No nocturia 06/22/2015 Genitourinary/Nephrology No urinary incontinence 06/22/2015 Musculoskeletal No joint complaint 06/22/2015 Dermatologic No rash Dermatologic No scar Psychiatric No anxiety 1 08/22/2014 Psychiatric No depression 06/22/2015 Constitutional No fatigue 06/22/2015 Constitutional No recent illness 03/19/2015 Constitutional No night sweats 03/19/2015 Constitutional No chills 03/19/2015 Constitutional No diaphoresis 03/19/2015 Constitutional No fatigue 03/19/2015 Constitutional No fever 03/19/2015 Constitutional No insomnia 03/19/2015 Constitutional No malaise 03/19/2015 Eyes No eye discharge Eyes No eye erythema Ears/Nose/Throat/Neck No dental pain 03/19/2015 Ears/Nose/Throat/Neck No [...] Cardiovascular No palpitations 03/19/2015 Respiratory No asthma Respiratory No pleuritic pain 03/19/2015 Respiratory No productive sputum 03/19/2015 Respiratory No chest tightness 03/19/2015 Respiratory No cigarette smoking 03/19/2015 Respiratory No cough Respiratory No dyspnea 0 03/19/2015 Respiratory No pedal edema 03/19/2015 Respiratory No snoring 0 03/19/2015 Respiratory No wheezing 03/19/2015 Gastrointestinal No hemorrhoids 03/19/2015 Gastrointestinal No abdominal pain 03/19/2015 Gastrointestinal No constipation 03/19/2015 Gastrointestinal No diarrhea 03/19/2015 Gastrointestinal No gastroesophageal reflu x 03/19/2015 Gastrointestinal No melena 03/19/2015 Gastrointestinal No nausea 03/19/2015 Gastrointestinal No vomiting 03/19/2015 Genitourinary/Nephrology No dysuria 03/19/2015 Genitourinary/Nephrology No nocturia 03/19/2015 Genitourinary/Nephrology No urinary incontinence 03/19/2015 Musculoskeletal No joint complaint 03/19/2015 Dermatologic No rash Dermatologic No scar Psychiatric No anxiety 0 03/19/2015 Psychiatric No depression 03/19/2015 Constitutional No recent illness 01/22/2015 Constitutional No anorexia 01/22/2015 Constitutional No night sweats 01/22/2015 Constitutional No chills 01/22/2015 Constitutional No diaphoresis 01/22/2015 Constitutional No fever 01/22/2015 Constitutional No insomnia 01/22/2015 Eyes No eye discharge Eyes No eye erythema Ears/Nose/Throat/Neck No dizziness 01/22/2015 Ears/Nose/Throat/Neck No headache 01/22/2015 Cardiovascular No chest pain/pressure 01/22/2015 Cardiovascular edema Cardiovascular No dyspnea 01/22/2015 Respiratory No cough Gastrointestinal No nausea 01/22/2015 Gastrointestinal No vomiting 01/22/2015 Musculoskeletal No joint complaint 01/22/2015 Musculoskeletal swelling 01/22/2015 Dermatologic No rash Neurologic No alteration of consciousness 01/22/2015 Constitutional No recent illness 12/22/2014 Constitutional No anorexia 12/22/2014 Constitutional No night sweats 12/22/2014 Constitutional No chills 12/22/2014 Constitutional No diaphoresis 12/22/2014 Constitutional fatigue 0 12/22/2014 Constitutional No fever 12/22/2014 Constitutional insomnia 12/22/2014 Constitutional No malaise 12/22/2014 Constitutional No weight loss 12/22/2014 Constitutional weight gain 12/22/2014 Ears/Nose/Throat/Neck No nasal allergies 12/22/2014 Ears/Nose/Throat/Neck No nasal discharge 12/22/2014 Ears/Nose/Throat/Neck No otalgia 12/22/2014 Ears/Nose/Throat/Neck No sinus congestion 12/22/2014 Ears/Nose/Throat/Neck No sore throat 12/22/2014 Eyes No eye discharge Eyes No eye erythema Cardiovascular No chest pain/pressure 12/22/2014 Cardiovascular No dyspnea 12/22/2014 Cardiovascular No edema 12/22/2014 Respiratory No productive sputum 12/22/2014 Respiratory No chest congestion 12/22/2014 Respiratory No cough Gastrointestinal No constipation 12/22/2014 Gastrointestinal No diarrhea 12/22/2014 Genitourinary/Nephrology No dysuria 12/22/2014 Musculoskeletal No joint complaint 12/22/2014 Dermatologic No rash Dermatologic No sores Neurologic No alteration of consciousness 12/22/2014 Hematologic/Lymphatic abnormal bleed ing and bruising 12/22/2014 Constitutional No recent illness 06/19/2014 Constitutional No night sweats 06/19/2014 Constitutional No chills 06/19/2014 Constitutional No diaphoresis 06/19/2014 Constitutional No fatigue 06/19/2014 Constitutional No fever 06/19/2014 Constitutional No insomnia 06/19/2014 Constitutional No malaise 06/19/2014 Eyes No eye discharge Eyes No eye erythema Ears/Nose/Throat/Neck No dental pain 06/19/2014 Ears/Nose/Throat/Neck No [...] Cardiovascular No palpitations 06/19/2014 Respiratory No asthma Respiratory No pleuritic pain 06/19/2014 Respiratory No productive sputum 06/19/2014 Respiratory No chest tightness 06/19/2014 Respiratory No cigarette smoking 06/19/2014 Respiratory No cough Respiratory No dyspnea 1 08/19/2013 Respiratory No pedal edema 06/19/2014 Respiratory No snoring 1 08/19/2013 Respiratory No wheezing 06/19/2014 Gastrointestinal No hemorrhoids 06/19/2014 Gastrointestinal No abdominal pain 06/19/2014 Gastrointestinal No constipation 06/19/2014 Gastrointestinal No diarrhea 06/19/2014 Gastrointestinal No gastroesophageal reflu x 06/19/2014 Gastrointestinal No melena 06/19/2014 Gastrointestinal No nausea 06/19/2014 Gastrointestinal No vomiting 06/19/2014 Genitourinary/Nephrology No dysuria 06/19/2014 Genitourinary/Nephrology No nocturia 06/19/2014 Genitourinary/Nephrology No urinary incontinence 06/19/2014 Musculoskeletal No joint complaint 06/19/2014 Dermatologic No rash Dermatologic No scar Psychiatric No anxiety 1 08/19/2013 Psychiatric No depression 06/19/2014 Constitutional No recent illness 03/19/2014 Constitutional No night sweats 03/19/2014 Constitutional No chills 03/19/2014 Constitutional No diaphoresis 03/19/2014 Constitutional No fatigue 03/19/2014 Constitutional No fever 03/19/2014 Constitutional No insomnia 03/19/2014 Constitutional No malaise 03/19/2014 Eyes No eye discharge Eyes No eye erythema Ears/Nose/Throat/Neck No dental pain 03/19/2014 Ears/Nose/Throat/Neck No [...] Cardiovascular No palpitations 03/19/2014 Respiratory No asthma Respiratory No pleuritic pain 03/19/2014 Respiratory No productive sputum 03/19/2014 Respiratory No chest tightness 03/19/2014 Respiratory No cigarette smoking 03/19/2014 Respiratory No cough Respiratory No dyspnea 0 03/19/2014 Respiratory No pedal edema 03/19/2014 Respiratory No snoring 0 03/19/2014 Respiratory No wheezing 03/19/2014 Gastrointestinal No hemorrhoids 03/19/2014 Gastrointestinal No abdominal pain 03/19/2014 Gastrointestinal No constipation 03/19/2014 Gastrointestinal No diarrhea 03/19/2014 Gastrointestinal No gastroesophageal reflu x 03/19/2014 Gastrointestinal No melena 03/19/2014 Gastrointestinal No nausea 03/19/2014 Gastrointestinal No vomiting 03/19/2014 Genitourinary/Nephrology No dysuria 03/19/2014 Genitourinary/Nephrology No nocturia 03/19/2014 Genitourinary/Nephrology No urinary incontinence 03/19/2014 Musculoskeletal No joint complaint 03/19/2014 Dermatologic No rash Dermatologic No scar Psychiatric No anxiety 0 03/19/2014 Psychiatric No depression 03/19/2014 Constitutional No recent illness 09/25/2013 Constitutional No night sweats 09/25/2013 Constitutional No chills 09/25/2013 Constitutional No diaphoresis 09/25/2013 Constitutional No fatigue 09/25/2013 Constitutional No fever 09/25/2013 Constitutional No insomnia 09/25/2013 Constitutional No malaise 09/25/2013 Constitutional No weight loss 09/25/2013 Constitutional No weight gain 09/25/2013 Constitutional No obesity 09/25/2013 Eyes No eye discharge Eyes No eye erythema Ears/Nose/Throat/Neck No dental pain 09/25/2013 Ears/Nose/Throat/Neck No [...] Cardiovascular No palpitations 09/25/2013 Respiratory No asthma Respiratory No pleuritic pain 09/25/2013 Respiratory No productive sputum 09/25/2013 Respiratory No chest tightness 09/25/2013 Respiratory No cigarette smoking 09/25/2013 Respiratory No cough Respiratory No dyspnea 0 09/25/2013 Respiratory No pedal edema 09/25/2013 Respiratory No snoring 0 09/25/2013 Respiratory No wheezing 09/25/2013 Gastrointestinal No hemorrhoids 09/25/2013 Gastrointestinal No abdominal pain 09/25/2013 Gastrointestinal No constipation 09/25/2013 Gastrointestinal No diarrhea 09/25/2013 Gastrointestinal No gastroesophageal reflu x 09/25/2013 Gastrointestinal No melena 09/25/2013 Gastrointestinal No nausea 09/25/2013 Gastrointestinal No vomiting 09/25/2013 Genitourinary/Nephrology No dysuria 09/25/2013 Genitourinary/Nephrology No nocturia 09/25/2013 Genitourinary/Nephrology No urinary incontinence 09/25/2013 Dermatologic No rash Dermatologic No scar Musculoskeletal No joint complaint 09/25/2013 Constitutional No recent illness 06/25/2013 Constitutional No night sweats 06/25/2013 Constitutional No chills 06/25/2013 Constitutional No diaphoresis 06/25/2013 Constitutional No fatigue 06/25/2013 Constitutional No fever 06/25/2013 Constitutional No insomnia 06/25/2013 Constitutional No malaise 06/25/2013 Constitutional No weight loss 06/25/2013 Constitutional No weight gain 06/25/2013 Constitutional No obesity 06/25/2013 Eyes No eye discharge Eyes No eye erythema Ears/Nose/Throat/Neck No dental pain 06/25/2013 Ears/Nose/Throat/Neck No [...] Cardiovascular No palpitations 06/25/2013 Respiratory No asthma Respiratory No pleuritic pain 06/25/2013 Respiratory No productive sputum 06/25/2013 Respiratory No chest tightness 06/25/2013 Respiratory No cigarette smoking 06/25/2013 Respiratory No cough Respiratory No dyspnea 1 08/25/2012 Respiratory No pedal edema 06/25/2013 Respiratory No snoring 1 08/25/2012 Respiratory No wheezing 06/25/2013 Gastrointestinal No hemorrhoids 06/25/2013 Gastrointestinal No abdominal pain 06/25/2013 Gastrointestinal No constipation 06/25/2013 Gastrointestinal No diarrhea 06/25/2013 Gastrointestinal No gastroesophageal reflu x 06/25/2013 Gastrointestinal No melena 06/25/2013 Gastrointestinal No nausea 06/25/2013 Gastrointestinal No vomiting 06/25/2013 Genitourinary/Nephrology No dysuria 06/25/2013 Genitourinary/Nephrology No nocturia 06/25/2013 Genitourinary/Nephrology No urinary incontinence 06/25/2013 Musculoskeletal arthralgia(s) 06/25/2013 Dermatologic No rash Dermatologic No scar Constitutional No recent illness 06/10/2013 Constitutional No chills 06/10/2013 Constitutional No fatigue 06/10/2013 Constitutional No fever 06/10/2013 Constitutional No insomnia 06/10/2013 Constitutional No malaise 06/10/2013 Psychiatric No anxiety 1 08/10/2012 Psychiatric No depression 06/10/2013 Musculoskeletal arthralgia(s) 06/10/2013 Musculoskeletal joint complaint 06/10/2013 Musculoskeletal No muscle weakness 06/10/2013 Eyes No blindness 2012 Eyes No vision change Respiratory No chest tightness 06/10/2013 Respiratory No cigarette smoking 06/10/2013 Respiratory No cough 11/2012 Respiratory No dyspnea 1 08/10/2012 Respiratory No pedal edema 06/10/2013 Respiratory No snoring 1 08/10/2012 Respiratory No wheezing 06/10/2013 Ears/Nose/Throat/Neck No dental [...] Gastrointestinal No diarrhea 06/10/2013 Gastrointestinal No gastroesophageal reflu x 06/10/2013 Gastrointestinal No melena 06/10/2013 Gastrointestinal No nausea 06/10/2013 Gastrointestinal No vomiting 06/10/2013 Dermatologic No rash 11/2012 Dermatologic No scar 11/2012 Dermatologic No sores Neurologic No dizziness 06/10/2013 Neurologic No headache 1 08/10/2012 Neurologic No neck pain 06/10/2013 Neurologic No syncope Genitourinary/Nephrology No urinary urgenc y 06/10/2013 Genitourinary/Nephrology No dysuria 06/10/2013 Physical Exam Exam Name System Name It em Name Status Result Effective Dates Notes Full [...] skin Rash/Lesions: surgical site 11/29/2017 on bilateral thumbs/wrist s Full Exam - General 1994 Neurologic deep [...] - ENT Respiratory inspection Overall: normal rate None Full Exam - ENT Respiratory auscultation Overall: breath sounds clear bilater ally 07/04/2017 None Full Exam - ENT Cardiovascular [...] Neurologic orientation Overall: oriented to person, place a nd time 07/04/2017 None Full Exam - ENT [...] skin Rash/Lesions: surgical site 05/31/2017 on bilateral thumbs/wrist s Full Exam - General 1994 Neurologic deep [...] skin Rash/Lesions: surgical site 11/28/2016 on bilateral thumbs/wrist s Full Exam - General 1994 Constitutional general [...] benign 03/19/2014 None Full Exam - General 1995 [...] intact 06/25/2013 None Full Exam - General 1995 Psychiatric orientation/consciousness Overall: oriented to person, place [...] Procedure Codes Date IMMUNIZATION ADMIN CPT- 4: 34596 05/19/2016 THER/PROPH/DIAG INJ SC/IM CPT-4: 33110 05/19/2016 IIV4 FLU VACC NO PRE SERV ID Formatting Model/CDA Sections, Assigned to/Gemma Granados CT: [id number] CPT-4: [id number] 05/19/2016 VITAMIN B12 INJECTION CPT-4: J3420 05/19/2016 THER/PROPH/DIAG INJ SC/IM CPT-4: 71883 04/20/2016 VITAMIN B12 INJECTION CPT-4: J3420 04/20/2016 IMMUNIZATION ADMIN CPT- 4: 22456 04/20/2016 Pneumococcal Polysac charide Vaccine, 23-Valent, Ad CPT-4: 24981 04/20/2016 Vital Signs Date Vital 11/28/2018 Blood Pressure 1: 118/78 Code: 8480-6 BMI: 34.5 Code: 16347-7 Heart Rate 1: 82 bpm Height: 5'6" SpO2: 97% Weight: 214 lbs 11/29/2017 Blood Pressure 1: 128/80 Code: 8480-6 BMI: 34.4 Code: 06197-5 Heart Rate 1: 75 bpm Height: 5'6" SpO2: 98% Weight: 213 lbs 07/04/2017 Blood Pressure 1: 138/88 Code: 8480-6 BMI: 36.8 Code: 80604-7 Heart Rate 1: 82 bpm Height: 5'6" SpO2: 98% Weight: 228 lbs 05/31/2017 Blood Pressure 1: 140/78 Code: 8480-6 BMI: 36.5 Code: 71830-2 Heart Rate 1: 87 bpm Height: 5'6" SpO2: 98% Weight: 226 lbs 11/28/2016 Blood Pressure 1: 128/78 Code: 8480-6 BMI: 37.5 Code: 15377-5 Heart Rate 1: 88 bpm Height: 5'6" SpO2: 98% Weight: 232 lbs 8 oz 07/28/2016 Blood Pressure 1: 122/72 Code: 8480-6 BMI: 37.6 Code: 37137-7 Heart Rate 1: 61 bpm Height: 5'6" SpO2: 97% Weight: 233 lbs 06/06/2016 Blood Pressure 1: 128/82 Code: 8480-6 BMI: 37.3 Code: 26678-8 Heart Rate 1: 66 bpm Height: 5'6" SpO2: 94% Weight: 231 lbs 04/20/2016 Blood Pressure 1: 136/80 Code: 8480-6 BMI: 38.3 Code: 65961-1 Heart Rate 1: 83 bpm Height: 5'6" SpO2: 98% Weight: 237 lbs 8 oz 03/03/2016 Blood Pressure 1: 130/80 Code: 8480-6 BMI: 38.4 Code: 63554-0 Heart Rate 1: 86 bpm Height: 5'6" SpO2: 96% Weight: 238 lbs 12/21/2015 Blood Pressure 1: 148/84 Code: 8480-6 BMI: 38.4 Code: 31122-8 Heart Rate 1: 94 bpm Height: 5'6" SpO2: 98% Weight: 238 lbs 06/22/2015 Blood Pressure 1: 128/74 Code: 8480-6 BMI: 37.4 Code: 68786-7 Heart Rate 1: 82 bpm Height: 5'6" SpO2: 98% Weight: 232 lbs 03/19/2015 Blood Pressure 1: 122/72 Code: 8480-6 BMI: 37.9 Code: 60418-6 Heart Rate 1: 80 bpm Height: 5'6" SpO2: 97% Weight: 235 lbs 01/22/2015 Blood Pressure 1: 122/80 Code: 8480-6 BMI: 38.6 Code: 10984-9 Heart Rate 1: 78 bpm Height: 5'6" SpO2: 98% Weight: 239 lbs 12/22/2014 Blood Pressure 1: 110/80 Code: 8480-6 BMI: 38.1 Code: 56756-0 Heart Rate 1: 76 bpm Height: 5'6" Weight: 236 lbs 06/19/2014 Blood Pressure 1: 122/74 Code: 8480-6 BMI: 36.8 Code: 48902-1 Heart Rate 1: 86 bpm Height: 5'6" Weight: 228 lbs 03/19/2014 Blood Pressure 1: 122/78 Code: 8480-6 BMI: 36.6 Code: 20329-4 Heart Rate 1: 80 bpm Height: 5'6" Weight: 227 lbs 09/25/2013 Blood Pressure 1: 130/70 Code: 8480-6 BMI: 37.1 Code: 19881-5 Heart Rate 1: 80 bpm Height: 5'6" SpO2: 98% Weight: 230 lbs 06/25/2013 Blood Pressure 1: 126/76 Code: 8480-6 BMI: 38.1 Code: 14402-4 Heart Rate 1: 76 bpm Height: 5'6" Weight: 236 lbs 06/10/2013 Blood Pressure 1: 128/76 Code: 8480-6 BMI: 38.1 Code: 23185-0 Heart Rate 1: 80 bpm Height: 5'6" Weight: 236 lbs Functional Status No Functional Status data History of Present Illness Symptom Name Status Resu lt Effective Date Notes Quality chronic 11/28/2018 None Onset and Resolution o ngoing 11/28/2018 None Severity mild with sub clinical signs 11/28/2018 None Alleviating Factors me dication 11/28/2018 None Quality non-insulin de pendent 11/28/2018 None Exacerbating Factors d iet 11/28/2018 None Pertinent Findings dijina ziness 11/28/2018 if her blood sugar drops- knows that she has to have protein in the morning Pertinent Findings Den ies dyspnea 11/28/2018 None Pertinent Findings floridalma berrios 11/28/2018 --takes B12 injections oc casionally-- 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, 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 Pertinent Findings Den ies nausea 11/28/2018 None Pertinent Findings tin gling 11/28/2018 in her left foot--taking folic acid Quality chronic 11/28/2018 None Test results HgbA1c le brian 6.2 11/28/2018 None Test results Pt checki ng blood glucose readings, did not bring results to clinic 11/28/2018 None Glucose monitoring Den ies occasional glucose testing 11/28/2018 None hypothyroid Quality benchroom shop optician raj 11/29/2017 None hypothyroid Onset and Resolution ongoing 11/29/2017 None hypothyroid Severity mil d with subclinical signs 11/29/2017 None hypothyroid Alleviating [...] Denies cough 07/04/2017 None sore throat Location dif fusely 07/04/2017 None sore throat Quality acute 07/04/2017 None sore throat Pertinent Findings Denies fever 07/04/2017 None sore throat Pertinent Findings cough 07/04/2017 None hypothyroid Quality benchroom shop optician raj 05/31/2017 None hypothyroid Onset and Resolution ongoing 05/31/2017 None hypothyroid Severity mil d with subclinical signs 05/31/2017 None hypothyroid Alleviating [...] stable 05/31/2017 None gastroesophageal reflux Onset and Re solution ongoing 05/31/2017 None gastroesophageal reflux Onset of Symptom during adulthood 05/31/2017 None gastroesophageal reflux Alleviating Factor s proton pump inhibitor 05/31/2017 (omeprazole) diabetes mellitus Test results Pt checking blood glucose at home, see scanned readings 05/31/2017 --On her phone diabetes mellitus Glucose monitoring occasional glucose testing 05/31/2017 None diabetes mellitus Pertinent Findings tingling 05/31/2017 in her left foot paresthesia Location on the left foot 05/31/2017 None paresthesia Quality acute 05/31/2017 None paresthesia Quality pins and needles 05/31/2017 None paresthesia Quality ting ling 05/31/2017 None paresthesia Onset and Resolution ongoing 05/31/2017 None paresthesia Onset of Symptom 1 months ago 05/31/2017 None hypothyroid Quality benchroom shop optician raj 11/28/2016 None hypothyroid Onset and Resolution ongoing 11/28/2016 None hypothyroid Severity mil d with subclinical signs 11/28/2016 None hypothyroid Alleviating [...] dyspnea 11/28/2016 None gastroesophageal reflux Onset and Re solution ongoing 11/28/2016 None gastroesophageal reflux Onset of Symptom during adulthood 11/28/2016 None gastroesophageal reflux Quality intermittent 11/28/2016 None gastroesophageal reflux Alleviating Factor s proton pump inhibitor 11/28/2016 (omeprazole) gastroesophageal reflux Quality stable 11/28/2016 None wrist pain Location on t he left 11/28/2016 None wrist pain Location on t he right 11/28/2016 None wrist pain Onset and Resolution ongoing 11/28/2016 None wrist pain Pertinent Findings weakness 11/28/2016 None hypothyroid Quality benchroom shop optician raj 07/28/2016 None hypothyroid Onset and Resolution ongoing 07/28/2016 None hypothyroid Severity mil d with subclinical signs 07/28/2016 None hypothyroid Triggers [...] the back 07/28/2016 None abdominal pain Quality b urning 07/28/2016 None abdominal pain Quality i ntermittent 07/28/2016 None abdominal pain Onset and Resolution [...] Location diffusely 06/06/2016 None abdominal pain Quality b urning 06/06/2016 None abdominal pain Quality i ntermittent 06/06/2016 None abdominal pain Pertinent Findings heartburn [...] Factors antacids 06/06/2016 taking tums hypothyroid Quality benchroom shop optician raj 04/20/2016 None hypothyroid Onset and Resolution ongoing 04/20/2016 None hypothyroid Severity mil d with subclinical signs 04/20/2016 None hypothyroid Triggers [...] Findings Denies insomnia 03/03/2016 None hypothyroid Quality benchroom shop optician raj 12/21/2015 None hypothyroid Onset and Resolution ongoing 12/21/2015 None hypothyroid Severity mil d with subclinical signs 12/21/2015 None hypothyroid Triggers [...] complaint Quality aching 12/21/2015 None hypothyroid Quality benchroom shop optician raj 06/22/2015 None hypothyroid Onset and Resolution ongoing 06/22/2015 None hypothyroid Severity mil d with subclinical signs 06/22/2015 None hypothyroid Triggers [...] intake 06/22/2015 synthroid medication follow up Significant Pas t Medical History diabetes 06/22/2015 None diabetes mellitus Quality non-insulin dependent 06/22/2015 None diabetes mellitus Weight Control current weight 06/22/2015 227 diabetes mellitus Pertinent Findings dizziness 06/22/2015 if sugar is down to 85 diabetes mellitus Pertinent Findings nausea 06/22/2015 noted if not eating on sc hedule diabetes mellitus Test results Pt checking blood glucose readings, did not bring results to clinic 06/22/2015 None hypothyroid Quality benchroom shop optician raj 03/19/2015 None hypothyroid Onset and Resolution ongoing 03/19/2015 None hypothyroid Severity mil d with subclinical signs 03/19/2015 None hypothyroid Triggers [...] intake 03/19/2015 synthroid medication follow up Significant Pas t Medical History diabetes 03/19/2015 None diabetes mellitus Quality non-insulin dependent 03/19/2015 None diabetes mellitus Weight Control current weight 03/19/2015 227 diabetes mellitus Pertinent Findings dizziness 03/19/2015 if sugar is down to 85 diabetes mellitus Pertinent Findings nausea 03/19/2015 noted if not eating on sc hedule diabetes mellitus Test results Pt checking blood glucose readings, did not bring results to clinic 03/19/2015 None diabetes mellitus Glucose monitoring daily 03/19/2015 None edema Frequency of Episodes daily 01/22/2015 None edema Onset of Symptom 1 months ago 01/22/2015 None edema Quality intermitte nt 01/22/2015 None hypothyroid Quality benchroom shop optician raj 12/22/2014 None hypothyroid Onset and Resolution ongoing 12/22/2014 None hypothyroid Severity mil d with subclinical signs 12/22/2014 None hypothyroid Triggers [...] intake 12/22/2014 synthroid medication follow up Significant Pas t Medical History diabetes 12/22/2014 None diabetes mellitus Quality non-insulin dependent 12/22/2014 None diabetes mellitus Weight Control current weight 12/22/2014 227 diabetes mellitus Pertinent Findings dizziness 12/22/2014 if sugar is down to 85 diabetes mellitus Pertinent Findings nausea 12/22/2014 noted if not eating on sc hedule diabetes mellitus Test results Pt checking blood glucose at home, see scanned readings 12/22/2014 None diabetes mellitus Glucose monitoring occasional glucose testing 12/22/2014 None diabetes mellitus Glucose monitoring daily 12/22/2014 None hypothyroid Quality benchroom shop optician raj 06/19/2014 None hypothyroid Onset and Resolution ongoing 06/19/2014 None hypothyroid Severity mil d with subclinical signs 06/19/2014 None hypothyroid Triggers [...] intake 06/19/2014 synthroid medication follow up Significant Pas t Medical History diabetes 06/19/2014 None diabetes mellitus Quality non-insulin dependent 06/19/2014 None diabetes mellitus Weight Control current weight 06/19/2014 227 diabetes mellitus Pertinent Findings dizziness 06/19/2014 if sugar is down to 85 diabetes mellitus Pertinent Findings nausea 06/19/2014 noted if not eating on sc hedule hypothyroid Quality benchroom shop optician raj 03/19/2014 None hypothyroid Onset and Resolution ongoing 03/19/2014 None hypothyroid Severity mil d with subclinical signs 03/19/2014 None hypothyroid Triggers [...] intake 03/19/2014 synthroid medication follow up Significant Pas t Medical History diabetes 03/19/2014 None diabetes mellitus [...] nausea 03/19/2014 noted if not eating on sc hedule hypothyroid Quality benchroom shop optician raj 09/25/2013 None hypothyroid Onset and Resolution ongoing 09/25/2013 None hypothyroid Severity mil d with subclinical signs 09/25/2013 None hypothyroid Triggers [...] Findings Denies edema 09/25/2013 None hypothyroid Quality benchroom shop optician raj 06/25/2013 None hypothyroid Onset and Resolution ongoing 06/25/2013 None hypothyroid Severity mil d with subclinical signs 06/25/2013 None hypothyroid Triggers [...] loss 06/25/2013 None knee pain Location on th e left 06/10/2013 None knee pain Location on th e right 06/10/2013 None knee pain Quality chronic [...] pain Sports 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 Advance Directives No Advance Directive data Encounters Encounter Performer Loca tion Codes Date ([id number]) PREV VISIT E ST AGE 40-64 Diagnosis: Encounter for general adult medical examination without abnormal findings[ICD10: Z00.00] Saniya Schwab MD, [facility] CPT-4: 41424 11/28/2018 ([id number]) PREV VISIT E ST AGE 40-64 Diagnosis: Encounter for general adult medical examination without abnormal findings[ICD10: Z00.00] Diagnosis: Atrophy of thyroid (acquired)[ICD10: E03.4] Saniya Schwab MD, [facility] CPT-4: 57974 11/29/2017 27502 EST. PATIENT, LEVEL III Diagnosis: Acute laryngopharyngitis[ICD10: J06.0] Diagnosis: Other allergic rhinitis[ICD10: J30.89] Diagnosis: Cough[ICD10: R05] Ciara Schwab MD, [facility] CPT-4: 85586 07/04/2017 ([id number]) PREV VISIT E ST AGE 40-64 Diagnosis: Encounter for general adult medical examination without abnormal findings[ICD10: Z00.00] Saniya Schwab MD, [facility] CPT-4: 92397 05/31/2017 ([id number]) 36520 EST. P ATIENT, LEVEL IV Diagnosis: Type 2 diabetes mellitus without complications[ICD10: E11.9] Diagnosis: Atrophy of thyroid (acquired)[ICD10: E03.4] Saniya Schwab MD, [facility] CPT-4: 19131 11/28/2016 ([id number]) PREV VISIT E ST AGE 40-64 Diagnosis: Encounter for general adult medical examination without abnormal findings[ICD10: Z00.00] Diagnosis: Type 2 diabetes mellitus without complications[ICD10: E11.9] Diagnosis: Atrophy of thyroid (acquired)[ICD10: E03.4] Diagnosis: Gastro-esophageal reflux disease without esophagitis[ICD10: K21.9] Saniya Schwab MD, [facility] CPT-4: 60020 07/28/2016 ([id number]) 07000 EST. P ATIENT, LEVEL III Diagnosis: Gastro-esophageal reflux disease without esophagitis[ICD10: K21.9] Macey Schwab MD, [facility] CPT-4: 74195 06/06/2016 ([id number]) 05172 EST. P ATIENT, LEVEL IV Diagnosis: Type 2 diabetes mellitus without complications[ICD10: E11.9] Diagnosis: Atrophy of thyroid (acquired)[ICD10: E03.4] Diagnosis: Encounter for immunization[ICD10: Z23] Diagnosis: Other vitamin B12 deficiency anemias[ICD10: D51.8] Saniya Schwab MD, [facility] CPT-4: 64194 04/20/2016 ([id number]) 94894 EST. P ATIENT, LEVEL III Diagnosis: Hypothyroidism, unspecified[ICD10: E03.9] Diagnosis: Other fatigue[ICD10: R53.83] Macey Schwab MD, [facility] CPT- 4: 33102 03/03/2016 ([id number]) 58944 EST. P ATIENT, LEVEL IV Diagnosis: Type 2 diabetes mellitus without complications[ICD10: E11.9] Diagnosis: Hypothyroidism, unspecified[ICD10: E03.9] Saniya Schwab MD, [facility] CPT-4: 86111 12/21/2015 ([id number]) 67186 EST. P ATIENT, LEVEL III Diagnosis: Type 2 diabetes mellitus without complications[ICD10: E11.9] Diagnosis: Hypothyroidism, unspecified[ICD10: E03.9] Saniya Schwab MD, [facility] CPT-4: 44310 06/22/2015 ([id number]) PREV VISIT E ST AGE 40-64 Diagnosis: Routine medical exam[ICD9: V70.0] Saniya Schwab MD, [facility] CPT-4: 21322 03/19/2015 ([id number]) 09706 EST. P ATIENT, LEVEL III Diagnosis: EDEMA[ICD9: 782.3] Macey Schwab MD, [facility] CPT-4: 28577 01/22/2015 ([id number]) 85891 EST. P ATIENT, LEVEL IV Diagnosis: Hypothyroidism[ICD9: 244.9] Diagnosis: DIABETES TYPE II[ICD9: 250.00] Macey Schwab MD, [facility] CPT- 4: 71442 12/22/2014 ([id number]) 24526 EST. P ATIENT, LEVEL III Diagnosis: Hypothyroidism[ICD9: 244.9] Diagnosis: DIABETES TYPE II[ICD9: 250.00] Diagnosis: Osteoarthritis[ICD9: 715.90] Saniya Schwab MD, [facility] CPT-4: 68290 06/19/2014 ([id number]) 20994 EST. P ATIENT, LEVEL IV Diagnosis: DIABETES TYPE II[ICD9: 250.00] Diagnosis: Hypothyroidism[ICD9: 244.9] Saniya Schwab MD, [facility] CPT-4: 28816 03/19/2014 ([id number]) 93050 EST. P ATIENT, LEVEL IV Diagnosis: HYPOTHYROIDISM[ICD9: 244.9] Diagnosis: DIABETES TYPE II[SNOMED: [id number]] Saniya Schwab MD, [facility] CPT- 4: 16162 09/25/2013 ([id number]) 15712 EST. P ATIENT, LEVEL IV Diagnosis: Hypothyroidism[ICD9: 244.9] Diagnosis: Elevated blood sugar[ICD9: 790.29] [facility] CPT- 4: 64206 06/25/2013 ([id number]) OFFICE VISI T, NEW - LEVEL 3 Diagnosis: Osteoarthritis[ICD9: 715.90] Diagnosis: Knee pain, bilateral[ICD9: 719.46] Diagnosis: OBESITY[ICD9: 278.00] Diagnosis: Encounter for long-term (current) use of other medications[ICD9: V58.69] Saniya Schwab [facility], [facility] CPT-4: 91690 06/10/2013 Plan of Care Planned Activity Notes C odes Status Date Visit Plan: Well Adult - pt was cou nseled about diet, exercise, and encouraged to follow [...] restriction - monitor FSBS at home. 11/28/2018 Appointment: Saniya Schawb WPtel: [phone] [facility]66[facility] (15 min) Moderate 11/28/2018 Patient Education: Patient Medication Summary Completed 11/28/2018 Patient Education: Diabetes Completed 11/28/2018 Patient Education: Patient Medication Summary Completed 11/23/2018 Visit Plan: Well Adult - pt was cou nseled about diet, exercise, and encouraged to follow [...] home. 11/29/2017 Appointment: Saniya Schwab WPtel: [phone] [facility] [place] (15 min) Moderate 11/29/2017 Patient Education: Patient Medication Summary Completed 11/29/2017 Patient Education: Patient Medication Summary Completed 11/22/2017 Visit Plan: URI - Pt advised to inc rease fluids, vitamin C. Discussed natural and expected [...] spray. 07/04/2017 Appointment: Ciara Lopez WPtel: [phone] [facility] (30 min) Complex 07/04/2017 Patient Education: Patient Medication Summary Completed 07/04/2017 Patient Education: Obesity Completed 07/04/2017 Visit Plan: Well Adult - pt was cou nseled about diet, exercise, and encouraged to follow [...] weekly. 05/31/2017 Appointment: Saniya Schwab WPtel: [phone] [facility] (15 min) Moderate 05/31/2017 Patient Education: Patient Medication Summary Completed 05/31/2017 Visit Plan: Hypothyroidism - pt wit h chronic hypothyroidism, continue with current medication, will [...] controlled. 11/28/2016 Appointment: Saniya Schwab WPtel: [phone] [facility] (15 min) Moderate 11/28/2016 Patient Education: Patient Medication Summary Completed 11/28/2016 Appointment: Saniya Schwab [facility]Ptel: [phone] [facility] (15 min) Moderate 11/21/2016 Patient Education: Patient Medication Summary Completed 11/07/2016 Care Plan: Lipid Pending 11/07/2016 Visit Plan: Well Adult - pt was cou nseled about diet, exercise, and encouraged to follow [...] not improving. 07/28/2016 Appointment: Saniya Schwab WPtel: [phone] (15 min) Moderate 07/28/2016 Patient Education: Patient Medication Summary Completed 07/28/2016 Visit Plan: Esophageal Reflux - the patient has been counseled against excessive intake of caffeine, spicy foods, peppermint, and cinnamon - all of which can exacerbate esophageal reflux. The patient is to take medications as prescribed and call the office if the symptoms are not improving. 06/06/2016 Appointment: Macey Myers [facility]Ptel: [phone] [place] (15 min) Moderate 06/06/2016 Patient Education: Patient Medication Summary Completed 06/06/2016 Patient Education: Obesity Completed 06/06/2016 Appointment: Injection 05/19/2016 Patient Education: Patient Medication Summary Completed 05/19/2016 Visit Plan: Diabetes Mellitus - con pamela - per recent FSBS reports. I have [...] Completed 04/19/2016 Visit Plan: Hypothyroidism - pt wit h chronic hypothyroidism, continue with current medication, will [...] VITAMIN 03/03/2016 Appointment: Macey Myers WPtel: [phone] [phone] [place] (30 min) Complex 03/03/2016 Patient Education: Patient Medication Summary Completed 03/03/2016 Patient Education: Obesity Completed 03/03/2016 Visit Plan: Hypothyroidism - pt wit h chronic hypothyroidism, continue with current medication, will [...] controlled. 12/21/2015 Appointment: Saniya Schwab WPtel: [phone] [facility] (15 min) Moderate 12/21/2015 Patient Education: Patient Medication Summary Completed 12/21/2015 Patient Education: Obesity Completed 12/21/2015 Visit Plan: Diabetes Mellitus - con trolled - per recent FSBS reports. I have [...] control. 06/22/2015 Appointment: Saniya Schwab WPtel: [phone] (15 min) Moderate 06/22/2015 Patient Education: Patient Medication Summary Completed 06/22/2015 Patient Education: Patient Medication Summary Completed 06/15/2015 Visit Plan: Well Adult - pt was cou nseled about diet, exercise, and encouraged to follow [...] of control. 03/19/2015 Appointment: Saniya Schwab WPtel: [facility] Follow up 03/19/2015 Patient Education: Patient Medication Summary Completed 03/19/2015 Visit Plan: Edema - pt has been adv ised to elevate legs to prevent dependent edema, compression has been recommended to help to naturally decrease peripheral edema. Diuretic use has been discussed and pt has been i nstructed in appropriate use of such medication as necessary to further attempt to reduce peripheral edema. 01/22/2015 Appointment: (15 min) Moderate 01/22/2015 Patient Education: Patient Medication Summary Completed 01/22/2015 Visit Plan: Diabetes Mellitus - con trolled - per recent FSBS reports. I have [...] months based on previous levels of control. Opsdza-lwydnfm-ezekvicsa name brand Synthroid Keep food diary-call in 2 weeks to discuss Monitor blood sugars when not feeling well 12/22/2014 Visit Plan: Diabetes Mellitus - con trolled - per recent FSBS reports. I have [...] months based on previous levels of control. Faclhu-gvsfrxb-unffgttto name brand Synthroid Keep food diary-call in 2 weeks to discuss Monitor blood sugars when not feeling well 12/22/2014 Visit Plan: Diabetes Mellitus - con trolled - per recent FSBS reports. I have [...] months based on previous levels of control. Iuvhvh-xpsedpb-tingijpkv name brand Synthroid Keep food diary-call in 2 weeks to discuss Monitor blood sugars when not feeling well 12/22/2014 Patient Education: Patient Medication Summary Completed 12/22/2014 Appointment: Saniya Schwab WPtel: [address] [place], [place] [id number] Follow up 12/16/2014 Visit Plan: Hypothyroidism - pt wit h chronic hypothyroidism, continue with current medication, will [...] clinic. 06/19/2014 Appointment: Saniya Schwab WPtel: [phone] [facility] [place] Follow up 06/19/2014 Patient Education: Patient Medication Summary Completed 06/19/2014 Visit Plan: Diabetes Mellitus - con trolled - per recent FSBS reports. I have [...] control. 03/19/2014 Appointment: Saniya Schwab WPtel: [phone] [facility] Follow up 03/19/2014 Patient Education: Patient Medication Summary Completed 03/19/2014 Visit Plan: Diabetes Mellitus - con trolled - per recent FSBS reports. I have [...] of synthroid. 09/25/2013 Appointment: Saniya Schwab WPtel: [phone] [facility] [place] Follow up 09/25/2013 Patient Education: Patient Medication Summary Completed 09/25/2013 Visit Plan: Diabetes Mellitus - harish betes and diet education discussed in detail with [...] 25MCG DAILY 06/25/2013 Appointment: Macey Myers WPtel: [facility] Diabetic education 06/25/2013 Patient Education: [...] as her records and labs from her printmaker do not show any acute worried for renal function. Obesity - chronic issue with this patient. The pt has been counseled about diet changes, calorie restriction, and need to exercise. Pt will RTC in one month for weight check. 06/10/2013 Appointment: Saniya Schwab WPtel: [phone] [facility] New Patient 06/10/2013 Patient Education: Patient Medication Summary Completed 06/10/2013 Instructions Comment . Diabetes Mellitus - controlled - per [...] months based on previous levels of control. Fgpbka-ygjcpwc-hdkylcetj name brand Synthroid Keep food diary-call in 2 weeks to discuss Monitor blood sugars when not feeling well . Arthritis- occasio epifanio uncontrolled symptoms- recommend pt to take antiinflammatory as directed for pain control. Pt is NOT to use additional NSAIDs while taking celebrex - she has instead been advised to use tylenol for break through pain symptoms. Pt will be surgically cleared for knee surgery in July as long as her records and labs from her printmaker do not show any acute worried for [...] months based on previous levels of control. Yddsti-avgkhbz-zzoygthbu name brand Synthroid Keep food diary-call in [...] months based on previous levels of control. Rmdybe-ulnofbs-atvlhoyku name brand Synthroid Keep food diary-call in 2 weeks to discuss Monitor blood sugars when not feeling well . Well Adult - pt wa s counseled about diet, exercise, and encouraged to [...] shot today . Well Adult - pt wa s counseled about diet, exercise, and encouraged to [...] vitamin b12 to twice weekly. PROBIOTIC TWICE GERARDO Y DEXILANT 1 TAB DAILY BLAND DIET, LOW FAT DIET CALL IF SYMPTOMS DO NOT RESOLVE OR IF ANY WORSE . Esophageal Reflux - the patient has be en counseled against excessive intake of caffeine, spicy foods, peppermint, and cinnamon - all of which can exacerbate esophageal reflux. The patient is to take medications as prescribed and call the office if the symptoms are not improving. . Well Adult - pt wa s counseled about diet, exercise, and encouraged to [...] with restriction - monitor FSBS at home. REFER TO SOLUTIONS ENGINEER Jose T [facility] WEAR COMPRESSION STOCKINGS WHEN TRAVELING- [...] levels of control. SYNTHROID 25MCG DAILY . Hypothyroidism - p t with chronic hypothyroidism, continue with current medication, [...] to clinic. change synthroid to 88mcg tues, thurs, sat, sun Synthroid 100mcg are on mon/wed/frid . Well Adult - pt was counseled about di et, exercise, and encouraged to follow a heart [...] of control. . Well Adult - pt wa s counseled about diet, exercise, and encouraged to [...] at home. . URI - Pt advised t o increase fluids, vitamin C. Discussed natural and [...] nasal steroid allergy spray. . Hypothyroidism - p t with chronic hypothyroidism, continue with current medication, [...] SYNTHROID . Hypothyroidism - pt with chronic hypot hyroidism, continue with current medication, will monitor pt to signs or symptoms of lack of adequate supplementation. Pt is to continue with current dose of medication unless directed otherwise. Check labs at regular intervals wither q 3 months or q 6 months based on previous levels of control. START BRAND NAME SYNTHROID-CHECK LABS Fatigue-CHECK LABS-RECOMMEND B COMPLEX VITAMIN . Hypothyroidism - p t with chronic hypothyroidism, continue with current medication, [...]
--- OUTSIDE RECORDS SUMMARY | 2020-01-21 07:13 | XMS REPORT | Continuity of Care Document ---
Author Organization Unknown Address Unknown Phone Unavailable Allergies Active Description Code Type Severity Reaction Onset Reported/Identified Relationship to Patient Clinical Status Yes erythromycin base [id number] Drug Allergy Unknown NAUSEA 01/14/2020 Medications There is no data. Problems Date Dx Coded Attending Type Code Diagnosis Diagnosed By 07/06/1504 ROSANNE GRACE, NASIR Whaley Ot Z01.818 ENCOUNTER FOR OTHER PREPROCEDURAL EXAMIN 07/06/1504 NASIR LAY MD Ot Z20.828 CONTACT W AND EXPOSURE TO OTH VIRAL COMM 07/13/2013 ALEXI BOWMAN MD Ot 244.9 HYPOTHYROIDISM [...] Ot V74.8 SCREEN-BACTERIAL DIS NEC 10/15/2018 RUBEN DPOphelia, BROOKLYN Q Ot M72. 2 PLANTAR FASCIAL FIBROMATOSIS 10/15/2018 RUBEN DPOphelia, [place] Q Ot M76. 62 ACHILLES TENDINITIS, LEFT LEG 10/15/2018 RUBEN DPM, [place]N Q Ot M77. 52 OTHER ENTHESOPATHY OF LEFT FOOT 10/15/2018 RUBEN DPM, [place]OOK[place]N Q Ot S92.342A DISP FX OF FOURTH METATARSAL BONE, LEFT 10/15/2018 RUBEN DPM, [place]OOK[place]N Q Ot S96.812A STRAIN OF MUSCLES AND TENDONS AT ANK/FT 11/02/2018 RUBEN DPM, [place] Q Ot M72. 2 PLANTAR FASCIAL FIBROMATOSIS 11/02/2018 RUBEN DPM, [place] Q Ot M76. 62 ACHILLES TENDINITIS, LEFT LEG 11/02/2018 RUBEN DPM, [place] Q Ot M77. 52 OTHER ENTHESOPATHY OF LEFT FOOT 11/02/2018 RUBEN DPM, [place] Q Ot S92.342A DISP FX OF FOURTH METATARSAL BONE, LEFT 11/02/2018 RUBEN DPM, [place] Q Ot S96.812A STRAIN OF MUSCLES AND TENDONS AT ANK/FT 01/16/2019 NASIR LAY MD Ot Z01.818 ENCOUNTER FOR OTHER PREPROCEDURAL EXAMIN 01/18/2019 NASIR LAY MD Ot D12. 2 BENIGN NEOPLASM OF ASCENDING COLON 01/18/2019 NASIR LAY MD Ot E06. 3 AUTOIMMUNE THYROIDITIS 01/18/2019 NASIR LAY MD Ot E11. 9 TYPE 2 DIABETES MELLITUS WITHOUT COMPLIC 01/18/2019 NASIR LAY MD Ot K21. 9 GASTRO-ESOPHAGEAL REFLUX DISEASE WITHOUT 01/18/2019 NASIR LAY MD Ot K57. 30 DVRTCLOS OF LG INT W/O PERFORATION OR AB 01/18/2019 NASIR LAY MD Ot K63. 5 POLYP OF COLON 01/18/2019 NASIR LAY MD Ot L40. 50 ARTHROPATHIC PSORIASIS, UNSPECIFIED 01/18/2019 NASIR LAY MD Ot Z12. 11 ENCOUNTER FOR SCREENING FOR MALIGNANT NE 01/18/2019 NASIR LAY MD Ot Z79.899 OTHER SENIOR LIVING (CURRENT) DRUG THERAPY 01/18/2019 NASIR LAY MD Ot Z80. 0 FAMILY HISTORY OF MALIGNANT NEOPLASM OF 01/18/2019 NASIR LAY MD Ot Z83. 71 FAMILY HISTORY OF COLONIC POLYPS 01/23/2019 NASIR LAY MD Ot D12. 2 BENIGN NEOPLASM OF ASCENDING COLON 01/23/2019 NASIR LAY MD Ot E06. 3 AUTOIMMUNE THYROIDITIS 01/23/2019 NASIR LAY MD Ot E11. 9 TYPE 2 DIABETES MELLITUS WITHOUT COMPLIC 01/23/2019 NASIR LAY MD Ot K21. 9 GASTRO-ESOPHAGEAL REFLUX DISEASE WITHOUT 01/23/2019 NASIR LAY MD Ot K57. 30 DVRTCLOS OF LG INT W/O PERFORATION OR AB 01/23/2019 NASIR LAY MD Ot K63. 5 POLYP OF COLON 01/23/2019 NASIR LAY MD Ot L40. 50 ARTHROPATHIC PSORIASIS, UNSPECIFIED 01/23/2019 NASIR LAY MD Ot Z12. 11 ENCOUNTER FOR SCREENING FOR MALIGNANT NE 01/23/2019 NASIR LAY MD Ot Z79.899 OTHER COAL WHEELER (CURRENT) DRUG THERAPY 01/23/2019 NASIR LAY MD Ot Z80. 0 FAMILY HISTORY OF MALIGNANT NEOPLASM OF 01/23/2019 NASIR LAY MD Ot Z83. 71 FAMILY HISTORY OF COLONIC POLYPS 01/27/2019 NASIR LAY MD Ot D12. 2 BENIGN NEOPLASM OF ASCENDING COLON 01/27/2019 NASIR LAY MD Ot E06. 3 AUTOIMMUNE THYROIDITIS 01/27/2019 NASIR LAY MD Ot E11. 9 TYPE 2 DIABETES MELLITUS WITHOUT COMPLIC 01/27/2019 NASIR LAY MD Ot K21. 9 GASTRO-ESOPHAGEAL REFLUX DISEASE WITHOUT 01/27/2019 NASIR LAY MD Ot K57. 30 DVRTCLOS OF LG INT W/O PERFORATION OR AB 01/27/2019 NASIR LAY MD Ot K63. 5 POLYP OF COLON 01/27/2019 NASIR LAY MD Ot L40. 50 ARTHROPATHIC PSORIASIS, UNSPECIFIED 01/27/2019 NASIR LAY MD Ot Z12. 11 ENCOUNTER FOR SCREENING FOR MALIGNANT NE 01/27/2019 NASIR LAY MD Ot Z79.899 OTHER SENIOR LIVING (CURRENT) DRUG THERAPY 01/27/2019 NASIR LAY MD Ot Z80. 0 FAMILY HISTORY OF MALIGNANT NEOPLASM OF 01/27/2019 NASIR LAY MD Ot Z83. 71 FAMILY HISTORY OF COLONIC POLYPS 11/26/2019 W D51.8 Othe r vitamin B12 deficiency anemias Saniya Schwab 11/26/2019 W E03.4 Atro phy of thyroid (acquired) Saniya Schwab 11/26/2019 W E11.9 Type 2 diabetes mellitus without complications Saniya Schwab 11/27/2019 W E03.4 Atro phy of thyroid (acquired) Saniya Schwab 11/27/2019 W E11.9 Type 2 diabetes mellitus without complications Saniya Schwab 11/27/2019 W L40.50 Pso riatic arthritis Saniya Schwab Procedures Code Description Performed By Per formed On 81.54 TOTA L KNEE REPLACEMENT 07/10/2013 81.92 INJE CTION INTO JOINT 07/10/2013 Results Test Result Range Capillary blood glucose measurement by g lucometer (mass/volume) - 01/18/19 09:20 Capillary blood glucose measurement by glucometer (mas s/volume) 114 mg/dL 70-110 Coronavirus SARS-CoV-2 SO 2018 - 0 08:02 Coronavirus Ab [Units/volume] in Serum Negative Negative Encounters ACCT No. Visit Date/Time Discharge Status Pt. Type Provider Facility Loc./Unit Complaint 0000 05/31/2017 16:42:44 05/31/2017 23:59:5 9 CLS Outpatient [id number]/26/2019 15:54:47 Document Registration [id number] 01/16/2020 05:41:00 020 15:05:00 DIS Outpatient NASIR LAY MD [facility] PREOP COLONOSCOPY [id number] 01/18/2019 08:53:00 019 12:00:00 DIS Outpatient NASIR LAY MD [facility] ENDO SCREENING/FAMILY HX COL ON CA [id number] 01/16/2019 05:58:00 019 14:08:00 DIS Outpatient NASIR LAY MD [facility] PREOP COLONOSCOPY [id number] 10/12/2018 08:29:00 23:59:59 CLS Outpatient BROOKLYN MIRANDA DPM [facility] RAD ACHILLIES, PERONEAL TEN DONITIS, LEFT [id number] 07/10/2013 06:00:00 013 19:38:00 DIS Inpatient ALEXI BOWMAN MD [facility] SURGICAL RIGHT KNEE DJD [id number] 07/05/2013 11:54:00 013 23:59:59 CLS Outpatient COLBY GRAEC, ALEXI Russo [facility] PREOP RIGHT KNEE DJD [id number] 01/21/2020 07:30:00 P EN Preadmit ROSANNE GRACE, NASIR Whaley [facility] ENDO HX COLON POLYPS
[2020-01-21] MEDS ORDERED: D5 LR IV SOLUTION 1,000 ML IV STA (07:19)
[2020-01-21] MEDS ORDERED: D5 LR IV SOLUTION 1,000 ML IV ONE (07:21)
[2020-01-21] MEDS ORDERED: LIDOCAINE JELLY 2% 6 ML SYRINGE MM PRN (07:30)
[2020-01-21] MEDS ORDERED: fentaNYL INJECTION 100 MCG/2 ML AMP IVP ONE (07:30)
[2020-01-21] MEDS ORDERED: LIDOCAINE JELLY 2% 6 ML SYRINGE ONE (07:34)
[2020-01-21] MEDS ORDERED: fentaNYL INJECTION 100 MCG/2 ML AMP ONE (07:35)
[2020-01-21] MEDS ORDERED: MIDAZOLAM 5 MG/5 ML (VERSED) VIAL ONE (07:35)
--- NOTE | 2020-01-21 07:36 | Pre-Op Note & Conscious Sedat ---
Pre-Operative Progress Note H&P Reviewed The H&P was reviewed, patient examined and no changes noted. Date H&P Reviewed: Jan 21, 2020 Time H&P Reviewed: 07:30 Conscious Sedation Pre-Proced ASA Score 2 For ASA 3 and 4: Consider anesthesia and medical clearance. Also, for patients with a history of failed moderate sedation consider anesthesia. Airway Lungs Heart ASA score ASA 1: a normal healthy patient ASA 2: a patient with a mild systemic disease (mid diabetes, controlled hypertension, obesity ASA 3: a patient with a severe systemic disease that limits activity (angina, COPD, prior Myocardial infarction) ASA 4: a patient with an incapacitating disease that is a constant threat to life (CHF, renal failure) ASA 5: a moribund patient not expected to survive 24 hrs. (ruptured aneurysm) ASA 6: a declared brain- patient whose organs are being harvested. For emergent operations, add the letter E after the classification Mallampati Classification Grade 2 Sedation Plan Analgesia, Amnesia, Plan communicated to team members, Discussed options with patient/fam, Discussed risks with patient/fam The patient is an appropriate candidate to undergo the planned procedure, sedation, and anesthesia. The patient immediately re-assessed prior to indication. NASIR LAY MD Jan 21, 2020 07:36
[2020-01-21] MEDS: MIDAZOLAM 5 MG/5 ML (VERSED) VIAL IV PRN ×3 (07:45→08:04)
[2020-01-21] MEDS ORDERED: MIDAZOLAM 2 MG/2 ML (VERSED) VIAL ONE (08:00)
--- NOTE | 2020-01-21 15:06 | OPERATIVE REPORT ---
DATE OF SERVICE: INDICATION FOR THE PROCEDURE: Surveillance due to past history of colon polyps. DESCRIPTION OF PROCEDURE: The patient was placed in the left lateral decubitus position. Prior to undergoing colonoscopy, digital rectal evaluation was performed. Anal sphincter tone was normal. Perianal reflexes intact. No abnormalities were noted on digital inspection of anal canal or distal rectal vault. The colonoscope was then inserted into the rectum and under direct visualization advanced to cecum. The cecum was identified by identification of the ileocecal valve with cecal strap and appendiceal orifice. Photographic documentation was obtained. Careful inspection was made as the colonoscope was withdrawn. The patient did have increased sensitivity of the colonic manipulation and air insufflation. FINDINGS: There was no evidence for internal or external hemorrhoids and the rectum was unremarkable. Present in the rectosigmoid junction was a diminutive 3 mm sessile polyp, was biopsied and ablated with no subsequent blood loss. Hawi-xt-rvmowstd number of sigmoid diverticulum were present, most notably in the mid and proximal sigmoid colon, but also several noted in the descending and transverse colon, none beyond the hepatic flexure. No evidence for diverticulitis noted. Otherwise, the sigmoid colon, descending colon, splenic flexure, transverse colon and hepatic flexure were unremarkable. A sessile approximately 5 x 12 mm polyp without ulceration or inflammatory change was noted in the proximal ascending colon, likely recurrence of the patient's previous polyp noted to be a serrated polyp. There was no gross evidence to suggest malignancy. It was biopsied and ablated in 2 locations and submitted for histopathology. The cecum was unremarkable. ASSESSMENT: Two polyps were removed, the more significant from the proximal ascending colon, likely remnants of the patient's previous serrated polyp. We will await histopathology report. As long as there are no surprises on histopathology report, we will likely be advocating another 1 to 2-year surveillance recommendation considering family history of colon cancer, index case being her father diagnosed around the age of 60. Due to this increase sensitivity, we will plan utilization of Diprivan anesthesia for future colonoscopies. I thank you for the referral. Job ID: [id number] DocumentID: [id number] Dictated Date: 01/21/2020 11:17:45 Global Account Director Date: 01/21/2020 14:06:49 Dictated By: NASIR LAY MD
== END 2020-01-21 09:00 | disposition home or self-care (01) ==
LOC: ENDO 07:02
PROVIDERS: ATTEND Internal Medicine
DX: Z12.11 Encounter for screening for malignant neoplasm of colon (principal); K57.30 Diverticulosis of large intestine without perforation or abscess without bleeding; K63.5 Polyp of colon; E11.9 Type 2 diabetes mellitus without complications; M17.11 Unilateral primary osteoarthritis, right knee; Z80.0 Family history of malignant neoplasm of digestive organs; Z86.010 Personal history of colon polyps; Z83.71 Family history of colonic polyps

== ENCOUNTER → 2020-04-07 | Outpatient (CLI) | payer BC ==
[~2020-04-07] MED LIST changes: +CATHETER FLUSH 10 ML SYR IV PRN; +HOLD METFORMIN - RECEIVED CONTRAST 20 ML VIAL IV SCH; +IOHEXOL 350 MG/ML 100 ML (OMNIPAQUE 350) VIAL IV ONE; +NS 100 ML (IVPB) BAG IV ONE
[2020-04-07 07:29] LABS: BUN/CREATININE RATIO 24; CREATININE SERUM 0.78 MG/DL (0.60-1.30); GFR ESTIMATED > 60
--- NOTE | 2020-04-07 09:25 | Diagnostic Imaging Report ---
PROCEDURE: CT neck soft tissue with contrast. TECHNIQUE: Multiple contiguous axial images were obtained through the neck after the administration of contrast. Auto Exposure Controls were utilized during the CT exam to meet ALARA standards for radiation dose reduction. INDICATION: Right-sided pain for one month from the ear to the mandible. COMPARISON: None. FINDINGS: The posterior nasopharynx and oropharynx demonstrate appropriate symmetry. There is no displacement of the parapharyngeal fat planes. There is no abnormal process evident within the prevertebral or retropharyngeal space. There is no evidence of abnormal thickening of the epiglottis or aryepiglottic folds. The vocal folds appear symmetric. The parotid, submandibular and thyroid gland are unremarkable. No pathologically enlarged cervical lymph nodes are evident based on size criteria. No focal inflammatory changes are demonstrated. No soft tissue mass or fluid collection demonstrated. The vascular structures the neck demonstrate no evidence of high-grade stenosis on this nondedicated exam. The visualized lung apices are clear. The visualized intracranial contents demonstrate no evidence of pathologic intracranial enhancement or intracranial mass effect. Visualized orbital contents are unremarkable. The visualized paranasal sinuses are clear. The mastoids and middle ears are clear. No acute osseous abnormality in the cervical spine. IMPRESSION: 1. No abnormalities are seen in the parotid gland or area of pain in the area of the right ear. No abnormal enhancement or inflammation. 2. Appropriate symmetry of the aerodigestive tract. Dictated by: Dictated on workstation # [id number]
== END ==
LOC: RAD 06:48
PROVIDERS: ATTEND Nurse Practitioner Family
DX: K11.8 Other diseases of salivary glands (principal); R51 Headache
CPT/HCPCS: 36415; 70491; 82565; 84520

== ENCOUNTER → 2021-01-06 | Outpatient (CLI) | payer BC ==
[~2021-01-06] MED LIST changes: -CATHETER FLUSH 10 ML SYR IV PRN; -HOLD METFORMIN - RECEIVED CONTRAST 20 ML VIAL IV SCH; -IOHEXOL 350 MG/ML 100 ML (OMNIPAQUE 350) VIAL IV ONE; -NS 100 ML (IVPB) BAG IV ONE
--- NOTE | 2021-01-06 14:34 | Diagnostic Imaging Report ---
INDICATION: Routine screening. COMPARISON: No prior mammograms are available for comparison. TECHNIQUE: 2D and 3D bilateral screening mammography was performed with CAD. FINDINGS: Both breasts are heterogeneously dense, limiting the sensitivity of mammography. No mass is identified. Numerous microcalcifications in the left breast are identified. There is a grouping in the upper and outer aspect of the left breast at mid to anterior depth. There are more loosely dispersed calcifications elsewhere in the left breast in the midportion as well as more laterally. The axillae are unremarkable. IMPRESSION: Numerous left breast calcifications. Magnification views are recommended for further evaluation. ACR BI-RADS Category 0: Incomplete. (Needs additional imaging evaluation). Result letter will be mailed to the patient. Note: At least 10% of breast cancer is not imaged by mammography. Dictated by: Dictated on workstation # [id number]
== END ==
LOC: RAD 08:00
PROVIDERS: ATTEND Family Medicine
DX: Z12.31 Encounter for screening mammogram for malignant neoplasm of breast (principal); R92.1 Mammographic calcification found on diagnostic imaging of breast
CPT/HCPCS: 77063; 77067

== ENCOUNTER → 2021-01-20 | Outpatient (CLI) | payer BC ==
[~2021-01-20] VITALS: Ht 167.6 cm; Wt 95.0 kg
[~2021-01-20] MED LIST changes: +LIDOCAINE 1% INJ 20 ML 20 ML VIAL INJ ONE
--- NOTE | 2021-01-20 10:29 | Diagnostic Imaging Report ---
Indication: Left breast calcifications. Patient presents for additional views. Unilateral left 2-D and 3-D diagnostic mammography was performed and compared with prior exam from 01/06/2021. CC and ML magnification views as well as conventional 90 degree lateral views were performed. There is a grouping of calcifications in the upper and outer aspect of the left breast anterior depth. These appear to be in a segmental distribution. Calcifications appear to be primarily round but are numerous. No mass is identified. IMPRESSION: BI-RADS Category 4 Segmental grouping of microcalcifications in the upper and outer aspect of the left breast anterior depth. Further evaluation with tissue sampling is recommended. These would be amenable to stereotactic biopsy approach. ACR BI-RADS Category 4: Suspicious abnormality. Result letter will be mailed to the patient. Note: At least 10% of breast cancer is not imaged by mammography. Dictated by: Dictated on workstation # [id number]
--- NOTE | 2021-01-20 15:07 | Diagnostic Imaging Report ---
INDICATION: Left breast calcifications. Patient presents for stereotactic biopsy. DETAILS OF THE PROCEDURE: The patient was brought to the stereotactic suite and placed anteriorly in a sitting upright position. The left breast was positioned lateral medial. Calcifications in the upper outer left breast were stereotactically targeted. The lateral left breast was prepped and draped in the usual sterile fashion. A small amount of 1% lidocaine was utilized for local anesthesia. An 8 gauge vacuum-assisted needle was advanced and placed with its tip per stereotactic coordinates. A total of four core biopsies was obtained with the vacuum-assisted device. Specimen radiograph demonstrates numerous microcalcifications within specimens labeled #2 and 3. A marker clip was deployed. The needle was removed. Hemostasis was obtained using manual compression. The patient tolerated the procedure well and was sent for a post procedure mammogram in satisfactory condition. All images were viewed on a dedicated workstation. IMPRESSION: Successful stereotactic biopsy of left breast calcifications in the upper and outer aspect. Pathology results are pending. Dictated by: Dictated on workstation # [id number]
== END ==
LOC: RAD 09:15
PROVIDERS: ATTEND Family Medicine
DX: N63.20 Unspecified lump in the left breast, unspecified quadrant (principal); R92.0 Mammographic microcalcification found on diagnostic imaging of breast
CPT/HCPCS: 19081; 77065; A4648; G0279

== ENCOUNTER → 2021-05-12 | Outpatient (CLI) | payer BC ==
[~2021-05-12] MED LIST changes: -LIDOCAINE 1% INJ 20 ML 20 ML VIAL INJ ONE
--- NOTE | 2021-05-12 09:39 | Diagnostic Imaging Report ---
PROCEDURE: MRI lumbar spine. TECHNIQUE: Multiplanar, multisequence MRI of the lumbar spine was performed without contrast. INDICATION: Chronic low back pain. Recent lifting injury. COMPARISON: None. FINDINGS: There are 5 lumbar-type vertebral bodies for the purposes of this report. Normal alignment. Vertebral body heights preserved. Mild Modic type II degenerative endplate changes at L5-S1. No abnormal signal in the conus which terminates at L1. Normal morphology of the cauda equina. Visualized pelvis is intact. L1-L2: Mild facet arthropathy. No spinal canal, lateral recess or neural foraminal narrowing. L2-L3: Moderate facet arthropathy and ligamentous hypertrophy. Mild annular disc bulging. Mild spinal canal and bilateral lateral recess narrowing. No neural foraminal narrowing. L3-L4: Right paracentral disc protrusion results in moderate right lateral recess narrowing. Facet arthropathy and ligamentous hypertrophy also results in mild spinal canal narrowing. Mild bilateral neural foraminal narrowing. L4-L5: Left paracentral disc protrusion results in moderate left lateral recess narrowing. Facet arthropathy and ligamentous hypertrophy also contribute to mild spinal canal narrowing. Moderate bilateral neural foraminal narrowing. L5-S1: No spinal canal or lateral recess narrowing. Disc space height loss and facet arthropathy result in severe bilateral neural foraminal narrowing. IMPRESSION: 1. Spondylotic changes, including small disc protrusions, result in high-grade lateral recess narrowing on the right at L3-L4 and on the left at L4-L5. No high-grade spinal canal stenosis. 2. Multilevel high-grade neural foraminal narrowing detailed above. 3. No acute osseous findings. Dictated by: Dictated on workstation # [id number]
== END ==
LOC: RAD 07:42
PROVIDERS: ATTEND Nurse Practitioner Family
DX: M47.817 Spondylosis without myelopathy or radiculopathy, lumbosacral region (principal)
CPT/HCPCS: 72148

== ENCOUNTER → 2021-08-02 | Outpatient (CLI) | payer BC ==
--- NOTE | 2021-08-02 14:07 | Diagnostic Imaging Report ---
INDICATION: Left breast calcifications, status post stereotactic biopsy with benign result. This study is performed for followup. COMPARISON: Correlation is made with the prior mammograms from 01/06/2021 and 01/20/2021. TECHNIQUE: Unilateral left 2D and 3D diagnostic mammography was performed with CAD. FINDINGS: The left breast remains heterogeneously dense, limiting the sensitivity of mammography. Calcifications in the upper outer left breast appear stable. There is a biopsy marker clip adjacent to the calcifications. No new mass or new calcifications are seen. The left axilla is unremarkable. IMPRESSION: Stable left mammogram with no mammographic features suspicious for malignancy. ACR BI-RADS Category 2: Benign findings. Result letter will be mailed to the patient. Note: At least 10% of breast cancer is not imaged by mammography. Dictated by: Dictated on workstation # [id number]
== END ==
LOC: RAD 13:45
PROVIDERS: ATTEND Nurse Practitioner Family
DX: R92.1 Mammographic calcification found on diagnostic imaging of breast (principal); Z98.890 Other specified postprocedural states
CPT/HCPCS: 77065; G0279

== ENCOUNTER → 2022-02-04 | Outpatient (CLI) | payer BC ==
[~2022-02-04] MED LIST changes: +ETAN50PE3 SQ
--- NOTE | 2022-02-04 15:30 | Diagnostic Imaging Report ---
CLINICAL INDICATIONS: Patient with pain and radiculopathy involving bilateral lower extremities and numbness. EXAM: MRI lumbar spine without contrast. Sequences include sagittal T2, sagittal T1, sagittal T2 fat-sat, and axial T2. COMPARISON: MRI of the lumbar spine without contrast dated 05/12/2021. FINDINGS: There is no acute lumbar spine fracture or dislocation. There is Modic type II degenerative signal changes involving the L5-S1 endplates. The visualized portions of the distal thoracic spinal cord, conus medullaris, and cauda equina nerve roots are unremarkable. The conus medullaris tip is seen at the lower L1 vertebral body level. There is no significant paraspinal soft tissue abnormality. T12-L1: Unremarkable. L1-L2: Unremarkable. L2-L3: There is mild bilateral facet arthropathy again seen with degenerative facet effusion. There is minimal diffuse disk bulge again seen. There is no significant central canal or neural foramen narrowing. L3-L4: There is severe bilateral facet arthropathy/hypertrophy and degenerative facet effusions on right side. There is no significant central canal narrowing. There is no significant neural foramen narrowing. L4-L5: There is severe bilateral facet arthropathy/hypertrophy. There is mild diffuse disk bulge with small posterior disk herniation component. This has not significantly changed in the interim. There is stable moderate left neural foramen narrowing and mild right neural foramen narrowing. There is mild central canal narrowing which is not significantly changed. L5-S1: There is a diffuse disk bulge with moderate loss of disk space height. There is mild to moderate facet arthropathy. There is no significant central canal stenosis. There is moderate left neural foramen narrowing and moderate to severe right neural foramen narrowing. IMPRESSION: There is multilevel lumbar spine degenerative disk disease which has not significantly changed in interim, as described above. Dictated by: Dictated on workstation # [id number]
== END ==
LOC: RAD 13:15
PROVIDERS: ATTEND Physical Medicine & Rehabilitation
DX: M47.26 Other spondylosis with radiculopathy, lumbar region (principal); M47.817 Spondylosis without myelopathy or radiculopathy, lumbosacral region; M51.16 Intervertebral disc disorders with radiculopathy, lumbar region; M51.27 Other intervertebral disc displacement, lumbosacral region; M51.37 Other intervertebral disc degeneration, lumbosacral region; M48.061 Spinal stenosis, lumbar region without neurogenic claudication; M48.07 Spinal stenosis, lumbosacral region; M43.16 Spondylolisthesis, lumbar region
CPT/HCPCS: 72148

== ENCOUNTER → 2022-09-23 | Outpatient (CLI) | payer BC ==
--- NOTE | 2022-09-23 15:46 | Diagnostic Imaging Report ---
MRI CERVICAL SPINE W/O CONTRAS Date: 09/23/2022 2:26 PM Indication: Neck pain and shoulder pain with left arm numbness. Comparison: CT of the neck on 04/07/2020.. Technique: Multiplanar multisequence MRI of the cervical spine was performed without intravenous contrast administration. Findings: Straightening of the cervical lordosis. Mild anterolisthesis of C3 on C4 and C7 on T1. No acute fracture. The intervertebral discs are normal. Bone marrow signal intensity is normal. The cervical cord is normal in size and signal intensity. The visualized portions of the brainstem and cerebellum are normal in signal intensity. No soft tissue abnormality. Normal vertebral artery flow voids. C2-C3: No significant spinal canal stenosis or neural foraminal narrowing. C3-C4: Disc osteophyte complex. Uncovertebral and facet arthropathy. Mild spinal canal narrowing. Mild left neural foraminal narrowing. No right neural foraminal narrowing.. C4-C5: No significant spinal canal stenosis or neural foraminal narrowing. C5-C6: Disc osteophyte complex causing mild mass effect on the spinal cord. Uncovertebral and facet arthropathy. Moderate to severe spinal canal stenosis. Severe left and moderate right neural foraminal narrowing.. C6-C7: No significant spinal canal stenosis or neural foraminal narrowing. C7-T1: No significant spinal canal stenosis or neural foraminal narrowing. IMPRESSION: Multilevel degenerative changes of the cervical spine described level by level above, worst at C5-C6. C5-C6: Disc osteophyte complex causing mild mass effect on the spinal cord. Uncovertebral and facet arthropathy. Moderate to severe spinal canal stenosis. Severe left and moderate right neural foraminal narrowing.. Dictated by: Dictated on workstation # [id number]
== END ==
LOC: RAD 13:28
PROVIDERS: ATTEND Orthopaedic Surgery Orthopaedic Surgery of the Spine
DX: M47.22 Other spondylosis with radiculopathy, cervical region (principal); M48.02 Spinal stenosis, cervical region; M25.78 Osteophyte, vertebrae
CPT/HCPCS: 72141